=== PATIENT | female | born 1940 | race Caucasian/White ===

== ENCOUNTER 2016-03-23 17:22 | Inpatient (IN) | payer MEDICARE, BC ==
[2016-03-23] MEDS ORDERED: SODIUM CHLORIDE 0.9% 500 ML IV STA (17:47)
[2016-03-23 17:53] LABS: Glucose,Whole Blood 105 mg/dL (75-99)
--- NOTE | 2016-03-23 18:00 | ED ---
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 Patient comes in today because daughter was talking to her on the phone at about 3:30. The patient started complaining that she was having severe pain in her left arm and left groin area. Patient stated that the arms started to shake. Daughter was not able to see her right away when she arrived at the house at patient was unable to control the left arm with any accuracy at all. Patient also has some stuttering in her speech which the daughter states is not normal at all. Patient denied a headache patient denied any visual disturbance but she states that she normally cannot see very good at all. Patient denies any recent fever or chills. Patient states prior to the episode of the pain she was feeling fine. Patient denies any chest pain or palpitations or difficulty breathing. Patient denies any abdominal pain patient denies nausea vomiting diarrhea. Patient still cannot control her left arm or left leg with any kind of fine movement. - Related Data Home Medications Medication Instructions Recorded Confirmed Aspirin EC [Ecotrin] 325 tab PO DAILY 05/13/15 03/23/16 Atorvastatin [Lipitor] 80 mg PO DAILY 05/13/15 03/23/16 Clopidogrel [Plavix] 75 mg PO DAILY 05/13/15 03/23/16 Glimepiride [Amaryl] 4 mg PO BID 05/13/15 03/23/16 Metoprolol Tartrate [Lopressor] 50 mg PO BID 05/13/15 03/23/16 Nitroglycerin Sl Tabs [Nitrostat] 0.4 mg SUBLINGUAL Q5M PRN 05/13/15 03/23/16 Sennosides [Senokot] 8.6 mg PO BID PRN 07/28/15 03/23/16 Docusate [Colace] 100 mg PO BID PRN 03/23/16 03/23/16 Lisinopril 40 mg PO DAILY 03/23/16 03/23/16 metFORMIN HCL [Glucophage] 250 mg PO BID 03/23/16 03/23/16 Previous Rx's Medication Instructions Recorded Furosemide [Lasix] 40 mg PO DAILY #30 tab 07/30/15 Allergies Allergy/AdvReac Type Severity Reaction Status Date / Time adhesive tape Allergy Rash/Hives Verified 03/23/16 17:33 Penicillins Allergy Swelling Verified 03/23/16 17:33 Review of Systems ROS Statement: Those systems with pertinent positive or pertinent negative responses have been documented in the HPI. ROS Other: All systems not noted in ROS Statement are negative. Past Medical History Past Medical History: Coronary Artery Disease (CAD), Cancer, Diabetes Mellitus, Hypertension, Myocardial Infarction (NM), Osteoarthritis (OA) Additional Past Medical History / Comment(s): BACK PAIN; 05/13/15 stent to the Left main and SVG to the Diagonal. 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 Last Myocardial Infarction Date:: 05/13/15 History of Any Multi-Drug Resistant Organisms: None Reported Past Surgical History: Cholecystectomy, Coronary Bypass/CABG, Heart Catheterization With Stent, Hysterectomy, Joint Replacement, Orthopedic Surgery Additional Past Surgical History / Comment(s): 1996 CAGB Past Anesthesia/Blood Transfusion Reactions: No Reported Reaction Date of Last Stent Placement:: 05/13/15 Past Psychological History: No Psychological Hx Reported, Anxiety Smoking Status: Never smoker Past Alcohol Use History: Occasional Past Drug Use History: None Reported - Past Family History Father Family Medical History: Cancer, Coronary Artery Disease (CAD), Myocardial Infarction (NM) Mother Family Medical History: Cancer General Exam - General Exam Comments Initial Comments: GENERAL: Patient is well-developed and well-nourished. Patient is nontoxic and well- hydrated and is in no acute distress. ENT: Neck is soft and supple. No significant lymphadenopathy is noted. Oropharynx is clear. Moist mucous membranes. Neck has full range of motion without eliciting any pain. EYES: The sclera were anicteric and conjunctiva were pink and moist. Extraocular of the right eye are intact and pupils. Eyelids were unremarkable. PULMONARY: Unlabored respirations. Good breath sounds bilaterally. No audible rales rhonchi or wheezing was noted. CARDIOVASCULAR: There is a regular rate and rhythm without any murmurs gallops or rubs. ABDOMEN: Soft and nontender with normal bowel sounds. No palpable organomegaly was noted. There is no palpable pulsatile mass. SKIN: Skin is clear with no lesions or rashes and otherwise unremarkable. NEUROLOGIC: Patient is alert and oriented x3. Cranial nerves II through XII are grossly intact. Motor and sensory are also intact. Patient's speech is stuttering in nature but she is able to complete sentences and you are able to understand her.. Symmetrical smile. Finger to nose testing is significantly off with her left hand and she cannot even attempt to heal to clark with her left leg. MUSCULOSKELETAL: Normal extremities with adequate strength and full range of motion. No lower extremity swelling or edema. No calf tenderness. LYMPHATICS: No significant lymphadenopathy is noted PSYCHIATRIC: Normal psychiatric evaluation. Limitations: no limitations Course Vital Signs 03/23/16 03/23/16 03/23/16 17:29 17:45 18:00 Temperature 97.8 F Pulse Rate 100 95 95 Respiratory 20 20 18 Rate Blood Pressure 218/93 157/69 170/74 O2 Sat by Pulse 100 95 97 Oximetry 03/23/16 03/23/16 18:15 18:30 Temperature Pulse Rate 92 89 Respiratory 16 17 Rate Blood Pressure 136/63 151/64 O2 Sat by Pulse 94 L 94 L Oximetry Medical Decision Making - Medical Decision Making Patient was on the CAT scan and she had a seizure that lasted approximately a minute and a half gave her 2 of Ativan. The seizure stopped shortly after the Ativan was administered EKG shows a sinus tachycardia at 106 bpm WA interval 158 QRSs 106 QT interval 342 QTC is 454. There is no ST segment elevation or depression or T wave abnormalities are noted I spoke with the neuro interventional states he did not think TPA was indicated because the patient's heart vessels were open. CAT scan of the brain did show old infarct but no new infarct or new bleed. Patient remained extremity fatigue after the Ativan and the seizure. - Lab Data Result diagrams: 03/23/16 17:54 03/23/16 17:54 Lab Results 03/23/16 03/23/16 03/23/16 Range/Units 17:45 17:54 17:54 WBC 10.7 H (3.8-10.6) k/uL RBC 5.05 (3.80-5.40) m/uL Hgb 13.1 (11.4-16.0) gm/dL Hct 41.1 (34.0-46.0) % MCV 81.3 (80.0-100.0) fL MCH 25.9 (25.0-35.0) pg MCHC 31.9 (31.0-37.0) g/dL RDW 15.0 (11.5-15.5) % Plt Count 299 (150-450) k/uL Neutrophils % 72 % Lymphocytes % 10 % Monocytes % 10 % Eosinophils % 5 % Basophils % 1 % Neutrophils # 7.7 (1.3-7.7) k/uL Lymphocytes # 1.1 (1.0-4.8) k/uL Monocytes # 1.1 H (0-1.0) k/uL Eosinophils # 0.6 (0-0.7) k/uL Basophils # 0.1 (0-0.2) k/uL Hypochromasia Slight PT (9.0-12.0) sec INR (<1.1) APTT (22.0-30.0) sec Sodium (137-145) mmol/L Potassium (3.5-5.1) mmol/L Chloride (98-107) mmol/L Carbon Dioxide (22-30) mmol/L Anion Gap mmol/L BUN (7-17) mg/dL Creatinine (0.52-1.04) mg/dL Est GFR (MDRD) Af Amer (>60 ml/min/1.73 sqM) Est GFR (MDRD) Non-Af (>60 ml/min/1.73 sqM) Glucose (74-99) mg/dL POC Glucose (mg/dL) 105 H (75-99) mg/dL POC Glu Ui Engineer ID Beatriz Torres Calcium (8.4-10.2) mg/dL Total Bilirubin (0.2-1.3) mg/dL AST (14-36) U/L ALT (9-52) U/L Alkaline Phosphatase (38-126) U/L Total Creatine Kinase 52 (30-135) U/L CK-MB (CK-2) 2.4 (0.0-2.4) ng/mL CK-MB (CK-2) Rel Index 4.6 Troponin I 0.026 (0.000-0.034) ng/mL Total Protein (6.3-8.2) g/dL Albumin (3.5-5.0) g/dL 03/23/16 03/23/16 Range/Units 17:54 17:54 WBC (3.8-10.6) k/uL RBC (3.80-5.40) m/uL Hgb (11.4-16.0) gm/dL Hct (34.0-46.0) % MCV (80.0-100.0) fL MCH (25.0-35.0) pg MCHC (31.0-37.0) g/dL RDW (11.5-15.5) % Plt Count (150-450) k/uL Neutrophils % % Lymphocytes % % Monocytes % % Eosinophils % % Basophils % % Neutrophils # (1.3-7.7) k/uL Lymphocytes # (1.0-4.8) k/uL Monocytes # (0-1.0) k/uL Eosinophils # (0-0.7) k/uL Basophils # (0-0.2) k/uL Hypochromasia PT 10.0 (9.0-12.0) sec INR 1.0 (<1.1) APTT 21.6 L (22.0-30.0) sec Sodium 140 (137-145) mmol/L Potassium 5.4 H (3.5-5.1) mmol/L Chloride 100 (98-107) mmol/L Carbon Dioxide 24 (22-30) mmol/L Anion Gap 16 mmol/L BUN 41 H (7-17) mg/dL Creatinine 1.07 H (0.52-1.04) mg/dL Est GFR (MDRD) Af Amer >60 (>60 ml/min/1.73 sqM) Est GFR (MDRD) Non-Af 50 (>60 ml/min/1.73 sqM) Glucose 100 H (74-99) mg/dL POC Glucose (mg/dL) (75-99) mg/dL POC Glu Ui Engineer ID Calcium 10.1 (8.4-10.2) mg/dL Total Bilirubin 0.9 (0.2-1.3) mg/dL AST 28 (14-36) U/L ALT 48 (9-52) U/L Alkaline Phosphatase 99 (38-126) U/L Total Creatine Kinase (30-135) U/L CK-MB (CK-2) (0.0-2.4) ng/mL CK-MB (CK-2) Rel Index Troponin I (0.000-0.034) ng/mL Total Protein 7.7 (6.3-8.2) g/dL Albumin 4.7 (3.5-5.0) g/dL Disposition Clinical Impression: Cerebrovascular accident, Seizure Disposition: ADMITTED IP TO THIS HOSP Referrals: Jethro Troy DO [Primary Care Provider] - 1-2 days Time of Disposition: 19:04
[2016-03-23 18:16] LABS: ALT 48 U/L (9-52); AST 28 U/L (14-36); Alkaline Phosphatase 99 U/L (38-126); Anion Gap 16 mmol/L; Blood Urea Nitrogen 41 mg/dL (7-17); Calcium 10.1 mg/dL (8.4-10.2); Carbon Dioxide 24 mmol/L (22-30); Chloride 100 mmol/L (98-107); Glucose 100 mg/dL (74-99); Non-African American GFR(MDRD) 50 (>60 ml/min/1.73 sqM); Potassium 5.4 mmol/L (3.5-5.1); Sodium 140 mmol/L (137-145); Total Bilirubin 0.9 mg/dL (0.2-1.3); Total Protein 7.7 g/dL (6.3-8.2)
[2016-03-23 18:20] LABS: Basophils # (A) 0.1 k/uL (0-0.2); Basophils % (A) 1 %; CH 26.2; CHCM 32.4; Eosinophils # (A) 0.6 k/uL (0-0.7); Eosinophils % (A) 5 %; HCT 41.1 % (34.0-46.0); HDW 3.26; HGB 13.1 gm/dL (11.4-16.0); Hypochromasia Slight; Luc # (Auto) 0.24; Luc % (Auto) 2; Lymphocytes # (A) 1.1 k/uL (1.0-4.8); Lymphocytes % (A) 10 %; MCH 25.9 pg (25.0-35.0); MCHC 31.9 g/dL (31.0-37.0); MCV 81.3 fL (80.0-100.0); Mean Platelet Volume 7.6; Monocytes # (A) 1.1 k/uL (0-1.0); Monocytes % (A) 10 %; Neutrophils # (A) 7.7 k/uL (1.3-7.7); Neutrophils % (A) 72 %; RBC 5.05 m/uL (3.80-5.40); WBC 10.7 k/uL (3.8-10.6); WBC (Perox) 11.16
[2016-03-23] MEDS ORDERED: LORazepam 2 MG/ML SYRINGE IV STA (18:35)
--- NOTE | 2016-03-23 18:38 | CT ---
EXAMINATION TYPE: CT brain wo con DATE OF EXAM: 03/23/2016 6:31 PM COMPARISON: May 15, 2015 HISTORY: Confusion, tremors, seizure. CT DLP: 2238.00 mGycm. Automated exposure control for dose reduction was used. FINDINGS: There is no acute intracranial hemorrhage, mass effect, or midline shift identified. There is a large region of right MCA territory encephalomalacia, consistent with the infarction seen on the prior study April 2015. The ventricles and sulci are within normal limits in size. The globes are intact and the visualized sinuses are clear. IMPRESSION: 1. NO ACUTE PROCESS. 2. LARGE ZONE OF ENCEPHALOMALACIA CONSISTENT WITH OLD INFARCTION IN THE VASCULAR TERRITORY OF THE RIG HT MIDDLE CEREBRAL ARTERY.
[2016-03-23 18:40] LABS: Creatine Kinase MB 2.4 ng/mL (0.0-2.4); Troponin I 0.026 ng/mL (0.000-0.034)
[2016-03-23 18:43] LABS: Partial Thromboplastin Time 21.6 sec (22.0-30.0)
--- NOTE | 2016-03-23 18:57 | CT ---
EXAMINATION TYPE: CT ANGIO HEAD NECK DATE OF EXAM: 03/23/2016 6:39 PM HISTORY: Stroke CT DLP: 423 mGycm. Automated exposure control for dose reduction was used. TECHNIQUE: Departmental CTA protocol with multiplanar sequences and multiple 3-D reconstructions. FINDINGS: Imaging was obtained contiguously from the level of the AP window through the vertex of the skull. There are widespread atherosclerotic calcifications throughout all visualized arterial anatomy, with associated tortuosity of the bilateral common carotid arteries and the left internal carotid artery. The bilateral vertebral arteries are patent throughout their cervical course, with the right vertebra l artery being dominant in caliber. The proximal right and left internal carotid arteries show evidence of hemodynamically significant st enoses with prominent bilateral plaque formation. The mid and distal ICA are bilaterally widely paten t. Intracranial carotid and vertebrobasilar arterial systems are widely patent. The venous structures ar e unremarkable. No focal intracranial findings. IMPRESSION: 1. NO DEFINITE ACUTE PROCESS. 2. BILATERAL SIGNIFICANT APPEARING PROXIMAL ICA STENOSES.
[2016-03-23] MEDS ORDERED: SODIUM CHLORIDE 0.9% 500 ML IV ONE (19:31)
--- NOTE | 2016-03-23 20:24 | XR ---
EXAMINATION TYPE: XR chest 2V DATE OF EXAM: 03/23/2016 7:56 PM COMPARISON: July 28, 2015 HISTORY: Altered mental status TECHNIQUE: Frontal and lateral views of the chest are obtained. FINDINGS: There is a coarse reticular pattern of increased density throughout the lung parenchyma, mi ldly obscuring the pulmonary vasculature, consistent with chronic interstitial lung change. Pattern i s similar to the prior study. There is no focal air space opacity, pleural effusion, or pneumothorax seen. The cardiac silhouette size is moderately enlarged, similar to the prior study. The osseous structures are intact. IMPRESSION: NO ACUTE PROCESS.
--- NOTE | 2016-03-23 22:19 | MR ---
EXAMINATION TYPE: MR brain wo/w con DATE OF EXAM: 03/23/2016 10:04 PM COMPARISON: NONE HISTORY: r/o cva pt. weak, unsteady, somewhat confused, very claustrophobic used fast scan protocol CONTRAST: Standard multiplanar, multisequence MRI departmental protocol utilizing 15 mL intravenous MultiHance gadolinium contrast. FINDINGS: There is a large area of increased signal on the T2 images involving the right posterior te mporal lobe extending into the right occipital lobe consistent with an old cortical infarct. There is slight enlargement of the occipital horn right lateral ventricle. There is no mass effect nor midlin e shift. There is no sign of intracranial hemorrhage. The brainstem is intact. There are scattered fo ci of increased signal at the mackay-white matter junction of both cerebral hemispheres that measure up to 5 mm. Total number is less than 10. Corpus callosum appears normal. The contrast images show no p athologic enhancement. Sella turcica appears normal. IMPRESSION: Large old right posterior temporal lobe cortical infarct. No evidence of hemorrhage. Scattered small foci in the white matter both cerebral hemispheres consistent with small vessel ische fidelia. No acute intracranial abnormality seen.
[2016-03-24 01:07] LABS: Glucose,Whole Blood 213 mg/dL (75-99)
[2016-03-24 01:13] VITALS: BMI 34.2
[2016-03-24] MEDS ORDERED: NITROGLYCERIN SL TABS 0.4 MG TAB SUBLINGUAL PRN (01:59)
[2016-03-24] MEDS ORDERED: DOCUSATE 100 MG CAP PO PRN (01:59)
[2016-03-24] MEDS ORDERED: LORazepam 2 MG/ML SYRINGE IV PRN (02:02)
[2016-03-24] MEDS: GLIMEPIRIDE 2 MG TAB PO SCH ×3 (02:58→20:35)
[2016-03-24] MEDS: METOPROLOL TARTRATE 50 MG TAB PO SCH ×3 (02:59→20:35)
[2016-03-24] MEDS: SODIUM CHLORIDE 0.9% 1,000 ML IV SCH (03:00)
[2016-03-24 04:54] LABS: CHCM 32.1; HDW 3.43; HGB 11.4 gm/dL (11.4-16.0); Hypochromasia Slight; MCH 25.8 pg (25.0-35.0); MCHC 31.8 g/dL (31.0-37.0); MCV 81.2 fL (80.0-100.0); Mean Platelet Volume 8.1; Poikilocytosis Slight; RBC 4.43 m/uL (3.80-5.40); RDW 15.2 % (11.5-15.5)
[2016-03-24 05:01] LABS: Anion Gap 11 mmol/L; Blood Urea Nitrogen 35 mg/dL (7-17); Calcium 9.4 mg/dL (8.4-10.2); Carbon Dioxide 24 mmol/L (22-30); Chloride 103 mmol/L (98-107); Glucose 147 mg/dL (74-99); Magnesium 2.1 mg/dL (1.6-2.3); Non-African American GFR(MDRD) 54 (>60 ml/min/1.73 sqM); Phosphorous 3.9 mg/dL (2.5-4.5); Potassium 4.7 mmol/L (3.5-5.1); Sodium 138 mmol/L (137-145)
--- NOTE | 2016-03-24 07:33 | XR ---
EXAMINATION TYPE: XR chest 1V portable DATE OF EXAM: 03/24/2016 6:29 AM COMPARISON: Prior chest x-ray 23 March 2016 HISTORY: Pulmonary edema TECHNIQUE: Single frontal view of the chest is obtained. FINDINGS: Patient is post median sternotomy. Heart is enlarged. Interstitium is increased. No pneumo thorax or pleural effusion. IMPRESSION: Cardiomegaly. There may be a component of pulmonary venous hypertension and interstitial edema, follow-up recommended.
[2016-03-24] MEDS ORDERED: ASPIRIN 325 MG TAB PO SCH (09:00)
[2016-03-24] MEDS ORDERED: SENNOSIDES 8.6 MG TAB PO PRN (09:00)
[2016-03-24] MEDS: LISINOPRIL 20 MG TAB PO SCH (09:05)
[2016-03-24] MEDS: CLOPIDOGREL 75 MG TAB PO SCH (09:06)
[2016-03-24] MEDS: ATORVASTATIN 80 MG TAB PO SCH (09:06)
[2016-03-24] MEDS: FUROSEMIDE 40 MG TAB PO SCH (09:06)
--- NOTE | 2016-03-24 10:34 | US ---
EXAMINATION TYPE: US carotid duplex BILAT DATE OF EXAM: 03/24/2016 8:04 AM COMPARISON: 04/2015, Prior carotid Doppler duplex, carotid angiogram CT 23 March 2016 CLINICAL HIST ORY: Stenosis. CVA EXAM MEASUREMENTS: RIGHT: Peak Systolic Velocity (PSV) cm/sec ----- Right CCA: 83.4 ----- Right ICA: 118.1 ----- Right ECA: 201.6 ICA/CCA ratio: 1.4 RIGHT: End Diastole cm/sec ----- Right CCA: 18.0 ----- Right ICA: 17.6 ----- Right ECA: 24.2 LEFT: Peak Systolic Velocity (PSV) cm/sec ----- Left CCA: 60.5 ----- Left ICA: 282.2 ----- Left ECA: 503.9 ICA/CCA ratio: 4.7 LEFT: End Diastole cm/sec ----- Left CCA: 16.0 ----- Left ICA: 36.5 ----- Left ECA: 74.4 VERTEBRALS (direction of flow): Right Vertebral: Antegrade Left Vertebral: Antegrade TECHNOLOGIST IMPRESSION: ICU patient with heavy breathing and pulsatile vessels made doppler wavefo shanna a challenge to obtain Heterogenous plaque seen with significant stenosis on left proximal ICA, also increased velocities seen within left ECA. Grayscale, color Doppler, spectral Doppler imaging performed of the carotid arteries. There is extens mildred atheromatous plaque within the carotid bulbs, proximal internal carotid arteries. Waveform analys is within the proximal internal carotid artery and the left shows loss of the systolic window, spectr al broadening. IMPRESSION: Hemodynamic significant stenosis is again noted as described on previous carotid Doppler duplex, stenosis correlates to approximately 70% diameter stenosis or greater by Doppler criteria, a nd indirect measurement of carotid stenosis. Criteria for Assigning % of Stenosis / Diameter reduction (Estimation based on the indirect measurements of the internal carotid artery velocities (ICA PSV). 1. Normal (no stenosis)=ICA PSV < 125 cm/s: ratio < 2.0: ICA EDV<40 cm/s. 2. Less than 50% stenosis=ICA PSV < 125 cm/s: ratio < 2.0: ICA EDV<40 cm/s. 3. 50 to 69% stenosis=ICA PSV of 125 to 230 cm/s: ration 2.0 ? 4.0: ICA EDV 40-100 cm/s. 4. Greater than 70% stenosis to near occlusion= ICA PSV > 230 cm/s: ratio > 4.0: ICA EDV > 100 cm/s. 5. Near occlusion= ICA PSV velocities may be low or undetectable: variable ratio and ICA EDV. 6. Total occlusion=unable to detect flow.
[2016-03-24 11:26] LABS: Hemoglobin A1C 7.4 % (4.2-6.1)
[2016-03-24 13:17] LABS: Glucose,Whole Blood 168 mg/dL (75-99)
[2016-03-24] MEDS: INSULIN LISPRO (humaLOG) 300 UNIT/3 ML VIAL SQ SCH ×3 (13:37→20:35)
--- NOTE | 2016-03-24 15:30 | P.HPIM ---
History of Present Illness H&P Date: 03/24/16 Chief Complaint: Neuro symptoms Patient is a 75-year-old white female, patient of Dr. 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 Patient presented to the emergency department with complaints of severe pain in left arm and left groin area associated with tremors and stuttering and speech. Apparently patient was on the phone with her daughter at approximately 3:30 PM when the symptoms started. No history of headache, visual disturbance, recent illness, fever or chills. No history of chest pain or shortness of breath. No history of abdominal pain, nausea, vomiting, or diarrhea. Patient by all undergo an a computed tomography scan in the emergency room had witnessed seizures last approximately a minute on a half and was given Ativan that stopped the seizure. Admission EKG with evidence of sinus tachycardia with no ST segment elevation, depression, or T-wave abnormality. Computed tomography scan of brain with evidence of large old right posterior temporal lobe cortical infarct without evidence of hemorrhage; scattered small foci in the white matter both cerebral hemispheres consistent with small vessel ischemia with no acute intracranial abnormality seen. CT and your head and neck with no definite acute process; bilateral significant appearing proximal ICA stenosis. The emergency physician did speak with the interventional neurologist who didn't feel TPA was indicated secondary to heart vessels being open. Repeat carotid ultrasound with evidence again of significant stenosis. Patient was admitted to intensive care unit as an overflow patient with consult requested from neurology service. Upon examination, patient is sitting up in bed eating breakfast. Patient denies headache, new visual changes, dysphagia, tinnitus, chills, nausea, vomiting, shortness of breath, chest pain, abdominal pain, diarrhea, constipation. Denies any new tremors overnight. Patient does report bilateral lower ankle swelling 1 week. Afebrile. WBC 11. Hemodynamically stable. Past Medical History Past Medical History: Coronary Artery Disease (CAD), Cancer, Diabetes Mellitus, Hypertension, Myocardial Infarction (MS), Osteoarthritis (OA) Additional Past Medical History / Comment(s): BACK PAIN; 05/13/15 stent to the Left main and SVG to the Diagonal. 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. Uterine Cancer. Last Myocardial Infarction Date:: 05/13/15 History of Any Multi-Drug Resistant Organisms: None Reported Past Surgical History: Cholecystectomy, Coronary Bypass/CABG, Heart Catheterization With Stent, Hysterectomy, Joint Replacement, Orthopedic Surgery Additional Past Surgical History / Comment(s): 1996 CABG. Right Knee replacement 1954 Past Anesthesia/Blood Transfusion Reactions: No Reported Reaction Date of Last Stent Placement:: 05/13/15 Past Psychological History: Anxiety Smoking Status: Never smoker Past Alcohol Use History: Occasional Past Drug Use History: None Reported - Past Family History Father Family Medical History: Cancer, Coronary Artery Disease (CAD), Diabetes Mellitus , Myocardial Infarction (MS) Additional Family Medical History / Comment(s): pancreas cancer Mother Family Medical History: Cancer Additional Family Medical History / Comment(s): Uterine cancer Medications and Allergies Home Medications Medication Instructions Recorded Confirmed Type Aspirin EC [Ecotrin] 325 tab PO DAILY 05/13/15 03/23/16 History Atorvastatin [Lipitor] 80 mg PO DAILY 05/13/15 03/23/16 History Clopidogrel [Plavix] 75 mg PO DAILY 05/13/15 03/23/16 History Glimepiride [Amaryl] 4 mg PO BID 05/13/15 03/23/16 History Metoprolol Tartrate [Lopressor] 50 mg PO BID 05/13/15 03/23/16 History Nitroglycerin Sl Tabs [Nitrostat] 0.4 mg SUBLINGUAL Q5M PRN 05/13/15 03/23/16 History Sennosides [Senokot] 8.6 mg PO BID PRN 07/28/15 03/23/16 History Docusate [Colace] 100 mg PO BID PRN 03/23/16 03/23/16 History Lisinopril 40 mg PO DAILY 03/23/16 03/23/16 History metFORMIN HCL [Glucophage] 250 mg PO BID 03/23/16 03/23/16 History Allergies Allergy/AdvReac Type Severity Reaction Status Date / Time adhesive tape Allergy Rash/Hives Verified 03/23/16 17:33 Penicillins Allergy Swelling Verified 03/23/16 17:33 Physical Exam Vitals: Vital Signs Temp Pulse Pulse Resp BP BP Pulse Ox 03/24/16 06:20 71 19 03/24/16 06:10 69 17 122/58 03/24/16 06:00 72 18 122/58 03/24/16 05:50 70 22 122/58 03/24/16 05:40 74 14 122/58 03/24/16 05:30 73 22 122/58 03/24/16 05:20 77 24 122/58 03/24/16 05:10 73 14 122/58 03/24/16 05:00 69 17 122/58 03/24/16 04:50 68 17 122/58 03/24/16 04:40 71 13 122/58 03/24/16 04:30 69 25 H 122/58 94 L 03/24/16 04:20 85 22 122/58 03/24/16 04:10 70 23 154/63 03/24/16 04:00 98.4 F 66 82 18 154/63 03/24/16 03:50 67 20 154/63 03/24/16 03:40 70 19 154/63 03/24/16 03:30 66 22 154/63 03/24/16 03:20 74 21 154/63 03/24/16 03:10 140 H 03/24/16 03:00 80 20 03/24/16 02:50 79 19 03/24/16 02:40 75 18 175/71 03/24/16 02:30 76 18 175/71 03/24/16 02:20 76 17 175/71 03/24/16 02:10 74 18 175/71 03/24/16 02:00 78 19 175/71 03/24/16 01:50 83 16 175/71 03/24/16 01:40 82 16 175/71 03/24/16 01:30 87 14 175/71 97 03/24/16 01:20 85 21 175/71 03/24/16 01:10 87 21 175/71 03/24/16 01:00 97.7 F 85 27 H 175/71 03/24/16 00:55 82 14 03/24/16 00:50 94 31 H 175/71 96 03/23/16 23:37 83 20 168/79 97 03/23/16 21:42 70 16 180/76 96 03/23/16 20:17 97.7 F 82 23 175/71 96 Intake and Output 03/23/16 03/24/16 03/24/16 22:59 06:59 14:59 Other: Voiding Method Toilet # Voids 1 # Bowel Movements 1 Weight 79.5 kg 79.5 kg GENERAL: Pt awake and alert, well-appearing, well-nourished, and in no acute distress. HEAD: Atraumatic, normocephalic. EYES: Pupils round and equal. Sclera anicteric, conjunctiva are normal. Patient blind right eye. Deaf right ear. ENT: Moist mucous membranes. NECK:Supple without lymphadenopathy or JVD. LUNGS: Breath sounds clear and equal bilaterally. No wheezes, rales, or rhonchi. HEART: Heart S1, S2, no S3 or S4. Regular rate and rhythm. No murmurs, rubs or gallops. ABDOMEN: Soft, obese, nontender, nondistended, active bowel sounds. No guarding , no rebound. No masses or organomegaly appreciated. EXTREMITIES: 2+ peripheral pulses. No edema, clubbing or cyanosis. No calf tenderness. NEUROLOGICAL: Pt oriented x 3. Cranial nerves II through XII grossly intact. Strength and sensation grossly intact. PSYCH: Normal mood, normal affect. SKIN: Warm, dry, intact. Normal turgor. No rashes or lesions. Results CBC & Chem 7: 03/24/16 04:40 03/24/16 04:40 Labs: Abnormal Lab Results - Last 24 Hours (Table) 03/24/16 03/24/16 03/24/16 Range/Units 00:46 04:40 04:40 WBC 11.0 H (3.8-10.6) k/uL BUN 35 H (7-17) mg/dL Glucose 147 H (74-99) mg/dL POC Glucose (mg/dL) 213 H (75-99) mg/dL Hemoglobin A1c (4.2-6.1) % 03/24/16 03/24/16 Range/Units 04:40 13:15 WBC (3.8-10.6) k/uL BUN (7-17) mg/dL Glucose (74-99) mg/dL POC Glucose (mg/dL) 168 H (75-99) mg/dL Hemoglobin A1c 7.4 H (4.2-6.1) % Chest x-ray: report reviewed (Cardiomegaly. Possible component of pulmonary venous hypertension and interstitial edema.) CT Scan - head: report reviewed Thrombosis Risk Factor Assmnt - DVT/VTE Prophylaxis DVT/VTE Prophylaxis: Mechanical Prophylaxis ordered - Choose All That Apply Each Factor Represents 1 point: Obesity (BMI >25) Each Risk Factor Represents 2 Points: Age 61-74 years Thrombosis Risk Factor Assessment Total Risk Factor Score: 3 Thrombosis Risk Factor Assessment Level: Moderate Risk Assessment and Plan Plan: Impression and plan: 1. New onset left-sided weakness and tremors with slurred speech, present on admission, suspect secondary to new onset seizure, possible TIA. Neurology consult in place, recommendations pending. 2. Leukocytosis, present on admission, suspect reactive. WBC 11. 3. Hyperkalemia, present on admission, resolved. 4. History of subendocardial ischemia status post angioplasty with stent placement to the mid left main and SVG to the diagonal branch in April 2015. 5. History of right middle cerebral ischemic stroke in April,. 6. History of left carotid high-grade stenosis and right external high-grade stenosis. 7. Chronic renal failure, stage III, present on admission, suspect secondary to chronic kidney disease and hypertensive vascular disease. 8. Type 2 diabetes mellitus. Hemoglobin A1c 7.4. 9. Dyslipidemia. 10. Hypertension. 11. Lumbar spinal stenosis. 12. Chronic right shoulder pain suspect due to osteoarthritis. 13. Coronary artery disease. 14. History of chronic constipation. 14. Chronic systolic heart failure. Plan: 1. Neurology consult has been requested, recommendations pending. Continue cardiac monitoring, advanced neurological assessments per protocol, seizure precautions. EEG pending. Consult to occupational and physical therapy. 2. Home medications have been reviewed and resumed as appropriate. At this time hold Glucophage secondary to IV contrast given. 3. Continue DVT and GI prophylaxis. 4. Repeat CBC and BMP in a.m. The above impression and plan have been discussed and directed by Dr. Troy. Trina SANDOVAL acting as scribe for Dr. Troy.
[2016-03-24 17:56] LABS: Glucose,Whole Blood 123 mg/dL (75-99)
[2016-03-24] MEDS ORDERED: ACETAMINOPHEN TAB 325 MG TAB PO PRN ×2 (20:31→22:41)
[2016-03-24 20:36] LABS: Glucose,Whole Blood 226 mg/dL (75-99)
--- NOTE | 2016-03-24 22:20 | P.CNNES ---
History of Present Illness Consult date: 03/24/16 Requesting physician: Ishmael Ya Reason for Consult: CVA / Seizure Chief complaint: CVA / Seizure History of Present Illness: Patient is a 75-year-old female presented to the emergency department with a past medical history significant for hypertension, diabetes, blindness in one eye. Patient is being consulted on by neurology for CVA/seizure. Patient stated that she was having severe pain in her left arm and left groin area on March 23, 2016 at 1530 hrs. Patient stated her arm started shaking. Patient was unable to control her left arm, had "stuttered" speech and was transported to the ED. She denies any headache, visual disturbance but does have known visual abnormalities with blindness in her right eye and cataract in her left. Patient denies any recent fever or chills. Patient states prior to the onset she was feeling fine. She denies chest pain, palpitations or difficulty breathing. Patient denies any abdominal pain, nausea, vomiting diarrhea. On contact, the patient was sitting in a bedside chair with family present. Patient was under full control of all 4 extremities. She did not have any visualized seizure activity noted. Review of Systems I'll systems not referenced in the HPI as noted above are negative. Constitutional: Denies chills, Denies fever Past Medical History Past Medical History: Coronary Artery Disease (CAD), Cancer, Diabetes Mellitus, Hypertension, Myocardial Infarction (MT), Osteoarthritis (OA) Additional Past Medical History / Comment(s): BACK PAIN; 05/13/15 stent to the Left main and SVG to the Diagonal. 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. Uterine Cancer. Last Myocardial Infarction Date:: 05/13/15 History of Any Multi-Drug Resistant Organisms: None Reported Past Surgical History: Cholecystectomy, Coronary Bypass/CABG, Heart Catheterization With Stent, Hysterectomy, Joint Replacement, Orthopedic Surgery Additional Past Surgical History / Comment(s): 1996 CABG. Right Knee replacement 1954 Past Anesthesia/Blood Transfusion Reactions: No Reported Reaction Date of Last Stent Placement:: 05/13/15 Past Psychological History: Anxiety Smoking Status: Never smoker Past Alcohol Use History: Occasional Past Drug Use History: None Reported - Past Family History Father Family Medical History: Cancer, Coronary Artery Disease (CAD), Diabetes Mellitus , Myocardial Infarction (MT) Additional Family Medical History / Comment(s): pancreas cancer Mother Family Medical History: Cancer Additional Family Medical History / Comment(s): Uterine cancer Medications and Allergies Home Medications Medication Instructions Recorded Confirmed Type Aspirin EC [Ecotrin] 325 tab PO DAILY 05/13/15 03/23/16 History Atorvastatin [Lipitor] 80 mg PO DAILY 05/13/15 03/23/16 History Clopidogrel [Plavix] 75 mg PO DAILY 05/13/15 03/23/16 History Glimepiride [Amaryl] 4 mg PO BID 05/13/15 03/23/16 History Metoprolol Tartrate [Lopressor] 50 mg PO BID 05/13/15 03/23/16 History Nitroglycerin Sl Tabs [Nitrostat] 0.4 mg SUBLINGUAL Q5M PRN 05/13/15 03/23/16 History Sennosides [Senokot] 8.6 mg PO BID PRN 07/28/15 03/23/16 History Docusate [Colace] 100 mg PO BID PRN 03/23/16 03/23/16 History Lisinopril 40 mg PO DAILY 03/23/16 03/23/16 History metFORMIN HCL [Glucophage] 250 mg PO BID 03/23/16 03/23/16 History Allergies Allergy/AdvReac Type Severity Reaction Status Date / Time adhesive tape Allergy Rash/Hives Verified 03/23/16 17:33 Penicillins Allergy Swelling Verified 03/23/16 17:33 Physical Examination - Vital Signs Vital Signs: Vital Signs Temp Pulse Pulse Resp BP Pulse Ox 03/24/16 20:00 98.7 F 83 21 179/75 95 03/24/16 16:00 98.2 F 75 22 149/68 96 03/24/16 14:00 98.4 F 68 24 163/83 96 03/24/16 10:00 66 15 125/68 98 03/24/16 08:00 98.1 F 80 16 114/61 96 03/24/16 06:20 71 19 03/24/16 06:10 69 17 122/58 03/24/16 06:00 72 18 122/58 03/24/16 05:50 70 22 122/58 03/24/16 05:40 74 14 122/58 03/24/16 05:30 73 22 122/58 03/24/16 05:20 77 24 122/58 03/24/16 05:10 73 14 122/58 03/24/16 05:00 69 17 122/58 03/24/16 04:50 68 17 122/58 03/24/16 04:40 71 13 122/58 03/24/16 04:30 69 25 H 122/58 94 L 03/24/16 04:20 85 22 122/58 03/24/16 04:10 70 23 154/63 03/24/16 04:00 98.4 F 66 82 18 154/63 03/24/16 03:50 67 20 154/63 03/24/16 03:40 70 19 154/63 03/24/16 03:30 66 22 154/63 03/24/16 03:20 74 21 154/63 03/24/16 03:10 140 H 03/24/16 03:00 80 20 03/24/16 02:50 79 19 03/24/16 02:40 75 18 175/71 03/24/16 02:30 76 18 175/71 03/24/16 02:20 76 17 175/71 03/24/16 02:10 74 18 175/71 03/24/16 02:00 78 19 175/71 03/24/16 01:50 83 16 175/71 03/24/16 01:40 82 16 175/71 03/24/16 01:30 87 14 175/71 97 03/24/16 01:20 85 21 175/71 03/24/16 01:10 87 21 175/71 03/24/16 01:00 97.7 F 85 27 H 175/71 03/24/16 00:55 82 14 03/24/16 00:50 94 31 H 175/71 96 03/23/16 23:37 83 20 168/79 97 03/23/16 21:42 70 16 180/76 96 Intake and Output 03/24/16 03/24/16 03/24/16 06:59 14:59 22:59 Other: Voiding Method Toilet Toilet Toilet # Voids 1 3 # Bowel Movements 1 Weight 79.5 kg - Constitutional General appearance: cooperative, no acute distress - EENT EENT: ATNC - Respiratory no increased work of breathing. - Cardiovascular regular rate and rhythm - Gastrointestinal nontender, nondistended - Integumentary Integumentary: normal - Neurologic patient is alert and oriented 3, cranial nerves II through XII grossly intact. Motor and sensory are also intact. Patient's speech is stuttering in nature but able to complete sentences and able to be understood. Facial features are symmetrical. No unilateralizing weakness, no seizure activity noted on exam. Patient is legally blind in the right eye and has a significant cataract in the left eye. [employer] strengths are equal and upper extremities bilaterally at 4 out of 5. Lower extremity muscle strengths are equal bilaterally at 4 out of 5. D.eep tendon reflexes are equal and symmetrical bilaterally UE and LE - Musculoskeletal she comments noted neurological section above. - Psychiatric Psychiatric: mood/affect appropriate, cooperative Results - Laboratory Findings CBC and BMP: 03/24/16 04:40 03/24/16 04:40 Abnormal Lab Findings: Abnormal Labs 03/24/16 03/24/16 03/24/16 00:46 04:40 04:40 WBC 11.0 H BUN 35 H Glucose 147 H POC Glucose (mg/dL) 213 H Hemoglobin A1c 03/24/16 03/24/16 03/24/16 04:40 13:15 17:52 WBC BUN Glucose POC Glucose (mg/dL) 168 H 123 H Hemoglobin A1c 7.4 H 03/24/16 20:34 WBC BUN Glucose POC Glucose (mg/dL) 226 H Hemoglobin A1c - Diagnostic Findings Additional findings: CT brain without contrast: No acute process. Large zone of encephalomalacia consistent with old infarct in the vascular territory of the right middle cerebral artery. MRI of the brain with and without contrast: Large old right posterior temporal lobe cortical infarct. No evidence of hemorrhage. Scattered small foci in the white matter both cerebral hemispheres consistent with small vessel ischemia. No acute intracranial abnormality seen. CT angiogram head and neck: No definite acute process. Bilateral significant appearing proximal ICA stenoses. widespread atherosclerotic calcifications throughout all visualized arterial anatomy, with associated tortuosity of the bilateral common carotid arteries and the left internal carotid artery. The proximal right and left internal carotid artery show significant evidence of hemodynamically significant stenoses with prominent bilateral plaque formation. The mid and distal ICA are bilaterally widely patent. Carotid Doppler exam: Hemodynamically significant stenosis is again noted as described in previous carotid Doppler duplex, stenosis correlates to proximally 70% diameter stenoses or greater by Doppler criteria and indirect measurement of carotid stenoses. Assessment and Plan (1) Seizure Narrative/Plan: Patient does appear to have suffered a new onset seizure. However the patient has no prior history of seizure-like activity. The patient has not had any new seizure noted since being managed in the ED. On physical exam the patient had no seizure activity. The patient and nursing staff report no new seizure as well. Patient will continue use of Ativan 2 mg every 15 minutes IV for seizure when necessary. If new seizures should occur, manage with ativan and contact our service for further medication recommendations. I am going to order an EEG to further assess the patient's seizure etiology. Ordered: EEG Continued: Ativan as noted above Neuro checks Q4hrs Status: neurology will continue to follow provide further treatment updates as warranted and once testing results received. Status: Acute (2) TIA (transient ischemic attack) Narrative/Plan: patient does have significant history of stenoses and encephalomalacia as noted with extensive imaging workup. It does appear that the patient did suffer a new TIA prior to admission. Although her symptoms have largely resolved with regard to her left-sided deficits, she does have ongoing significant stenoses noted and will be referred for a vascular consult for further evaluation of her occlusions. Continue neuro checks every 4 hours. Continue medications as follows : 81mg aspirin, Plavix 75 mg QDAY, Lipitor 80 mg QDAY. I am also going to request a fasting lipid panel as well. Recommendation: Vascular Consult Status: Neurology will continue to follow with further updates as needed or warranted. Please feel free to contact our office with any questions. I discussed the patient's pertinent medical information with Dr. Torres. He agrees with the plan of care as implemented. Status: Acute
[2016-03-24] MEDS: TEMAZEPAM 7.5 MG CAP PO PRN (23:00)
[2016-03-25] MEDS: SODIUM CHLORIDE 0.9% 1,000 ML IV SCH (03:16)
[2016-03-25 05:05] LABS: Basophils # (A) 0.1 k/uL (0-0.2); Basophils % (A) 1 %; CHCM 32.3; Eosinophils # (A) 0.5 k/uL (0-0.7); Eosinophils % (A) 5 %; HCT 37.6 % (34.0-46.0); HGB 11.6 gm/dL (11.4-16.0); Hypochromasia Slight; Luc # (Auto) 0.15; Luc % (Auto) 2; Lymphocytes # (A) 1.4 k/uL (1.0-4.8); Lymphocytes % (A) 14 %; MCHC 30.9 g/dL (31.0-37.0); MCV 80.8 fL (80.0-100.0); Mean Platelet Volume 7.3; Monocytes # (A) 0.8 k/uL (0-1.0); Monocytes % (A) 8 %; Neutrophils # (A) 7.1 k/uL (1.3-7.7); Neutrophils % (A) 71 %; RBC 4.65 m/uL (3.80-5.40); WBC 9.9 k/uL (3.8-10.6); WBC (Perox) 10.32
[2016-03-25 05:19] LABS: Calcium 9.4 mg/dL (8.4-10.2); Potassium 4.4 mmol/L (3.5-5.1)
[2016-03-25 05:41] LABS: Cholesterol 110 mg/dL (<200); HDL Cholesterol 36 mg/dL (40-60); Triglycerides 117 mg/dL (<150)
[2016-03-25 07:38] LABS: Glucose,Whole Blood 135 mg/dL (75-99)
[2016-03-25] MEDS: CLOPIDOGREL 75 MG TAB PO SCH (09:27)
[2016-03-25] MEDS: FUROSEMIDE 40 MG TAB PO SCH (09:27)
[2016-03-25] MEDS: LISINOPRIL 20 MG TAB PO SCH (09:27)
[2016-03-25] MEDS: ATORVASTATIN 80 MG TAB PO SCH (09:28)
[2016-03-25] MEDS: ASPIRIN 81 MG CHEW PO SCH (09:28)
[2016-03-25] MEDS: GLIMEPIRIDE 2 MG TAB PO SCH ×2 (09:28→20:34)
[2016-03-25] MEDS: METOPROLOL TARTRATE 50 MG TAB PO SCH ×2 (09:28→20:36)
[2016-03-25] MEDS: INSULIN LISPRO (humaLOG) 300 UNIT/3 ML VIAL SQ SCH ×4 (09:43→20:35)
[2016-03-25 12:56] LABS: Glucose,Whole Blood 179 mg/dL (75-99)
[2016-03-25] MEDS ORDERED: ALPRAZolam 0.25 MG TAB PO PRN (15:47)
[2016-03-25 17:14] LABS: Glucose,Whole Blood 127 mg/dL (75-99)
--- NOTE | 2016-03-25 17:20 | PN ---
DATE OF SERVICE: 03/25/2016 I am covering for Dr. Troy. HISTORY OF PRESENT ILLNESS: This 75-year-old woman with a past medical history of multiple medical problems being followed by Dr. Troy in the outpatient setting was admitted new onset left-sided weakness, tremors and slurred speech suggestive of possible TIA or new onset seizures. The patient was seen by Neurology by Dr. Torres's group and the possibility of seizure is considered more likely at this time. The patient also was found to have carotid stenosis, about 70%. The patient has seen Dr. Borges previously. PAST MEDICAL HISTORY: Reviewed. REVIEW OF SYSTEMS: CARDIOVASCULAR: No angina, palpitations. RESPIRATORY: As mentioned earlier. GI: As mentioned earlier. : No dysuria. NERVOUS: As mentioned earlier. Current medications are reviewed and include: 1. Tylenol 650 q.4 p.r.n. 2. Aspirin 81 mg daily. 3. Lipitor 80 mg q.h.s. 4. Plavix 75 mg daily. 5. Colace 100 mg b.i.d. p.r.n. 6. Lasix 40 mg daily. 7. Amaryl 4 mg b.i.d. 8. Humalog a.c. and at bedtime. 9. Zestril 40 mg daily. 10. Ativan 2 mg p.r.n. 11. Lopressor 50 mg p.o. daily. 12. Nitrostat. 13. Senokot 8.6 b.i.d. 14. Restoril 7.5 q.h.s. p.r.n. PHYSICAL EXAM: The patient is alert and oriented x3. Pulse 58, blood pressure 147/84, respirations 20, temperature 97.7, pulse ox 90% on room air. HEENT: Conjunctivae normal. Oral mucosa moist. Neck is no jugular venous distension. No carotid bruits. No lymph node enlargement. CARDIOVASCULAR: S1 and S2 muffled. No S3. No S4. RESPIRATORY: Breath sounds diminished in the bases. A few scattered rhonchi. No crackles. Abdomen is soft, nontender. LEGS: No edema. NERVOUS SYSTEM: Higher functions as mentioned earlier. Eye movements are limited with diminished vision. Otherwise, moves all 4 limbs. No focal motor deficits. LYMPHATIC: No lymph nodes palpable in neck, axillae or groin. SKIN: No ulcer, rash or bleeding. Labs are CBC within normal limits. Creatinine is 1.1. ASSESSMENT: 1. Weakness of the left side, possible acute transient ischemic attack involving the right hemisphere/ seizures. 2. Left-sided carotid stenosis, 70%. 3. Increased creatinine with chronic kidney disease stage 3 possibly. 4. Increased WBC, present on admission. 5. History of subendocardial ischemia, status post angioplasty and stent placement to the left main and saphenous vein graft to diagonal branch in April 2015. 6. History of right carotid suregry 2015. 7. Left carotid high-grade stenosis and right external high-grade stenosis history. 8. Diabetes mellitus type 2. 9. Dyslipidemia. 10. Hypertension. 11. Degenerative joint disease and lumbar spine stenosis. 12. Chronic right shoulder pain suspected to degenerative joint disease. 13. History of coronary artery disease. 14. History of chronic constipation. 15. History of congestive heart failure with chronic systolic dysfunction. 16. NO CODE, NO CARDIOPULMONARY RESUSCITATION, NO VENTILATOR. RECOMMENDATIONS AND DISCUSSION: In this 75-year-old woman who presented with multiple complex medical issues, will monitor the patient closely. Continue with the current medications and symptomatic treatment. Recommend to continue with antiplatelet agents, DVT prophylaxis, resume the home medications. Otherwise, neurology consultation. I would also recommend a vascular consultation. Home medications were continued and further recommendations to follow. [id number]
[2016-03-25 20:35] LABS: Glucose,Whole Blood 291 mg/dL (75-99)
[2016-03-25] MEDS: HEPARIN SODIUM,PORCINE 5,000 UNIT/ML 1 ML VIAL SQ SCH (20:35)
[2016-03-25] MEDS: MELATONIN 3 MG TABLET PO SCH (20:35)
[2016-03-25] MEDS: metFORMIN 500 MG TAB PO SCH (20:36)
[2016-03-25 21:12] VITALS: RESP 18
[2016-03-25] MEDS: TEMAZEPAM 7.5 MG CAP PO PRN (22:28)
--- NOTE | 2016-03-26 00:22 | P.PN ---
Subjective Principal diagnosis: Interval update: The patient is 75-year-old female being followed by neurology CVA/seizure. Patient was having severe pain in her left arm and left groin area on February at 1530 hrs. Patient stated her arm started shaking. Patient was unable to control her left arm and had stuttered speech. She was transported to the ED. She denied any headache, visual disturbance but does have known visual abnormalities with blindness in the right eye and cataract in her left. Patient denies any recent fever or chills, prior to onset she was feeling fine. She denied chest pain, palpitations or difficulty breathing. Patient denied any abdominal pain, nausea, vomiting or diarrhea. patient does have documented MRI of the brain changes which include chronic small vessel ischemia, right large old temporal lobe infarct. CT of the brain notes no acute process, encephalomalacia old infarct right MCA area of April 2015. CT angiogram noted no acute process, bilateral significant proximal ICA stenosis noted. Carotid Doppler noted 70% stenosis or greater. EEG is still pending. Patient is currently taking 325 mg aspirin daily, Plavix 75 mg daily and Lipitor 80 mg daily. Homocystine level returned normal. Patient's lipid panel returned as follows: Cholesterol 110 LDL 51, HDL 36, triglycerides 117. On contact today, the patient was seated in bedside chair with family present. She is alert and oriented 3. Patient states she returned to baseline. She has not had any seizure-like activity per the patient or nursing other than her noted seizure-like activity noted in the ED on arrival. Objective - Vital Signs Vital signs: Vital Signs Temp 97.9 F 03/25/16 20:44 Pulse 66 03/25/16 20:44 Resp 18 03/25/16 20:44 BP 174/66 03/25/16 20:44 Pulse Ox 97 03/25/16 16:00 Intake & Output 03/25/16 03/25/16 03/26/16 06:59 18:59 06:59 Intake Total 600 220 Balance 600 220 Weight 77.8 kg Intake: Oral 600 220 Other: Voiding Method Toilet Toilet Toilet # Voids 3 2 1 # Bowel Movements 1 - Exam Constitutional: AOx3, cooperative Head: NC/AT Throat: Supple, no masses Respiratory: No increased work of breathing Cardiac: Regular rate and Rhythm GI: non tender, non distended Musculoskeletal: Strengths are equal bilaterally 4/5, Lower extremity strengths are equal bilaterally at 4/5. Neurological: CN II-XII in tact, patient was AOx3, speech and language are normal, no unilateralizing weakness, no seizure activity note on physical exam. Sensation was normal. deep tendon reflexes are equal and symmetrical. Integementary: no rash, no erythema Psychiatric: mood and affect appropriate - Labs CBC & Chem 7: 03/25/16 04:27 03/25/16 04:27 Labs: Abnormal Lab Results - Last 24 Hours (Table) 03/25/16 03/25/16 03/25/16 Range/Units 04:27 04:27 04:27 MCHC 30.9 L (31.0-37.0) g/dL BUN 36 H (7-17) mg/dL Creatinine 1.10 H (0.52-1.04) mg/dL Glucose 126 H (74-99) mg/dL POC Glucose (mg/dL) (75-99) mg/dL HDL Cholesterol 36 L (40-60) mg/dL 03/25/16 03/25/16 03/25/16 Range/Units 07:26 12:52 17:11 MCHC (31.0-37.0) g/dL BUN (7-17) mg/dL Creatinine (0.52-1.04) mg/dL Glucose (74-99) mg/dL POC Glucose (mg/dL) 135 H 179 H 127 H (75-99) mg/dL HDL Cholesterol (40-60) mg/dL 03/25/16 Range/Units 20:33 MCHC (31.0-37.0) g/dL BUN (7-17) mg/dL Creatinine (0.52-1.04) mg/dL Glucose (74-99) mg/dL POC Glucose (mg/dL) 291 H (75-99) mg/dL HDL Cholesterol (40-60) mg/dL Assessment and Plan (1) Seizure Narrative/Plan: Patient does appear to have suffered a new onset seizure. However the patient has no prior history of seizure-like activity. The patient has not had any new seizure noted since being managed in the ED. On physical exam the patient had no seizure activity. The patient and nursing staff report no new seizure as well. Patient will continue use of Ativan 2 mg every 15 minutes IV for seizure when necessary. If new seizures should occur, manage with ativan and contact our service for further medication recommendations. EEG; Pending Continued: Ativan as noted above Neuro checks Qshift Status: neurology will continue to follow provide further treatment updates as warranted and once testing results received. Status: Acute (2) TIA (transient ischemic attack) Narrative/Plan: patient does have significant history of stenoses and encephalomalacia as noted with extensive imaging workup. It does appear that the patient did suffer a new TIA prior to admission. Vascular surgery did meet with the patient. The results of that consultation aren't available at this time. EEG results are still pending. Continue neuro checks every shift. Continue medications as follows: 81mg aspirin , Plavix 75 mg QDAY. Fasting lipid panel returned within normal limits with the exception of low HDL. Lipitor will be discontinued. Neurology will continue to follow. I discussed the patient's pertinent medical information with Dr. Torres. He agrees with the plan of care as implemented. Status: Acute
[2016-03-26] MEDS: SODIUM CHLORIDE 0.9% 1,000 ML IV SCH (03:30)
[2016-03-26 06:22] LABS: CH 26.2; CHCM 31.7; HCT 36.8 % (34.0-46.0); HDW 3.14; HGB 11.4 gm/dL (11.4-16.0); Hypochromasia Slight; MCH 25.7 pg (25.0-35.0); MCV 82.7 fL (80.0-100.0); Mean Platelet Volume 7.7; RBC 4.44 m/uL (3.80-5.40); RDW 15.1 % (11.5-15.5); WBC 9.1 k/uL (3.8-10.6)
[2016-03-26 06:22] LABS: Glucose,Whole Blood 106 mg/dL (75-99)
[2016-03-26 06:27] LABS: Calcium 9.8 mg/dL (8.4-10.2)
[2016-03-26] MEDS: INSULIN LISPRO (humaLOG) 300 UNIT/3 ML VIAL SQ SCH ×4 (09:01→23:33)
[2016-03-26] MEDS: HEPARIN SODIUM,PORCINE 5,000 UNIT/ML 1 ML VIAL SQ SCH ×2 (09:05→21:12)
[2016-03-26] MEDS: metFORMIN 500 MG TAB PO SCH ×2 (09:05→21:11)
[2016-03-26] MEDS: GLIMEPIRIDE 2 MG TAB PO SCH ×2 (09:05→21:12)
[2016-03-26] MEDS: ASPIRIN 81 MG CHEW PO SCH (09:07)
[2016-03-26] MEDS: CLOPIDOGREL 75 MG TAB PO SCH (09:07)
[2016-03-26] MEDS: METOPROLOL TARTRATE 50 MG TAB PO SCH ×2 (09:07→21:12)
[2016-03-26] MEDS: LISINOPRIL 20 MG TAB PO SCH (09:07)
[2016-03-26] MEDS: FUROSEMIDE 40 MG TAB PO SCH (09:07)
--- NOTE | 2016-03-26 09:28 | P.GSCN ---
History of Present Illness History of present illness: 75-year-old white female, patient has been admitted with a history of pain in her left shoulder and left groin area that happened March 23 lasted for a short period of time with complete recovery she also noted some stured speech no history of tremors Taylor or any motor deficit after that she had a seizure and she was brought to the emergency room as she has been admitted CAT scan shows no acute infarct chronic infarct noted Patient had a ultrasound of the carotid which showed 70% stenosis of the carotid artery patient also had a CT angiogram of the carotid which showed bilateral atherosclerosis occlusive disease and some tortuosity of the internal carotid artery Medical history history of hypertension, diabetes, she is blind in one eye Surgical history patient had a CABG done in the past Neck examination neck supple no bruit appreciated Chest good entry both lungs first and second sound normal Vascular examination brachial radial and femoral pulses are present patient has a strong motor function of upper or lower extremity her speech is normal Patient has a bilateral carotid artery stenosis, history of seizure patient is on no neuro consult patient has been treated with Ativan we will advise to continue with antiplatelet therapy I will discuss with Dr. Troy about further management thank you Past Medical History Past Medical History: Coronary Artery Disease (CAD), Cancer, Diabetes Mellitus, Hypertension, Myocardial Infarction (PA), Osteoarthritis (OA) Additional Past Medical History / Comment(s): BACK PAIN; 05/13/15 stent to the Left main and SVG to the Diagonal. 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. Uterine Cancer. Last Myocardial Infarction Date:: 05/13/15 History of Any Multi-Drug Resistant Organisms: None Reported Past Surgical History: Cholecystectomy, Coronary Bypass/CABG, Heart Catheterization With Stent, Hysterectomy, Joint Replacement, Orthopedic Surgery Additional Past Surgical History / Comment(s): 1996 CABG. Right Knee replacement 1954 Past Anesthesia/Blood Transfusion Reactions: No Reported Reaction Date of Last Stent Placement:: 05/13/15 Past Psychological History: Anxiety Smoking Status: Never smoker Past Alcohol Use History: Occasional Past Drug Use History: None Reported - Past Family History Father Family Medical History: Cancer, Coronary Artery Disease (CAD), Diabetes Mellitus , Myocardial Infarction (PA) Additional Family Medical History / Comment(s): pancreas cancer Mother Family Medical History: Cancer Additional Family Medical History / Comment(s): Uterine cancer Medications and Allergies Home Medications Medication Instructions Recorded Confirmed Type Aspirin EC [Ecotrin] 325 tab PO DAILY 05/13/15 03/23/16 History Atorvastatin [Lipitor] 80 mg PO DAILY 05/13/15 03/23/16 History Clopidogrel [Plavix] 75 mg PO DAILY 05/13/15 03/23/16 History Glimepiride [Amaryl] 4 mg PO BID 05/13/15 03/23/16 History Metoprolol Tartrate [Lopressor] 50 mg PO BID 05/13/15 03/23/16 History Nitroglycerin Sl Tabs [Nitrostat] 0.4 mg SUBLINGUAL Q5M PRN 05/13/15 03/23/16 History Sennosides [Senokot] 8.6 mg PO BID PRN 07/28/15 03/23/16 History Docusate [Colace] 100 mg PO BID PRN 03/23/16 03/23/16 History Lisinopril 40 mg PO DAILY 03/23/16 03/23/16 History metFORMIN HCL [Glucophage] 250 mg PO BID 03/23/16 03/23/16 History Allergies Allergy/AdvReac Type Severity Reaction Status Date / Time adhesive tape Allergy Rash/Hives Verified 03/23/16 17:33 Penicillins Allergy Swelling Verified 03/23/16 17:33 Surgical - Exam Vital Signs Temp Pulse Resp BP Pulse Ox 97.8 F 100 20 218/93 100 03/23/16 17:29 03/23/16 17:29 03/23/16 17:29 03/23/16 17:29 03/23/16 17:29 Results - Labs 03/26/16 05:31 03/26/16 05:31 Abnormal Lab Results - Last 24 Hours (Table) 03/25/16 03/25/16 03/25/16 Range/Units 12:52 17:11 20:33 BUN (7-17) mg/dL Creatinine (0.52-1.04) mg/dL Glucose (74-99) mg/dL POC Glucose (mg/dL) 179 H 127 H 291 H (75-99) mg/dL 03/26/16 03/26/16 Range/Units 05:31 05:50 BUN 36 H (7-17) mg/dL Creatinine 1.20 H (0.52-1.04) mg/dL Glucose 101 H (74-99) mg/dL POC Glucose (mg/dL) 106 H (75-99) mg/dL Diabetes panel 03/26/16 Range/Units 05:31 Sodium 140 (137-145) mmol/L Potassium 5.0 (3.5-5.1) mmol/L Chloride 104 (98-107) mmol/L Carbon Dioxide 23 (22-30) mmol/L BUN 36 H (7-17) mg/dL Creatinine 1.20 H (0.52-1.04) mg/dL Glucose 101 H (74-99) mg/dL Calcium 9.8 (8.4-10.2) mg/dL Calcium panel 03/26/16 Range/Units 05:31 Calcium 9.8 (8.4-10.2) mg/dL Pituitary panel 03/26/16 Range/Units 05:31 Sodium 140 (137-145) mmol/L Potassium 5.0 (3.5-5.1) mmol/L Chloride 104 (98-107) mmol/L Carbon Dioxide 23 (22-30) mmol/L BUN 36 H (7-17) mg/dL Creatinine 1.20 H (0.52-1.04) mg/dL Glucose 101 H (74-99) mg/dL Calcium 9.8 (8.4-10.2) mg/dL Adrenal panel 03/26/16 Range/Units 05:31 Sodium 140 (137-145) mmol/L Potassium 5.0 (3.5-5.1) mmol/L Chloride 104 (98-107) mmol/L Carbon Dioxide 23 (22-30) mmol/L BUN 36 H (7-17) mg/dL Creatinine 1.20 H (0.52-1.04) mg/dL Glucose 101 H (74-99) mg/dL Calcium 9.8 (8.4-10.2) mg/dL
[2016-03-26 12:07] LABS: Glucose,Whole Blood 194 mg/dL (75-99)
[2016-03-26 17:14] LABS: Glucose,Whole Blood 115 mg/dL (75-99)
--- NOTE | 2016-03-26 18:37 | ECHOF ---
Referral Reason:CVA MEASUREMENTS -------- HEIGHT: 152.4 cm WEIGHT: 77.6 kg BP: 154/71 IVSd: 1.4 cm (0.6 - 1.1) LVIDd: 4.8 cm (3.9 - 5.3) LVPWd: 1.6 cm (0.6 - 1.1) IVSs: 1.5 cm LVIDs: 4.9 cm LVPWs: 1.4 cm LA Diam: 4.8 cm (2.7 - 3.8) LAESV Index (A-L): 41.02 ml/m Ao Diam: 2.7 cm (2.0 - 3.7) AV Cusp: 1.3 cm (1.5 - 2.6) LA Diam: 5.3 cm (2.7 - 3.8) MV EXCURSION: 18.742 mm (> 18.000) MV EF SLOPE: 52 mm/s (70 - 150) EPSS: 1.6 cm MV E Kirk: 1.23 m/s MV DecT: 243 ms MV A Kirk: 0.83 m/s MV E/A Ratio: 1.48 RAP: 5.00 mmHg RVSP: 73.47 mmHg FINDINGS -------- Sinus rhythm. This was a technically good study. There is mild concentric left ventricular hypertrophy. Overall left ventricular systolic function is mild-moderately impaired with, an EF between 40 - 45 %. Basal inferior LV wall motion is hypokinetic. The right ventricle is normal in size. LA is severely dilated >40 ml/m2 The right atrial size is normal. There is moderate aortic valve sclerosis. There is no evidence of aortic regurgitation. Mild mitral annular calcification present. [id number] mitral regurgitation is present. Mild tricuspid regurgitation present. There is moderate to severe pulmonary hypertension. The right ventricular systolic pressure, as measured by Doppler, is 73.47mmHg. There is no pulmonic regurgitation present. The aortic root size is normal. There is no pericardial effusion. CONCLUSIONS -------- 1. There is mild concentric left ventricular hypertrophy. 2. The right ventricular systolic pressure, as measured by Doppler, is 73.47mmHg. 3. Overall left ventricular systolic function is mild-moderately impaired with, an EF between 40 - 45 %. 4. Basal inferior LV wall motion is hypokinetic. 5. LA is severely dilated >40 ml/m2 6. There is moderate aortic valve sclerosis. 7. Mild mitral annular calcification present. 8. Xahs-jp-qnsvmvmo mitral regurgitation is present. 9. Mild tricuspid regurgitation present. 10. There is moderate to severe pulmonary hypertension. COOLER OPERATOR: Marycarmen Day RDCS
--- NOTE | 2016-03-26 18:55 | PN ---
DATE OF SERVICE: 03/26/2016 This is a 75-year-old woman who was admitted because of left side also suspected to have seizures. Dr. Borges as well neurology are following the patient. No chest pain or palpitation. No fever. On exam, alert and oriented times three. Pulse 73. Blood pressure 151/79. Respiratory rate 18, temperature normal. Pulse ox 97% on room air. HEENT: Conjunctivae normal. NECK: No jugular venous distention. CARDIOVASCULAR: S1, S2 muffled. RESPIRATORY: Breath sounds diminished at the bases. No rhonchi, no crackles. ABDOMEN: Soft and nontender. LEGS: No edema. No swelling. CENTRAL NERVOUS SYSTEM: No focal deficits. LABS: WBC 11.4, creatinine is 1.2. ASSESSMENT: 1. Weakness of the left side, possible acute transient ischemic attack involving the right hemisphere or possible seizures. 2. Left carotid stenosis 70%. 3. Increased creatinine with chronic kidney disease Stage III, possibly. 4. Increased white blood count, present on admission. 5. History of subendocardial ischemia, status post angioplasty and stent placement to the left main and SVG to diagonal branch in April 2015. 6. Right carotid surgery in 2016. 7. Left carotid high grade stenosis and right external high grade stenosis history. 8. Diabetes mellitus type 2. 9. Hyperlipidemia history. 10. Hypertension, essential. 11. Degenerative joint disease. 12. Lumbar spinal stenosis. 13. Chronic right shoulder pain suspected degenerative joint disease. 14. History of coronary artery disease. 15. History of chronic constipation. 16. History of congestive heart failure with chronic systolic dysfunction. 17. NO CODE, NO CPR, NO VENT. RECOMMENDATIONS AND DISCUSSION: This 75-year-old woman who presented with multiple complex medical issues, we will monitor the patient closely. Continue antiplatelet treatment. Closely follow with neurology. Vascular surgery input appreciated. Dr. Troy will follow. Discussed with the patient. Increase ambulation.
--- NOTE | 2016-03-26 21:07 | P.PN ---
Subjective Principal diagnosis: Interval update: The patient is 75-year-old female being followed by neurology CVA/seizure. Patient was having severe pain in her left arm and left groin area on February at 1530 hrs. Patient stated her arm started shaking. Patient was unable to control her left arm and had stuttered speech. She was transported to the ED. She denied any headache, visual disturbance but does have known visual abnormalities with blindness in the right eye and cataract in her left. Patient denies any recent fever or chills, prior to onset she was feeling fine. She denied chest pain, palpitations or difficulty breathing. Patient denied any abdominal pain, nausea, vomiting or diarrhea. Patient does have documented MRI of the brain changes which include chronic small vessel ischemia, right large old temporal lobe infarct. CT of the brain notes no acute process, encephalomalacia old infarct right MCA area of April 2015. CT angiogram noted no acute process, bilateral significant proximal ICA stenosis noted. Carotid Doppler noted 70% stenosis or greater. EEG is still pending. Patient is currently taking 325 mg aspirin daily, Plavix 75 mg daily and Lipitor 80 mg daily. Homocystine level returned normal. Patient's lipid panel returned as follows: Cholesterol 110 LDL 51, HDL 36, triglycerides 117. On contact today, the patient was seated in bedside chair with family present. She is alert and oriented 3. Patient states she returned to baseline. She has not had any seizure-like activity per the patient or nursing other than her noted seizure-like activity noted in the ED on arrival. Patient has full use and control of all extremities. Objective - Vital Signs Vital signs: Vital Signs Temp 97.2 F L 03/26/16 04:00 Pulse 74 03/26/16 16:00 Resp 18 03/26/16 16:00 BP 177/79 03/26/16 16:00 Pulse Ox 95 03/26/16 16:00 Intake & Output 03/26/16 03/26/16 03/27/16 06:59 18:59 06:59 Intake Total 220 610 Output Total 1050 Balance 220 -440 Weight 78.4 kg Intake: Intake, IV Titration 0 Amount Sodium Chloride 0.9% 1, 0 000 ml @ 40 mls/hr IV . Q24H YEN Rx#:[id number] Oral 220 610 Output: Urine 1050 Other: Voiding Method Toilet # Voids 1 - Exam Constitutional: AOx3, cooperative HEENT: NC/AT, right eye legally blind, left eye decreased sight due to cataract. Throat: Supple, no masses Respiratory: No increased work of breathing Cardiac: Regular rate and Rhythm GI: non tender, non distended Musculoskeletal: Strengths are equal bilaterally 4/5, Lower extremity strengths are equal bilaterally at 4/5. Neurological: CN II-XII in tact, patient was AOx3, speech and language are normal, no unilateralizing weakness, no seizure activity note on physical exam. Sensation was normal. deep tendon reflexes are equal and symmetrical. Integementary: no rash, no erythema Psychiatric: mood and affect appropriate - Labs CBC & Chem 7: 03/26/16 05:31 03/26/16 05:31 Labs: Abnormal Lab Results - Last 24 Hours (Table) 03/26/16 03/26/16 03/26/16 Range/Units 05:31 05:50 11:48 BUN 36 H (7-17) mg/dL Creatinine 1.20 H (0.52-1.04) mg/dL Glucose 101 H (74-99) mg/dL POC Glucose (mg/dL) 106 H 194 H (75-99) mg/dL 03/26/16 Range/Units 16:52 BUN (7-17) mg/dL Creatinine (0.52-1.04) mg/dL Glucose (74-99) mg/dL POC Glucose (mg/dL) 115 H (75-99) mg/dL Assessment and Plan (1) Seizure Narrative/Plan: Patient does appear to have suffered a new onset seizure. However the patient has no prior history of seizure-like activity. The patient has not had any new seizure noted since being managed in the ED. On physical exam the patient had no seizure activity. The patient and nursing staff report no new seizure as well. Patient will continue use of Ativan 2 mg every 15 minutes IV for seizure when necessary. If new seizures should occur, manage with ativan and contact our service for further medication recommendations. EEG; Pending Continued: Ativan as noted above Neuro checks Qshift Status: neurology will continue to follow provide further treatment updates as warranted and once testing results received. Status: Acute (2) TIA (transient ischemic attack) Narrative/Plan: Patient does have significant history of stenoses and encephalomalacia as noted with extensive imaging workup. It does appear that the patient did suffer a new TIA prior to admission. Vascular surgery did meet with the patient. Vascular surgery is coordinating management with Dr Troy. EEG results are still pending. Continue neuro checks every shift. Continue medications as follows: 81mg aspirin , Plavix 75 mg QDAY. Fasting lipid panel returned within normal limits with the exception of low HDL. Lipitor will be discontinued. Patient is cleared by other providers for discharge and the only remaining tests /hold is the EEG, the patient can obtain the EEG outpatient. Patient should be advised to contact your office to business days of discharge for a follow-up appointment within 10-14 days in the office. Medications to be continued as noted above on discharge. this patient is discontinued, the Ativan will not be continued on an outpatient basis. I discussed the patient's pertinent medical information with Dr. Torres. He agrees with the plan of care as implemented. Status: Acute
[2016-03-26] MEDS: MELATONIN 3 MG TABLET PO SCH (21:11)
[2016-03-26 21:12] LABS: Glucose,Whole Blood 145 mg/dL (75-99)
[2016-03-26] MEDS: TEMAZEPAM 7.5 MG CAP PO PRN ×2 (21:22→22:47)
[2016-03-27] MEDS: SODIUM CHLORIDE 0.9% 1,000 ML IV SCH (05:50)
[2016-03-27 06:17] LABS: Glucose,Whole Blood 102 mg/dL (75-99)
[2016-03-27] MEDS: INSULIN LISPRO (humaLOG) 300 UNIT/3 ML VIAL SQ SCH ×2 (06:27→12:26)
[2016-03-27] MEDS: LISINOPRIL 20 MG TAB PO SCH (09:10)
[2016-03-27] MEDS: metFORMIN 500 MG TAB PO SCH (09:10)
[2016-03-27] MEDS: HEPARIN SODIUM,PORCINE 5,000 UNIT/ML 1 ML VIAL SQ SCH (09:10)
[2016-03-27] MEDS: FUROSEMIDE 40 MG TAB PO SCH (09:11)
[2016-03-27] MEDS: CLOPIDOGREL 75 MG TAB PO SCH (09:11)
[2016-03-27] MEDS: GLIMEPIRIDE 2 MG TAB PO SCH (09:11)
[2016-03-27] MEDS: ASPIRIN 81 MG CHEW PO SCH (09:11)
[2016-03-27] MEDS: METOPROLOL TARTRATE 50 MG TAB PO SCH (09:12)
[2016-03-27 09:15] LABS: Basophils # (A) 0.1 k/uL (0-0.2); Basophils % (A) 1 %; CH 25.8; CHCM 31.6; Eosinophils # (A) 0.5 k/uL (0-0.7); Eosinophils % (A) 7 %; HCT 38.5 % (34.0-46.0); HGB 12.1 gm/dL (11.4-16.0); Hypochromasia Moderate; Luc # (Auto) 0.23; Luc % (Auto) 3; Lymphocytes # (A) 1.1 k/uL (1.0-4.8); Lymphocytes % (A) 13 %; MCH 25.7 pg (25.0-35.0); MCHC 31.4 g/dL (31.0-37.0); MCV 81.9 fL (80.0-100.0); Mean Platelet Volume 6.6; Monocytes # (A) 0.7 k/uL (0-1.0); Monocytes % (A) 8 %; Neutrophils # (A) 5.4 k/uL (1.3-7.7); Neutrophils % (A) 68 %; RDW 14.7 % (11.5-15.5); WBC 7.9 k/uL (3.8-10.6); WBC (Perox) 8.76
[2016-03-27 09:25] LABS: Calcium 9.8 mg/dL (8.4-10.2); Potassium 4.9 mmol/L (3.5-5.1)
[2016-03-27 12:04] LABS: Glucose,Whole Blood 133 mg/dL (75-99)
--- NOTE | 2016-03-27 12:24 | P.DS ---
Providers Date of admission: 03/23/16 19:07 Expected date of discharge: 03/27/16 Attending physician: Jethro Troy Consults: 03/25/16 15:21 Consult Physician Routine Consulting Provider: Rafael Borges Consult Reason/Comments: carotid stenosis Do you want consulting provider notified?: Already Contacted Primary care physician: Jethro Troy [facility] Course: Patient is a 75-year-old white female, patient of Dr. 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 Patient presented to the emergency department with new onset left -sided weakness, tremors, and slurred speech suggestive of possible TIA and new onset seizures. Patient was evaluated by Dr. Torres from neurology service and underwent an EEG during her hospital stay with results pending. Patient was also evaluated by Dr. Borges from vascular surgery for 70% stenosis of the carotid artery and bilateral atherosclerosis occlusive disease with some tortuosity of the internal carotid artery. No surgical interventions planned during this hospital stay. Patient will follow-up with Dr. Borges in the outpatient setting. Patient had no further seizure activity during her hospital stay and all symptoms resolved prior to discharge. Patient was felt stable for discharge to home with home care. Discharge diagnoses: 1. New onset left-sided weakness and tremors with slurred speech, present on admission, suspect secondary to new onset seizure and TIA involving the right hemisphere. 2. Leukocytosis, present on admission, suspect reactive. WBC 11. 3. Hyperkalemia, present on admission, resolved. 4. History of subendocardial ischemia status post angioplasty with stent placement to the mid left main and SVG to the diagonal branch in April 2015. 5. History of right middle cerebral ischemic stroke in April,. 6. History of left carotid high-grade stenosis 70% and right external high- grade stenosis. 7. Chronic renal failure, stage III, present on admission, suspect secondary to chronic kidney disease and hypertensive vascular disease. 8. Type 2 diabetes mellitus. Hemoglobin A1c 7.4. 9. History of hyperlipidemia. 10. Hypertension. 11. Lumbar spinal stenosis. 12. Chronic right shoulder pain suspect due to degenerative joint disease. 13. Coronary artery disease. 14. History of chronic constipation. 15. Chronic systolic heart failure. The above impression and plan have been discussed and directed by Dr. Troy. Trina SANDOVAL acting as scribe for Dr. Troy. Pertinent Studies: EKG; brain CT; chest x-ray; angiogram CT; brain MRI; chest x-ray; carotid Doppler study; echocardiogram Doppler. Patient Condition at Discharge: Stable Plan - Discharge Summary New Discharge Prescriptions: Aspirin 81 mg PO DAILY #30 chew Discharge Medication List Clopidogrel [Plavix] 75 mg PO DAILY 05/13/15 [History] Glimepiride [Amaryl] 4 mg PO BID 05/13/15 [History] Metoprolol Tartrate [Lopressor] 50 mg PO BID 05/13/15 [History] Nitroglycerin Sl Tabs [Nitrostat] 0.4 mg SUBLINGUAL Q5M PRN 05/13/15 [History] Sennosides [Senokot] 8.6 mg PO BID PRN 07/28/15 [History] Furosemide [Lasix] 40 mg PO DAILY #30 tab 07/30/15 [Rx] Docusate [Colace] 100 mg PO BID PRN 03/23/16 [History] Lisinopril 40 mg PO DAILY 03/23/16 [History] metFORMIN HCL [Glucophage] 250 mg PO BID 03/23/16 [History] Aspirin 81 mg PO DAILY #30 chew 03/27/16 [Rx] Follow up Appointment(s)/Referral(s): Jethro Troy DO [Primary Care Provider] - 1-2 days Reynaldo Torres MD [STAFF PHYSICIAN] - 10 Days Rafael Borges MD [STAFF PHYSICIAN] - 2 Weeks Patient Instructions/Handouts: Transient Ischemic Attack (DC) Activity/Diet/Wound Care/Special Instructions: Residential Home Care with nurse & physical therapist [phone] Discharge Disposition: HOME WITH HOME HEALTH SERVICES
[2016-03-27 15:35] VITALS: BP 167/70; PULSE 70; TEMP 97.4
--- NOTE | 2016-03-27 16:50 | CDI ---
In responding to this query, please exercise your independent professional judgment. The [facility] Coding Staff and Clinical Documentation Specialists appreciate your assistance in clarifying documentation, maintaining compliance with coding guidelines, accurately documenting patients condition and capturing severity of illness. The fact that a question is asked does not imply that any particular answer is desired or expected. Communication forms are a method of clarifying documentation and are not made part of the Legal Health Record. Thank you in advance for your clarification. Last Revision, April 2015 Héctor Palmer [address] [facility] [place] [address] Documentation Clarification Form Date: 03/27/2016 4:04:00 PM From: Irma Eldridge Admit Date: 03/23/2016 7:07:00 PM Patient Name: Malika Alcantara Visit Number: [id number] Discharge Date: Dr. Reynaldo Torres/Darren Gunter MEDICAL STAFF ASSISTANT-C TIA is documented as a diagnosis in your consult and progress notes Patient history/risk factors: Coronary artery disease, Cancer, Diabetes mellitus , Hypertension, [place] Clinical indicators: Complains of severe pain in her left art and left groin. She had "stuttered" speech. CT head: No acute process. Large zone encephalomalacia consistent with old infarction in the vascular territory of the right middle cerebral artery. CT Angio Head neck: Bilateral significant appearing proximal ICA stenosis. Brain MRI: Large old right posterior temporal lobe cortical infarct. No evidence of hemorrhage. Scattered small foci in the white matter both cerebral hemispheres consistent with small vessel ischemia. No acute intracranial abnormality seen. Carotid US: Hemodynamic significant stenosis correlates to approximately 70 % diameter stenosis or greater by Doppler Echo: Mild left ventricular hypertrophy. EF between 40-45 %; there is moderate to severe pulmonary hypertension. Treatment: Neuro checks per orders Plavix PO In your professional opinion, please specify underlying etiology of the transient ischemic attack: Carotid Sinus Syncope Carotid Stenosis Hemorrhagic Stroke (if know specify specific location) Ischemic Stroke (if know specify cause, specific vessel/location, and laterality): Sequelae of Cerebrovascular Disease (specify Type of Cerebrovascular Disease ) Vertebo-Basilar Artery Syndrome Other (please specify): Etiology unknown or Unable to determine Please document as an addendum to your progress notes order to capture severity of illness and risk of mortality. Include clinical findings that support your diagnosis. FYI: Press F11 to launch patient chart __x___ Place X here if this finding has no clinical significance, is not applicable or if you are not able to provide any additional documentation. MTDD
--- NOTE | 2016-03-28 08:06 | EEG ---
DATE OF SERVICE: 03/24/2016 REASON FOR TESTING: Altered mental status. AGE: 75Y DESCRIPTION OF THE PROCEDURE: This EEG was performed using a 21-channel digital electroencephalograph, following the international 10 to 20 system. DESCRIPTION OF THE RECORDING: From the beginning of the tracing, and with the patient's eyes closed, the background rhythm was mostly consisting of 8 to 9 Hz alpha frequency in the posterior occipital leads. No obvious asymmetry is seen. Photic stimulation was performed with a good driving response seen. No pathological waves were elicited. Frequent movement artifacts are noticed. Hyperventilation was not performed. The patient remains awake throughout the tracing. No epileptiform discharges were seen. Her EKG lead showed a regular rate and rhythm. INTERPRETATION: This awake EEG can be considered within normal limits. There was no asymmetry seen. No epileptiform discharges were noticed. The absence of epileptiform discharges does not rule out the diagnosis of epilepsy, therefore, clinical correlation is recommended.
== END 2016-03-27 16:30 | disposition home health service (06) | DRG 101 ==
LOC: EC 17:22 → 6ICU 19:07 → 6SEL 03-25 21:39
PROVIDERS: ADMIT Family Medicine; ATTEND Family Medicine
DX: R56.9 Unspecified convulsions (principal); I50.22 Chronic systolic (congestive) heart failure; E11.22 Type 2 diabetes mellitus with diabetic chronic kidney disease; I13.0 Hypertensive heart and chronic kidney disease with heart failure and stage 1 through stage 4 chronic kidney disease, or unspecified chronic kidney disease; G45.9 Transient cerebral ischemic attack, unspecified; E87.5 Hyperkalemia; Z66 Do not resuscitate; D63.8 Anemia in other chronic diseases classified elsewhere; N18.3 Chronic kidney disease, stage 3 (moderate); I65.23 Occlusion and stenosis of bilateral carotid arteries; D72.829 Elevated white blood cell count, unspecified; I25.10 Atherosclerotic heart disease of native coronary artery without angina pectoris; G93.89 Other specified disorders of brain; I25.2 Old myocardial infarction; E78.5 Hyperlipidemia, unspecified; H26.9 Unspecified cataract; R00.0 Tachycardia, unspecified; M48.06 Spinal stenosis, lumbar region; R47.81 Slurred speech; H91.91 Unspecified hearing loss, right ear; G89.29 Other chronic pain; R53.1 Weakness; R29.714 NIHSS score 14; M19.011 Primary osteoarthritis, right shoulder; H54.11 Blindness, right eye, low vision left eye; R25.1 Tremor, unspecified; F41.9 Anxiety disorder, unspecified; K59.09 Other constipation; Z96.651 Presence of right artificial knee joint; Z80.0 Family history of malignant neoplasm of digestive organs; Z82.49 Family history of ischemic heart disease and other diseases of the circulatory system; Z83.3 Family history of diabetes mellitus; Z80.49 Family history of malignant neoplasm of other genital organs; Z85.42 Personal history of malignant neoplasm of other parts of uterus; Z95.5 Presence of coronary angioplasty implant and graft; Z95.1 Presence of aortocoronary bypass graft; Z79.02 Long term (current) use of antithrombotics/antiplatelets; Z86.73 Personal history of transient ischemic attack (TIA), and cerebral infarction without residual deficits; Z88.0 Allergy status to penicillin; Z91.048 Other nonmedicinal substance allergy status; Z79.84 Long term (current) use of oral hypoglycemic drugs; Z79.82 Long term (current) use of aspirin; Z79.899 Other long term (current) drug therapy; Z90.710 Acquired absence of both cervix and uterus; Z90.49 Acquired absence of other specified parts of digestive tract
CPT/HCPCS: 36415; 70450; 70496; 70498; 70553; 71010; 71020; 80048; 80053; 80061; 82550; 82553; 83036; 83090; 83735; 84100; 84484; 85025; 85027; 85610; 85730; 93005; 93306; 93880; 95819; 96361; 96374; 99285

== ENCOUNTER → 2016-06-09 | Outpatient (CLI) | payer MEDICARE, BC | END | disposition home or self-care (01) | LOC: LABWHC1 15:38 | PROVIDERS: ATTEND Psychiatry & Neurology Pain Medicine | DX: R56.9 Unspecified convulsions (principal); I63.9 Cerebral infarction, unspecified | CPT/HCPCS: 36415; 82565; 84520 ==

== ENCOUNTER → 2016-06-10 | Outpatient (CLI) | payer MEDICARE, BC ==
--- NOTE | 2016-06-10 09:22 | MR ---
MR brain with and without contrast HISTORY: Seizures Multiplanar multisequence and postcontrast images through the brain following 15 cc MultiHance IV Correlation to prior brain MRI 23 March 2016 There is no interval change. There is no restricted diffusion. Infarction changes are stable in the r ight temporoparietal and occipital location. Cortical atrophy, periventricular and deep white matter scattered hyperintensities on inversion recovery and T2-weighted sequences are again noted. There is no hemorrhage or hydrocephalus. Cerebellopontine angles, corpus callosum, pituitary, cervical medulla ry junction are stable. Mucosal disease present in the bilateral maxillary sinuses. The orbits show a symmetric appearance. No abnormal enhancement following contrast administration. Encephalomalacia in the inferior left cerebellar hemisphere is stable. IMPRESSION: Stable exam, no acute abnormality is evident. Right temporoparietal and occipital infarct ion changes again noted.
== END | disposition home or self-care (01) ==
LOC: RADMRIMAIN 07:52
PROVIDERS: ATTEND Psychiatry & Neurology Pain Medicine
DX: I63.9 Cerebral infarction, unspecified (principal); G40.909 Epilepsy, unspecified, not intractable, without status epilepticus
CPT/HCPCS: 70553; A9577

== ENCOUNTER 2016-07-26 11:15 | Inpatient (IN) | payer MEDICARE, BC ==
[2016-07-26] MEDS ORDERED: ACETAMINOPHEN TAB 500 MG TAB PO STA (12:17)
[2016-07-26] MEDS ORDERED: IBUPROFEN IV 600 MG in SODIUM CHLORIDE 0.9% 250 ML IV STA (12:19)
--- NOTE | 2016-07-26 12:21 | ED ---
General Adult HPI - General Chief complaint: Fever Stated complaint: FEVER, COUGHING, CHF Time Seen by Provider: 07/26/16 11:50 Source: patient, RN notes reviewed Mode of arrival: wheelchair Limitations: no limitations - History of Present Illness Initial comments: This is a 76-year-old female presents emergency department stating she has not felt well since Sunday. Patient states she's had a cough and has a little shortness of breath per patient went to her primary medical care doctor today and they sent her to the emergency department. Patient denies any chest pain or palpitations. Patient denies any abdominal pain patient denies nausea vomiting or diarrhea. Patient states she just feels very weak and tired and has a cough. Patient denies headache patient denies numbness weakness. Patient denies any lightheadedness or dizziness. Patient denies any recent injury or trauma. Patient denies any dysuria hematuria urinary frequency. - Related Data Home Medications Medication Instructions Recorded Confirmed Clopidogrel [Plavix] 75 mg PO DAILY 05/13/15 07/26/16 Glimepiride [Amaryl] 4 mg PO BID 05/13/15 07/26/16 Metoprolol Tartrate [Lopressor] 50 mg PO BID 05/13/15 07/26/16 Nitroglycerin Sl Tabs [Nitrostat] 0.4 mg SUBLINGUAL Q5M PRN 05/13/15 07/26/16 Sennosides [Senokot] 8.6 mg PO BID PRN 07/28/15 07/26/16 Docusate [Colace] 100 mg PO BID PRN 03/23/16 07/26/16 Lisinopril 40 mg PO DAILY 03/23/16 07/26/16 metFORMIN HCL [Glucophage] 250 mg PO BID 03/23/16 07/26/16 Previous Rx's Medication Instructions Recorded Furosemide [Lasix] 40 mg PO DAILY #30 tab 07/30/15 Aspirin 81 mg PO DAILY #30 chew 03/27/16 Atorvastatin [Lipitor] 80 mg PO HS #30 tab 03/27/16 Allergies Allergy/AdvReac Type Severity Reaction Status Date / Time adhesive tape Allergy Rash/Hives Verified 07/26/16 12:22 Penicillins Allergy Anaphylaxis Verified 07/26/16 12:22 Review of Systems ROS Statement: Those systems with pertinent positive or pertinent negative responses have been documented in the HPI. ROS Other: All systems not noted in ROS Statement are negative. Past Medical History Past Medical History: Coronary Artery Disease (CAD), Cancer, Heart Failure, Diabetes Mellitus, Hypertension, Myocardial Infarction ([place]), Osteoarthritis (OA) Additional Past Medical History / Comment(s): BACK PAIN; 05/13/15 stent to the Left main and SVG to the Diagonal. 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. Uterine Cancer. Last Myocardial Infarction Date:: 05/13/15 History of Any Multi-Drug Resistant Organisms: None Reported Past Surgical History: Cholecystectomy, Coronary Bypass/CABG, Heart Catheterization With Stent, Hysterectomy, Joint Replacement, Orthopedic Surgery Additional Past Surgical History / Comment(s): 1996 CABG. Right Knee replacement 1954 Past Anesthesia/Blood Transfusion Reactions: No Reported Reaction Date of Last Stent Placement:: 05/13/15 Past Psychological History: Anxiety Smoking Status: Never smoker Past Alcohol Use History: Occasional Past Drug Use History: None Reported - Past Family History Father Family Medical History: Cancer, Coronary Artery Disease (CAD), Diabetes Mellitus , Myocardial Infarction ([place]) Additional Family Medical History / Comment(s): pancreas cancer Mother Family Medical History: Cancer Additional Family Medical History / Comment(s): Uterine cancer General Exam - General Exam Comments Initial Comments: GENERAL: Patient is well-developed and well-nourished. Patient is nontoxic and well- hydrated and is in mild distress. ENT: Neck is soft and supple. No significant lymphadenopathy is noted. Oropharynx is clear. Moist mucous membranes. Neck has full range of motion without eliciting any pain. EYES: The sclera were anicteric and conjunctiva were pink and moist. Extraocular movements were intact and pupils were equal round and reactive to light. Eyelids were unremarkable. PULMONARY: Patient is unable take a deep breath without coughing since difficulty here but she does sound like she has crackles on the right mid and lower lung. CARDIOVASCULAR: There is a regular rate and rhythm without any murmurs gallops or rubs. ABDOMEN: Soft and nontender with normal bowel sounds. No palpable organomegaly was noted. There is no palpable pulsatile mass. SKIN: Skin is clear with no lesions or rashes and otherwise unremarkable. NEUROLOGIC: Patient is alert and oriented x3. Cranial nerves II through XII are grossly intact. Motor and sensory are also intact. Normal speech, volume and content. Symmetrical smile. MUSCULOSKELETAL: Normal extremities with adequate strength and full range of motion. 2+ edema LYMPHATICS: No significant lymphadenopathy is noted PSYCHIATRIC: Normal psychiatric evaluation. Normal interpersonal interactions appears functionally intact in deals appropriately with others. No signs of depression. No signs of anxiety. Limitations: no limitations Course Vital Signs 07/26/16 07/26/16 07/26/16 11:51 12:43 13:15 Temperature 102.8 F H Pulse Rate 104 H 98 Respiratory 22 28 H Rate Blood Pressure 152/78 O2 Sat by Pulse 92 L Oximetry 07/26/16 13:27 Temperature Pulse Rate 97 Respiratory Rate Blood Pressure O2 Sat by Pulse Oximetry Medical Decision Making - Medical Decision Making EKG shows sinus tachycardia at 111 bpm LA interval 136 Coy 106 QT interval 338 QTC is 459. I compared this EKG with an old EKG no acute changes are noted. Chest x-ray does not show any infiltrate but may be early pulmonary edema. I did not take any. The patient because of her urinary tract infection and concern for hypotension. I spoke with Dr. Troy he was in agreement with this I admitted the patient to Dr. Troy. - Lab Data Result diagrams: 07/26/16 12:15 07/26/16 12:15 Lab Results 07/26/16 07/26/16 07/26/16 Range/Units 12:15 12:15 12:15 WBC 9.1 (3.8-10.6) k/uL RBC 5.14 (3.80-5.40) m/uL Hgb 13.2 (11.4-16.0) gm/dL Hct 42.1 (34.0-46.0) % MCV 82.0 (80.0-100.0) fL MCH 25.8 (25.0-35.0) pg MCHC 31.4 (31.0-37.0) g/dL RDW 17.1 H (11.5-15.5) % Plt Count 246 (150-450) k/uL Neutrophils % 85 % Lymphocytes % 5 % Monocytes % 7 % Eosinophils % 0 % Basophils % 1 % Neutrophils # 7.7 (1.3-7.7) k/uL Lymphocytes # 0.5 L (1.0-4.8) k/uL Monocytes # 0.7 (0-1.0) k/uL Eosinophils # 0.0 (0-0.7) k/uL Basophils # 0.0 (0-0.2) k/uL Hypochromasia Slight Anisocytosis Slight PT (9.0-12.0) sec INR (<1.1) APTT (22.0-30.0) sec Sodium 134 L (137-145) mmol/L Potassium 4.8 (3.5-5.1) mmol/L Chloride 97 L (98-107) mmol/L Carbon Dioxide 25 (22-30) mmol/L Anion Gap 12 mmol/L BUN 29 H (7-17) mg/dL Creatinine 1.08 H (0.52-1.04) mg/dL Est GFR (MDRD) Af Amer 60 (>60 ml/min/1.73 sqM) Est GFR (MDRD) Non-Af 49 (>60 ml/min/1.73 sqM) Glucose 187 H (74-99) mg/dL Plasma Lactic Acid Nba (0.7-2.0) mmol/L Calcium 9.6 (8.4-10.2) mg/dL Total Bilirubin 2.4 H (0.2-1.3) mg/dL AST 31 (14-36) U/L ALT 30 (9-52) U/L Alkaline Phosphatase 101 (38-126) U/L Total Creatine Kinase 241 H (30-135) U/L CK-MB (CK-2) 1.1 (0.0-2.4) ng/mL CK-MB (CK-2) Rel Index 0.5 Troponin I 0.062 H* (0.000-0.034) ng/mL Total Protein 7.2 (6.3-8.2) g/dL Albumin 4.5 (3.5-5.0) g/dL Urine Color Urine Appearance (Clear) Urine pH (5.0-8.0) Ur Specific [place] (1.001-1.035) Urine Protein (Negative) Urine Glucose (UA) (Negative) Urine Ketones (Negative) Urine Blood (Negative) Urine Nitrite (Negative) Urine Bilirubin (Negative) Urine Urobilinogen (<2.0) mg/dL Ur Leukocyte Esterase (Negative) Urine RBC (0-5) /hpf Urine WBC (0-5) /hpf Ur Squamous Epith Cells (0-4) /hpf Hyaline Casts (0-2) /lpf Urine Mucus (None) /hpf Influenza Type A RNA (Not Detectd) Influenza Type B (PCR) (Not Detectd) 07/26/16 07/26/16 07/26/16 Range/Units 12:15 12:15 12:30 WBC (3.8-10.6) k/uL RBC (3.80-5.40) m/uL Hgb (11.4-16.0) gm/dL Hct (34.0-46.0) % MCV (80.0-100.0) fL MCH (25.0-35.0) pg MCHC (31.0-37.0) g/dL RDW (11.5-15.5) % Plt Count (150-450) k/uL Neutrophils % % Lymphocytes % % Monocytes % % Eosinophils % % Basophils % % Neutrophils # (1.3-7.7) k/uL Lymphocytes # (1.0-4.8) k/uL Monocytes # (0-1.0) k/uL Eosinophils # (0-0.7) k/uL Basophils # (0-0.2) k/uL Hypochromasia Anisocytosis PT 11.6 (9.0-12.0) sec INR 1.2 (<1.1) APTT 22.1 (22.0-30.0) sec Sodium (137-145) mmol/L Potassium (3.5-5.1) mmol/L Chloride (98-107) mmol/L Carbon Dioxide (22-30) mmol/L Anion Gap mmol/L BUN (7-17) mg/dL Creatinine (0.52-1.04) mg/dL Est GFR (MDRD) Af Amer (>60 ml/min/1.73 sqM) Est GFR (MDRD) Non-Af (>60 ml/min/1.73 sqM) Glucose (74-99) mg/dL Plasma Lactic Acid Nba 1.7 (0.7-2.0) mmol/L Calcium (8.4-10.2) mg/dL Total Bilirubin (0.2-1.3) mg/dL AST (14-36) U/L ALT (9-52) U/L Alkaline Phosphatase (38-126) U/L Total Creatine Kinase (30-135) U/L CK-MB (CK-2) (0.0-2.4) ng/mL CK-MB (CK-2) Rel Index Troponin I (0.000-0.034) ng/mL Total Protein (6.3-8.2) g/dL Albumin (3.5-5.0) g/dL Urine Color Urine Appearance (Clear) Urine pH (5.0-8.0) Ur Specific [place] (1.001-1.035) Urine Protein (Negative) Urine Glucose (UA) (Negative) Urine Ketones (Negative) Urine Blood (Negative) Urine Nitrite (Negative) Urine Bilirubin (Negative) Urine Urobilinogen (<2.0) mg/dL Ur Leukocyte Esterase (Negative) Urine RBC (0-5) /hpf Urine WBC (0-5) /hpf Ur Squamous Epith Cells (0-4) /hpf Hyaline Casts (0-2) /lpf Urine Mucus (None) /hpf Influenza Type A RNA Not Detected (Not Detectd) Influenza Type B (PCR) Not Detected (Not Detectd) 07/26/16 Range/Units 12:30 WBC (3.8-10.6) k/uL RBC (3.80-5.40) m/uL Hgb (11.4-16.0) gm/dL Hct (34.0-46.0) % MCV (80.0-100.0) fL MCH (25.0-35.0) pg MCHC (31.0-37.0) g/dL RDW (11.5-15.5) % Plt Count (150-450) k/uL Neutrophils % % Lymphocytes % % Monocytes % % Eosinophils % % Basophils % % Neutrophils # (1.3-7.7) k/uL Lymphocytes # (1.0-4.8) k/uL Monocytes # (0-1.0) k/uL Eosinophils # (0-0.7) k/uL Basophils # (0-0.2) k/uL Hypochromasia Anisocytosis PT (9.0-12.0) sec INR (<1.1) APTT (22.0-30.0) sec Sodium (137-145) mmol/L Potassium (3.5-5.1) mmol/L Chloride (98-107) mmol/L Carbon Dioxide (22-30) mmol/L Anion Gap mmol/L BUN (7-17) mg/dL Creatinine (0.52-1.04) mg/dL Est GFR (MDRD) Af Amer (>60 ml/min/1.73 sqM) Est GFR (MDRD) Non-Af (>60 ml/min/1.73 sqM) Glucose (74-99) mg/dL Plasma Lactic Acid Nba (0.7-2.0) mmol/L Calcium (8.4-10.2) mg/dL Total Bilirubin (0.2-1.3) mg/dL AST (14-36) U/L ALT (9-52) U/L Alkaline Phosphatase (38-126) U/L Total Creatine Kinase (30-135) U/L CK-MB (CK-2) (0.0-2.4) ng/mL CK-MB (CK-2) Rel Index Troponin I (0.000-0.034) ng/mL Total Protein (6.3-8.2) g/dL Albumin (3.5-5.0) g/dL Urine Color Yellow Urine Appearance Cloudy H (Clear) Urine pH 5.5 (5.0-8.0) Ur Specific [place] 1.017 (1.001-1.035) Urine Protein 2+ H (Negative) Urine Glucose (UA) Trace H (Negative) Urine Ketones Negative (Negative) Urine Blood Small H (Negative) Urine Nitrite Negative (Negative) Urine Bilirubin Negative (Negative) Urine Urobilinogen <2.0 (<2.0) mg/dL Ur Leukocyte Esterase Large H (Negative) Urine RBC 3 (0-5) /hpf Urine WBC >182 H (0-5) /hpf Ur Squamous Epith Cells 3 (0-4) /hpf Hyaline Casts 1 (0-2) /lpf Urine Mucus Rare H (None) /hpf Influenza Type A RNA (Not Detectd) Influenza Type B (PCR) (Not Detectd) Disposition Clinical Impression: Urinary tract infection, Generalized weakness, Sepsis Disposition: ADMITTED IP TO THIS [facility] Referrals: Jethro Troy DO [Primary Care Provider] - 1-2 days Time of Disposition: 13:40
[2016-07-26 12:35] LABS: Anisocytosis Slight; Basophils % (A) 1 %; CH 25.7; CHCM 31.5; Eosinophils % (A) 0 %; HCT 42.1 % (34.0-46.0); HDW 2.91; HGB 13.2 gm/dL (11.4-16.0); Hypochromasia Slight; Luc # (Auto) 0.19; Luc % (Auto) 2; Lymphocytes # (A) 0.5 k/uL (1.0-4.8); Lymphocytes % (A) 5 %; MCH 25.8 pg (25.0-35.0); MCHC 31.4 g/dL (31.0-37.0); Mean Platelet Volume 7.2; Monocytes # (A) 0.7 k/uL (0-1.0); Monocytes % (A) 7 %; Neutrophils # (A) 7.7 k/uL (1.3-7.7); Neutrophils % (A) 85 %; RBC 5.14 m/uL (3.80-5.40); RDW 17.1 % (11.5-15.5); WBC 9.1 k/uL (3.8-10.6); WBC (Perox) 9.29
[2016-07-26] MEDS ORDERED: IPRATROPIUM-ALBUTEROL 3 ML NEB INHALATION STA (12:39)
[2016-07-26] MEDS: SODIUM CHLORIDE 0.9% 500 ML IV SCH ×2 (12:42→13:39)
[2016-07-26 12:50] LABS: Calcium 9.6 mg/dL (8.4-10.2); INR 1.2 (<1.1); Partial Thromboplastin Time 22.1 sec (22.0-30.0); Potassium 4.8 mmol/L (3.5-5.1); Prothrombin Time 11.6 sec (9.0-12.0); Total Bilirubin 2.4 mg/dL (0.2-1.3); Total Protein 7.2 g/dL (6.3-8.2)
--- NOTE | 2016-07-26 12:59 | XR ---
EXAMINATION TYPE: XR chest 2V DATE OF EXAM: 07/26/2016 COMPARISON: Chest x-ray March 24, 2016. HISTORY: Cough congestion and fever. TECHNIQUE: Frontal and lateral views of the chest are obtained. FINDINGS: Post CABG changes with mediastinal clips and sternal wires is redemonstrated. There is per sistent cardiomegaly with possible mild central vascular congestion. There is no new suspicious focal air space opacity, pleural effusion, or pneumothorax seen. Atherosclerotic thoracic aorta is redemon strated. Osseous structures are intact. IMPRESSION: Consider CHF exacerbation as there is cardiomegaly with suspected mild central vascular congestion. No significant change from prior. No new focal infiltrate is seen.
[2016-07-26 13:02] LABS: Appearance,Urine Cloudy (Clear); Bilirubin,Urine Negative (Negative); Glucose,Urine (UA) Trace (Negative); Ketones,Urine Negative (Negative); Leukocyte Esterase,Urine Large (Negative); Mucus,Urine Rare /hpf; Nitrite,Urine Negative (Negative); PH, Urine 5.5 (5.0-8.0); Particle Count 4787; Protein,Urine 2+ (Negative); RBC,Urine 3 /hpf (0-5); Specific Gravity,Urine 1.017 (1.001-1.035); Squamous Epithelial Cell,Urine 3 /hpf (0-4); UA Billing (MACRO vs. MICRO) MICRO; Urobilinogen,Urine <2.0 mg/dL (<2.0); WBC,Urine >182 /hpf (0-5)
[2016-07-26 13:11] LABS: Creatine Kinase MB 1.1 ng/mL (0.0-2.4)
[2016-07-26] MEDS ORDERED: LEVOFLOXACIN 750MG-D5W PMX 750 MG in DEXTROSE/WATER 1 150ML.BAG IVPB STA (13:14)
[2016-07-26] MEDS ORDERED: LEVOFLOXACIN 750MG-D5W PMX 750 MG in DEXTROSE/WATER 1 150ML.BAG IVPB SCH (13:15)
[2016-07-26 13:17] LABS: Troponin I 0.062 ng/mL (0.000-0.034)
[2016-07-26] MEDS ORDERED: SODIUM CHLORIDE 0.9% 1,000 ML IV ONE (13:40)
[2016-07-26 15:25] LABS: Glucose,Whole Blood 170 mg/dL (75-99)
[2016-07-26 17:07] LABS: Glucose,Whole Blood 210 mg/dL (75-99)
[2016-07-26] MEDS ORDERED: DOCUSATE 100 MG CAP PO PRN (17:15)
[2016-07-26] MEDS ORDERED: NITROGLYCERIN SL TABS 0.4 MG TAB SUBLINGUAL PRN (17:15)
[2016-07-26] MEDS ORDERED: SENNOSIDES 8.6 MG TAB PO PRN (17:15)
[2016-07-26] MEDS: INSULIN LISPRO (humaLOG) 300 UNIT/3 ML VIAL SQ SCH ×2 (19:07→21:23)
[2016-07-26] MEDS: metFORMIN 500 MG TAB PO SCH (19:09)
[2016-07-26] MEDS: GLIMEPIRIDE 2 MG TAB PO SCH (19:09)
[2016-07-26 20:56] LABS: Glucose,Whole Blood 152 mg/dL (75-99)
[2016-07-26] MEDS: ATORVASTATIN 80 MG TAB PO SCH (21:23)
[2016-07-26] MEDS: METOPROLOL TARTRATE 50 MG TAB PO SCH (21:23)
[2016-07-26] MEDS ORDERED: SODIUM CHLORIDE 0.9% 1,000 ML IV SCH (23:15)
[2016-07-26] MEDS: ACETAMINOPHEN TAB 325 MG TAB PO PRN (23:35)
[2016-07-26 23:57] LABS: Glucose,Whole Blood 89 mg/dL (75-99)
[2016-07-27 06:09] LABS: Glucose,Whole Blood 139 mg/dL (75-99)
[2016-07-27 06:25] LABS: Anisocytosis Slight; Basophils % (A) 0 %; CH 25.5; CHCM 30.4; Eosinophils % (A) 0 %; HCT 36.8 % (34.0-46.0); HDW 2.93; HGB 11.1 gm/dL (11.4-16.0); Hypochromasia Marked; Luc # (Auto) 0.25; Luc % (Auto) 4; Lymphocytes # (A) 0.5 k/uL (1.0-4.8); Lymphocytes % (A) 8 %; MCH 25.4 pg (25.0-35.0); MCHC 30.2 g/dL (31.0-37.0); MCV 84.3 fL (80.0-100.0); Mean Platelet Volume 6.5; Monocytes # (A) 0.5 k/uL (0-1.0); Monocytes % (A) 8 %; Neutrophils # (A) 5.4 k/uL (1.3-7.7); Neutrophils % (A) 80 %; RBC 4.36 m/uL (3.80-5.40); RDW 17.2 % (11.5-15.5); WBC 6.7 k/uL (3.8-10.6); WBC (Perox) 7.26
[2016-07-27 06:41] LABS: Calcium 8.4 mg/dL (8.4-10.2); Total Bilirubin 1.7 mg/dL (0.2-1.3); Total Protein 5.7 g/dL (6.3-8.2)
[2016-07-27] MEDS: INSULIN LISPRO (humaLOG) 300 UNIT/3 ML VIAL SQ SCH ×4 (06:54→21:03)
[2016-07-27] MEDS: metFORMIN 500 MG TAB PO SCH ×2 (07:01→20:49)
[2016-07-27] MEDS: GLIMEPIRIDE 2 MG TAB PO SCH ×2 (07:02→20:49)
--- NOTE | 2016-07-27 07:34 | XR ---
EXAMINATION TYPE: XR chest 2V DATE OF EXAM: 07/27/2016 HISTORY: r/o CHF . REFERENCE: Previous study dated 07/26/2016. FINDINGS: There has been a previous midline sternotomy. The heart is enlarged. There is vascular congestion and pulmonary edema. No significant effusion is n oted. IMPRESSION: FINDINGS CONSISTENT WITH CONGESTIVE HEART FAILURE. THE OVERALL APPEARANCE IS SIMILAR TO PREVIOUS.
[2016-07-27] MEDS: ASPIRIN 81 MG CHEW PO SCH (08:18)
[2016-07-27] MEDS: CLOPIDOGREL 75 MG TAB PO SCH (08:18)
[2016-07-27] MEDS: METOPROLOL TARTRATE 50 MG TAB PO SCH ×2 (08:18→21:18)
[2016-07-27] MEDS: FUROSEMIDE 40 MG TAB PO SCH (08:18)
[2016-07-27] MEDS: LISINOPRIL 20 MG TAB PO SCH (08:18)
[2016-07-27] MEDS ORDERED: FUROSEMIDE 10 MG/ML 4 ML VIAL IV STA (09:07)
[2016-07-27 09:24] LABS: Hemoglobin A1C 8.2 % (4.2-6.1)
[2016-07-27] MEDS: ACETAMINOPHEN TAB 325 MG TAB PO PRN (10:21)
[2016-07-27] MEDS: SENNOSIDES 8.6 MG TAB PO SCH ×2 (10:22→21:03)
[2016-07-27] MEDS: SODIUM CHLORIDE 0.9% 1,000 ML IV SCH (10:24)
[2016-07-27 11:13] VITALS: BMI 36.0
[2016-07-27 11:46] LABS: Glucose,Whole Blood 156 mg/dL (75-99)
--- NOTE | 2016-07-27 13:49 | CONS ---
DATE OF CONSULTATION: CHIEF COMPLAINT: 1. Symptoms of not feeling well, shortness of breath, fatigue and tiredness. 2. Congestive heart failure. This is a 76-year-old lady with a history of coronary artery disease, status post CABG, hypertension, dyslipidemia, [id number] diabetes who presented to the emergency room with symptoms of not feeling well, weakness, fatigue and tiredness. She also had a fever and was diagnosed with urinary tract infection and started on IV antibiotics. This morning, she is feeling better, but complains of shortness of breath. A chest x-ray done today shows evidence of pulmonary congestion and labs show that the BNP is elevated consistent with a diagnosis of acute onset congestive heart failure, probably due to diastolic dysfunction. I am going to treat the patient with IV diuretics, obtain a 2-D echo to evaluate her LV function. Continue LARRY inhibitor and beta george that she is currently on. Past medical history is significant for hypertension, diabetes, dyslipidemia, insulin-requiring diabetes, CAD status post CABG. Medications at home include Glucophage 250 b.i.d., Senokot, Lopressor 50 b.i.d., lisinopril 40 q. daily, Amaryl 4 b.i.d., Lasix 40 q. daily, Colace, Plavix, atorvastatin and aspirin. Allergic to PENICILLIN. Family history is negative for premature coronary artery disease. Social history is negative for current smoking, EtOH abuse, or drug abuse. REVIEW OF SYSTEMS: HEENT is unremarkable. CARDIAC: As described above. RESPIRATORY: Negative. GI: Negative. GENITOURINARY: Negative. ALLERGY/IMMUNOLOGY: Negative. SKIN: Negative. MUSCULOSKELETAL: Significant for arthritis. PSYCHOSOCIAL: Negative. DERMATOLOGY: Negative. CONSTITUTIONAL: Negative. ONCOLOGICAL: Negative. The rest of the system review is not relevant. On exam, comfortable at rest. Afebrile. Vital signs are stable. There is no jugular venous distention. Carotid upstroke is normal. There is no bruit. Chest exam reveals good air entry bilaterally. Heart exam reveals first and second heart sounds. No gallop. Exam of the extremities reveal trace edema. Peripheral pulses are felt. Labs show a BNP of 3450. Hemoglobin is 11. 1. EKG shows sinus tachycardia with poor R wave progression and nonspecific ST-T wave changes. ASSESSMENT: 1. Acute onset congestive heart failure, probably diastolic. 2. Coronary artery disease, status post coronary artery bypass graft. 3. Urinary tract infection. PLAN: I will treat the patient with intravenous diuretics, obtain a 2-D echo to document her LV function, adjust therapies depending upon how progress.
[2016-07-27] MEDS ORDERED: LEVOFLOXACIN 750MG-D5W PMX 750 MG in DEXTROSE/WATER 1 150ML.BAG IVPB SCH (14:00)
--- NOTE | 2016-07-27 15:20 | P.HPIM ---
History of Present Illness H&P Date: 07/27/16 Chief Complaint: Fever Patient is a 75-year-old white female, patient of Dr. 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 Patient presented to the emergency department with complaints of fever and cough. Patient apparently went to see Dr. Troy in the outpatient setting and was sent to the emergency department. Chest x-ray in the emergency department with evidence of congestive heart failure exacerbation. Patient also had evidence of urinary tract infection. Patient's temperature on arrival 102.8. Troponin elevated at 0.062. Patient was started on IV antibiotics and admitted to the selective care unit with consult to cardiology service and Dr. Burdick for pulmonary service. Upon examination, patient complains of persistent nonproductive cough, shortness of breath, and right shoulder pain. Denies nausea, vomiting, chest pain, or abdominal pain. Patient states she hasn't had a bowel movement in 2 days. Denies dysuria, hematuria, or urgency. Denies numbness or tingling. X-ray from this morning with evidence of consistent congestive heart failure. BNP 3450. Past Medical History Past Medical History: Coronary Artery Disease (CAD), Cancer, Heart Failure, Diabetes Mellitus, Hyperlipidemia, Hypertension, Myocardial Infarction ([place]), Osteoarthritis (OA), Renal Disease Additional Past Medical History / Comment(s): pt is right side dominant.BACK PAIN; 05/13/15 stent to the Left main and SVG to the Diagonal. Cataract on left eye; "needs a cornea transplant on left eye". Uterine Cancer.ANEMIA,LUMBAR SPINAL STENOSIS,CHRONIC CONSTIPATION, SEIZURE 03-23-16 Last Myocardial Infarction Date:: 05/13/15 History of Any Multi-Drug Resistant Organisms: None Reported Past Surgical History: Cholecystectomy, Coronary Bypass/CABG, Heart Catheterization With Stent, Hysterectomy, Joint Replacement, Orthopedic Surgery Additional Past Surgical History / Comment(s): 1996 CABG. Right Knee replacement 1954 Past Anesthesia/Blood Transfusion Reactions: No Reported Reaction Date of Last Stent Placement:: 05/13/15 Past Psychological History: Anxiety Smoking Status: Never smoker Past Alcohol Use History: Occasional Past Drug Use History: None Reported - Past Family History Father Family Medical History: Cancer, Coronary Artery Disease (CAD), Diabetes Mellitus , Myocardial Infarction ([place]) Additional Family Medical History / Comment(s): pancreas cancer Mother Family Medical History: Cancer Additional Family Medical History / Comment(s): Uterine cancer Medications and Allergies Home Medications Medication Instructions Recorded Confirmed Type Clopidogrel [Plavix] 75 mg PO DAILY 05/13/15 07/26/16 History Glimepiride [Amaryl] 4 mg PO BID 05/13/15 07/26/16 History Metoprolol Tartrate [Lopressor] 50 mg PO BID 05/13/15 07/26/16 History Nitroglycerin Sl Tabs [Nitrostat] 0.4 mg SUBLINGUAL Q5M PRN 05/13/15 07/26/16 History Sennosides [Senokot] 8.6 mg PO BID PRN 07/28/15 07/26/16 History Docusate [Colace] 100 mg PO BID PRN 03/23/16 07/26/16 History Lisinopril 40 mg PO DAILY 03/23/16 07/26/16 History metFORMIN HCL [Glucophage] 250 mg PO BID 03/23/16 07/26/16 History Allergies Allergy/AdvReac Type Severity Reaction Status Date / Time adhesive tape Allergy Rash/Hives Verified 07/26/16 12:22 Penicillins Allergy Anaphylaxis Verified 07/26/16 12:22 Physical Exam Vitals: Vital Signs Temp Pulse Pulse Resp BP BP Pulse Ox 07/27/16 12:00 75 18 133/63 96 07/27/16 07:46 97.2 F L 82 16 141/72 95 07/27/16 04:00 97.3 F L 76 20 146/69 100 07/27/16 00:00 96.9 F L 84 18 96/55 98 07/26/16 20:00 97.0 F L 85 18 154/77 98 07/26/16 16:00 97.9 F 85 18 137/63 97 07/26/16 15:02 100.0 F H 84 22 131/60 98 Intake and Output 07/26/16 07/27/16 07/27/16 22:59 06:59 14:59 Intake Total 120 120 Output Total 300 200 Balance 120 -300 -80 Intake: Oral 120 120 Output: Urine 300 200 Other: # Voids 2 2 1 Weight 86.5 kg 86.5 kg Patient Weight 07/28/16 06:59 Weight 86.5 kg GENERAL: Pt awake and alert, anxious, in mild respiratory distress. HEAD: Atraumatic, normocephalic. EYES: Pupils round and equal. Sclera anicteric, conjunctiva are normal. Patient blind right eye. Deaf right ear. ENT: Moist mucous membranes. NECK:Supple without lymphadenopathy or JVD. LUNGS: Breath sounds diminished with crackles and expiratory wheezing. Patient tachypneic. HEART: Heart S1, S2, no S3 or S4. Regular rate and rhythm. No murmurs, rubs or gallops. ABDOMEN: Soft, obese, nontender, nondistended, active bowel sounds. No guarding , no rebound. No masses or organomegaly appreciated. EXTREMITIES: 2+ peripheral pulses. 1+ bilateral lower extremity edema. No calf tenderness. NEUROLOGICAL: Pt oriented x 3. No focal deficits noted. Strength and sensation grossly intact. PSYCH: Slightly anxious. SKIN: Warm, dry, intact. Results CBC & Chem 7: 07/27/16 05:57 07/27/16 05:57 Labs: Abnormal Lab Results - Last 24 Hours (Table) 07/26/16 07/26/16 07/26/16 Range/Units 15:24 16:49 20:55 Hgb (11.4-16.0) gm/dL MCHC (31.0-37.0) g/dL RDW (11.5-15.5) % Lymphocytes # (1.0-4.8) k/uL Sodium (137-145) mmol/L Carbon Dioxide (22-30) mmol/L BUN (7-17) mg/dL Creatinine (0.52-1.04) mg/dL Glucose (74-99) mg/dL POC Glucose (mg/dL) 170 H 210 H 152 H (75-99) mg/dL Hemoglobin A1c (4.2-6.1) % Total Bilirubin (0.2-1.3) mg/dL Troponin I (0.000-0.034) ng/mL Total Protein (6.3-8.2) g/dL Albumin (3.5-5.0) g/dL 07/27/16 07/27/16 07/27/16 Range/Units 05:57 05:57 05:57 Hgb 11.1 L (11.4-16.0) gm/dL MCHC 30.2 L (31.0-37.0) g/dL RDW 17.2 H (11.5-15.5) % Lymphocytes # 0.5 L (1.0-4.8) k/uL Sodium 133 L (137-145) mmol/L Carbon Dioxide 19 L (22-30) mmol/L BUN 30 H (7-17) mg/dL Creatinine 1.10 H (0.52-1.04) mg/dL Glucose 136 H (74-99) mg/dL POC Glucose (mg/dL) (75-99) mg/dL Hemoglobin A1c 8.2 H (4.2-6.1) % Total Bilirubin 1.7 H (0.2-1.3) mg/dL Troponin I (0.000-0.034) ng/mL Total Protein 5.7 L (6.3-8.2) g/dL Albumin 3.3 L (3.5-5.0) g/dL 07/27/16 07/27/16 07/27/16 Range/Units 06:08 11:41 13:20 Hgb (11.4-16.0) gm/dL MCHC (31.0-37.0) g/dL RDW (11.5-15.5) % Lymphocytes # (1.0-4.8) k/uL Sodium (137-145) mmol/L Carbon Dioxide (22-30) mmol/L BUN (7-17) mg/dL Creatinine (0.52-1.04) mg/dL Glucose (74-99) mg/dL POC Glucose (mg/dL) 139 H 156 H (75-99) mg/dL Hemoglobin A1c (4.2-6.1) % Total Bilirubin (0.2-1.3) mg/dL Troponin I 0.053 H* (0.000-0.034) ng/mL Total Protein (6.3-8.2) g/dL Albumin (3.5-5.0) g/dL Microbiology - Last 24 Hours (Table) 07/26/16 12:15 Blood Culture - Preliminary Blood No Growth after 24 hours 07/26/16 12:30 Urine Culture - Preliminary Urine,Voided Chest x-ray: report reviewed Thrombosis Risk Factor Assmnt - DVT/VTE Prophylaxis DVT/VTE Prophylaxis: Pharmacologic Prophylaxis ordered, Mechanical Prophylaxis ordered - Choose All That Apply Any of the Below Risk Factors Present?: Yes Each Factor Represents 1 point: Obesity (BMI >25), Sepsis (< 1month) Other Risk Factors: Yes Each Risk Factor Represents 2 Points: Malignancy Each Risk Factor Represents 3 Points: Age 75 years or older Other congenital or acquired thrombophilia - If yes, enter type in comment: No Thrombosis Risk Factor Assessment Total Risk Factor Score: 7 Thrombosis Risk Factor Assessment Level: High Risk Assessment and Plan Plan: Impression: 1. Leukocytosis, present on admission, suspect secondary to urinary tract infection. 2. Acute on chronic systolic heart failure. 3. Elevated troponin, present on admission. 4. History of subendocardial ischemia status post angioplasty with stent placement to the mid left main and SVG to the diagonal branch in April 2015. 5. History of right middle cerebral ischemic stroke in April,. 6. History of left carotid high-grade stenosis 70% and right external high- grade stenosis. 7. Chronic renal failure, stage III, present on admission, suspect secondary to chronic kidney disease and hypertensive vascular disease. 8. Type 2 diabetes mellitus. 9. Dyslipidemia. 10. Hypertension. 11. Lumbar spinal stenosis. 12. Chronic right shoulder pain suspect due to osteoarthritis. 13. Coronary artery disease. 14. History of chronic constipation. Plan: 1. Will give patient Lasix 40 mg IV 1. Decrease IV fluids to KVO. Continue IV antibiotics. Follow urine and blood culture. Home medications have been reviewed and resumed. Continue supportive treatment and pain management. Continue to follow with cardiology and pulmonary service. Repeat CBC and BMP in a.m. The above impression and plan have been discussed and directed by Dr. Troy. Trina SANDOVAL acting as scribe for Dr. Troy.
--- NOTE | 2016-07-27 16:54 | CONS ---
DATE OF CONSULTATION: This patient is a 76-year-old female who apparently presented to the emergency department yesterday with complaints of not feeling well. She had not been feeling well for a couple days, maybe 3 or 4. She apparently had a cough, some shortness of breath. The patient was sent to the emergency department by her family doctor. She denied any chest pain or palpitations. Denies any abdominal pain. No nausea, vomiting or diarrhea; just feels weak and tired. Also has cough. Not really producing any phlegm. No dysuria. No other GI complaints. Chest x-ray is consistent with fluid overload/heart failure. The patient is feeling better today. Her home medications include: 1. Plavix. 2. Amaryl. 3. Lopressor. 4. Nitrostat. 5. Senokot. 6. Colace. 7. Lisinopril. 8. Metformin. 9. Lasix. 10. Aspirin. 11. Lipitor. ALLERGIES: ADHESIVE TAPE and PENICILLIN. Medical history is apparently positive for: 1. CAD. 2. Heart failure. 3. Diabetes. 4. Hypertension. 5. Myocardial infarction. 6. DJD. 7. She has also had a stent placement to the left main coronary artery. 8. Cataract surgery on her left eye. 9. History of uterine cancer. 10. Previous bypass grafting in 1996. 11. Cholecystectomy. 12. Hysterectomy. 13. Joint replacement. 14. Some other procedures. SOCIAL HISTORY: Positive for remote tobacco history. No significant alcohol use. No illicit drug use. FAMILY MEDICAL HISTORY: Positive for CAD, diabetes, myocardial infarction, pancreatic cancer and uterine cancer. REVIEW OF SYSTEMS: CONSTITUTIONAL: Negative. NEUROLOGIC: Negative. HEENT: Negative. CARDIOVASCULAR: No chest pain or chest discomfort. No palpitations. PULMONARY: Shortness of breath, nonproductive cough, chest congestion. GI/: Negative. RHEUMATOLOGIC/IMMUNOLOGIC: Negative. ENDOCRINOLOGIC: Negative. DERMATOLOGIC: Negative. Vital signs are stable. Temperature 97.2, heart rate 82, respiratory rate 16, blood pressure 141/72, mean 95. Room-air saturation 95%. Three-liter saturation is 100%. T-max is 97.3. Appears in no acute distress. No respiratory distress. HEENT examination is grossly unremarkable. Mucous membranes are moist. No oral lesions. Neck is supple. Full range of motion. No adenopathy. Neck veins are flat. Cardiovascular examination reveals regular rhythm and rate. S1, S2 normal. No S3, S4 or murmur. Lungs reveal some scattered crackles. She does not really sound bad at all. No wheezes. No rhonchi. ABDOMEN: Soft. Bowel sounds are heard. EXTREMITIES: Intact. No cyanosis, clubbing or edema. Chest x-ray x2 is consistent with fluid overload/heart failure. Labs are reviewed. White count 6.7, hemoglobin 11.1, hematocrit 36.8, platelet count 192,000. Sodium 133, potassium 5, chloride 104, CO2 of 19. BUN and creatinine were 13 and 1.10. The rest of the labs look okay. N-terminal proBNP quite elevated at 3450. Her urine is cloudy, 2+ protein, small amount of blood, leukocyte esterase large positive, WBCs greater than 182. I do not see any mention of bacteria. Influenza A and B titers are both negative. ASSESSMENT: 1. Heart failure. 2. Possible urinary tract infection/urosepsis. 3. Weakness secondary to both 1 and 2. 4. History of coronary artery disease with previous bypass grafting. 5. History of congestive heart failure. 6. History of uterine cancer. 7. Diabetes mellitus. 8. History of essential hypertension. 9. Myocardial infarction. 10. Degenerative joint disease. PLAN: The patient's medications are reviewed. I do not suspect she has any significant underlying COPD. Will review her medications and make recommendations. Prognosis is guarded. She looks really stable, though.
[2016-07-27 17:01] LABS: Glucose,Whole Blood 69 mg/dL (75-99)
[2016-07-27 17:58] LABS: Glucose,Whole Blood 118 mg/dL (75-99)
[2016-07-27] MEDS ORDERED: FUROSEMIDE 10 MG/ML 2 ML VIAL IV STA (21:17)
[2016-07-27] MEDS: HEPARIN SODIUM,PORCINE 5,000 UNIT/ML 1 ML VIAL SQ SCH (21:18)
[2016-07-27] MEDS: ATORVASTATIN 80 MG TAB PO SCH (21:18)
[2016-07-27 21:26] LABS: Glucose,Whole Blood 72 mg/dL (75-99)
[2016-07-27] MEDS: TEMAZEPAM 15 MG CAP PO PRN (23:03)
[2016-07-28 01:31] LABS: Glucose,Whole Blood 118 mg/dL (75-99)
[2016-07-28] MEDS: IPRATROPIUM-ALBUTEROL 3 ML NEB INHALATION PRN ×5 (01:36→19:35)
[2016-07-28 06:26] LABS: Glucose,Whole Blood 116 mg/dL (75-99)
[2016-07-28 06:40] LABS: Anisocytosis Slight; Basophils % (A) 0 %; CH 25.7; CHCM 31.9; Eosinophils # (A) 0.1 k/uL (0-0.7); Eosinophils % (A) 1 %; HCT 36.6 % (34.0-46.0); HDW 3.06; HGB 11.7 gm/dL (11.4-16.0); Hypochromasia Slight; Luc % (Auto) 4; Lymphocytes # (A) 1.2 k/uL (1.0-4.8); Lymphocytes % (A) 16 %; MCH 25.9 pg (25.0-35.0); MCV 80.9 fL (80.0-100.0); Mean Platelet Volume 7.2; Microcytosis Slight; Monocytes # (A) 0.8 k/uL (0-1.0); Monocytes % (A) 12 %; Neutrophils # (A) 4.7 k/uL (1.3-7.7); Neutrophils % (A) 67 %; RBC 4.52 m/uL (3.80-5.40); RDW 16.8 % (11.5-15.5); WBC 7.1 k/uL (3.8-10.6); WBC (Perox) 7.42
[2016-07-28 06:49] LABS: Potassium 4.2 mmol/L (3.5-5.1)
[2016-07-28] MEDS: INSULIN LISPRO (humaLOG) 300 UNIT/3 ML VIAL SQ SCH ×4 (06:58→21:24)
[2016-07-28] MEDS: SODIUM CHLORIDE 0.9% 1,000 ML IV SCH (07:43)
[2016-07-28] MEDS: metFORMIN 500 MG TAB PO SCH ×2 (08:25→17:19)
[2016-07-28] MEDS: CLOPIDOGREL 75 MG TAB PO SCH (08:26)
[2016-07-28] MEDS: ASPIRIN 81 MG CHEW PO SCH (08:26)
[2016-07-28] MEDS: GLIMEPIRIDE 2 MG TAB PO SCH ×2 (08:26→17:19)
[2016-07-28] MEDS: FUROSEMIDE 40 MG TAB PO SCH ×2 (08:27→08:30)
[2016-07-28] MEDS: HEPARIN SODIUM,PORCINE 5,000 UNIT/ML 1 ML VIAL SQ SCH ×2 (08:27→21:21)
[2016-07-28] MEDS: LISINOPRIL 20 MG TAB PO SCH (08:27)
[2016-07-28] MEDS: SENNOSIDES 8.6 MG TAB PO SCH ×2 (08:27→21:22)
[2016-07-28] MEDS: METOPROLOL TARTRATE 50 MG TAB PO SCH ×2 (08:28→21:21)
[2016-07-28 08:45] LABS: Glucose,Whole Blood 188 mg/dL (75-99)
[2016-07-28] MEDS: FUROSEMIDE 10 MG/ML 4 ML VIAL IV SCH ×2 (09:20→21:21)
--- NOTE | 2016-07-28 10:18 | ECHOF ---
Referral Reason:CHF MEASUREMENTS -------- HEIGHT: 162.6 cm WEIGHT: 74.8 kg BP: 185/96 RVIDd: 3.4 cm (< 3.3) IVSd: 1.1 cm (0.6 - 1.1) LVIDd: 5.0 cm (3.9 - 5.3) LVPWd: 1.1 cm (0.6 - 1.1) IVSs: 1.3 cm LVIDs: 4.8 cm LVPWs: 1.4 cm LAESV Index (A-L): 19.92 ml/m Ao Diam: 2.7 cm (2.0 - 3.7) AV Cusp: 1.1 cm (1.5 - 2.6) LA Diam: 4.4 cm (2.7 - 3.8) MV EXCURSION: 11.432 mm (> 18.000) MV EF SLOPE: 50 mm/s (70 - 150) EPSS: 1.8 cm MV E Kirk: 1.43 m/s MV DecT: 188 ms MV A Kirk: 0.59 m/s MV E/A Ratio: 2.44 RAP: 5.00 mmHg RVSP: 61.16 mmHg FINDINGS -------- Atrial fibrillation. This was a technically adequate study. Overall left ventricular systolic function is severely impaired with, an EF between 20 - 25 %. The right ventricle is normal in size and function. The left atrium was not well visualized. Normal LA size by volume 22+/-6 ml/m2. RA appears enlarged. There is mild to moderate aortic valve sclerosis. There is no evidence of aortic regurgitation. There is no evidence of aortic stenosis. The mitral valve leaflets are mildly thickened. Moderate mitral annular calcification present. There is trace to mild mitral regurgitation. Densely calcified chordae [id number] tricuspid regurgitation present. There is moderate to severe pulmonary hypertension. The right ventricular systolic pressure, as measured by Doppler, is 61.16mmHg. The pulmonic valve was not well visualized. The aortic root size is normal. Normal inferior vena cava with normal inspiratory collapse consistent with estimated right atrial pressure of 5 mmHg. The pericardium is normal. There is no pericardial effusion. CONCLUSIONS -------- 1. Atrial fibrillation. 2. [id number]-[id number] tricuspid regurgitation present. 3. There is moderate to severe pulmonary hypertension. 4. The right ventricular systolic pressure, as measured by Doppler, is 61.16mmHg. 5. The pulmonic valve was not well visualized. 6. The aortic root size is normal. 7. There is no pericardial effusion. 8. Overall left ventricular systolic function is severely impaired with, an EF between 20 - 25 %. 9. Normal LA size by volume 22+/-6 ml/m2. 10. RA appears enlarged. 11. There is mild to moderate aortic valve sclerosis. 12. The mitral valve leaflets are mildly thickened. 13. Moderate mitral annular calcification present. 14. There is trace to mild mitral regurgitation. 15. Densely calcified chordae TIRE REGROOVING MACHINE OPERATOR: Hussein Peterson RDCS
--- NOTE | 2016-07-28 11:46 | P.PN ---
Subjective Patient is a 75-year-old white female, patient of Dr. 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 Patient presented to the emergency department with complaints of fever and cough. Patient apparently went to see Dr. Troy in the outpatient setting and was sent to the emergency department. Chest x-ray in the emergency department with evidence of congestive heart failure exacerbation. Patient also had evidence of urinary tract infection. Patient's temperature on arrival 102.8. Troponin elevated at 0.062. Patient was started on IV antibiotics and admitted to the selective care unit with consult to cardiology service and Dr. Burdick for pulmonary service. Upon examination, patient complains of persistent nonproductive cough, shortness of breath, and right shoulder pain. Denies nausea, vomiting, chest pain, or abdominal pain. Patient states she hasn't had a bowel movement in 2 days. Denies dysuria, hematuria, or urgency. Denies numbness or tingling. X-ray from this morning with evidence of consistent congestive heart failure. BNP 3450. 07/28/2016: Patient is evaluated and selective care unit where she is currently sitting up in a chair. Patient complains of persistent nonproductive cough but states overall she feels better. Patient did have an episode increased wheezing and respiratory distress during the night for which she received 1 dose of IV Lasix. Patient reports improvement in right shoulder pain. Patient did have an echocardiogram yesterday with evidence of moderate to severe pulmonary hypertension, mild to moderate tricuspid regurgitation, and overall left ventricular systolic function severely impaired with an EF between 20-25%. Creatinine increased to 1.2. Troponin decreased to 0.047. Final urine culture with no growth. Objective - Vital Signs Vital signs: Vital Signs Temp 98.9 F 07/28/16 11:25 Pulse 71 07/28/16 11:25 Resp 18 07/28/16 11:25 BP 124/55 07/28/16 11:25 Pulse Ox 95 07/28/16 11:25 Intake & Output 07/27/16 07/28/1617 18:59 06:59 18:59 Intake Total 120 240 Output Total 200 250 Balance -80 -250 240 Weight 86.5 kg 78.4 kg Intake: Oral 120 240 Output: Urine 200 250 Other: # Voids 3 1 - Exam GENERAL: Pt awake and alert, sitting up in chair, in no acute distress. HEAD: Atraumatic, normocephalic. EYES: Pupils round and equal. Sclera anicteric, conjunctiva are normal. Patient blind right eye. Deaf right ear. ENT: Moist mucous membranes. NECK:Supple without lymphadenopathy or JVD. LUNGS: Breath sounds diminished with crackles and expiratory wheezing. Nonproductive cough. HEART: Heart S1, S2, no S3 or S4. Regular rate and rhythm. No murmurs, rubs or gallops. ABDOMEN: Soft, obese, nontender, nondistended, active bowel sounds. No guarding , no rebound. No masses or organomegaly appreciated. EXTREMITIES: 2+ peripheral pulses. 1+ bilateral lower extremity edema. No calf tenderness. NEUROLOGICAL: Pt oriented x 3. No focal deficits noted. Strength and sensation grossly intact. PSYCH: Calm. SKIN: Warm, dry, intact. - Labs CBC & Chem 7: 07/28/16 05:48 07/28/16 05:48 Labs: Abnormal Lab Results - Last 24 Hours (Table) 07/27/16 07/27/16 07/27/16 Range/Units 11:41 13:20 16:55 RDW (11.5-15.5) % Sodium (137-145) mmol/L BUN (7-17) mg/dL Creatinine (0.52-1.04) mg/dL Glucose (74-99) mg/dL POC Glucose (mg/dL) 156 H 69 L (75-99) mg/dL Troponin I 0.053 H* (0.000-0.034) ng/mL 07/27/16 07/27/16 07/28/16 Range/Units 17:45 20:38 01:12 RDW (11.5-15.5) % Sodium (137-145) mmol/L BUN (7-17) mg/dL Creatinine (0.52-1.04) mg/dL Glucose (74-99) mg/dL POC Glucose (mg/dL) 118 H 72 L 118 H (75-99) mg/dL Troponin I (0.000-0.034) ng/mL 07/28/16 07/28/16 07/28/16 Range/Units 05:48 05:48 05:48 RDW 16.8 H (11.5-15.5) % Sodium 134 L (137-145) mmol/L BUN 32 H (7-17) mg/dL Creatinine 1.20 H (0.52-1.04) mg/dL Glucose 121 H (74-99) mg/dL POC Glucose (mg/dL) (75-99) mg/dL Troponin I 0.047 H* (0.000-0.034) ng/mL 07/28/16 07/28/16 Range/Units 06:16 08:24 RDW (11.5-15.5) % Sodium (137-145) mmol/L BUN (7-17) mg/dL Creatinine (0.52-1.04) mg/dL Glucose (74-99) mg/dL POC Glucose (mg/dL) 116 H 188 H (75-99) mg/dL Troponin I (0.000-0.034) ng/mL Microbiology - Last 24 Hours (Table) 07/26/16 12:30 Urine Culture - Final Urine,Voided 07/26/16 16:15 Blood Culture - Preliminary Blood No Growth after 24 hours 07/26/16 12:15 Blood Culture - Preliminary Blood No Growth after 24 hours Assessment and Plan Plan: Impression: 1. Leukocytosis, present on admission, suspect secondary to urinary tract infection. Urine culture negative. 2. Acute on chronic systolic heart failure. 3. Elevated troponin, present on admission. 4. History of subendocardial ischemia status post angioplasty with stent placement to the mid left main and SVG to the diagonal branch in April 2015. 5. History of right middle cerebral ischemic stroke in April,. 6. History of left carotid high-grade stenosis 70% and right external high- grade stenosis. 7. Chronic renal failure, stage III, present on admission, suspect secondary to chronic kidney disease and hypertensive vascular disease. 8. Type 2 diabetes mellitus. 9. Dyslipidemia. 10. Hypertension. 11. Lumbar spinal stenosis. 12. Chronic right shoulder pain suspect due to osteoarthritis. 13. Coronary artery disease. 14. History of chronic constipation. Plan: 1. Continue to monitor patient. Continue current medications. Will add Mucinex 600 mg by mouth twice a day. Continue antibiotics. Continue supportive treatment and pain management. Continue to follow with cardiology and pulmonary service. Repeat CBC and BMP in a.m. The above impression and plan have been discussed and directed by Dr. Troy. Trina HENLEY-C acting as scribe for Dr. Troy.
[2016-07-28 12:08] LABS: Glucose,Whole Blood 142 mg/dL (75-99)
[2016-07-28] MEDS: guaiFENesin 600 MG TABLET.ER PO SCH ×2 (12:28→21:21)
--- NOTE | 2016-07-28 14:05 | PN ---
A 76-year-old female that we saw yesterday for complaints of not feeling well. She has not been feeling well for 3 or 4 days. Her assessment includes things such as heart failure, urinary tract infection/urosepsis, weakness from both heart failure and urosepsis, CAD with previous bypass grafting, CHF, uterine cancer, diabetes, essential hypertension, myocardial infarction, and DJD. We did not suspect that she had significant underlying COPD. Her N-terminal proBNP on laboratory data were quite elevated at 3450. Currently doing better. Temperature 98.9, heart rate 71, respiratory rate 18, blood pressure 124/55, mean 78, room-air saturation 95%. Appears in no acute distress. HEENT examination is grossly unremarkable. Mucous membranes are moist. No oral lesions. Neck is supple. Full range of motion. No adenopathy or thyromegaly. Neck veins are flat. Cardiovascular examination reveals regular rhythm and rate. Heart sounds are distant. This was soft systolic murmur. Lungs reveal mostly clear breath sounds. A few scattered crackles. Abdomen is soft. Bowel sounds are heard. No cyanosis, clubbing, or edema in the extremities. Skin is without rash. There are a few areas of ecchymoses. Neurological examination is nonfocal. Lab data is reviewed. CBC is essentially normal. Sodium 134, potassium, chloride and CO2 normal. Anion gap normal. BUN and creatinine were 32 and 1.20. Troponin was 0.047. Chest x-ray from yesterday showed heart failure. ASSESSMENT: 1. Congestive heart failure. 2. Urinary tract infection with sepsis. 3. Weakness secondary to #1 and #2. 4. History of coronary artery disease with previous bypass grafting. 5. History of congestive heart failure. 6. History of uterine cancer. 7. Diabetes mellitus. 8. History of essential hypertension. 9. Myocardial infarction. 10. Degenerative joint disease. PLAN: The patient is doing reasonably well. Possible discharge today or tomorrow. No additional recommendations are made. Prognosis is guarded. Will continue to follow.
--- NOTE | 2016-07-28 15:49 | P.PN ---
Subjective This is a pleasant 76-year-old female with a history of coronary artery disease , status post CABG, hypertension, dyslipidemia and [id number] diabetes. Presented to the emergency department with symptoms of not feeling well, weakness, fatigue and tiredness. She has had a fever and was diagnosed with urinary tract infection and started on IV antibiotics. Yesterday she began to feel better but was complaining of some shortness of breath with a chest x-ray showing evidence of pulmonary congestion and a BNP level that was elevated. She was initiated on IV Lasix and has been diuresing well. She did undergo 2-D echo with Doppler that showed an ejection fraction of 20-25%. She continues to have some shortness of breath as well as lower extremity edema. Objective - Vital Signs Vital signs: Vital Signs Temp 98.9 F 07/28/16 11:25 Pulse 88 07/28/16 15:33 Resp 18 07/28/16 11:25 BP 124/55 07/28/16 11:25 Pulse Ox 95 07/28/16 11:25 Intake & Output 07/27/16 07/28/16 07/28/16 18:59 06:59 18:59 Intake Total 120 480 Output Total 200 250 Balance -80 -250 480 Weight 86.5 kg 78.4 kg Intake: Oral 120 480 Output: Urine 200 250 Other: # Voids 3 1 1 - Exam PHYSICAL EXAMINATION: HEENT: Head is atraumatic, normocephalic. Pupils equal, round. Neck is supple. There is no elevated jugular venous pressure. HEART EXAMINATION: Heart sounds regular, S1 and S2 normal. No murmur or gallop heard. CHEST EXAMINATION: Lungs reveal crackles to bilateral lower lobes. No chest wall tenderness is noted on palpation or with deep breathing. ABDOMEN: Soft, nontender. Bowel sounds are heard. No organomegaly noted. EXTREMITIES: 2+ peripheral pulses with evidence of 1+ peripheral edema and no calf tenderness noted. NEUROLOGIC patient is awake, alert and oriented x3. . - Labs CBC & Chem 7: 07/28/16 05:48 07/28/16 05:48 Labs: Abnormal Lab Results - Last 24 Hours (Table) 07/27/16 07/27/16 07/27/16 Range/Units 16:55 17:45 20:38 RDW (11.5-15.5) % Sodium (137-145) mmol/L BUN (7-17) mg/dL Creatinine (0.52-1.04) mg/dL Glucose (74-99) mg/dL POC Glucose (mg/dL) 69 L 118 H 72 L (75-99) mg/dL Troponin I (0.000-0.034) ng/mL 07/28/16 07/28/16 07/28/16 Range/Units 01:12 05:48 05:48 RDW 16.8 H (11.5-15.5) % Sodium 134 L (137-145) mmol/L BUN 32 H (7-17) mg/dL Creatinine 1.20 H (0.52-1.04) mg/dL Glucose 121 H (74-99) mg/dL POC Glucose (mg/dL) 118 H (75-99) mg/dL Troponin I (0.000-0.034) ng/mL 07/28/16 07/28/16 07/28/16 Range/Units 05:48 06:16 08:24 RDW (11.5-15.5) % Sodium (137-145) mmol/L BUN (7-17) mg/dL Creatinine (0.52-1.04) mg/dL Glucose (74-99) mg/dL POC Glucose (mg/dL) 116 H 188 H (75-99) mg/dL Troponin I 0.047 H* (0.000-0.034) ng/mL 07/28/16 Range/Units 12:02 RDW (11.5-15.5) % Sodium (137-145) mmol/L BUN (7-17) mg/dL Creatinine (0.52-1.04) mg/dL Glucose (74-99) mg/dL POC Glucose (mg/dL) 142 H (75-99) mg/dL Troponin I (0.000-0.034) ng/mL Microbiology - Last 24 Hours (Table) 07/26/16 12:15 Blood Culture - Preliminary Blood No Growth after 48 hours 07/26/16 12:30 Urine Culture - Final Urine,Voided 07/26/16 16:15 Blood Culture - Preliminary Blood No Growth after 24 hours Assessment and Plan Plan: Assessment and plan #1 acute on chronic systolic congestive heart failure with worsening ejection fraction #2 urinary tract infection #3 coronary artery disease, status post coronary artery bypass grafting #4 hypertension #5 dyslipidemia #6 diabetes From cardiology perspective, we'll continue LARRY inhibitor and beta george. Continue IV Lasix, take the switch to by mouth Lasix tomorrow. We will continue to follow the patient and provide further recommendations accordingly. The above dictated assessment and findings were discussed with signing physician. The impression and plan of care have been directed as dictated. Tanya Parra, Nurse Practitioner, acting as scribe for signing physician.
[2016-07-28 16:53] LABS: Glucose,Whole Blood 207 mg/dL (75-99)
[2016-07-28 20:38] LABS: Glucose,Whole Blood 198 mg/dL (75-99)
[2016-07-28] MEDS: ATORVASTATIN 80 MG TAB PO SCH (21:20)
[2016-07-29] MEDS: INSULIN LISPRO (humaLOG) 300 UNIT/3 ML VIAL SQ SCH ×4 (06:16→21:11)
[2016-07-29 06:24] LABS: Glucose,Whole Blood 105 mg/dL (75-99)
[2016-07-29] MEDS: GLIMEPIRIDE 2 MG TAB PO SCH ×2 (06:36→17:46)
[2016-07-29] MEDS: metFORMIN 500 MG TAB PO SCH ×2 (06:36→17:46)
[2016-07-29 06:51] LABS: Anisocytosis Slight; Basophils # (A) 0.1 k/uL (0-0.2); Basophils % (A) 1 %; CH 25.6; CHCM 31.1; Eosinophils # (A) 0.2 k/uL (0-0.7); Eosinophils % (A) 3 %; HCT 37.3 % (34.0-46.0); HDW 3.03; HGB 11.6 gm/dL (11.4-16.0); Hypochromasia Moderate; Luc % (Auto) 4; Lymphocytes # (A) 1.1 k/uL (1.0-4.8); Lymphocytes % (A) 15 %; MCH 25.6 pg (25.0-35.0); MCHC 31.1 g/dL (31.0-37.0); MCV 82.4 fL (80.0-100.0); Monocytes # (A) 0.7 k/uL (0-1.0); Monocytes % (A) 9 %; Neutrophils # (A) 5.1 k/uL (1.3-7.7); Neutrophils % (A) 69 %; RBC 4.53 m/uL (3.80-5.40); RDW 16.9 % (11.5-15.5); WBC 7.5 k/uL (3.8-10.6); WBC (Perox) 8.05
[2016-07-29 07:15] LABS: Anion Gap 10 mmol/L; Blood Urea Nitrogen 27 mg/dL (7-17); Calcium 9.1 mg/dL (8.4-10.2); Carbon Dioxide 28 mmol/L (22-30); Chloride 100 mmol/L (98-107); Glucose 105 mg/dL (74-99); Magnesium 1.7 mg/dL (1.6-2.3); Non-African American GFR(MDRD) 52 (>60 ml/min/1.73 sqM); Potassium 4.2 mmol/L (3.5-5.1); Sodium 138 mmol/L (137-145)
[2016-07-29] MEDS: IPRATROPIUM-ALBUTEROL 3 ML NEB INHALATION PRN (08:19)
[2016-07-29] MEDS: SODIUM CHLORIDE 0.9% 1,000 ML IV SCH (09:16)
[2016-07-29] MEDS: ASPIRIN 81 MG CHEW PO SCH (09:17)
[2016-07-29] MEDS: CLOPIDOGREL 75 MG TAB PO SCH (09:17)
[2016-07-29] MEDS: FUROSEMIDE 10 MG/ML 4 ML VIAL IV SCH (09:17)
[2016-07-29] MEDS: guaiFENesin 600 MG TABLET.ER PO SCH ×2 (09:18→20:12)
[2016-07-29] MEDS: HEPARIN SODIUM,PORCINE 5,000 UNIT/ML 1 ML VIAL SQ SCH ×2 (09:18→20:12)
[2016-07-29] MEDS: SENNOSIDES 8.6 MG TAB PO SCH ×2 (09:18→20:13)
[2016-07-29] MEDS: METOPROLOL TARTRATE 50 MG TAB PO SCH ×2 (09:18→20:13)
[2016-07-29] MEDS: LISINOPRIL 20 MG TAB PO SCH (09:18)
[2016-07-29 11:52] LABS: Glucose,Whole Blood 131 mg/dL (75-99)
--- NOTE | 2016-07-29 12:57 | P.PN ---
Subjective This is a pleasant 76-year-old female with a history of coronary artery disease , status post CABG, hypertension, dyslipidemia and [id number] diabetes. Presented to the emergency department with symptoms of not feeling well, weakness, fatigue and tiredness. She has had a fever and was diagnosed with urinary tract infection and started on IV antibiotics. Yesterday she began to feel better but was complaining of some shortness of breath with a chest x-ray showing evidence of pulmonary congestion and a BNP level that was elevated. She was initiated on IV Lasix and has been diuresing well. She did undergo 2-D echo with Doppler that showed an ejection fraction of 20-25%. Upon examination this morning, patient is resting confluent with head of bed flat. She feels she is breathing quite a bit better. Continues to have some edema to her lower extremities. Objective - Vital Signs Vital signs: Vital Signs Temp 97.4 F L 07/29/16 12:00 Pulse 75 07/29/16 12:00 Resp 18 07/29/16 12:00 BP 140/67 07/29/16 12:00 Pulse Ox 96 07/29/16 12:00 Intake & Output 07/28/16 07/29/16 07/29/16 18:59 06:59 18:59 Intake Total 600 0 180 Output Total 1850 500 Balance 600 -1850 -320 Weight 76.3 kg Intake: Intake, IV Titration 0 Amount Sodium Chloride 0.9% 1, 0 000 ml @ 20 mls/hr IV . Q24H YEN Rx#:[id number] Oral 600 180 Output: Urine 1850 500 Other: Voiding Method Toilet Toilet Urinal Urinal # Voids 1 1 1 # Bowel Movements 1 - Exam PHYSICAL EXAMINATION: HEENT: Head is atraumatic, normocephalic. Pupils equal, round. Neck is supple. There is no elevated jugular venous pressure. HEART EXAMINATION: Heart sounds regular, S1 and S2 normal. No murmur or gallop heard. CHEST EXAMINATION: Lungs reveal crackles to bilateral bases. No chest wall tenderness is noted on palpation or with deep breathing. ABDOMEN: Soft, nontender. Bowel sounds are heard. No organomegaly noted. EXTREMITIES: 2+ peripheral pulses with evidence of 1+ peripheral edema and no calf tenderness noted. NEUROLOGIC patient is awake, alert and oriented x3. . - Labs CBC & Chem 7: 07/29/16 05:57 07/29/16 05:57 Labs: Abnormal Lab Results - Last 24 Hours (Table) 07/28/16 07/28/16 07/29/16 Range/Units 16:39 20:31 05:57 RDW 16.9 H (11.5-15.5) % BUN (7-17) mg/dL Glucose (74-99) mg/dL POC Glucose (mg/dL) 207 H 198 H (75-99) mg/dL 07/29/16 07/29/16 07/29/16 Range/Units 05:57 06:11 11:48 RDW (11.5-15.5) % BUN 27 H (7-17) mg/dL Glucose 105 H (74-99) mg/dL POC Glucose (mg/dL) 105 H 131 H (75-99) mg/dL Microbiology - Last 24 Hours (Table) 07/26/16 16:15 Blood Culture - Preliminary Blood No Growth after 48 hours 07/26/16 12:15 Blood Culture - Preliminary Blood No Growth after 48 hours Assessment and Plan Plan: Assessment and plan #1 acute on chronic systolic congestive heart failure with worsening ejection fraction #2 urinary tract infection #3 coronary artery disease, status post coronary artery bypass grafting #4 hypertension #5 dyslipidemia #6 diabetes From cardiology perspective, we'll continue LARRY inhibitor and beta george. At this time will switch the patient to by mouth Lasix. We will continue to follow the patient and provide further recommendations accordingly. The above dictated assessment and findings were discussed with signing physician. The impression and plan of care have been directed as dictated. Tanya Parra, Nurse Practitioner, acting as scribe for signing physician.
[2016-07-29] MEDS ORDERED: LEVOFLOXACIN 750MG-D5W PMX 750 MG in DEXTROSE/WATER 1 150ML.BAG IVPB SCH (14:00)
[2016-07-29] MEDS: LEVOFLOXACIN 750 MG TAB PO SCH (14:33)
[2016-07-29] MEDS: FUROSEMIDE 40 MG TAB PO SCH (15:34)
--- NOTE | 2016-07-29 16:51 | PN ---
76-year-old female with complaints of 3 or 4 days of just not feeling well. She was admitted with a diagnosis of probable urinary tract infection/urosepsis. She presented with a sepsis-type picture. She also has a history of CHF and with a history of coronary artery disease with previous bypass grafting, congestive heart failure, uterine cancer, diabetes, essential hypertension, previous myocardial infarction, and DJD. We do not suspect that she has significant chronic obstructive pulmonary disease. Her N-terminal proBNP on admission was elevated. Her residual complaints include primarily weakness, fatigue and a bit of a cough which is nonproductive. Currently, vital signs include a temperature 97.4, heart rate 68, respiratory rate 18, blood pressure 150/67, mean 91, room air saturation 96%. She was eating at the time of evaluation. Her family was at the bedside. HEENT examination is grossly unremarkable. Mucous membranes are moist. Neck is supple. Full range of motion. No adenopathy. Neck veins are flat. Cardiovascular examination reveals regular rhythm and rate. S1, S2 normal. No S3, S4. No murmur. Lungs reveal mostly clear breath sounds. A few scattered mild rhonchi. ABDOMEN: Soft. Bowel sounds are heard. EXTREMITIES: Intact. No cyanosis, clubbing, or edema. Skin without rash. NEUROLOGICAL: Examination is nonfocal. Labs are reviewed. CBC is completely normal. Electrolyte profile is mostly normal. BUN is a bit high at 27. Everything else was normal range. Microbiology is all negative. No recent x-rays to report. ASSESSMENT: 1. Congestive heart failure. 2. Urinary tract infection with sepsis. 3. Weakness secondary to number one and number two. 4. History of bypass grafting. 5. History of congestive heart failure. 6. History of uterine cancer. 7. Diabetes mellitus. 8. History of essential hypertension. 9. Myocardial infarction. 10. Degenerative joint disease. 11. Doubt significant pulmonary disease. 12. Residual cough, likely related to mild tracheobronchitis. PLAN: The patient is doing reasonably well. Medications are reviewed. Everything seems to be appropriate. She is on updrafts. Those can be discontinued. She is not requiring any supplemental oxygen. Additional recommendations and suggestions are forthcoming. If the cough does not clear, we might trial her off Zestril to see whether or not that is causing her cough. Additional recommendations and suggestions are forthcoming. Prognosis is guarded.
[2016-07-29 17:41] LABS: Glucose,Whole Blood 99 mg/dL (75-99)
--- NOTE | 2016-07-29 19:41 | PN ---
Patient is a 76-year-old being treated for pneumonia and CHF exacerbation. EF is 20% to 25%. Patient is being treated for urinary tract infection. Patient is fairly stable regarding these, which are improving. Hyponatremia is improving as well and patient is being [facility]. Patient has no one to take care of her at home until Sunday, apparently. REVIEW OF SYSTEMS: CARDIOVASCULAR: No chest pain, no orthopnea, no PND, no palpitations. PULMONARY: Denied any shortness of breath. No cough or hemoptysis. GASTROINTESTINAL: No diarrhea, nausea or vomiting. No abdominal pain. Normoactive bowel sounds. NEUROLOGIC: No headaches, no weakness, no numbness. Medications are reviewed. PHYSICAL EXAMINATION: VITAL SIGNS: Temperature 97.8, pulse of 80, respiratory rate of 18, blood pressure 136/63, saturating at 96% on room air. GENERAL: The patient is alert and oriented x3, not in any acute distress. Well developed, well nourished. HEENT: Pupils are round and equally reacting to light. EOMI. No scleral icterus. No conjunctival pallor. Normocephalic, atraumatic. No pharyngeal erythema. No thyromegaly. CARDIOVASCULAR: S1 and S2 present. No murmurs, rubs, or gallops. PULMONARY: Chest is clear to auscultation, no wheezing or crackles. ABDOMEN: Soft, nontender, nondistended, normoactive bowel sounds. No palpable organomegaly. MUSCULOSKELETAL: No joint swelling or deformity. EXTREMITIES: No cyanosis, clubbing, or pedal edema. NEUROLOGICAL: Gross neurological examination did not reveal any focal deficits. SKIN: No rashes. LABORATORY DATA: CBC and basic metabolic profile showed improvement in BUN and creatinine with Lasix IV. ASSESSMENT AND PLAN: 1. Acute on chronic systolic dysfunction with acute heart failure exacerbation. Ejection fraction of 20% to 25%. Patient improving at this point of time. 2. Hypervolemic hyponatremia secondary to congestive heart failure exacerbation which improved. 3. Acute renal failure secondary to prerenal azotemia from congestive heart failure, which improved with IV Lasix. 4. Coronary artery disease. 5. Possibility of urinary tract infection for which patient is on antibiotics, which will be continued. 6. 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 7. Type 2 diabetes mellitus. 8. Hyperlipidemia. 9. Hypertension. 10. Osteoarthritis. PLAN: For above-mentioned chronic medical problems, I will go ahead and continue her home medications. Patient will be transferred [facility].
[2016-07-29] MEDS: ATORVASTATIN 80 MG TAB PO SCH (20:12)
[2016-07-29 21:01] LABS: Glucose,Whole Blood 99 mg/dL (75-99)
[2016-07-30 00:03] LABS: Glucose,Whole Blood 57 mg/dL (75-99)
[2016-07-30 00:37] LABS: Glucose,Whole Blood 102 mg/dL (75-99)
[2016-07-30 02:38] LABS: Glucose,Whole Blood 164 mg/dL (75-99)
[2016-07-30 07:56] LABS: Glucose,Whole Blood 145 mg/dL (75-99)
[2016-07-30] MEDS: GLIMEPIRIDE 2 MG TAB PO SCH ×2 (08:09→17:34)
[2016-07-30] MEDS: metFORMIN 500 MG TAB PO SCH ×2 (08:09→17:34)
[2016-07-30] MEDS: SENNOSIDES 8.6 MG TAB PO SCH ×2 (08:09→21:37)
[2016-07-30] MEDS: guaiFENesin 600 MG TABLET.ER PO SCH ×2 (08:09→21:36)
[2016-07-30 08:10] LABS: Calcium 9.2 mg/dL (8.4-10.2); Potassium 4.2 mmol/L (3.5-5.1)
[2016-07-30] MEDS: CLOPIDOGREL 75 MG TAB PO SCH (08:10)
[2016-07-30] MEDS: LISINOPRIL 20 MG TAB PO SCH (08:10)
[2016-07-30] MEDS: METOPROLOL TARTRATE 50 MG TAB PO SCH ×2 (08:10→21:36)
[2016-07-30] MEDS: ASPIRIN 81 MG CHEW PO SCH (08:10)
[2016-07-30] MEDS: FUROSEMIDE 40 MG TAB PO SCH ×2 (08:11→15:40)
[2016-07-30] MEDS: INSULIN LISPRO (humaLOG) 300 UNIT/3 ML VIAL SQ SCH ×4 (08:11→21:31)
[2016-07-30] MEDS: HEPARIN SODIUM,PORCINE 5,000 UNIT/ML 1 ML VIAL SQ SCH ×2 (08:11→21:36)
[2016-07-30] MEDS: SODIUM CHLORIDE 0.9% 1,000 ML IV SCH (11:25)
[2016-07-30 12:21] LABS: Glucose,Whole Blood 156 mg/dL (75-99)
--- NOTE | 2016-07-30 15:04 | XR ---
EXAMINATION TYPE: XR chest 1V DATE OF EXAM: 07/30/2016 2:59 PM COMPARISON: 07/27/2016 HISTORY: Heart failure TECHNIQUE: Single frontal view of the chest is obtained. FINDINGS: Heart is enlarged. There is no heart failure. Costophrenic angles are clear. There are no hilar masses. Thoracic aorta is atheromatous. IMPRESSION: Cardiomegaly. No heart failure. Pulmonary vascularity is improved compared to last exam.
[2016-07-30 17:10] LABS: Glucose,Whole Blood 70 mg/dL (75-99)
--- NOTE | 2016-07-30 20:28 | PN ---
76-year-old female admitted with diagnosis of what appears to be a urinary tract infection. She also was admitted with a diagnosis of CHF. Doing better. She is feeling much better. Less short of breath. Still with nonproductive dry cough. No urinary complaints. No dysuria or frequency or anything like that. She is not having any respiratory distress. She also has a history of underlying CAD with previous bypass grafting, congestive heart failure, uterine cancer, diabetes, essential hypertension, and previous myocardial infarction. Currently her temperature 97, heart rate 74, respirations 16, room air saturation 97%. Blood pressure 148/66. Mean of 93. Appears in no acute distress. HEENT examination is grossly unremarkable. Mucous membranes are moist. No oral lesions. Neck is supple. Full range of motion. No adenopathy or thyromegaly. Cardiovascular examination reveals regular rhythm and rate. S1, S2 normal. No S3, S4. No distinct murmur noted. Lungs reveal mostly clear breath sounds. No wheezes, rhonchi or crackles. ABDOMEN: Soft. Bowel sounds are heard. EXTREMITIES: Intact, clubbing, or edema. Skin is without rash or lesion. Neurological examination is nonfocal. Labs are reviewed. Sodium 136, potassium 4.2, chloride 98, CO2 of 28, BUN and creatinine were 27 and 1.10. Anion gap is normal at 10. Microbiology is all negative at this time. No recent x-rays to report. ASSESSMENT: 1. Congestive heart failure, resolved. 2. Urinary tract infection with sepsis, improved. 3. Weakness secondary to both number one and number two. 4. History of bypass grafting. History of congestive heart failure. 5. History of uterine cancer. 6. Diabetes mellitus. 7. History of essential hypertension. 8. Myocardial infarction. 9. Degenerative joint disease. 10. Doubt significant underlying intrinsic pulmonary disease. 11. Residual cough, likely related to mild tracheobronchitis. PLAN: The patient's overall condition seems to be improved. She is currently on updrafts. I did make recommendations to stop the Zestril to see if her cough goes away. We will leave that up to the primary service. Her overall respiratory status has improved. Not having any urinary complaints. Will continue to follow.
[2016-07-30 20:56] LABS: Glucose,Whole Blood 96 mg/dL (75-99)
[2016-07-30] MEDS: ATORVASTATIN 80 MG TAB PO SCH (21:36)
--- NOTE | 2016-07-30 22:25 | PN ---
No significant overnight events. The patient respiratory status is doing well but still have a bit of crackles on lung on exam. We will repeat a chest x-ray tomorrow. As of now we will continue with oral Lasix. Mild worsening of renal function at this time. REVIEW OF SYSTEMS: CARDIOVASCULAR: No chest pain, no orthopnea, no PND, no palpitations. PULMONARY: Denied any shortness of breath. No cough or hemoptysis. GASTROINTESTINAL: No diarrhea, nausea or vomiting. No abdominal pain. Normoactive bowel sounds. NEUROLOGIC: No headaches, no weakness, no numbness. Medications were reviewed. PHYSICAL EXAMINATION: VITAL SIGNS: Temperature 97.0, pulse of 74, respiratory rate of 16, blood pressure 148/66, saturating at 97% on room air. GENERAL: The patient is alert and oriented x3, not in any acute distress. Well developed, well nourished. HEENT: Pupils are round and equally reacting to light. EOMI. No scleral icterus. No conjunctival pallor. Normocephalic, atraumatic. No pharyngeal erythema. No thyromegaly. CARDIOVASCULAR: S1 and S2 present. No murmurs, rubs, or gallops. PULMONARY: minimal bibasilar crackles were appreciated. No wheezing was appreciated. Fairly good air entry into bilateral lung moran. ABDOMEN: Soft, nontender, nondistended, normoactive bowel sounds. No palpable organomegaly. MUSCULOSKELETAL: No joint swelling or deformity. EXTREMITIES: No cyanosis, clubbing, or pedal edema. NEUROLOGICAL: Gross neurological examination did not reveal any focal deficits. SKIN: No rashes. LABORATORY DATA: CBC, CMP are abnormal for elevated BUN and creatinine of 27 and 1.10 respectively. Sodium is 136. ASSESSMENT AND PLAN: 1. Acute on chronic systolic dysfunction with acute exacerbation. Continue with oral Lasix. Monitor kidney function, possibility of discharge tomorrow. 2. Hypervolemic hyponatremia, improved with IV Lasix, which is again secondary to congestive heart failure. 3. Acute renal failure, prerenal azotemia secondary to congestive heart failure improved with IV Lasix as mentioned above. 4. Coronary artery disease. 5. Possibility of urinary tract infection for which patient is on levofloxacin which will be continued. 6. Chronic kidney disease stage II secondary to diabetic nephropathy. 7. Type 2 diabetes mellitus. 8. Hyperlipidemia. 9. Hypertension. 10. Osteoarthritis. For the above chronic medical problems, we will go ahead and continue her home medications. Patient will be followed by Dr. Jethro Troy her primary care physician tomorrow.
[2016-07-31] MEDS: TEMAZEPAM 15 MG CAP PO PRN (00:23)
[2016-07-31] MEDS: ACETAMINOPHEN TAB 325 MG TAB PO PRN (00:23)
[2016-07-31 07:05] LABS: Glucose,Whole Blood 85 mg/dL (75-99)
[2016-07-31 08:38] LABS: Calcium 9.2 mg/dL (8.4-10.2); Potassium 4.6 mmol/L (3.5-5.1)
[2016-07-31] MEDS: INSULIN LISPRO (humaLOG) 300 UNIT/3 ML VIAL SQ SCH ×4 (09:04→20:58)
[2016-07-31] MEDS: metFORMIN 500 MG TAB PO SCH ×2 (09:06→18:02)
[2016-07-31] MEDS: GLIMEPIRIDE 4 MG TAB PO SCH ×2 (09:07→18:02)
[2016-07-31] MEDS: METOPROLOL TARTRATE 50 MG TAB PO SCH ×2 (09:55→20:58)
[2016-07-31] MEDS: guaiFENesin 600 MG TABLET.ER PO SCH ×2 (09:55→20:58)
[2016-07-31] MEDS: ASPIRIN 81 MG CHEW PO SCH (09:55)
[2016-07-31] MEDS: HEPARIN SODIUM,PORCINE 5,000 UNIT/ML 1 ML VIAL SQ SCH ×2 (09:55→20:58)
[2016-07-31] MEDS: LISINOPRIL 20 MG TAB PO SCH (09:55)
[2016-07-31] MEDS: FUROSEMIDE 40 MG TAB PO SCH ×2 (09:55→18:02)
[2016-07-31] MEDS: CLOPIDOGREL 75 MG TAB PO SCH (09:56)
[2016-07-31] MEDS: SENNOSIDES 8.6 MG TAB PO SCH ×3 (09:56→20:59)
[2016-07-31 12:06] LABS: Glucose,Whole Blood 174 mg/dL (75-99)
[2016-07-31] MEDS ORDERED: IPRATROPIUM-ALBUTEROL 3 ML NEB INHALATION PRN (13:25)
[2016-07-31] MEDS ORDERED: FUROSEMIDE 10 MG/ML 4 ML VIAL IV STA (14:18)
[2016-07-31] MEDS: IPRATROPIUM-ALBUTEROL 3 ML NEB INHALATION SCH ×2 (16:29→20:24)
[2016-07-31] MEDS: CHLORPHEN-HYDROcod 8-10mg/5ml 5 ML ORAL.SYRG PO SCH ×2 (16:39→20:57)
[2016-07-31] MEDS: LEVOFLOXACIN 750 MG TAB PO SCH (16:42)
[2016-07-31 17:13] LABS: Glucose,Whole Blood 69 mg/dL (75-99)
[2016-07-31 17:50] LABS: Glucose,Whole Blood 71 mg/dL (75-99)
[2016-07-31 17:50] LABS: Glucose,Whole Blood 64 mg/dL (75-99)
--- NOTE | 2016-07-31 18:16 | P.PN ---
Subjective Patient is a 75-year-old white female, patient of Dr. 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 Patient presented to the emergency department with complaints of fever and cough. Patient apparently went to see Dr. Troy in the outpatient setting and was sent to the emergency department. Chest x-ray in the emergency department with evidence of congestive heart failure exacerbation. Patient also had evidence of urinary tract infection. Patient's temperature on arrival 102.8. Troponin elevated at 0.062. Patient was started on IV antibiotics and admitted to the selective care unit with consult to cardiology service and Dr. Burdick for pulmonary service. Upon examination, patient complains of persistent nonproductive cough, shortness of breath, and right shoulder pain. Denies nausea, vomiting, chest pain, or abdominal pain. Patient states she hasn't had a bowel movement in 2 days. Denies dysuria, hematuria, or urgency. Denies numbness or tingling. X-ray from this morning with evidence of consistent congestive heart failure. BNP 3450. I'm seeing this patient in follow-up on 07/31/2016. The patient is having persistent cough and she had times is having difficulty in fully expanding her lungs because of coughing episodes. Her cough is also interrupting her ability to speak. No sputum production. No chest pain. No significant shortness of breath. She was in heart failure. The patient is being diuresis. Her echocardiogram has shown severe ejection fraction impairment with an ejection fraction of 20-25%. She is a lifetime nonsmoker and she doesn't have any other form of chronic lung disease or disorder. Objective - Vital Signs Vital signs: Vital Signs Temp 97.1 F L 07/31/16 15:00 Pulse 88 07/31/16 16:29 Resp 20 07/31/16 15:00 BP 139/64 07/31/16 15:00 Pulse Ox 95 07/31/16 15:00 Intake & Output 07/30/16 07/31/16 07/31/16 18:59 06:59 18:59 Intake Total 400 Balance 400 Intake: Oral 400 Other: # Voids 2 1 5 - Exam GENERAL: Pt awake and alert, sitting up in chair, in no acute distress. HEAD: Atraumatic, normocephalic. EYES: Pupils round and equal. Sclera anicteric, conjunctiva are normal. Patient blind right eye. Deaf right ear. ENT: Moist mucous membranes. NECK:Supple without lymphadenopathy or JVD. LUNGS: Breath sounds diminished with crackles and expiratory wheezing. Nonproductive cough. HEART: Heart S1, S2, no S3 or S4. Regular rate and rhythm. No murmurs, rubs or gallops. ABDOMEN: Soft, obese, nontender, nondistended, active bowel sounds. No guarding , no rebound. No masses or organomegaly appreciated. EXTREMITIES: 2+ peripheral pulses. 1+ bilateral lower extremity edema. No calf tenderness. NEUROLOGICAL: Pt oriented x 3. No focal deficits noted. Strength and sensation grossly intact. PSYCH: Calm. SKIN: Warm, dry, intact. - Labs CBC & Chem 7: 07/29/16 05:57 07/31/16 07:20 Labs: Abnormal Lab Results - Last 24 Hours (Table) 07/31/16 07/31/16 07/31/16 Range/Units 07:20 11:56 17:00 BUN 32 H (7-17) mg/dL Creatinine 1.15 H (0.52-1.04) mg/dL POC Glucose (mg/dL) 174 H 69 L (75-99) mg/dL 07/31/16 07/31/16 Range/Units 17:24 17:46 BUN (7-17) mg/dL Creatinine (0.52-1.04) mg/dL POC Glucose (mg/dL) 64 L 71 L (75-99) mg/dL Microbiology - Last 24 Hours (Table) 07/26/16 12:15 Blood Culture - Preliminary Blood No Growth after 120 hours 07/26/16 16:15 Blood Culture - Preliminary Blood No Growth after 96 hours Assessment and Plan Plan: Assessment 1 acute on top of chronic decompensated heart failure 2 persistent cough probably related to CHF. Doubt underlying chronic obstructive lung disease or pneumonia 3 coronary artery disease with previous bypass surgery 4 history of CVA involving the right middle cerebral artery distribution in April 2015 5 chronic renal failure, stage III kidney disease 6 diabetes mellitus type 2 7 hyperlipidemia 8 hypertension 9 lumbar spinal stenosis 10 degenerative arthritis 11 urine checked infection 12 artery bypass surgery, history of Plan Keep the Zestril for now as this will be important in terms of her CHF treatment. Give the patient additional dose of Lasix 40 mg IV push. Repeat chest x-ray in the morning. Put the patient on Tussionex 5 ML by mouth twice a day. Monitor the cough. We'll follow.
--- NOTE | 2016-07-31 19:44 | XR ---
EXAMINATION TYPE: XR chest 2V DATE OF EXAM: 07/31/2016 COMPARISON: Yesterday HISTORY: Fluid overload and cough TECHNIQUE: Frontal and lateral views of the chest are obtained. FINDINGS: Heart is enlarged. There is no gross heart failure. There is very slight blunting of costo phrenic angles. There are no hilar masses. There are sternal wires. IMPRESSION: There are probably tiny pleural effusions. Cardiomegaly. No gross heart failure. No greer ge compared to yesterday.
[2016-07-31] MEDS: ATORVASTATIN 80 MG TAB PO SCH (20:57)
[2016-07-31] MEDS: NYSTATIN 100,000 UNIT/GM OINT 30 GM TUBE TOPICAL SCH (20:57)
[2016-07-31 20:58] LABS: Glucose,Whole Blood 126 mg/dL (75-99)
[2016-08-01 07:35] LABS: Glucose,Whole Blood 116 mg/dL (75-99)
[2016-08-01] MEDS: INSULIN LISPRO (humaLOG) 300 UNIT/3 ML VIAL SQ SCH ×4 (08:25→22:56)
[2016-08-01] MEDS: HEPARIN SODIUM,PORCINE 5,000 UNIT/ML 1 ML VIAL SQ SCH ×2 (08:27→22:54)
[2016-08-01] MEDS: CLOPIDOGREL 75 MG TAB PO SCH (08:27)
[2016-08-01] MEDS: LISINOPRIL 20 MG TAB PO SCH (08:27)
[2016-08-01] MEDS: GLIMEPIRIDE 4 MG TAB PO SCH ×2 (08:27→17:25)
[2016-08-01] MEDS: ASPIRIN 81 MG CHEW PO SCH (08:28)
[2016-08-01] MEDS: FUROSEMIDE 40 MG TAB PO SCH ×2 (08:28→17:25)
[2016-08-01] MEDS: METOPROLOL TARTRATE 50 MG TAB PO SCH ×2 (08:28→22:53)
[2016-08-01] MEDS: guaiFENesin 600 MG TABLET.ER PO SCH ×2 (08:28→22:53)
[2016-08-01] MEDS: metFORMIN 500 MG TAB PO SCH ×2 (08:28→17:24)
[2016-08-01] MEDS: NYSTATIN 100,000 UNIT/GM OINT 30 GM TUBE TOPICAL SCH ×2 (08:29→22:57)
[2016-08-01] MEDS: SENNOSIDES 8.6 MG TAB PO SCH ×2 (08:29→22:53)
[2016-08-01] MEDS: IPRATROPIUM-ALBUTEROL 3 ML NEB INHALATION SCH ×4 (09:57→20:23)
[2016-08-01 11:37] LABS: Glucose,Whole Blood 152 mg/dL (75-99)
[2016-08-01] MEDS: CHLORPHEN-HYDROcod 8-10mg/5ml 5 ML ORAL.SYRG PO SCH ×2 (11:37→22:54)
--- NOTE | 2016-08-01 14:41 | P.PN ---
Subjective Patient is a 75-year-old white female, patient of Dr. 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 Patient presented to the emergency department with complaints of fever and cough. Patient apparently went to see Dr. Troy in the outpatient setting and was sent to the emergency department. Chest x-ray in the emergency department with evidence of congestive heart failure exacerbation. Patient also had evidence of urinary tract infection. Patient's temperature on arrival 102.8. Troponin elevated at 0.062. Patient was started on IV antibiotics and admitted to the selective care unit with consult to cardiology service and Dr. Burdick for pulmonary service. Upon examination, patient complains of persistent nonproductive cough, shortness of breath, and right shoulder pain. Denies nausea, vomiting, chest pain, or abdominal pain. Patient states she hasn't had a bowel movement in 2 days. Denies dysuria, hematuria, or urgency. Denies numbness or tingling. X-ray from this morning with evidence of consistent congestive heart failure. BNP 3450. I'm seeing this patient in follow-up on 07/31/2016. The patient is having persistent cough and she had times is having difficulty in fully expanding her lungs because of coughing episodes. Her cough is also interrupting her ability to speak. No sputum production. No chest pain. No significant shortness of breath. She was in heart failure. The patient is being diuresis. Her echocardiogram has shown severe ejection fraction impairment with an ejection fraction of 20-25%. She is a lifetime nonsmoker and she doesn't have any other form of chronic lung disease or disorder. The patient is seen again today 08/01/2016 in follow-up on the regular medical floor. She is awake and alert in no acute distress. She continues with a currently dry nonproductive cough. That has been slowly improving daily. She denies any fever, chills or night sweats. The plan is for possible discharge to an extended care facility today. Objective - Vital Signs Vital signs: Vital Signs Temp 96.9 F L 08/01/16 07:00 Pulse 96 08/01/16 11:49 Resp 16 08/01/16 07:00 BP 132/62 08/01/16 07:00 Pulse Ox 92 L 08/01/16 11:39 Intake & Output 07/31/16 08/01/16 08/01/16 18:59 06:59 18:59 Other: # Voids 5 3 1 - Exam GENERAL: Pt awake and alert, sitting up in chair, in no acute distress. HEAD: Atraumatic, normocephalic. EYES: Pupils round and equal. Sclera anicteric, conjunctiva are normal. Patient blind right eye. Deaf right ear. ENT: Moist mucous membranes. NECK:Supple without lymphadenopathy or JVD. LUNGS: Breath sounds diminished with crackles and expiratory wheezing. Nonproductive cough. HEART: Heart S1, S2, no S3 or S4. Regular rate and rhythm. No murmurs, rubs or gallops. ABDOMEN: Soft, obese, nontender, nondistended, active bowel sounds. No guarding , no rebound. No masses or organomegaly appreciated. EXTREMITIES: 2+ peripheral pulses. 1+ bilateral lower extremity edema. No calf tenderness. NEUROLOGICAL: Pt oriented x 3. No focal deficits noted. Strength and sensation grossly intact. PSYCH: Calm. SKIN: Warm, dry, intact. - Labs CBC & Chem 7: 07/29/16 05:57 07/31/16 07:20 Labs: Abnormal Lab Results - Last 24 Hours (Table) 07/31/16 07/31/16 07/31/16 Range/Units 17:00 17:24 17:46 POC Glucose (mg/dL) 69 L 64 L 71 L (75-99) mg/dL 07/31/16 08/01/16 08/01/16 Range/Units 20:57 07:19 11:27 POC Glucose (mg/dL) 126 H 116 H 152 H (75-99) mg/dL Microbiology - Last 24 Hours (Table) 07/26/16 12:15 Blood Culture - Final Blood No Growth after 144 hours 07/26/16 16:15 Blood Culture - Preliminary Blood No Growth after 120 hours Assessment and Plan Plan: Assessment 1 acute on top of chronic decompensated heart failure 2 persistent cough probably related to CHF. Doubt underlying chronic obstructive lung disease or pneumonia 3 coronary artery disease with previous bypass surgery 4 history of CVA involving the right middle cerebral artery distribution in April 2015 5 chronic renal failure, stage III kidney disease 6 diabetes mellitus type 2 7 hyperlipidemia 8 hypertension 9 lumbar spinal stenosis 10 degenerative arthritis 11 urine checked infection 12 artery bypass surgery, history of Plan: The patient was seen and evaluated by Dr. Castro. She is improved clinically and radiographically. She was diuresed for CHF. We'll continue Zestril for now to help with her cardiomyopathy doubt though may be the culprit of her continued cough. She is scheduled to go to an extended care facility for continued inpatient rehabilitation. She'll follow-up in our office in 1-2 weeks ' time. She and her son are both however encouraged to call sooner with any recurrence of symptoms or other questions or concerns.
[2016-08-01 17:00] LABS: Glucose,Whole Blood 140 mg/dL (75-99)
--- NOTE | 2016-08-01 17:02 | DS ---
DATE OF ADMISSION: 07/26/2016 DATE OF DISCHARGE: DISCHARGE SUMMARY/TRANSFER SUMMARY: DISCHARGE DIAGNOSIS(ES)/INITIAL DIAGNOSES: 1. Acute urinary tract infection with sepsis. 2. Acute on chronic decompensated congestive heart failure. 3. Persistent cough related to congestive heart failure. 4. Coronary artery disease with previous bypass surgery being stable. 5. Remote history of cerebral vascular accident involving the right middle cerebral artery. 6. Poorly controlled diabetes mellitus Type 2 with noncompliant with diet. 7. Hyperlipidemia. 8. Chronic kidney disease Stage III to IV. HOSPITAL COURSE: the patient is a pleasantly debilitated 76 -year-old white female who was admitted to the hospital with cough, congestion and congestive heart failure. The patient also had a urinary tract infection which was tretaed here in the hospital. She had suffered an ischemic stroke back in April with high grade carotid stenosis. She was treated with appropriate antibiotics and cardiology was consulted as well as pulmonary on this admission. Her IV antibiotics, pulmonary toilet and diuresing helped the patient to improve. However, she was experiencing weakness and shortness of breath which she attributed to her chronic systolic congestive heart failure. It is felt that the patient was doing well and she could be placed on her regular medications and transferred to rehab. The patient elected not to go home at this time with home nursing. She will continue her home medications. Please see medical record for them and she is cleared to be discharged.
[2016-08-01 21:28] LABS: Glucose,Whole Blood 116 mg/dL (75-99)
[2016-08-01] MEDS: ATORVASTATIN 80 MG TAB PO SCH (22:53)
[2016-08-02 07:28] LABS: Glucose,Whole Blood 89 mg/dL (75-99)
[2016-08-02 07:43] VITALS: BP 128/59; RESP 16; TEMP 97.7
[2016-08-02] MEDS: ASPIRIN 81 MG CHEW PO SCH (08:45)
[2016-08-02] MEDS: CLOPIDOGREL 75 MG TAB PO SCH (08:45)
[2016-08-02] MEDS: LEVOFLOXACIN 750 MG TAB PO SCH (08:45)
[2016-08-02] MEDS: LISINOPRIL 20 MG TAB PO SCH (08:45)
[2016-08-02] MEDS: METOPROLOL TARTRATE 50 MG TAB PO SCH (08:45)
[2016-08-02] MEDS: FUROSEMIDE 40 MG TAB PO SCH (08:45)
[2016-08-02] MEDS: CHLORPHEN-HYDROcod 8-10mg/5ml 5 ML ORAL.SYRG PO SCH (08:46)
[2016-08-02] MEDS: GLIMEPIRIDE 4 MG TAB PO SCH (08:46)
[2016-08-02] MEDS: metFORMIN 500 MG TAB PO SCH (08:46)
[2016-08-02] MEDS: INSULIN LISPRO (humaLOG) 300 UNIT/3 ML VIAL SQ SCH ×2 (08:46→12:22)
[2016-08-02] MEDS: HEPARIN SODIUM,PORCINE 5,000 UNIT/ML 1 ML VIAL SQ SCH (08:47)
[2016-08-02] MEDS: NYSTATIN 100,000 UNIT/GM OINT 30 GM TUBE TOPICAL SCH (08:48)
[2016-08-02] MEDS: IPRATROPIUM-ALBUTEROL 3 ML NEB INHALATION SCH ×2 (08:48→13:06)
[2016-08-02] MEDS: guaiFENesin 600 MG TABLET.ER PO SCH (08:56)
[2016-08-02 12:02] LABS: Glucose,Whole Blood 178 mg/dL (75-99)
[2016-08-02 13:07] VITALS: PULSE 86
--- NOTE | 2016-08-02 15:22 | P.PN ---
Subjective Patient is a 75-year-old white female, patient of Dr. 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 Patient presented to the emergency department with complaints of fever and cough. Patient apparently went to see Dr. Troy in the outpatient setting and was sent to the emergency department. Chest x-ray in the emergency department with evidence of congestive heart failure exacerbation. Patient also had evidence of urinary tract infection. Patient's temperature on arrival 102.8. Troponin elevated at 0.062. Patient was started on IV antibiotics and admitted to the selective care unit with consult to cardiology service and Dr. Burdick for pulmonary service. Upon examination, patient complains of persistent nonproductive cough, shortness of breath, and right shoulder pain. Denies nausea, vomiting, chest pain, or abdominal pain. Patient states she hasn't had a bowel movement in 2 days. Denies dysuria, hematuria, or urgency. Denies numbness or tingling. X-ray from this morning with evidence of consistent congestive heart failure. BNP 3450. I'm seeing this patient in follow-up on 07/31/2016. The patient is having persistent cough and she had times is having difficulty in fully expanding her lungs because of coughing episodes. Her cough is also interrupting her ability to speak. No sputum production. No chest pain. No significant shortness of breath. She was in heart failure. The patient is being diuresis. Her echocardiogram has shown severe ejection fraction impairment with an ejection fraction of 20-25%. She is a lifetime nonsmoker and she doesn't have any other form of chronic lung disease or disorder. The patient is seen again today 08/01/2016 in follow-up on the regular medical floor. She is awake and alert in no acute distress. She continues with a currently dry nonproductive cough. That has been slowly improving daily. She denies any fever, chills or night sweats. The plan is for possible discharge to an extended care facility today. The patient was seen again today 08/02/2016 in follow up. She is nearly back to her baseline. No worsening shortness of breath. Her cough has subsided. Maintaining good O2 sats on room air. Afebrile. Objective - Vital Signs Vital signs: Vital Signs Temp 97.7 F 08/02/16 07:00 Pulse 86 08/02/16 13:20 Resp 16 08/02/16 07:00 BP 128/59 08/02/16 07:00 Pulse Ox 91 L 08/02/16 07:00 Intake & Output 08/01/16 08/02/16 08/02/16 18:59 06:59 18:59 Intake Total 100 Balance 100 Intake: Oral 100 Other: # Voids 1 3 1 - Exam GENERAL: Pt awake and alert, sitting up in chair, in no acute distress. HEAD: Atraumatic, normocephalic. EYES: Pupils round and equal. Sclera anicteric, conjunctiva are normal. Patient blind right eye. Deaf right ear. ENT: Moist mucous membranes. NECK:Supple without lymphadenopathy or JVD. LUNGS: Breath sounds diminished with crackles and expiratory wheezing. Nonproductive cough. HEART: Heart S1, S2, no S3 or S4. Regular rate and rhythm. No murmurs, rubs or gallops. ABDOMEN: Soft, obese, nontender, nondistended, active bowel sounds. No guarding , no rebound. No masses or organomegaly appreciated. EXTREMITIES: 2+ peripheral pulses. 1+ bilateral lower extremity edema. No calf tenderness. NEUROLOGICAL: Pt oriented x 3. No focal deficits noted. Strength and sensation grossly intact. PSYCH: Calm. SKIN: Warm, dry, intact. - Labs CBC & Chem 7: 07/29/16 05:57 07/31/16 07:20 Labs: Abnormal Lab Results - Last 24 Hours (Table) 08/01/16 08/01/16 08/02/16 Range/Units 16:55 21:22 11:49 POC Glucose (mg/dL) 140 H 116 H 178 H (75-99) mg/dL Microbiology - Last 24 Hours (Table) 07/26/16 16:15 Blood Culture - Final Blood No Growth after 144 hours 07/26/16 12:15 Blood Culture - Final Blood No Growth after 144 hours Assessment and Plan Plan: Assessment 1 acute on top of chronic decompensated heart failure 2 persistent cough probably related to CHF. Doubt underlying chronic obstructive lung disease or pneumonia 3 coronary artery disease with previous bypass surgery 4 history of CVA involving the right middle cerebral artery distribution in April 2015 5 chronic renal failure, stage III kidney disease 6 diabetes mellitus type 2 7 hyperlipidemia 8 hypertension 9 lumbar spinal stenosis 10 degenerative arthritis 11 urine checked infection 12 artery bypass surgery, history of Plan: The patient was seen and evaluated by Dr. Castro. She is scheduled to go to an extended care facility for continued inpatient rehabilitation today. She'll follow-up in our office in 1-2 weeks' time. She and her son are both however encouraged to call sooner with any recurrence of symptoms or other questions or concerns.
== END 2016-08-02 14:33 | DRG 871 ==
LOC: EC 11:15 → 6SEL 13:40 → 4MS4W 07-29 16:51
PROVIDERS: ADMIT Family Medicine; ATTEND Family Medicine
DX: A41.9 Sepsis, unspecified organism (principal); I50.23 Acute on chronic systolic (congestive) heart failure; N18.4 Chronic kidney disease, stage 4 (severe); N17.9 Acute kidney failure, unspecified; N39.0 Urinary tract infection, site not specified; I13.0 Hypertensive heart and chronic kidney disease with heart failure and stage 1 through stage 4 chronic kidney disease, or unspecified chronic kidney disease; E87.1 Hypo-osmolality and hyponatremia; E11.22 Type 2 diabetes mellitus with diabetic chronic kidney disease; I27.2 Other secondary pulmonary hypertension; I65.23 Occlusion and stenosis of bilateral carotid arteries; I07.1 Rheumatic tricuspid insufficiency; E78.5 Hyperlipidemia, unspecified; F41.9 Anxiety disorder, unspecified; G89.29 Other chronic pain; I25.10 Atherosclerotic heart disease of native coronary artery without angina pectoris; I25.2 Old myocardial infarction; M48.06 Spinal stenosis, lumbar region; K59.09 Other constipation; M19.011 Primary osteoarthritis, right shoulder; H26.9 Unspecified cataract; H54.41 Blindness, right eye, normal vision left eye; H91.91 Unspecified hearing loss, right ear; Z79.84 Long term (current) use of oral hypoglycemic drugs; Z79.02 Long term (current) use of antithrombotics/antiplatelets; Z79.82 Long term (current) use of aspirin; Z79.899 Other long term (current) drug therapy; Z85.42 Personal history of malignant neoplasm of other parts of uterus; Z88.0 Allergy status to penicillin; Z91.11 Patient's noncompliance with dietary regimen; Z95.1 Presence of aortocoronary bypass graft; Z95.5 Presence of coronary angioplasty implant and graft; Z96.651 Presence of right artificial knee joint; Z87.891 Personal history of nicotine dependence; Z82.49 Family history of ischemic heart disease and other diseases of the circulatory system
CPT/HCPCS: 36415; 71010; 71020; 80048; 80053; 81001; 82550; 82553; 83036; 83605; 83735; 83880; 84484; 85025; 85610; 85730; 87040; 87086; 87502; 93005; 93306; 94640; 94760; 96361; 96365; 99285

== ENCOUNTER 2017-03-13 11:09 | Inpatient (IN) | payer MEDICARE, BC ==
[2017-03-13] MEDS ORDERED: NITROGLYCERIN OINT 1 INCH/GM PACKET TOPICAL STA (11:37)
--- NOTE | 2017-03-13 11:49 | ED ---
General Adult HPI - General Chief complaint: Weakness Stated complaint: Chills/weak Time Seen by Provider: 03/13/17 11:24 Source: patient, family Mode of arrival: wheelchair Limitations: no limitations - History of Present Illness Initial comments: This is a 76-year-old female with a history of CHF who presents emergency department for generalized fatigue, chills, and increased lower extremity swelling with weeping. She also complains of inguinal pain. She states the symptoms are gradually worsening over the last week or so. She states that now she is very weak and gets very short of breath with exertion. She states that she feels like she is swelling up more. She also complains of a rash and some tenderness in the inguinal regions. She denies any cough or chest pain. No lightheadedness or syncope. She denies any dysuria or hematuria. No other complaints. - Related Data Home Medications Medication Instructions Recorded Confirmed Clopidogrel [Plavix] 75 mg PO DAILY 05/13/15 03/13/17 Glimepiride [Amaryl] 4 mg PO BID 05/13/15 03/13/17 Metoprolol Tartrate [Lopressor] 50 mg PO BID 05/13/15 03/13/17 Lisinopril 40 mg PO DAILY 03/23/16 03/13/17 metFORMIN HCL [Glucophage] 250 mg PO BID 03/23/16 03/13/17 Furosemide [Lasix] 40 mg PO BID@0800,1400 03/13/17 03/13/17 Ipratropium-Albuterol Nebulize 3 ml INHALATION RT-QID PRN 03/13/17 03/13/17 [Duoneb 0.5 mg-3 mg/3 ml Soln] Previous Rx's Medication Instructions Recorded Aspirin 81 mg PO DAILY #30 chew 03/27/16 Atorvastatin [Lipitor] 80 mg PO HS #30 tab 03/27/16 Allergies Allergy/AdvReac Type Severity Reaction Status Date / Time adhesive tape Allergy Rash/Hives Verified 03/13/17 11:39 Penicillins Allergy Anaphylaxis Verified 03/13/17 11:39 Review of Systems ROS Statement: Those systems with pertinent positive or pertinent negative responses have been documented in the HPI. ROS Other: All systems not noted in ROS Statement are negative. Past Medical History Past Medical History: Coronary Artery Disease (CAD), Cancer, Heart Failure, Diabetes Mellitus, Hyperlipidemia, Hypertension, Myocardial Infarction (NH), Osteoarthritis (OA), Renal Disease Additional Past Medical History / Comment(s): pt is right side dominant.BACK PAIN; 05/13/15 stent to the Left main and SVG to the Diagonal. Cataract on left eye; "needs a cornea transplant on left eye". Uterine Cancer.ANEMIA,LUMBAR SPINAL STENOSIS,CHRONIC CONSTIPATION, SEIZURE 03-23-16 Last Myocardial Infarction Date:: 05/13/15 History of Any Multi-Drug Resistant Organisms: None Reported Past Surgical History: Cholecystectomy, Coronary Bypass/CABG, Heart Catheterization With Stent, Hysterectomy, Joint Replacement, Orthopedic Surgery Additional Past Surgical History / Comment(s): 1996 CABG. Right Knee replacement 1954 Past Anesthesia/Blood Transfusion Reactions: No Reported Reaction Date of Last Stent Placement:: 05/13/15 Past Psychological History: Anxiety Smoking Status: Never smoker Past Alcohol Use History: Occasional Past Drug Use History: None Reported - Past Family History Father Family Medical History: Cancer, Coronary Artery Disease (CAD), Diabetes Mellitus , Myocardial Infarction (NH) Additional Family Medical History / Comment(s): pancreas cancer Mother Family Medical History: Cancer Additional Family Medical History / Comment(s): Uterine cancer General Exam - General Exam Comments Initial Comments: Constitutional: Awake alert Appears comfortable Head: Normocephalic atraumatic Eyes: no conjunctival injection No scleral icterus EOMI Neck: No JVD Supple Heart: Regular rate rhythm normal S1-S2 no murmurs Lungs: Clear to auscultation bilaterally No wheezing basilar rales worse on the right Abdomen: Soft nondistended nontender, there is extensive erythema in the inguinal regions with tenderness Extremities: Pitting edema that goes past the knees bilaterally DP pulses intact Radial pulses intact Neuro: A&Ox3 No focal neurologic deficits] Psych: [Appropriate mood and affect] Limitations: no limitations Course Vital Signs 03/13/17 03/13/17 03/13/17 11:10 11:54 12:10 Temperature 99.1 F Pulse Rate 112 H 116 H Respiratory 18 24 Rate Blood Pressure 219/98 188/90 187/86 O2 Sat by Pulse 98 98 Oximetry EKG Findings - EKG Comments: EKG Findings:: EKG is showing sinus tachycardia with a rate of 109. There is some ST depression in lead 1 and T-wave inversions in lead 1 however no other there abnormal ST segment changes or T-wave inversions. QTC is 447. Other intervals normal. No ectopy. Medical Decision Making - Medical Decision Making Is a 76-year-old female presents emergency department for generalized fatigue, increased lower Chevys swelling, shortness of breath with exertion. The patient is been found to have pleural effusions and what appears to be CHF exacerbation. Her BNP is 7000 which is higher than normal. Troponin was mildly elevated however not significant and likely related to her heart failure. We will trend. Spoke with Dr. Troy who accepts the admission for diuresis and cardiology evaluation. - Lab Data Result diagrams: 03/13/17 11:37 03/13/17 11:37 Lab Results 03/13/17 03/13/17 03/13/17 Range/Units 11:37 11:37 11:37 WBC 9.4 (3.8-10.6) k/uL RBC 5.55 H (3.80-5.40) m/uL Hgb 14.3 (11.4-16.0) gm/dL Hct 46.3 H (34.0-46.0) % MCV 83.4 (80.0-100.0) fL MCH 25.8 (25.0-35.0) pg MCHC 30.9 L (31.0-37.0) g/dL RDW 16.8 H (11.5-15.5) % Plt Count 288 (150-450) k/uL Neutrophils % 81 % Lymphocytes % 6 % Monocytes % 10 % Eosinophils % 1 % Basophils % 0 % Neutrophils # 7.6 (1.3-7.7) k/uL Lymphocytes # 0.6 L (1.0-4.8) k/uL Monocytes # 0.9 (0-1.0) k/uL Eosinophils # 0.1 (0-0.7) k/uL Basophils # 0.0 (0-0.2) k/uL Hypochromasia Slight Anisocytosis Slight PT (9.0-12.0) sec INR (<1.2) APTT (22.0-30.0) sec Sodium 134 L (137-145) mmol/L Potassium 4.5 (3.5-5.1) mmol/L Chloride 96 L (98-107) mmol/L Carbon Dioxide 26 (22-30) mmol/L Anion Gap 12 mmol/L BUN 15 (7-17) mg/dL Creatinine 0.92 (0.52-1.04) mg/dL Est GFR (MDRD) Af Amer >60 (>60 ml/min/1.73 sqM) Est GFR (MDRD) Non-Af 60 (>60 ml/min/1.73 sqM) Glucose 229 H (74-99) mg/dL Calcium 9.5 (8.4-10.2) mg/dL Magnesium 1.5 L (1.6-2.3) mg/dL Total Bilirubin 3.1 H (0.2-1.3) mg/dL AST 21 (14-36) U/L ALT 29 (9-52) U/L Alkaline Phosphatase 122 (38-126) U/L CK-MB (CK-2) 1.3 (0.0-2.4) ng/mL Troponin I 0.035 H* (0.000-0.034) ng/mL NT-Pro-B Natriuret Pep pg/mL Total Protein 6.3 (6.3-8.2) g/dL Albumin 3.8 (3.5-5.0) g/dL 03/13/17 03/13/17 Range/Units 11:37 11:37 WBC (3.8-10.6) k/uL RBC (3.80-5.40) m/uL Hgb (11.4-16.0) gm/dL Hct (34.0-46.0) % MCV (80.0-100.0) fL MCH (25.0-35.0) pg MCHC (31.0-37.0) g/dL RDW (11.5-15.5) % Plt Count (150-450) k/uL Neutrophils % % Lymphocytes % % Monocytes % % Eosinophils % % Basophils % % Neutrophils # (1.3-7.7) k/uL Lymphocytes # (1.0-4.8) k/uL Monocytes # (0-1.0) k/uL Eosinophils # (0-0.7) k/uL Basophils # (0-0.2) k/uL Hypochromasia Anisocytosis PT 11.3 (9.0-12.0) sec INR 1.2 H (<1.2) APTT 21.3 L (22.0-30.0) sec Sodium (137-145) mmol/L Potassium (3.5-5.1) mmol/L Chloride (98-107) mmol/L Carbon Dioxide (22-30) mmol/L Anion Gap mmol/L BUN (7-17) mg/dL Creatinine (0.52-1.04) mg/dL Est GFR (MDRD) Af Amer (>60 ml/min/1.73 sqM) Est GFR (MDRD) Non-Af (>60 ml/min/1.73 sqM) Glucose (74-99) mg/dL Calcium (8.4-10.2) mg/dL Magnesium (1.6-2.3) mg/dL Total Bilirubin (0.2-1.3) mg/dL AST (14-36) U/L ALT (9-52) U/L Alkaline Phosphatase (38-126) U/L CK-MB (CK-2) (0.0-2.4) ng/mL Troponin I (0.000-0.034) ng/mL NT-Pro-B Natriuret Pep 7680 pg/mL Total Protein (6.3-8.2) g/dL Albumin (3.5-5.0) g/dL Disposition Clinical Impression: CHF exacerbation Disposition: ADMITTED IP TO THIS HOSP
[2017-03-13 12:06] LABS: Anisocytosis Slight; Basophils % (A) 0 %; Eosinophils # (A) 0.1 k/uL (0-0.7); Eosinophils % (A) 1 %; HCT 46.3 % (34.0-46.0); HGB 14.3 gm/dL (11.4-16.0); Hypochromasia Slight; Lymphocytes # (A) 0.6 k/uL (1.0-4.8); Lymphocytes % (A) 6 %; MCH 25.8 pg (25.0-35.0); MCHC 30.9 g/dL (31.0-37.0); MCV 83.4 fL (80.0-100.0); Mean Platelet Volume 7.4; Monocytes # (A) 0.9 k/uL (0-1.0); Monocytes % (A) 10 %; Neutrophils # (A) 7.6 k/uL (1.3-7.7); Neutrophils % (A) 81 %; Platelet Count 288 k/uL (150-450); RBC 5.55 m/uL (3.80-5.40); RDW 16.8 % (11.5-15.5); WBC 9.4 k/uL (3.8-10.6)
[2017-03-13 12:13] LABS: INR 1.2 (<1.2); Prothrombin Time 11.3 sec (9.0-12.0)
--- NOTE | 2017-03-13 12:15 | XR ---
EXAMINATION TYPE: XR chest 2V DATE OF EXAM: 03/13/2017 COMPARISON: 07/31/2016 HISTORY: Fever, chills, and cough. TECHNIQUE: Frontal and lateral views of the chest are obtained. FINDINGS: Cardiomediastinal silhouette is enlarged. Mild pulmonary vascular congestion is seen. Trac e left pleural effusion blunts the left costophrenic angle layers on the lateral image. Post CABG gali nges are seen of the chest. Mild multilevel degenerative changes of the thoracic spine are noted. IMPRESSION: Mild pulmonary vascular congestion, cardiomegaly and trace left pleural effusion are likely on the ba sis of decompensated congestive heart.
[2017-03-13 12:20] LABS: ALT 29 U/L (9-52); AST 21 U/L (14-36); Albumin 3.8 g/dL (3.5-5.0); Alkaline Phosphatase 122 U/L (38-126); Anion Gap 12 mmol/L; Blood Urea Nitrogen 15 mg/dL (7-17); Calcium 9.5 mg/dL (8.4-10.2); Carbon Dioxide 26 mmol/L (22-30); Chloride 96 mmol/L (98-107); Glucose 229 mg/dL (74-99); Magnesium 1.5 mg/dL (1.6-2.3); Partial Thromboplastin Time 21.3 sec (22.0-30.0); Potassium 4.5 mmol/L (3.5-5.1); Sodium 134 mmol/L (137-145); Total Bilirubin 3.1 mg/dL (0.2-1.3); Total Protein 6.3 g/dL (6.3-8.2)
[2017-03-13] MEDS: NYSTATIN 100,000 UNIT/GM POWD 15 GM TOPICAL SCH ×2 (12:40→21:43)
[2017-03-13 12:42] LABS: Creatine Kinase MB 1.3 ng/mL (0.0-2.4)
[2017-03-13 12:46] LABS: Troponin I 0.035 ng/mL (0.000-0.034)
[2017-03-13] MEDS ORDERED: FUROSEMIDE 10 MG/ML 4 ML VIAL IV STA (12:57)
[2017-03-13 14:21] LABS: Appearance,Urine Clear (Clear); Bilirubin,Urine Negative (Negative); Blood,Urine Negative (Negative); Color,Urine Yellow; Glucose,Urine (UA) Negative (Negative); Ketones,Urine Negative (Negative); Leukocyte Esterase,Urine Large (Negative); Mucus,Urine Rare /hpf; Nitrite,Urine Negative (Negative); PH, Urine 5.5 (5.0-8.0); Protein,Urine 1+ (Negative); Specific Gravity,Urine 1.008 (1.001-1.035); Squamous Epithelial Cell,Urine 2 /hpf (0-4); WBC,Urine 13 /hpf (0-5)
[2017-03-13] MEDS ORDERED: MAGNESIUM OXIDE 400 MG TAB PO STA (15:23)
[2017-03-13 16:52] LABS: Glucose,Whole Blood 178 mg/dL (75-99)
[2017-03-13] MEDS ORDERED: IPRATROPIUM-ALBUTEROL 3 ML NEB INHALATION PRN (18:03)
[2017-03-13] MEDS: METOPROLOL TARTRATE 50 MG TAB PO SCH (18:38)
[2017-03-13] MEDS: LISINOPRIL 20 MG TAB PO SCH (18:38)
[2017-03-13] MEDS: ASPIRIN 81 MG PO SCH (18:38)
[2017-03-13] MEDS: CLOPIDOGREL 75 MG TAB PO SCH (18:38)
[2017-03-13] MEDS: metFORMIN 500 MG TAB PO SCH (18:42)
[2017-03-13] MEDS: GLIMEPIRIDE 2 MG TAB PO SCH (18:43)
[2017-03-13 19:02] LABS: Creatine Kinase MB 1.5 ng/mL (0.0-2.4)
[2017-03-13 19:03] LABS: Troponin I 0.054 ng/mL (0.000-0.034)
[2017-03-13 21:05] LABS: Glucose,Whole Blood 240 mg/dL (75-99)
[2017-03-13] MEDS: FUROSEMIDE 10 MG/ML 4 ML VIAL IV SCH (21:09)
[2017-03-13] MEDS: INSULIN ASPART 100 UNIT/ML 1 ML 10 ML VIAL SQ SCH (21:42)
[2017-03-13] MEDS: ATORVASTATIN 80 MG TAB PO SCH (21:42)
[2017-03-14 00:29] LABS: Creatine Kinase MB 1.4 ng/mL (0.0-2.4)
[2017-03-14 00:48] LABS: Troponin I 0.05 ng/mL (0.000-0.034)
[2017-03-14 02:19] LABS: Hemoglobin A1C 11.2 % (4.0-6.0)
[2017-03-14 02:40] LABS: Glucose,Whole Blood 80 mg/dL (75-99)
[2017-03-14 05:53] LABS: Glucose,Whole Blood 255 mg/dL (75-99)
[2017-03-14 06:36] LABS: Calcium 9.2 mg/dL (8.4-10.2); Magnesium 1.5 mg/dL (1.6-2.3); Potassium 4.1 mmol/L (3.5-5.1)
[2017-03-14] MEDS: INSULIN ASPART 100 UNIT/ML 1 ML 10 ML VIAL SQ SCH ×4 (06:37→22:01)
[2017-03-14 07:47] LABS: Glucose,Whole Blood 67 mg/dL (75-99)
[2017-03-14 08:01] LABS: Glucose,Whole Blood 100 mg/dL (75-99)
--- NOTE | 2017-03-14 08:14 | P.CRDCN ---
History of Present Illness Consult date: 03/14/17 Requesting physician: Jethro Troy Consult reason: congestive heart failure Chief complaint: Shortness of breath and edema History of present illness: This is a pleasant 76-year-old female who follows regularly with Dr. Jeong in the office. She has a known history of coronary artery disease with coronary artery bypass grafting surgery performed in 2008, patient also underwent stenting of the left main and SVG to the diag, hypertension, hyperlipidemia, diabetes, she presented to the hospital with symptoms of significant swelling in her bilateral lower extremities, weeping of her extremities, and worsening shortness of breath. She states that she's been experiencing these symptoms, worsening in intensity for approximately 3 weeks. Her blood pressure on arrival 219/98, heart rate 112, 98% on 2 L of oxygen. Her temperature was 99.1. Blood pressure this morning 144/60 with a heart rate in the 90s, respirations 18. Chest xray on presentation here showed mild pulmonary vascular congestion, cardiomegaly, and trace left pleural effusion, suggesting congestive cardiac failure. White blood cell count 9.4, hemoglobin 14.3, platelet count 288. Sodium 135, potassium 4.1, BUN 20, creatinine 1.1. Blanca level I.5. BNP level 7680. Troponins 0.035, 0.054, 0.050. At the time of my examination this morning, patient is sitting up in bed, still appears to be quite short of breath. She was initiated on IV Lasix in the emergency room. 's home medications consist of Glucophage, Lopressor 50 twice a day, lisinopril 40 mg daily, DuoNeb, Amaryl 4 mg twice a day, Lasix 40 mg twice a day, Plavix 75 mg daily, Lipitor 80 mg daily, and aspirin 81 mg daily. A cardiogram with Doppler study performed in July 2016 revealed an ejection fraction of 20-25%, mild to moderate tricuspid regurg, moderate to severe pulmonary hypertension, mild to moderate aortic valve sclerosis. Past Medical History Past Medical History: Coronary Artery Disease (CAD), Cancer, Heart Failure, Diabetes Mellitus, Hyperlipidemia, Hypertension, Myocardial Infarction ([place]), Osteoarthritis (OA), Renal Disease Additional Past Medical History / Comment(s): pt is right side dominant.BACK PAIN; 05/13/15 stent to the Left main and SVG to the Diagonal. Cataract on left eye; "needs a cornea transplant on left eye". Uterine Cancer.ANEMIA,LUMBAR SPINAL STENOSIS,CHRONIC CONSTIPATION, SEIZURE 03-23-16 Last Myocardial Infarction Date:: 05/13/15 History of Any Multi-Drug Resistant Organisms: None Reported Past Surgical History: Cholecystectomy, Coronary Bypass/CABG, Heart Catheterization With Stent, Hysterectomy, Joint Replacement, Orthopedic Surgery Additional Past Surgical History / Comment(s): 1996 CABG. Right Knee replacement 1954 Past Anesthesia/Blood Transfusion Reactions: No Reported Reaction Date of Last Stent Placement:: 05/13/15 Smoking Status: Never smoker - Past Family History Father Family Medical History: Cancer, Coronary Artery Disease (CAD), Diabetes Mellitus , Myocardial Infarction ([place]) Additional Family Medical History / Comment(s): pancreas cancer Mother Family Medical History: Cancer Additional Family Medical History / Comment(s): Uterine cancer Medications and Allergies Home Medications Medication Instructions Recorded Confirmed Type Clopidogrel [Plavix] 75 mg PO DAILY 05/13/15 03/13/17 History Glimepiride [Amaryl] 4 mg PO BID 05/13/15 03/13/17 History Metoprolol Tartrate [Lopressor] 50 mg PO BID 05/13/15 03/13/17 History Lisinopril 40 mg PO DAILY 03/23/16 03/13/17 History metFORMIN HCL [Glucophage] 250 mg PO BID 03/23/16 03/13/17 History Aspirin 81 mg PO DAILY #30 chew 03/27/16 03/13/17 Rx Atorvastatin [Lipitor] 80 mg PO HS #30 tab 03/27/16 03/13/17 Rx Furosemide [Lasix] 40 mg PO BID@0800,1400 03/13/17 03/13/17 History Ipratropium-Albuterol Nebulize 3 ml INHALATION RT-QID PRN 03/13/17 03/13/17 History [Duoneb 0.5 mg-3 mg/3 ml Soln] Allergies Allergy/AdvReac Type Severity Reaction Status Date / Time adhesive tape Allergy Rash/Hives Verified 03/13/17 11:39 latex Allergy Swelling Verified 03/13/17 16:16 Penicillins Allergy Anaphylaxis Verified 03/13/17 11:39 Physical Exam Vitals: Vital Signs Temp Pulse Pulse Resp BP BP Pulse Ox 03/14/17 04:00 92 16 144/69 03/14/17 03:09 91 180/78 03/14/17 01:00 80 180/78 03/14/17 00:00 97.8 F 88 16 168/74 93 L 03/13/17 20:00 99.3 F 85 16 139/63 95 03/13/17 18:37 107 H 190/87 03/13/17 16:00 16 03/13/17 15:57 99 F 99 16 175/81 94 L 03/13/17 15:22 99 F 89 22 144/65 98 03/13/17 13:42 92 24 164/72 97 03/13/17 12:10 187/86 03/13/17 11:54 116 H 24 188/90 98 03/13/17 11:10 99.1 F 112 H 18 219/98 98 Intake and Output 03/13/17 03/14/17 03/14/17 22:59 06:59 14:59 Intake Total 118 Output Total 400 650 Balance -282 -650 Intake: Oral 118 Output: Urine 400 650 Other: # Voids 1 Weight 82.3 kg PHYSICAL EXAMINATION: HEENT: Head is atraumatic, normocephalic. Pupils equal, round. Neck is supple. There is elevated jugular venous pressure. HEART EXAMINATION: Heart S1 and S2 systolic ejection murmur is heard. CHEST EXAMINATION: Lungs reveal rales to bilateral bases. ABDOMEN: Soft, obese, nontender. Bowel sounds are heard. No organomegaly noted. EXTREMITIES:[ 2+ peripheral pulses with 2-3+ evidence of peripheral edema, bilateral lower extremity erythema NEUROLOGIC patient is awake, alert and oriented -3. . Results 03/13/17 11:37 03/14/17 05:37 Cardiac Enzymes 03/13/17 03/13/17 03/13/17 Range/Units 11:37 11:37 17:51 AST 21 (14-36) U/L CK-MB (CK-2) 1.3 1.5 (0.0-2.4) ng/mL Troponin I 0.035 H* 0.054 H* (0.000-0.034) ng/mL 03/13/17 Range/Units 23:39 AST (14-36) U/L CK-MB (CK-2) 1.4 (0.0-2.4) ng/mL Troponin I 0.050 H* (0.000-0.034) ng/mL Coagulation 03/13/17 Range/Units 11:37 PT 11.3 (9.0-12.0) sec APTT 21.3 L (22.0-30.0) sec CBC 03/13/17 Range/Units 11:37 WBC 9.4 (3.8-10.6) k/uL RBC 5.55 H (3.80-5.40) m/uL Hgb 14.3 (11.4-16.0) gm/dL Hct 46.3 H (34.0-46.0) % Plt Count 288 (150-450) k/uL Comprehensive Metabolic Panel 18 03/14/17 Range/Units 11:37 05:37 Sodium 134 L 135 L (137-145) mmol/L Potassium 4.5 4.1 (3.5-5.1) mmol/L Chloride 96 L 98 (98-107) mmol/L Carbon Dioxide 26 25 (22-30) mmol/L BUN 15 20 H (7-17) mg/dL Creatinine 0.92 1.16 H (0.52-1.04) mg/dL Glucose 229 H 95 (74-99) mg/dL Calcium 9.5 9.2 (8.4-10.2) mg/dL AST 21 (14-36) U/L ALT 29 (9-52) U/L Alkaline Phosphatase 122 (38-126) U/L Total Protein 6.3 (6.3-8.2) g/dL Albumin 3.8 (3.5-5.0) g/dL Current Medications Generic Name Dose Route Start Last Admin Trade Name Freq PRN Reason Stop Dose Admin Albuterol/Ipratropium 3 ml 03/13/17 18:03 Duoneb 0.5 Mg-3 Mg/3 Ml Soln INHALATION RT-QID PRN sob Aspirin 81 mg 03/13/17 18:15 03/13/17 18:38 Aspirin PO 81 mg DAILY YEN Administration Atorvastatin Calcium 80 mg 03/13/17 21:00 03/13/17 21:42 Lipitor PO 80 mg HS YEN Administration Clopidogrel Bisulfate 75 mg 03/13/17 18:15 03/13/17 18:38 Plavix PO 75 mg DAILY YEN Administration Furosemide 40 mg 03/13/17 21:00 03/13/17 21:09 Lasix IV 40 mg Q12HR YEN Administration Glimepiride 4 mg 03/13/17 21:00 03/13/17 18:43 Amaryl PO 4 mg BID YEN Administration Insulin Aspart 0 unit 03/13/17 21:00 03/14/17 06:37 Novolog SQ 4 unit ACHS YEN Administration Protocol Lisinopril 40 mg 03/13/17 18:15 03/13/17 18:38 Zestril PO 40 mg DAILY YEN Administration Metformin HCl 250 mg 03/13/17 21:00 03/13/17 18:42 Glucophage PO 250 mg BID YEN Administration Metoprolol Tartrate 50 mg 03/13/17 21:00 03/13/17 18:38 Lopressor PO 50 mg BID YEN Administration Nystatin 1 applic 03/13/17 11:45 03/13/17 21:43 Mycostatin Powder TOPICAL 1 applic BID YEN Administration Intake and Output 03/13/17 03/14/17 03/14/17 22:59 06:59 14:59 Intake Total 118 Output Total 400 650 Balance -282 -650 Intake: Oral 118 Output: Urine 400 650 Other: # Voids 1 Weight 82.3 kg 03/13/17 11:37 03/14/17 05:37 EKG Interpretations (text) EKG shows a sinus tachycardia with nonspecific ST-T wave changes in the lateral leads. Assessment and Plan Plan: Assessment and plan #1 systolic congestive heart failure acute on chronic #2 known history of coronary artery disease with prior bypass surgery in 2008, subsequent to that patient did undergo stenting of the left main and SVG to the Diag #3 hypertension #4 diabetes #5 hyperlipidemia #6 Peripheral vascular disease Plan We'll repeat an echocardiogram with Doppler study. We will continue current dose of IV Lasix. Discontinue Nitropaste. Continue to monitor intake and output along with daily weights and daily lytes BUN and creatinine. DNP note has been reviewed, I agree with a documented findings and plan of care. Patient was seen and examined.
[2017-03-14] MEDS: FUROSEMIDE 10 MG/ML 4 ML VIAL IV SCH ×2 (08:25→22:09)
[2017-03-14] MEDS: CLOPIDOGREL 75 MG TAB PO SCH (08:25)
[2017-03-14] MEDS: GLIMEPIRIDE 2 MG TAB PO SCH ×2 (08:25→22:08)
[2017-03-14] MEDS: METOPROLOL TARTRATE 50 MG TAB PO SCH ×2 (08:26→22:08)
[2017-03-14] MEDS: LISINOPRIL 20 MG TAB PO SCH (08:26)
[2017-03-14] MEDS: metFORMIN 500 MG TAB PO SCH ×2 (08:26→16:56)
[2017-03-14] MEDS: ASPIRIN 81 MG PO SCH (08:26)
[2017-03-14] MEDS: NYSTATIN 100,000 UNIT/GM POWD 15 GM TOPICAL SCH ×2 (08:26→22:08)
[2017-03-14] MEDS ORDERED: Magnesium Replacement Protocol 1 EACH MISC MISCELLANE PRN (08:50)
[2017-03-14] MEDS: MAGNESIUM SULFATE-D5W PMX 1 GM in DEXTROSE/WATER 1 100ML.BAG IVPB SCH ×2 (10:29→12:37)
--- NOTE | 2017-03-14 11:02 | ECHOF ---
Referral Reason:chf MEASUREMENTS -------- HEIGHT: 152.4 cm WEIGHT: 82.1 kg BP: IVSd: 1.4 cm (0.6 - 1.1) LVIDd: 5.1 cm (3.9 - 5.3) LVPWd: 1.7 cm (0.6 - 1.1) IVSs: 1.5 cm LVIDs: 4.9 cm LVPWs: 1.2 cm LA Diam: 4.2 cm (2.7 - 3.8) Ao Diam: 2.3 cm (2.0 - 3.7) AV Cusp: 1.4 cm (1.5 - 2.6) LA Diam: 4.6 cm (2.7 - 3.8) MV EXCURSION: 12.842 mm (> 18.000) MV EF SLOPE: 62 mm/s (70 - 150) EPSS: 1.8 cm MV E Kirk: 1.06 m/s MV DecT: 149 ms MV A Kirk: 0.40 m/s MV E/A Ratio: 2.66 RAP: 5.00 mmHg RVSP: 56.61 mmHg FINDINGS -------- Sinus rhythm. The left ventricular size is normal. There is borderline concentric left ventricular hypertrophy. Overall left ventricular systolic function is moderate-severely impaired with, an EF between 30 - 35 %. Inferior Hypokinesis Posterior Hypokinesis. The right ventricle is normal in size. The right atrial size is normal. 5.0mg Of Lumason was utilized for enhancement of images. There is mild aortic valve sclerosis. There is no evidence of aortic regurgitation. Mild mitral annular calcification present. Mild mitral regurgitation is present. Mild tricuspid regurgitation present. There is moderate pulmonary hypertension. The right ventric ular systolic pressure, as measured by Doppler, is 56.61mmHg. Trace/mild (physiologic) pulmonic regurgitation. The aortic root size is normal. There is a trivial pericardial effusion present. CONCLUSIONS -------- 1. The left ventricular size is normal. 2. Overall left ventricular systolic function is moderate-severely impaired with, an EF between 30 - 35 %. 3. Inferior Hypokinesis 4. Posterior Hypokinesis. 5. 5.0mg Of Lumason was utilized for enhancement of images. 6. There is mild aortic valve sclerosis. 7. Mild mitral annular calcification present. 8. Mild mitral regurgitation is present. 9. Mild tricuspid regurgitation present. 10. There is moderate pulmonary hypertension. 11. The right ventricular systolic pressure, as measured by Doppler, is 56.61mmHg. 12. Trace/mild (physiologic) pulmonic regurgitation. 13. There is a trivial pericardial effusion present. MEDICAL TRANSCRIBER: Marycarmen Day RDCS
[2017-03-14 11:42] LABS: Glucose,Whole Blood 104 mg/dL (75-99)
[2017-03-14 11:54] VITALS: BMI 34.2
--- NOTE | 2017-03-14 15:58 | P.HPIM ---
History of Present Illness H&P Date: 03/14/17 Chief Complaint: Fatigue, increased edema to lower extremities 76-year-old female who presented to the emergency room on 03/13/2017 with a chief complaint of generalized fatigue and increased lower extremity edema with accompanied shortness of breath for the past week or two. She also states her lower extremities began weeping fluid. She states her symptoms were not improving so the patient presented to the emergency room for further evaluation. The patient has a history of coronary artery disease with previous CABG, CVA which has resulted in impaired vision, heart failure, diabetes mellitus, hyperlipidemia, hypertension, myocardial infarction, osteoarthritis, and kidney disease. Echocardiogram completed reveals ejection fraction of 3035%, inferior hypokinesis, posterior hypokinesis, mild mitral regurgitation, mild tricuspid regurgitation, moderate pulmonary hypertension with RVSP measured at 56.61, and trivial pericardial effusion present. In the emergency room, a chest x-ray was completed revealing mild pulmonary vascular congestion, cardiomegaly, and trace left pleural effusion. Her blood pressure was quite elevated in the emergency room with a systolic over 200. Laboratory studies completed revealed white count of 9.4, hemoglobin 14.3, platelet count 288, INR 1.2, sodium 134, potassium 4.5, BUN 15, creatinine 0.92 , magnesium 1.5, BNP 7680. Troponin 0.035. She was admitted to the hospital under the care of Dr. Troy. Consultations were placed to cardiology. The patient was seen and examined at the bedside on rounds with Dr. Troy. She is still short of breath at this time. She denies chest pain or pressure. She states that she does not want to take her insulin any longer that she was prescribed outpatient by Dr. Troy because every time she takes it she feels "funny" and gets very diaphoretic. Dr. Troy states he will continue the insulin while the patient is in the hospital and then reevaluate her insulin regimen on an outpatient basis. Her blood pressure has improved with a last reading of 147/65. She does have excoriation of her bilateral groin folds and under her breasts. She denies nausea or vomiting at this time. She has been tolerating oral intake without difficulty. She states she is voiding without difficulty. Review of Systems GENERAL: Positive for generalized weakness and fatigue. Patient denies fever. Denies chills. EYES: Denies blurred vision. Denies vision changes. Denies eye pain. EARS, NOSE, MOUTH, & THROAT: Denies headache. Denies sore throat. Denies ear pain. RESPIRATORY: Positive for shortness of breath. Denies cough. Denies sputum production. Denies hemoptysis. CARDIOVASCULAR: Denies chest pain or pressure. Denies palpitations. Denies arrhythmias. GASTROINTESTINAL: Denies abdominal pain. Denies diarrhea. Denies constipation. Denies nausea. Denies vomiting. Denies heartburn. Denies blood in the stool. GENITOURINARY: Denies urinary frequency. Denies burning. Denies dysuria. Denies cloudy urine. Denies blood in the urine. MUSCULOSKELETAL: Denies myalgias. Denies joint swelling. Denies decreased range of motion beyond patients baseline. INTEGUMENTARY: Positive for increased lower extremity edema with weeping. Positive for skin rash to bilateral groins and under breast. PSYCHIATRIC: Denies suicidal or homicial ideations. ENDOCRINE: Denies weight change. Denies polydipsia. Denies polyuria. HEMATOLOGIC: Denies bleeding disorders. Past Medical History Past Medical History: Coronary Artery Disease (CAD), Cancer, Heart Failure, Diabetes Mellitus, Hyperlipidemia, Hypertension, Myocardial Infarction ([place]), Osteoarthritis (OA), Renal Disease Additional Past Medical History / Comment(s): pt is right side dominant.BACK PAIN; 05/13/15 stent to the Left main and SVG to the Diagonal. Cataract on left eye; "needs a cornea transplant on left eye". Uterine Cancer.ANEMIA,LUMBAR SPINAL STENOSIS,CHRONIC CONSTIPATION, SEIZURE 03-23-16 Last Myocardial Infarction Date:: 05/13/15 History of Any Multi-Drug Resistant Organisms: None Reported Past Surgical History: Cholecystectomy, Coronary Bypass/CABG, Heart Catheterization With Stent, Hysterectomy, Joint Replacement, Orthopedic Surgery Additional Past Surgical History / Comment(s): 1996 CABG. Right Knee replacement 1954 Past Anesthesia/Blood Transfusion Reactions: No Reported Reaction Date of Last Stent Placement:: 05/13/15 Smoking Status: Never smoker - Past Family History Father Family Medical History: Cancer, Coronary Artery Disease (CAD), Diabetes Mellitus , Myocardial Infarction ([place]) Additional Family Medical History / Comment(s): pancreas cancer Mother Family Medical History: Cancer Additional Family Medical History / Comment(s): Uterine cancer Medications and Allergies Home Medications Medication Instructions Recorded Confirmed Type Clopidogrel [Plavix] 75 mg PO DAILY 05/13/15 03/13/17 History Glimepiride [Amaryl] 4 mg PO BID 05/13/15 03/13/17 History Metoprolol Tartrate [Lopressor] 50 mg PO BID 05/13/15 03/13/17 History Lisinopril 40 mg PO DAILY 03/23/16 03/13/17 History metFORMIN HCL [Glucophage] 250 mg PO BID 03/23/16 03/13/17 History Aspirin 81 mg PO DAILY #30 chew 03/27/16 03/13/17 Rx Atorvastatin [Lipitor] 80 mg PO HS #30 tab 03/27/16 03/13/17 Rx Furosemide [Lasix] 40 mg PO BID@0800,1400 03/13/17 03/13/17 History Ipratropium-Albuterol Nebulize 3 ml INHALATION RT-QID PRN 03/13/17 03/13/17 History [Duoneb 0.5 mg-3 mg/3 ml Soln] Allergies Allergy/AdvReac Type Severity Reaction Status Date / Time adhesive tape Allergy Rash/Hives Verified 03/13/17 11:39 latex Allergy Swelling Verified 03/13/17 16:16 Penicillins Allergy Anaphylaxis Verified 03/13/17 11:39 Physical Exam Vitals: Vital Signs Temp Pulse Pulse Resp BP BP Pulse Ox 03/14/17 08:00 99.3 F 90 147/65 95 03/14/17 04:00 92 16 144/69 03/14/17 03:09 91 180/78 03/14/17 01:00 80 180/78 03/14/17 00:00 97.8 F 88 16 168/74 93 L 03/13/17 20:00 99.3 F 85 16 139/63 95 03/13/17 18:37 107 H 190/87 03/13/17 16:00 16 03/13/17 15:57 99 F 99 16 175/81 94 L 03/13/17 15:22 99 F 89 22 144/65 98 Intake and Output 03/14/17 03/14/17 03/14/17 06:59 14:59 22:59 Intake Total 1080 Output Total 650 400 Balance -650 680 Intake: Oral 1080 Output: Urine 650 400 Other: # Voids 1 4 # Bowel Movements 0 Weight 82.3 kg 82.3 kg Patient Weight 03/15/17 06:59 Weight 82.3 kg GENERAL: This is a 76-year-old female in no apparent distress at the time of examination. Pleasant and cooperative. HEENT: Head is atraumatic, normocephalic. Pupils are equal, round, and reactive to light. Sclerae anicteric. Conjunctivae are clear. Mucus membranes of the mouth are moist. Neck is supple. RESPIRATORY: Lungs with rales to bilateral bases. No use of accessory muscles. Patient maintaining oxygen saturation greater than 92%. No chest wall tenderness is noted on palpation or with deep breathing. CARDIOVASCULAR: Regular rate and rhythm. S1 and S2 noted. Systolic murmur auscultated. JVD noted. No S3 or S4 noted. GASTROINTESTINAL: No distention noted. Abdomen soft and round. Normal active bowel sounds auscultated x 4 quadrants. No pain or tenderness noted upon palpation. INTEGUMENTARY: 3+ bilateral lower extremity edema with weeping noted. Skin excoriation with erythema present to bilateral groin and breast folds EXTREMITIES: 2+ peripheral pulses. No evidence of peripheral edema. No calf tenderness noted. NEUROLOGIC: Cranial nerves II-XII intact. PSYCHIATRIC: Awake, alert, and oriented X 3. Appropriate affect. Intact judgement and insight. Results CBC & Chem 7: 03/13/17 11:37 03/14/17 05:37 Labs: Abnormal Lab Results - Last 24 Hours (Table) 03/13/17 03/13/17 03/13/17 Range/Units 11:37 16:50 17:51 Sodium (137-145) mmol/L BUN (7-17) mg/dL Creatinine (0.52-1.04) mg/dL POC Glucose (mg/dL) 178 H (75-99) mg/dL Hemoglobin A1c 11.2 H (4.0-6.0) % Magnesium (1.6-2.3) mg/dL Troponin I 0.054 H* (0.000-0.034) ng/mL 03/13/17 03/13/17 03/14/17 Range/Units 21:03 23:39 05:37 Sodium 135 L (137-145) mmol/L BUN 20 H (7-17) mg/dL Creatinine 1.16 H (0.52-1.04) mg/dL POC Glucose (mg/dL) 240 H (75-99) mg/dL Hemoglobin A1c (4.0-6.0) % Magnesium 1.5 L (1.6-2.3) mg/dL Troponin I 0.050 H* (0.000-0.034) ng/mL 03/14/17 03/14/17 03/14/17 Range/Units 05:45 07:37 07:58 Sodium (137-145) mmol/L BUN (7-17) mg/dL Creatinine (0.52-1.04) mg/dL POC Glucose (mg/dL) 255 H 67 L 100 H (75-99) mg/dL Hemoglobin A1c (4.0-6.0) % Magnesium (1.6-2.3) mg/dL Troponin I (0.000-0.034) ng/mL 03/14/17 Range/Units 11:35 Sodium (137-145) mmol/L BUN (7-17) mg/dL Creatinine (0.52-1.04) mg/dL POC Glucose (mg/dL) 104 H (75-99) mg/dL Hemoglobin A1c (4.0-6.0) % Magnesium (1.6-2.3) mg/dL Troponin I (0.000-0.034) ng/mL Thrombosis Risk Factor Assmnt - Choose All That Apply Any of the Below Risk Factors Present?: Yes Each Factor Represents 1 point: Heart failure (<1month), Obesity (BMI >25), Swollen legs (current) Other Risk Factors: Yes Each Risk Factor Represents 2 Points: Malignancy Each Risk Factor Represents 3 Points: Age 75 years or older Other congenital or acquired thrombophilia - If yes, enter type in comment: No Thrombosis Risk Factor Assessment Total Risk Factor Score: 8 Thrombosis Risk Factor Assessment Level: High Risk Assessment and Plan Plan: ASSESSMENT: Acute exacerbation of systolic congestive heart failure, echocardiogram reveals ejection fraction of 30-35% Elevated troponins, likely secondary to above History of coronary artery disease with previous stent placement and CABG Uncontrolled diabetes mellitus, type II, hemoglobin A1c 11% Urinary tract infection, present on admission, culture pending Chronic kidney disease, stage III, GFR 46 Hypertensive urgency in emergency room, resolved Moderate pulmonary hypertension Very small pericardial effusion noted on echocardiogram Intertrigo dermatitis, suspect fungal, secondary to obesity and skin on skin frictional forces History of CVA with subsequent vision impairment Essential hypertension Hyperlipidemia Osteoarthritis Anxiety, unspecified Obesity: BMI 34.3 Hypomagnesemia PLAN: -Cardiology on consult. Appreciate recommendations and input -Continue IV Lasix per cardiology -Accurate I&O -Daily weights -Obtain urine culture -Begin Levaquin 500mg daily -Replace magnesium per protocol -Continue nystatin powder along with Interdry clothes -Diflucan 150 mg daily 3 doses -May wrap patient's bilateral lower extremities secondary to weeping and change as necessary -Capillary blood glucose checks before meals and at bedtime -NovoLog sliding scale coverage before meals and at bedtime -Increase metformin to 500 mg by mouth twice a day -Consult diabetes educator secondary to uncontrolled diabetes and patient's refusal to take insulin at home -Consult dietitian secondary to heart failure and uncontrolled diabetes -Home meds as appropriate -Monitor labs -GI prophylaxis: Protonix 40 mg by mouth daily -DVT prophylaxis: Heparin 5000 units subcu every 8 hours -Monitor vital signs and address as appropriate -Discharge planning: Patient is requesting subacute rehab at the time of discharge. Requesting Neil. -PT/OT consult -Further recommendations pending patient's course Nurse practitioner note has been reviewed by physician. Signing provider agrees with the documented findings, assessment, and plan of care.
[2017-03-14 16:46] LABS: Glucose,Whole Blood 69 mg/dL (75-99)
[2017-03-14] MEDS: FLUCONAZOLE 100 MG TAB PO SCH (16:56)
[2017-03-14] MEDS ORDERED: LEVOFLOXACIN 500MG-D5W PMX 500 MG in DEXTROSE/WATER 1 100ML.BAG IVPB SCH (17:00)
[2017-03-14 17:09] LABS: Glucose,Whole Blood 72 mg/dL (75-99)
[2017-03-14] MEDS: HEPARIN SODIUM,PORCINE 5,000 UNIT/ML 1 ML VIAL SQ SCH ×2 (18:27→23:00)
[2017-03-14 21:14] LABS: Glucose,Whole Blood 88 mg/dL (75-99)
[2017-03-14] MEDS: ATORVASTATIN 80 MG TAB PO SCH (22:08)
[2017-03-15 05:59] LABS: Glucose,Whole Blood 106 mg/dL (75-99)
[2017-03-15 06:52] LABS: Calcium 9.5 mg/dL (8.4-10.2); Magnesium 1.8 mg/dL (1.6-2.3); Potassium 4.3 mmol/L (3.5-5.1)
[2017-03-15] MEDS: INSULIN ASPART 100 UNIT/ML 1 ML 10 ML VIAL SQ SCH ×4 (06:56→21:00)
[2017-03-15] MEDS: PANTOPRAZOLE 40 MG TABLET PO SCH (06:59)
[2017-03-15] MEDS: ASPIRIN 81 MG PO SCH (07:45)
[2017-03-15] MEDS: HEPARIN SODIUM,PORCINE 5,000 UNIT/ML 1 ML VIAL SQ SCH ×2 (07:45→15:26)
[2017-03-15] MEDS: metFORMIN 500 MG TAB PO SCH ×2 (07:46→17:16)
[2017-03-15] MEDS: FLUCONAZOLE 100 MG TAB PO SCH (07:46)
[2017-03-15] MEDS: FUROSEMIDE 10 MG/ML 4 ML VIAL IV SCH ×2 (07:46→20:49)
[2017-03-15] MEDS: GLIMEPIRIDE 2 MG TAB PO SCH ×2 (07:47→20:49)
[2017-03-15] MEDS: METOPROLOL TARTRATE 50 MG TAB PO SCH ×2 (07:47→20:49)
[2017-03-15] MEDS: LISINOPRIL 20 MG TAB PO SCH (07:47)
[2017-03-15] MEDS: NYSTATIN 100,000 UNIT/GM POWD 15 GM TOPICAL SCH ×2 (07:48→20:50)
[2017-03-15] MEDS: CLOPIDOGREL 75 MG TAB PO SCH (07:53)
[2017-03-15] MEDS ORDERED: POLYETHYLENE GLYCOL 3350 17 GM POWD.PACK PO PRN (08:30)
[2017-03-15] MEDS ORDERED: SENNOSIDES-DOCUSATE SODIUM 1 EACH TAB PO STA (08:30)
[2017-03-15] MEDS ORDERED: SENNOSIDES-DOCUSATE SODIUM 1 EACH TAB PO PRN (08:31)
[2017-03-15] MEDS ORDERED: BISACODYL 10 MG SUPP RECTAL PRN (08:32)
--- NOTE | 2017-03-15 09:37 | P.PN ---
Subjective Progress Note Date: 03/15/17 76-year-old female who presented to the emergency room on 03/13/2017 with a chief complaint of generalized fatigue and increased lower extremity edema with accompanied shortness of breath for the past week or two. She also states her lower extremities began weeping fluid. She states her symptoms were not improving so the patient presented to the emergency room for further evaluation. The patient has a history of coronary artery disease with previous CABG, CVA which has resulted in impaired vision, heart failure, diabetes mellitus, hyperlipidemia, hypertension, myocardial infarction, osteoarthritis, and kidney disease. Echocardiogram completed reveals ejection fraction of 3035%, inferior hypokinesis, posterior hypokinesis, mild mitral regurgitation, mild tricuspid regurgitation, moderate pulmonary hypertension with RVSP measured at 56.61, and trivial pericardial effusion present. In the emergency room, a chest x-ray was completed revealing mild pulmonary vascular congestion, cardiomegaly, and trace left pleural effusion. Her blood pressure was quite elevated in the emergency room with a systolic over 200. Laboratory studies completed revealed white count of 9.4, hemoglobin 14.3, platelet count 288, INR 1.2, sodium 134, potassium 4.5, BUN 15, creatinine 0.92 , magnesium 1.5, BNP 7680. Troponin 0.035. She was admitted to the hospital under the care of Dr. Troy. Consultations were placed to cardiology. 03/14/2017 The patient was seen and examined at the bedside on rounds with Dr. Troy. She is still short of breath at this time. She denies chest pain or pressure. She states that she does not want to take her insulin any longer that she was prescribed outpatient by Dr. Troy because every time she takes it she feels "funny" and gets very diaphoretic. Dr. Troy states he will continue the insulin while the patient is in the hospital and then reevaluate her insulin regimen on an outpatient basis. Her blood pressure has improved with a last reading of 147/65. She does have excoriation of her bilateral groin folds and under her breasts. She denies nausea or vomiting at this time. She has been tolerating oral intake without difficulty. She states she is voiding without difficulty. 03/15/2017 Patient seen and examined at the bedside on rounds with Dr. Troy. Patients breathing appears to be less labored. Patient states her shortness of breath has improved. She is complaining of constipation. She is tolerating breakfast without nausea or vomiting. Patient continues to state she does not want to take insulin at the time of discharge. Dr. Troy reiterated to patient that her diabetes is very poorly controlled and her hemoglobin A1c is 11% and he encouraged patient to continue taking her insulin at the time of discharge. Patients blood pressure is elevated this morning at 150/70. PT/OT have been consulted to evaluate patient. She is requesting placement at [facility]. Objective - Vital Signs Vital signs: Vital Signs Temp 98 F 03/15/17 07:39 Pulse 70 03/15/17 07:42 Resp 16 03/15/17 07:42 BP 150/70 03/15/17 07:39 Pulse Ox 96 03/15/17 07:39 Intake & Output 03/14/17 03/15/17 03/15/17 18:59 06:59 18:59 Intake Total 1560 Output Total 700 150 Balance 860 -150 Weight 82.3 kg 81.6 kg Intake: Oral 1560 Output: Urine 700 150 Other: # Voids 3 1 # Bowel Movements 0 - Exam GENERAL: This is a 76-year-old female in no apparent distress at the time of examination. Pleasant and cooperative. HEENT: Head is atraumatic, normocephalic. Pupils are equal, round, and reactive to light. Sclerae anicteric. Conjunctivae are clear. Mucus membranes of the mouth are moist. Neck is supple. RESPIRATORY: Lungs with rales to bilateral bases, improving since yesterday. No use of accessory muscles. Patient maintaining oxygen saturation greater than 92%. No chest wall tenderness is noted on palpation or with deep breathing. CARDIOVASCULAR: Regular rate and rhythm. S1 and S2 noted. Systolic murmur auscultated. JVD noted. No S3 or S4 noted. GASTROINTESTINAL: No distention noted. Abdomen soft and round. Normal active bowel sounds auscultated x 4 quadrants. No pain or tenderness noted upon palpation. INTEGUMENTARY: 2+ bilateral lower extremity edema with weeping noted. Skin excoriation with erythema present to bilateral groin and breast folds EXTREMITIES: 2+ peripheral pulses. No evidence of peripheral edema. No calf tenderness noted. NEUROLOGIC: Cranial nerves II-XII intact. PSYCHIATRIC: Awake, alert, and oriented X 3. Appropriate affect. Intact judgement and insight. - Labs CBC & Chem 7: 03/13/17 11:37 03/15/17 06:01 Labs: Abnormal Lab Results - Last 24 Hours (Table) 03/14/17 03/14/17 03/14/17 Range/Units 11:35 16:44 17:07 Chloride (98-107) mmol/L Carbon Dioxide (22-30) mmol/L BUN (7-17) mg/dL Creatinine (0.52-1.04) mg/dL POC Glucose (mg/dL) 104 H 69 L 72 L (75-99) mg/dL 03/15/17 03/15/17 Range/Units 05:55 06:01 Chloride 95 L (98-107) mmol/L Carbon Dioxide 32 H (22-30) mmol/L BUN 23 H (7-17) mg/dL Creatinine 1.20 H (0.52-1.04) mg/dL POC Glucose (mg/dL) 106 H (75-99) mg/dL Assessment and Plan Plan: ASSESSMENT: Acute exacerbation of systolic congestive heart failure, echocardiogram reveals ejection fraction of 30-35% Elevated troponins, likely secondary to above History of coronary artery disease with previous stent placement and CABG Uncontrolled diabetes mellitus, type II, hemoglobin A1c 11% Urinary tract infection, present on admission, culture pending Chronic kidney disease, stage III, GFR 46 Hypertensive urgency in emergency room, resolved Moderate pulmonary hypertension Very small pericardial effusion noted on echocardiogram Intertrigo dermatitis, suspect fungal, secondary to obesity and skin on skin frictional forces History of CVA with subsequent vision impairment Essential hypertension Hyperlipidemia Osteoarthritis Anxiety, unspecified Obesity: BMI 34.3 Hypomagnesemia, improved with supplementation PLAN: -Cardiology on consult. Appreciate recommendations and input -Lasix dosing per cardiology -Accurate I&O -Daily weights -Begin Norvasc 5mg daily -Await results of urine culture -Continue Levaquin 500mg daily -Senna 2 tabs x1 dose -PRN miralax, dulcolax, and senna if constipation does not resolve -Continue nystatin powder along with Interdry clothes and daily Diflucan (3 doses total) -Capillary blood glucose checks before meals and at bedtime -NovoLog sliding scale coverage before meals and at bedtime -educator senior clinical consulted secondary to uncontrolled diabetes and patient's refusal to take insulin at home -Consult speech for swallow eval as patient is complaining of difficulty swallowing -GI prophylaxis: Protonix 40 mg by mouth daily -DVT prophylaxis: Heparin 5000 units subcu every 8 hours -Monitor vital signs and address as appropriate -Discharge planning: Patient is requesting subacute rehab at the time of discharge. Requesting Neil. -PT/OT consult -Further recommendations pending patient's course -Possible discharge to subacute rehab tomorrow if patient remains stable Nurse practitioner note has been reviewed by physician. Signing provider agrees with the documented findings, assessment, and plan of care.
--- NOTE | 2017-03-15 10:20 | PN ---
PROGRESS NOTE Mrs. Alcantara is a 76-year-old female who has a known history of coronary artery disease status post coronary artery bypass grafting and percutaneous revascularization, history of hypertension, hyperlipidemia, who presented with symptoms of progressive dyspnea and peripheral edema. She is feeling slightly better today. She continues to be weak. She denies any symptoms of chest pain. She denies any dizziness or palpitation. She denies any nausea. The patient has not been compliant with her treatment and follow up in the past. She had an echocardiogram done yesterday that revealed an ejection fraction of 30% to 35% with segmental wall motion abnormality with mild mitral and tricuspid regurgitation. She continues to be at this time on aspirin once a day, Lipitor 80 mg daily, Plavix 75 mg daily, Lasix 40 mg IV q.12 hours, Amaryl 5 mg twice a day, lisinopril 40 mg daily, metoprolol tartrate 50 mg twice a day, metformin. PHYSICAL EXAMINATION: Blood pressure running in the 130s to 150s with the heart rate in the 70s. LUNGS: Few crackles at the bases. HEART: Regular rate and rhythm. S1, S2. No S3 with systolic murmur. No diastolic murmur. ABDOMEN: Soft, nontender. EXTREMITIES: +2 edema. LAB DATA: Lab data revealed BUN and creatinine 23 and 1.2. Potassium 4.3. IMPRESSION: 1. Congestive heart failure with severe ischemic cardiomyopathy. 2. Status post coronary artery bypass grafting. 3. History of percutaneous revascularization. 4. Diabetes. 5. Noncompliance. 6. Hypertension. 7. Hyperlipidemia. 8. Peripheral vascular disease. RECOMMENDATION: We will continue on the IV diuresis as present. I will add to regimen oral nitrate. Follow her renal function closely and depending on her progress, further recommendation will be made. MMODL / IJN: [id number] /
[2017-03-15] MEDS: amLODIPine 5 MG TAB PO SCH (11:08)
[2017-03-15] MEDS: ISOSORBIDE MONONITRATE ER 30 MG TAB.ER.24H PO SCH (11:08)
[2017-03-15 11:43] LABS: Glucose,Whole Blood 119 mg/dL (75-99)
[2017-03-15 16:40] LABS: Glucose,Whole Blood 156 mg/dL (75-99)
[2017-03-15] MEDS ORDERED: LEVOFLOXACIN 250 MG TAB PO SCH (18:00)
[2017-03-15 20:46] LABS: Glucose,Whole Blood 87 mg/dL (75-99)
[2017-03-15] MEDS: ATORVASTATIN 80 MG TAB PO SCH (20:49)
[2017-03-16] MEDS: HEPARIN SODIUM,PORCINE 5,000 UNIT/ML 1 ML VIAL SQ SCH ×2 (00:16→08:02)
[2017-03-16 08:00] LABS: Calcium 9.5 mg/dL (8.4-10.2); Potassium 4.1 mmol/L (3.5-5.1)
[2017-03-16] MEDS: INSULIN ASPART 100 UNIT/ML 1 ML 10 ML VIAL SQ SCH ×2 (08:02→11:40)
[2017-03-16 08:03] VITALS: BP 151/67; PULSE 78; RESP 18; TEMP 98.6
[2017-03-16] MEDS: PANTOPRAZOLE 40 MG TABLET PO SCH (08:03)
[2017-03-16] MEDS: metFORMIN 500 MG TAB PO SCH (08:03)
[2017-03-16] MEDS: FUROSEMIDE 10 MG/ML 4 ML VIAL IV SCH (08:04)
[2017-03-16] MEDS: GLIMEPIRIDE 2 MG TAB PO SCH (08:04)
[2017-03-16] MEDS: FLUCONAZOLE 100 MG TAB PO SCH (08:04)
[2017-03-16] MEDS: amLODIPine 5 MG TAB PO SCH (08:04)
[2017-03-16] MEDS: ISOSORBIDE MONONITRATE ER 30 MG TAB.ER.24H PO SCH (08:05)
[2017-03-16] MEDS: METOPROLOL TARTRATE 50 MG TAB PO SCH (08:05)
[2017-03-16] MEDS: LISINOPRIL 20 MG TAB PO SCH (08:05)
[2017-03-16] MEDS: CLOPIDOGREL 75 MG TAB PO SCH (08:05)
[2017-03-16] MEDS: ASPIRIN 81 MG PO SCH (08:05)
[2017-03-16 08:10] LABS: Glucose,Whole Blood 120 mg/dL (75-99)
[2017-03-16] MEDS: NYSTATIN 100,000 UNIT/GM POWD 15 GM TOPICAL SCH (08:15)
--- NOTE | 2017-03-16 10:27 | P.DS ---
Providers Date of admission: 03/13/17 13:14 Expected date of discharge: 03/16/17 Attending physician: Jethro Troy Consults: 03/13/17 13:14 Consult Physician Routine Consulting Provider: [facility] Consult Reason/Comments: CHF Do you want consulting provider notified?: Yes Primary care physician: Jethro Troy [facility] Course: 76-year-old female who presented to the emergency room on 03/13/2017 with a chief complaint of generalized fatigue and increased lower extremity edema with accompanied shortness of breath for the past week or two. She also states her lower extremities began weeping fluid. She states her symptoms were not improving so the patient presented to the emergency room for further evaluation. The patient has a history of coronary artery disease with previous CABG, CVA which has resulted in impaired vision, heart failure, diabetes mellitus, hyperlipidemia, hypertension, myocardial infarction, osteoarthritis, and kidney disease. Echocardiogram completed reveals ejection fraction of 3035%, inferior hypokinesis, posterior hypokinesis, mild mitral regurgitation, mild tricuspid regurgitation, moderate pulmonary hypertension with RVSP measured at 56.61, and trivial pericardial effusion present. In the emergency room, a chest x-ray was completed revealing mild pulmonary vascular congestion, cardiomegaly, and trace left pleural effusion. Her blood pressure was quite elevated in the emergency room with a systolic over 200. Laboratory studies completed revealed white count of 9.4, hemoglobin 14.3, platelet count 288, INR 1.2, sodium 134, potassium 4.5, BUN 15, creatinine 0.92 , magnesium 1.5, BNP 7680. Troponin 0.035. She was admitted to the hospital under the care of Dr. Troy. Consultations were placed to cardiology. The patient was evaluated by cardiology. She was started on lasix 40mg IV q12 hours. Her breathing and edema has improved. She has since been transitioned to oral lasix. The patient did have intertrigo dermatitis to her bilateral groin and under her breast. She has been receiving nystatin powder and also Diflucan daily 3 doses. Her blood pressure has been elevated during hospitalization. The patient has been started on Norvasc. She has also been started on Imdur per cardiology. The patient was also found to have a urinary tract infection during hospitalization. She was placed on Levaquin. The patient's hemoglobin A1c is 11%. The patient does not want to take insulin and states every time she takes her insulin at home she feels funny. However, insulin is not listed on the patient's home medication list.. She is currently taking Amaryl 4 mg PO BID. Her metformin has been increased during hospitalization to 500 mg PO BID. The patient has been placed on a NovoLog sliding scale during hospitalization and her blood sugars have remained under control. At the time of discharge, she will continue on NovoLog sliding scale at [facility]. She is to then follow up with Dr. Troy on an outpatient basis to determine her insulin regimen at that time. The patient was deemed stable for discharge per Dr. Troy. Discharge diagnosis Acute exacerbation of systolic congestive heart failure, echocardiogram reveals ejection fraction of 30-35% Elevated troponins, likely secondary to above History of coronary artery disease with previous stent placement and CABG Uncontrolled diabetes mellitus, type II, hemoglobin A1c 11% Urinary tract infection, present on admission, culture pending Chronic kidney disease, stage III, GFR 46 Hypertensive urgency in emergency room, resolved Moderate pulmonary hypertension Very small pericardial effusion noted on echocardiogram Intertrigo dermatitis, suspect fungal, secondary to obesity and skin on skin frictional forces History of CVA with subsequent vision impairment Essential hypertension Hyperlipidemia Osteoarthritis Anxiety, unspecified Obesity: BMI 34.3 Hypomagnesemia, improved with supplementation Nurse practitioner note has been reviewed by physician. Signing provider agrees with the documented findings, assessment, and plan of care. Patient Condition at Discharge: Stable Plan - Discharge Summary Discharge Rx Participant: Yes New Discharge Prescriptions: New amLODIPine [Norvasc] 5 mg PO DAILY tab Insulin Aspart [NovoLOG (formulary)] 0 unit SQ ACHS vial Isosorbide Mononitrate ER [Imdur] 30 mg PO DAILY tab.er.24h Levofloxacin [Levaquin] 250 mg PO Q24H #5 tab metFORMIN HCL [Glucophage] 500 mg PO BID-W/MEALS tab Nystatin 100,000 Unit/gm Powd [Mycostatin Powder] 1 applic TOPICAL BID applic Polyethylene Glycol 3350 [Miralax] 17 gm PO DAILY PRN powd.pack PRN Reason: Constipation Sennosides-Docusate Sodium [Senokot-S] 2 each PO DAILY PRN tab PRN Reason: Constipation Furosemide [Lasix] 60 mg PO BID@0900,1600 tab Continue Metoprolol Tartrate [Lopressor] 50 mg PO BID Glimepiride [Amaryl] 4 mg PO BID Clopidogrel [Plavix] 75 mg PO DAILY Lisinopril 40 mg PO DAILY Aspirin 81 mg PO DAILY #30 chew Atorvastatin [Lipitor] 80 mg PO HS #30 tab Ipratropium-Albuterol Nebulize [Duoneb 0.5 mg-3 mg/3 ml Soln] 3 ml INHALATION RT-QID PRN PRN Reason: sob Discontinued metFORMIN HCL [Glucophage] 250 mg PO BID Furosemide [Lasix] 40 mg PO BID@0800,1400 Discharge Medication List Clopidogrel [Plavix] 75 mg PO DAILY 05/13/15 [History] Glimepiride [Amaryl] 4 mg PO BID 05/13/15 [History] Metoprolol Tartrate [Lopressor] 50 mg PO BID 05/13/15 [History] Lisinopril 40 mg PO DAILY 03/23/16 [History] Aspirin 81 mg PO DAILY #30 chew 03/27/16 [Rx] Atorvastatin [Lipitor] 80 mg PO HS #30 tab 03/27/16 [Rx] Ipratropium-Albuterol Nebulize [Duoneb 0.5 mg-3 mg/3 ml Soln] 3 ml INHALATION RT -QID PRN 03/13/17 [History] Furosemide [Lasix] 60 mg PO BID@0900,1600 tab 03/16/17 [Rx] Insulin Aspart [NovoLOG (formulary)] 0 unit SQ ACHS vial 03/16/17 [Rx] Isosorbide Mononitrate ER [Imdur] 30 mg PO DAILY tab.er.24h 03/16/17 [Rx] Levofloxacin [Levaquin] 250 mg PO Q24H #5 tab 03/16/17 [Rx] Nystatin 100,000 Unit/gm Powd [Mycostatin Powder] 1 applic TOPICAL BID applic 03/16/17 [Rx] Polyethylene Glycol 3350 [Miralax] 17 gm PO DAILY PRN powd.pack 03/16/17 [Rx] Sennosides-Docusate Sodium [Senokot-S] 2 each PO DAILY PRN tab 03/16/17 [Rx] amLODIPine [Norvasc] 5 mg PO DAILY tab 03/16/17 [Rx] metFORMIN HCL [Glucophage] 500 mg PO BID-W/MEALS tab 03/16/17 [Rx] Follow up Appointment(s)/Referral(s): Roxana Jeong MD [STAFF PHYSICIAN] - 1 Week Jethro Troy DO [Primary Care Provider] - 1 Week (1 week after DC from [facility]) Activity/Diet/Wound Care/Special Instructions: Patient needs levaquin for 5 additional days then it may be discontinued Nystatin powder to bilateral groins, under breasts, and any additional excoriated areas of skin Inter-dry clothes to groin and under breasts Activity as tolerated May wrap legs with gauze if weeping diabetic/cardiac diet Patient is to follow up with Dr. Troy after DC from [facility] to discuss initiating insulin regimen as patients A1C is 11.3% Discharge Disposition: TRANSFER TO SNF/ECF
[2017-03-16 11:37] LABS: Glucose,Whole Blood 154 mg/dL (75-99)
--- NOTE | 2017-03-16 12:59 | P.PN ---
Subjective Progress Note Date: 03/16/17 Mrs. Alcantara is a pleasant 76-year-old female past medical history significant for coronary artery disease s/p CABG and percutaneous revascularization, hypertension and dyslipidemia. She is admitted to the hospital with symptoms of shortness of breath and lower extremity edema. Today she is seen sitting up in the chair on room air. She states she is feeling much better and thinks she is being sent to rehab today. She states she has been using her incentive spirometer regularly. Denies chest pain, shortness of breath , dizziness, palpitations, nausea or vomiting. She is currently receiving lasix IV 40 mg BID with ongoing lower extremity edema although lungs sound better. Weight is down 1 kg from admission. Objective - Vital Signs Vital signs: Vital Signs Temp 98.6 F 03/16/17 07:00 Pulse 78 03/16/17 07:00 Resp 18 03/16/17 07:00 BP 151/67 03/16/17 07:00 Pulse Ox 94 L 03/16/17 07:00 Intake & Output 03/15/17 03/16/17 03/16/17 18:59 06:59 18:59 Intake Total 640 590 Balance 640 590 Weight 81.5 kg Intake: Oral 640 590 Other: Voiding Method Toilet Toilet # Voids 1 2 # Bowel Movements 1 - Exam Blood pressure 151/67 heart rate 78 afebrile GENERAL: Well-appearing, well-nourished and in no acute distress. NECK: Supple without JVD or thyromegaly. LUNGS: Breath sounds clear to auscultation bilaterally. Respiration equal and unlabored. No wheezes, rales or rhonchi. HEART: Regular rate and rhythm with systolic ejection murmur at the base, no rubs or gallops. S1 and S2 heard. EXTREMITIES: Normal range of motion, 1+ pitting bilateral lower extremity edema and redness. No clubbing or cyanosis. Peripheral pulses intact and strong. - Labs CBC & Chem 7: 03/13/17 11:37 03/16/17 07:00 Labs: Abnormal Lab Results - Last 24 Hours (Table) 03/15/17 03/16/17 03/16/17 Range/Units 16:38 07:00 08:09 BUN 21 H (7-17) mg/dL Creatinine 1.13 H (0.52-1.04) mg/dL Glucose 113 H (74-99) mg/dL POC Glucose (mg/dL) 156 H 120 H (75-99) mg/dL 03/16/17 Range/Units 11:36 BUN (7-17) mg/dL Creatinine (0.52-1.04) mg/dL Glucose (74-99) mg/dL POC Glucose (mg/dL) 154 H (75-99) mg/dL Microbiology - Last 24 Hours (Table) 03/15/17 02:40 Urine Culture - Preliminary Urine,Clean Catch Assessment and Plan Assessment: ASSESSMENT 1. Acute on chronic congestive heart failure with severe ischemic cardiomyopathy. Ejection fraction 30-35% with segmental wall motion abnormality with mild mitral and tricuspid regurgitation. 2. Status post coronary artery bypass grafting 3. Diabetes mellitus 4. Noncompliance 5. Hypertension 6. Dyslipidemia 7. Peripheral vascular disease PLAN From a cardiac perspective the patient can be transitioned to oral diuretics in the form of Lasix 60 mg by mouth twice a day. Continue with aspirin, atorvastatin, Plavix, Imdur, lisinopril and metoprolol as have been previously ordered. Stable for discharge to [facility]. Follow-up with Dr. Jeong in 2-3 weeks' time. The above impression and plan of care have been discussed and directed by the signing physician. Qiana Jenkins, nurse practitioner, acting as scribe for signing physician.
[2017-03-16] MEDS ORDERED: FUROSEMIDE 20 MG TAB PO SCH (16:00)
== END 2017-03-16 13:25 | DRG 291 ==
LOC: EC 11:09 → 6SEL 13:14 → 5MS5E 03-15 23:09
PROVIDERS: ADMIT Family Medicine; ATTEND Family Medicine
DX: I13.0 Hypertensive heart and chronic kidney disease with heart failure and stage 1 through stage 4 chronic kidney disease, or unspecified chronic kidney disease (principal); I50.23 Acute on chronic systolic (congestive) heart failure; E11.22 Type 2 diabetes mellitus with diabetic chronic kidney disease; E11.51 Type 2 diabetes mellitus with diabetic peripheral angiopathy without gangrene; E83.42 Hypomagnesemia; I08.3 Combined rheumatic disorders of mitral, aortic and tricuspid valves; I31.3 Pericardial effusion (noninflammatory); N39.0 Urinary tract infection, site not specified; I27.20 Pulmonary hypertension, unspecified; I25.5 Ischemic cardiomyopathy; N18.3 Chronic kidney disease, stage 3 (moderate); I25.10 Atherosclerotic heart disease of native coronary artery without angina pectoris; E66.9 Obesity, unspecified; E78.5 Hyperlipidemia, unspecified; I16.0 Hypertensive urgency; L30.4 Erythema intertrigo; F41.9 Anxiety disorder, unspecified; M19.91 Primary osteoarthritis, unspecified site; H54.7 Unspecified visual loss; I69.312 Visuospatial deficit and spatial neglect following cerebral infarction; R40.2362 Coma scale, best motor response, obeys commands, at arrival to emergency department; R40.2142 Coma scale, eyes open, spontaneous, at arrival to emergency department; R40.2252 Coma scale, best verbal response, oriented, at arrival to emergency department; M48.061 Spinal stenosis, lumbar region without neurogenic claudication; H26.9 Unspecified cataract; K59.09 Other constipation; I25.2 Old myocardial infarction; Z68.33 Body mass index [BMI] 33.0-33.9, adult; Z79.84 Long term (current) use of oral hypoglycemic drugs; Z79.4 Long term (current) use of insulin; Z79.02 Long term (current) use of antithrombotics/antiplatelets; Z79.82 Long term (current) use of aspirin; Z79.899 Other long term (current) drug therapy; Z95.1 Presence of aortocoronary bypass graft; Z95.5 Presence of coronary angioplasty implant and graft; Z96.651 Presence of right artificial knee joint; Z90.710 Acquired absence of both cervix and uterus; Z85.42 Personal history of malignant neoplasm of other parts of uterus; Z91.19 Patient's noncompliance with other medical treatment and regimen; Z91.040 Latex allergy status; Z88.0 Allergy status to penicillin; Z91.048 Other nonmedicinal substance allergy status; Z82.49 Family history of ischemic heart disease and other diseases of the circulatory system
CPT/HCPCS: 36415; 71046; 80048; 80053; 81001; 82553; 83036; 83735; 83880; 84484; 85025; 85610; 85730; 87086; 93005; 93306; 94760; 96374; 99285

== ENCOUNTER 2018-04-22 12:27 | Emergency (ER) | payer MEDICARE, BC ==
[2018-04-22 12:35] VITALS: RESP 18
[2018-04-22] MEDS ORDERED: METOCLOPRAMIDE 5 MG/ML 2 ML VIAL IVP STA (13:10)
[2018-04-22] MEDS ORDERED: SODIUM CHLORIDE 0.9% 1,000 ML IV STA (13:10)
[2018-04-22] MEDS ORDERED: FAMOTIDINE 20 MG/2 ML VIAL IV STA (13:12)
[2018-04-22 13:15] LABS: Glucose,Whole Blood 309 mg/dL (75-99)
--- NOTE | 2018-04-22 13:15 | ED ---
General Adult HPI - General Chief complaint: Nausea/Vomiting/Diarrhea Stated complaint: Vomiting Time Seen by Provider: 04/22/18 13:00 Source: patient, family, RN notes reviewed Mode of arrival: wheelchair Limitations: no limitations - History of Present Illness Initial comments: Patient is a pleasant 78-year-old female presenting to the emergency Department with vomiting. Onset of symptoms was this morning, a couple of hours ago. Patient did go to family's house. Patient was able to drink and eat a piece of toast this morning. Patient then cut up her and started having sensation of vomiting. Patient feels like something could be stuck in her throat. Patient is diabetic. Patient did not have her blood sugar checked at this morning. Patient denies any chest pain. Patient does have some dyspnea however this is chronic and unchanged. Patient is overall a poor historian. Son does help provide history. - Related Data Home Medications Medication Instructions Recorded Confirmed Clopidogrel [Plavix] 75 mg PO DAILY 05/13/15 04/22/18 Metoprolol Tartrate [Lopressor] 50 mg PO BID 05/13/15 04/22/18 Lisinopril 40 mg PO DAILY 03/23/16 04/22/18 Albuterol Nebulized [Ventolin 2.5 mg INHALATION RT-QID PRN 04/22/18 04/22/18 Nebulized] Aspirin EC [Ecotrin Low Dose] 81 mg PO DAILY 04/22/18 04/22/18 Clotrimazole/Betameth Lotion 1 applic TOPICAL BID 04/22/18 04/22/18 [Lotrisone] Docusate [Colace] 100 mg PO HS 04/22/18 04/22/18 Furosemide [Lasix] 40 mg PO DAILY 04/22/18 04/22/18 Ibuprofen [Motrin] 600 mg PO Q8H PRN 04/22/18 04/22/18 Nitroglycerin Sl Tabs [Nitrostat] 0.4 mg SUBLINGUAL Q5M PRN 04/22/18 04/22/18 Nystatin 100,000 Unit/gm Powd 1 applic TOPICAL TID 04/22/18 04/22/18 [Mycostatin Powder] Sennosides [Senokot] 8.6 mg PO DAILY 04/22/18 04/22/18 Triamcinolone 0.025% Cream 1 applic TOPICAL BID 04/22/18 04/22/18 [Kenalog 0.025% Cream] metFORMIN HCL [Glucophage] 250 mg PO AC-BID 04/22/18 04/22/18 Previous Rx's Medication Instructions Recorded Atorvastatin [Lipitor] 80 mg PO HS #30 tab 03/27/16 Allergies Allergy/AdvReac Type Severity Reaction Status Date / Time adhesive tape Allergy Rash/Hives Verified 04/22/18 15:08 latex Allergy Swelling Verified 04/22/18 15:08 Penicillins Allergy Anaphylaxis Verified 04/22/18 15:08 Review of Systems ROS Statement: Those systems with pertinent positive or pertinent negative responses have been documented in the HPI. ROS Other: All systems not noted in ROS Statement are negative. Constitutional: Denies: fever Eyes: Reports: vision change (Patient is chronically blind, no acute) ENT: Reports: other (Sensation of foreign body in throat) Respiratory: Reports: as per HPI Cardiovascular: Denies: chest pain Gastrointestinal: Reports: nausea, vomiting Genitourinary: Denies: dysuria Musculoskeletal: Denies: back pain Skin: Denies: rash Neurological: Denies: weakness Past Medical History Past Medical History: Coronary Artery Disease (CAD), Cancer, Heart Failure, Diabetes Mellitus, Hyperlipidemia, Hypertension, Myocardial Infarction ([place]), Osteoarthritis (OA), Renal Disease Additional Past Medical History / Comment(s): pt is right side dominant.BACK PAIN; 05/13/15 stent to the Left main and SVG to the Diagonal. Cataract on left eye; "needs a cornea transplant on left eye". Uterine Cancer.ANEMIA,LUMBAR SPINAL STENOSIS,CHRONIC CONSTIPATION, SEIZURE 03-23-16 Last Myocardial Infarction Date:: 05/13/15 History of Any Multi-Drug Resistant Organisms: None Reported Past Surgical History: Cholecystectomy, Coronary Bypass/CABG, Heart Catheterization With Stent, Hysterectomy, Joint Replacement, Orthopedic Surgery Additional Past Surgical History / Comment(s): 1996 CABG. Right Knee replacement 1954 Past Anesthesia/Blood Transfusion Reactions: No Reported Reaction Date of Last Stent Placement:: 05/13/15 Past Psychological History: Anxiety Smoking Status: Never smoker - Past Family History Father Family Medical History: Cancer, Coronary Artery Disease (CAD), Diabetes Mellitus , Myocardial Infarction ([place]) Additional Family Medical History / Comment(s): pancreas cancer Mother Family Medical History: Cancer Additional Family Medical History / Comment(s): Uterine cancer General Exam Limitations: no limitations General appearance: alert, in no apparent distress Head exam: Present: atraumatic ENT exam: Present: normal oropharynx Neck exam: Present: normal inspection. Absent: tenderness Respiratory exam: Present: normal lung sounds bilaterally Cardiovascular Exam: Present: regular rate, normal rhythm GI/Abdominal exam: Present: soft. Absent: tenderness Extremities exam: Present: pedal edema (Chronic) Neurological exam: Present: alert Psychiatric exam: Present: normal affect, normal mood Skin exam: Present: normal color Course Vital Signs 04/22/18 12:31 Temperature 98 F Pulse Rate 74 Respiratory 18 Rate Blood Pressure 187/99 O2 Sat by Pulse 99 Oximetry EKG Findings - EKG Comments: EKG Findings:: Normal sinus rhythm at 79. WA 164. QRS 112. QT 392. QTC 449. Normal axis. Normal QRS. T wave inversion in V6. Medical Decision Making - Medical Decision Making Patient reevaluated and is feeling much better. Patient and family updated on results. Patient and family requests no insulin secondary to patient easily becoming hypoglycemic with small doses of insulin. They will manage this with her metformin. Patient did not take her metformin this morning and will take it now. Patient is tolerating oral intake at this time. Patient and family updated on need for follow-up and possible GI consult for endoscopy. - Lab Data Result diagrams: 04/22/18 13:37 04/22/18 13:37 Lab Results 04/22/18 04/22/18 04/22/18 Range/Units 13:12 13:37 13:37 WBC 9.3 (3.8-10.6) k/uL RBC 5.61 H (3.80-5.40) m/uL Hgb 14.4 (11.4-16.0) gm/dL Hct 47.4 H (34.0-46.0) % MCV 84.5 (80.0-100.0) fL MCH 25.7 (25.0-35.0) pg MCHC 30.4 L (31.0-37.0) g/dL RDW 16.1 H (11.5-15.5) % Plt Count 307 (150-450) k/uL Neutrophils % 78 % Lymphocytes % 9 % Monocytes % 9 % Eosinophils % 2 % Basophils % 1 % Neutrophils # 7.2 (1.3-7.7) k/uL Lymphocytes # 0.9 L (1.0-4.8) k/uL Monocytes # 0.8 (0-1.0) k/uL Eosinophils # 0.2 (0-0.7) k/uL Basophils # 0.1 (0-0.2) k/uL Hypochromasia Marked Anisocytosis Slight PT (9.0-12.0) sec INR (<1.2) APTT (22.0-30.0) sec Sodium 133 L (137-145) mmol/L Potassium 5.4 H (3.5-5.1) mmol/L Chloride 100 (98-107) mmol/L Carbon Dioxide 24 (22-30) mmol/L Anion Gap 9 mmol/L BUN 25 H (7-17) mg/dL Creatinine 1.09 H (0.52-1.04) mg/dL Est GFR (CKD-EPI)AfAm 57 (>60 ml/min/1.73 sqM) Est GFR (CKD-EPI)NonAf 49 (>60 ml/min/1.73 sqM) Glucose 305 H (74-99) mg/dL POC Glucose (mg/dL) 309 H (75-99) mg/dL POC Glu Hand Embroiderer ID Betty [place] Calcium 9.8 (8.4-10.2) mg/dL Total Bilirubin 2.3 H (0.2-1.3) mg/dL AST 21 (14-36) U/L ALT 32 (9-52) U/L Alkaline Phosphatase 123 (38-126) U/L Creatine Kinase 34 (30-135) U/L Troponin I (0.000-0.034) ng/mL Total Protein 6.2 L (6.3-8.2) g/dL Albumin 3.7 (3.5-5.0) g/dL Amylase 39 (30-110) U/L Lipase 189 (23-300) U/L 04/22/18 04/22/18 Range/Units 13:37 13:37 WBC (3.8-10.6) k/uL RBC (3.80-5.40) m/uL Hgb (11.4-16.0) gm/dL Hct (34.0-46.0) % MCV (80.0-100.0) fL MCH (25.0-35.0) pg MCHC (31.0-37.0) g/dL RDW (11.5-15.5) % Plt Count (150-450) k/uL Neutrophils % % Lymphocytes % % Monocytes % % Eosinophils % % Basophils % % Neutrophils # (1.3-7.7) k/uL Lymphocytes # (1.0-4.8) k/uL Monocytes # (0-1.0) k/uL Eosinophils # (0-0.7) k/uL Basophils # (0-0.2) k/uL Hypochromasia Anisocytosis PT 11.6 (9.0-12.0) sec INR 1.1 (<1.2) APTT 22.2 (22.0-30.0) sec Sodium (137-145) mmol/L Potassium (3.5-5.1) mmol/L Chloride (98-107) mmol/L Carbon Dioxide (22-30) mmol/L Anion Gap mmol/L BUN (7-17) mg/dL Creatinine (0.52-1.04) mg/dL Est GFR (CKD-EPI)AfAm (>60 ml/min/1.73 sqM) Est GFR (CKD-EPI)NonAf (>60 ml/min/1.73 sqM) Glucose (74-99) mg/dL POC Glucose (mg/dL) (75-99) mg/dL POC Glu Hand Embroiderer ID Calcium (8.4-10.2) mg/dL Total Bilirubin (0.2-1.3) mg/dL AST (14-36) U/L ALT (9-52) U/L Alkaline Phosphatase (38-126) U/L Creatine Kinase (30-135) U/L Troponin I 0.014 (0.000-0.034) ng/mL Total Protein (6.3-8.2) g/dL Albumin (3.5-5.0) g/dL Amylase (30-110) U/L Lipase (23-300) U/L - Radiology Data Radiology results: image reviewed (Chest x-ray shows cardiomegaly with small left effusion. No acute infiltrate. Soft tissue the neck shows patent airway. Some calcifications) Disposition Clinical Impression: Esophageal foreign body, Vomiting Disposition: HOME SELF-CARE Condition: Stable Instructions (If sedation given, give patient instructions): Acute Nausea and Vomiting (ED), Esophageal Foreign Body (ED) Additional Instructions: Please follow-up with primary care physician in the next day or 2 for recheck. Consider GI or similar follow-up as directed by Dr. Troy for possible EGD. Return for persistent vomiting, pain, difficult to breathing, not tolerating oral intake, worsening symptoms or other concerns. Please keep a close eye on blood sugar. Is patient prescribed a controlled substance at d/c from ED?: No Referrals: Jethro Troy DO [Primary Care Provider] - 1-2 days Time of Disposition: 16:24
[2018-04-22 13:59] LABS: Anisocytosis Slight; Basophils # (A) 0.1 k/uL (0-0.2); Basophils % (A) 1 %; Eosinophils # (A) 0.2 k/uL (0-0.7); Eosinophils % (A) 2 %; HCT 47.4 % (34.0-46.0); HGB 14.4 gm/dL (11.4-16.0); Hypochromasia Marked; Lymphocytes # (A) 0.9 k/uL (1.0-4.8); Lymphocytes % (A) 9 %; MCH 25.7 pg (25.0-35.0); MCHC 30.4 g/dL (31.0-37.0); MCV 84.5 fL (80.0-100.0); Mean Platelet Volume 6.5; Monocytes # (A) 0.8 k/uL (0-1.0); Monocytes % (A) 9 %; Neutrophils # (A) 7.2 k/uL (1.3-7.7); Neutrophils % (A) 78 %; Platelet Count 307 k/uL (150-450); RBC 5.61 m/uL (3.80-5.40); RDW 16.1 % (11.5-15.5); WBC 9.3 k/uL (3.8-10.6)
[2018-04-22 14:03] LABS: INR 1.1 (<1.2); Partial Thromboplastin Time 22.2 sec (22.0-30.0); Prothrombin Time 11.6 sec (9.0-12.0)
[2018-04-22 14:10] LABS: Albumin 3.7 g/dL (3.5-5.0); Calcium 9.8 mg/dL (8.4-10.2); Potassium 5.4 mmol/L (3.5-5.1); Total Bilirubin 2.3 mg/dL (0.2-1.3); Total Protein 6.2 g/dL (6.3-8.2)
--- NOTE | 2018-04-22 14:30 | XR ---
EXAMINATION TYPE: XR chest 2V DATE OF EXAM: 04/22/2018 COMPARISON: Chest x-ray March 13, 2017 HISTORY: Dysphasia and vomiting. TECHNIQUE: Frontal and lateral views of the chest are obtained. FINDINGS: Post CABG changes with mediastinal clips and sternal wires is redemonstrated. 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 Right lung remains clear. The cardiac silhouette size remains enlarged with a therosclerotic thoracic aorta redemonstrated. The osseous structures are intact. IMPRESSION: Cardiomegaly with small left pleural effusion and associated left basilar atelectasis an d/or scarring all redemonstrated. No new acute infiltrate is seen.
--- NOTE | 2018-04-22 14:33 | XR ---
EXAMINATION TYPE: XR soft tissue neck DATE OF EXAM: 04/22/2018 COMPARISON: NONE HISTORY: Dysphasia TECHNIQUE: 2 views submitted FINDINGS: Hypertrophic and degenerative change of the vertebral column. Prevertebral soft tissue stru ctures within normal limits. Epiglottis has a normal appearance. There is soft tissue calcification o verlying the airway and prevertebral structures which are nonspecific. Some of which may be related t o carotid artery calcification. Correlate with CT scan as clinically warranted. IMPRESSION: 1. Airway appears patent. There does appear to be calcifications overlying the prevertebral soft tiss ue structures but there within normal limits in size. This could be related to carotid artery calcifi cation and could be correlated with CT scan as clinically warranted. 2. There is soft tissue fullness in the right suprahilar region. Recommend chest x-ray.
[2018-04-22 16:24] VITALS: BP 169/71; PULSE 73; TEMP 97.6
== END 2018-04-22 16:37 | disposition home or self-care (01) ==
LOC: EC 12:27
DX: T18.128A Food in esophagus causing other injury, initial encounter (principal); R11.2 Nausea with vomiting, unspecified; R19.7 Diarrhea, unspecified; R06.00 Dyspnea, unspecified; I25.10 Atherosclerotic heart disease of native coronary artery without angina pectoris; I11.0 Hypertensive heart disease with heart failure; I50.9 Heart failure, unspecified; E11.9 Type 2 diabetes mellitus without complications; E78.5 Hyperlipidemia, unspecified; I25.2 Old myocardial infarction; M19.90 Unspecified osteoarthritis, unspecified site; Z85.42 Personal history of malignant neoplasm of other parts of uterus; Z90.49 Acquired absence of other specified parts of digestive tract; Z95.1 Presence of aortocoronary bypass graft; Z95.5 Presence of coronary angioplasty implant and graft; Z96.651 Presence of right artificial knee joint; Z79.02 Long term (current) use of antithrombotics/antiplatelets; Z79.82 Long term (current) use of aspirin; Z79.84 Long term (current) use of oral hypoglycemic drugs; Z79.899 Other long term (current) drug therapy; Z91.048 Other nonmedicinal substance allergy status; Z91.040 Latex allergy status; Z88.0 Allergy status to penicillin
CPT/HCPCS: 36415; 93005; 80053; 82150; 82550; 83690; 84484; 85025; 85610; 85730; 70360; 71046; 99284; 96374; 96375; 96361 ×3; J2765

== ENCOUNTER 2018-05-02 19:17 | Inpatient (IN) | payer MEDICARE, BC ==
[2018-05-02] MEDS ORDERED: IBUPROFEN 600 MG TAB PO STA (19:37)
[2018-05-02] MEDS ORDERED: ACETAMINOPHEN TAB 500 MG TAB PO STA (19:37)
[2018-05-02] MEDS ORDERED: IPRATROPIUM-ALBUTEROL 3 ML NEB INHALATION STA ×2 (19:38→20:52)
--- NOTE | 2018-05-02 19:44 | ED ---
General Adult HPI - General Chief complaint: Chest Pain Stated complaint: sob Time Seen by Provider: 05/02/18 19:20 Source: patient, RN notes reviewed Mode of arrival: ambulatory Limitations: no limitations - History of Present Illness Initial comments: This is a 78-year-old female who comes in complaining shortness of breath chest pain particularly with coughing over the last week. Patient states she has had a cough for the last week but has had no sputum production. Patient does not know she's had a fever but states she feels warm and gets cold at times. Patient denies any history of smoking. Patient states she does have diabetes heart disease congestive heart failure history and high blood pressure. Patient states her swelling to her legs is getting worse over the last week as well. Patient denies any palpitations. Patient denies any abdominal pain. Patient denies being lightheaded or dizzy. Patient states over the week she also is gotten considerably weaker but no focal weakness. - Related Data Home Medications Medication Instructions Recorded Confirmed Clopidogrel [Plavix] 75 mg PO DAILY 05/13/15 05/02/18 Metoprolol Tartrate [Lopressor] 50 mg PO BID 05/13/15 05/02/18 Lisinopril 40 mg PO DAILY 03/23/16 05/02/18 Albuterol Nebulized [Ventolin 2.5 mg INHALATION RT-QID PRN 04/22/18 05/02/18 Nebulized] Aspirin EC [Ecotrin Low Dose] 81 mg PO DAILY 04/22/18 05/02/18 Clotrimazole/Betameth Lotion 1 applic TOPICAL BID 04/22/18 05/02/18 [Lotrisone] Docusate [Colace] 100 mg PO HS 04/22/18 05/02/18 Furosemide [Lasix] 40 mg PO DAILY 04/22/18 05/02/18 Ibuprofen [Motrin] 600 mg PO Q8H PRN 04/22/18 05/02/18 Nitroglycerin Sl Tabs [Nitrostat] 0.4 mg SUBLINGUAL Q5M PRN 04/22/18 05/02/18 Nystatin 100,000 Unit/gm Powd 1 applic TOPICAL TID 04/22/18 05/02/18 [Mycostatin Powder] Sennosides [Senokot] 8.6 mg PO DAILY 04/22/18 05/02/18 Triamcinolone 0.025% Cream 1 applic TOPICAL BID 04/22/18 05/02/18 [Kenalog 0.025% Cream] metFORMIN HCL [Glucophage] 250 mg PO AC-BID 04/22/18 05/02/18 Azithromycin [Zithromax Z-pack] See Taper PO DIRECTED 05/02/18 05/02/18 Previous Rx's Medication Instructions Recorded Atorvastatin [Lipitor] 80 mg PO HS #30 tab 03/27/16 Allergies Allergy/AdvReac Type Severity Reaction Status Date / Time adhesive tape Allergy Rash/Hives Verified 05/02/18 20:51 latex Allergy Swelling Verified 05/02/18 20:51 Penicillins Allergy Anaphylaxis Verified 05/02/18 20:51 Review of Systems ROS Statement: Those systems with pertinent positive or pertinent negative responses have been documented in the HPI. ROS Other: All systems not noted in ROS Statement are negative. Past Medical History Past Medical History: Coronary Artery Disease (CAD), Cancer, Heart Failure, Diabetes Mellitus, Hyperlipidemia, Hypertension, Myocardial Infarction ([place]), Osteoarthritis ([place]), Renal Disease Additional Past Medical History / Comment(s): pt is right side dominant.BACK PAIN; 05/13/15 stent to the Left main and SVG to the Diagonal. Cataract on left eye; "needs a cornea transplant on left eye". Uterine Cancer.ANEMIA,LUMBAR SPINAL STENOSIS,CHRONIC CONSTIPATION, SEIZURE 03-23-16 Last Myocardial Infarction Date:: 05/13/15 History of Any Multi-Drug Resistant Organisms: None Reported Past Surgical History: Cholecystectomy, Coronary Bypass/CABG, Heart Catheterization With Stent, Hysterectomy, Joint Replacement, Orthopedic Surgery Additional Past Surgical History / Comment(s): 1996 CABG. Right Knee replacement 1954 Past Anesthesia/Blood Transfusion Reactions: No Reported Reaction Date of Last Stent Placement:: 05/13/15 Past Psychological History: Anxiety Smoking Status: Never smoker Past Alcohol Use History: None Reported Past Drug Use History: None Reported - Past Family History Father Family Medical History: Cancer, Coronary Artery Disease (CAD), Diabetes Mellitus, Myocardial Infarction ([place]) Additional Family Medical History / Comment(s): pancreas cancer Mother Family Medical History: Cancer Additional Family Medical History / Comment(s): Uterine cancer General Exam - General Exam Comments Initial Comments: GENERAL: Patient is well-developed and well-nourished. Patient is nontoxic and well- hydrated and is in no acute distress. ENT: Neck is soft and supple. No significant lymphadenopathy is noted. Oropharynx is clear. Moist mucous membranes. Neck has full range of motion without eliciting any pain. EYES: The sclera were anicteric and conjunctiva were pink and moist. Extraocular movements were intact and pupils were equal round and reactive to light. Eyelid s were unremarkable. PULMONARY: Patient has some expiratory wheezing but it is difficult to assess her because any time she takes deep breaths she starts coughing. CARDIOVASCULAR: There is a regular rate and rhythm without any murmurs gallops or rubs. ABDOMEN: Soft and nontender with normal bowel sounds. No palpable organomegaly was noted. There is no palpable pulsatile mass. SKIN: Skin is clear with no lesions or rashes and otherwise unremarkable. NEUROLOGIC: Patient is alert and oriented x3. Cranial nerves II through XII are grossly intact. Motor and sensory are also intact. Normal speech, volume and content. Symmetrical smile. MUSCULOSKELETAL: Normal extremities with adequate strength and full range of motion. 2+ edema bilaterally. LYMPHATICS: No significant lymphadenopathy is noted PSYCHIATRIC: Normal psychiatric evaluation. Limitations: no limitations Course Vital Signs 05/02/18 05/02/18 05/02/18 19:27 20:35 20:51 Temperature 99 F Pulse Rate 94 88 90 Respiratory 18 Rate Blood Pressure 158/84 O2 Sat by Pulse 98 Oximetry 05/02/18 21:03 Temperature Pulse Rate 88 Respiratory Rate Blood Pressure O2 Sat by Pulse Oximetry Medical Decision Making - Medical Decision Making EKG shows normal sinus rhythm at 96 bpm NM interval 144 QRS is under 12 QT interval 354 QTC is 447. Patient's EKG is of poor quality secondary tothe does appear to be some inverted T waves in the lateral leads 1 and aVL as well as V5 and V6. These inversions were seen on previous EKG. Chest x-ray shows left-sided pleural effusion with left-sided infiltrate indicative of pneumonia. Patient was started on Rocephin 2 g. Patient got 1 breathing treatment and no she felt a little better. Patient received a second breathing. - Lab Data Result diagrams: 05/02/18 19:45 05/02/18 19:45 Lab Results 05/02/18 05/02/18 05/02/18 Range/Units 19:38 19:45 19:45 WBC 9.7 (3.8-10.6) k/uL RBC 5.73 H (3.80-5.40) m/uL Hgb 14.3 (11.4-16.0) gm/dL Hct 47.5 H (34.0-46.0) % MCV 82.9 (80.0-100.0) fL MCH 25.0 (25.0-35.0) pg MCHC 30.2 L (31.0-37.0) g/dL RDW 16.5 H (11.5-15.5) % Plt Count 301 (150-450) k/uL Neutrophils % 83 % Lymphocytes % 5 % Monocytes % 10 % Eosinophils % 0 % Basophils % 0 % Neutrophils # 8.0 H (1.3-7.7) k/uL Lymphocytes # 0.5 L (1.0-4.8) k/uL Monocytes # 1.0 (0-1.0) k/uL Eosinophils # 0.0 (0-0.7) k/uL Basophils # 0.0 (0-0.2) k/uL Hypochromasia Moderate Anisocytosis Slight PT (9.0-12.0) sec INR (<1.2) APTT (22.0-30.0) sec Sodium 136 L (137-145) mmol/L Potassium 4.9 (3.5-5.1) mmol/L Chloride 101 (98-107) mmol/L Carbon Dioxide 24 (22-30) mmol/L Anion Gap 11 mmol/L BUN 15 (7-17) mg/dL Creatinine 0.94 (0.52-1.04) mg/dL Est GFR (CKD-EPI)AfAm 68 (>60 ml/min/1.73 sqM) Est GFR (CKD-EPI)NonAf 59 (>60 ml/min/1.73 sqM) Glucose 158 H (74-99) mg/dL Plasma Lactic Acid Nba (0.7-2.0) mmol/L Calcium 9.4 (8.4-10.2) mg/dL Total Bilirubin 2.9 H (0.2-1.3) mg/dL AST 37 H (14-36) U/L ALT 21 (9-52) U/L Alkaline Phosphatase 145 H (38-126) U/L Troponin I (0.000-0.034) ng/mL NT-Pro-B Natriuret Pep 6240 pg/mL Total Protein 6.8 (6.3-8.2) g/dL Albumin 3.9 (3.5-5.0) g/dL Urine Color Urine Appearance (Clear) Urine pH (5.0-8.0) Ur Specific [place] (1.001-1.035) Urine Protein (Negative) Urine Glucose (UA) (Negative) Urine Ketones (Negative) Urine Blood (Negative) Urine Nitrite (Negative) Urine Bilirubin (Negative) Urine Urobilinogen (<2.0) mg/dL Ur Leukocyte Esterase (Negative) Urine RBC (0-5) /hpf Urine WBC (0-5) /hpf Ur Squamous Epith Cells (0-4) /hpf Urine Mucus (None) /hpf Influenza Type A RNA (Not Detectd) Influenza Type B (PCR) (Not Detectd) 05/02/18 05/02/18 05/02/18 Range/Units 19:45 19:45 19:45 WBC (3.8-10.6) k/uL RBC (3.80-5.40) m/uL Hgb (11.4-16.0) gm/dL Hct (34.0-46.0) % MCV (80.0-100.0) fL MCH (25.0-35.0) pg MCHC (31.0-37.0) g/dL RDW (11.5-15.5) % Plt Count (150-450) k/uL Neutrophils % % Lymphocytes % % Monocytes % % Eosinophils % % Basophils % % Neutrophils # (1.3-7.7) k/uL Lymphocytes # (1.0-4.8) k/uL Monocytes # (0-1.0) k/uL Eosinophils # (0-0.7) k/uL Basophils # (0-0.2) k/uL Hypochromasia Anisocytosis PT 11.4 (9.0-12.0) sec INR 1.1 (<1.2) APTT 22.4 (22.0-30.0) sec Sodium (137-145) mmol/L Potassium (3.5-5.1) mmol/L Chloride (98-107) mmol/L Carbon Dioxide (22-30) mmol/L Anion Gap mmol/L BUN (7-17) mg/dL Creatinine (0.52-1.04) mg/dL Est GFR (CKD-EPI)AfAm (>60 ml/min/1.73 sqM) Est GFR (CKD-EPI)NonAf (>60 ml/min/1.73 sqM) Glucose (74-99) mg/dL Plasma Lactic Acid Nba 1.9 (0.7-2.0) mmol/L Calcium (8.4-10.2) mg/dL Total Bilirubin (0.2-1.3) mg/dL AST (14-36) U/L ALT (9-52) U/L Alkaline Phosphatase (38-126) U/L Troponin I 0.024 (0.000-0.034) ng/mL NT-Pro-B Natriuret Pep pg/mL Total Protein (6.3-8.2) g/dL Albumin (3.5-5.0) g/dL Urine Color Urine Appearance (Clear) Urine pH (5.0-8.0) Ur Specific [place] (1.001-1.035) Urine Protein (Negative) Urine Glucose (UA) (Negative) Urine Ketones (Negative) Urine Blood (Negative) Urine Nitrite (Negative) Urine Bilirubin (Negative) Urine Urobilinogen (<2.0) mg/dL Ur Leukocyte Esterase (Negative) Urine RBC (0-5) /hpf Urine WBC (0-5) /hpf Ur Squamous Epith Cells (0-4) /hpf Urine Mucus (None) /hpf Influenza Type A RNA (Not Detectd) Influenza Type B (PCR) (Not Detectd) 05/02/18 05/02/18 Range/Units 20:20 20:25 WBC (3.8-10.6) k/uL RBC (3.80-5.40) m/uL Hgb (11.4-16.0) gm/dL Hct (34.0-46.0) % MCV (80.0-100.0) fL MCH (25.0-35.0) pg MCHC (31.0-37.0) g/dL RDW (11.5-15.5) % Plt Count (150-450) k/uL Neutrophils % % Lymphocytes % % Monocytes % % Eosinophils % % Basophils % % Neutrophils # (1.3-7.7) k/uL Lymphocytes # (1.0-4.8) k/uL Monocytes # (0-1.0) k/uL Eosinophils # (0-0.7) k/uL Basophils # (0-0.2) k/uL Hypochromasia Anisocytosis PT (9.0-12.0) sec INR (<1.2) APTT (22.0-30.0) sec Sodium (137-145) mmol/L Potassium (3.5-5.1) mmol/L Chloride (98-107) mmol/L Carbon Dioxide (22-30) mmol/L Anion Gap mmol/L BUN (7-17) mg/dL Creatinine (0.52-1.04) mg/dL Est GFR (CKD-EPI)AfAm (>60 ml/min/1.73 sqM) Est GFR (CKD-EPI)NonAf (>60 ml/min/1.73 sqM) Glucose (74-99) mg/dL Plasma Lactic Acid Nba (0.7-2.0) mmol/L Calcium (8.4-10.2) mg/dL Total Bilirubin (0.2-1.3) mg/dL AST (14-36) U/L ALT (9-52) U/L Alkaline Phosphatase (38-126) U/L Troponin I (0.000-0.034) ng/mL NT-Pro-B Natriuret Pep pg/mL Total Protein (6.3-8.2) g/dL Albumin (3.5-5.0) g/dL Urine Color Dark Yellow Urine Appearance Cloudy H (Clear) Urine pH 5.5 (5.0-8.0) Ur Specific [place] 1.022 (1.001-1.035) Urine Protein 2+ H (Negative) Urine Glucose (UA) Negative (Negative) Urine Ketones Negative (Negative) Urine Blood Negative (Negative) Urine Nitrite Negative (Negative) Urine Bilirubin 1+ H (Negative) Urine Urobilinogen 4.0 (<2.0) mg/dL Ur Leukocyte Esterase Large H (Negative) Urine RBC 22 H (0-5) /hpf Urine WBC 14 H (0-5) /hpf Ur Squamous Epith Cells 16 H (0-4) /hpf Urine Mucus Few H (None) /hpf Influenza Type A RNA Not Detected (Not Detectd) Influenza Type B (PCR) Not Detected (Not Detectd) Critical Care Time Critical Care Time: Yes Total Critical Care Time: 35 Disposition Clinical Impression: Pneumonia, Pleural effusion, Pulmonary edema, Chest pain Disposition: ADMITTED IP TO THIS HOSP Referrals: Jethro Troy DO [Primary Care Provider] - 1-2 days Time of Disposition: 21:07
[2018-05-02 20:00] LABS: Anisocytosis Slight; Basophils % (A) 0 %; Eosinophils % (A) 0 %; HCT 47.5 % (34.0-46.0); HGB 14.3 gm/dL (11.4-16.0); Hypochromasia Moderate; Lymphocytes # (A) 0.5 k/uL (1.0-4.8); Lymphocytes % (A) 5 %; MCHC 30.2 g/dL (31.0-37.0); MCV 82.9 fL (80.0-100.0); Mean Platelet Volume 7.1; Monocytes % (A) 10 %; Neutrophils % (A) 83 %; Platelet Count 301 k/uL (150-450); RBC 5.73 m/uL (3.80-5.40); RDW 16.5 % (11.5-15.5); WBC 9.7 k/uL (3.8-10.6)
[2018-05-02 20:12] LABS: INR 1.1 (<1.2); Partial Thromboplastin Time 22.4 sec (22.0-30.0); Prothrombin Time 11.4 sec (9.0-12.0)
[2018-05-02 20:15] LABS: Albumin 3.9 g/dL (3.5-5.0); Calcium 9.4 mg/dL (8.4-10.2); Potassium 4.9 mmol/L (3.5-5.1); Total Bilirubin 2.9 mg/dL (0.2-1.3); Total Protein 6.8 g/dL (6.3-8.2)
--- NOTE | 2018-05-02 20:26 | XR ---
EXAMINATION TYPE: XR chest 2V DATE OF EXAM: 05/02/2018 COMPARISON: 04/22/2018 HISTORY: Short of breath TECHNIQUE: Frontal and lateral views of the chest are obtained. FINDINGS: Heart is enlarged. There is blunting of left costophrenic angle and increased density left lower lobe. There are sternal wires. There is chest leads. There is no gross heart failure. IMPRESSION: There is new left pleural effusion and left lower lobe pneumonia compared to last exam. No heart failure. Moderate cardiomegaly.
[2018-05-02] MEDS ORDERED: FUROSEMIDE 10 MG/ML 2 ML VIAL IV STA (20:45)
[2018-05-02 20:49] LABS: Appearance,Urine Cloudy (Clear); Bilirubin,Urine 1+ (Negative); Blood,Urine Negative (Negative); Color,Urine Dark Yellow; Glucose,Urine (UA) Negative (Negative); Ketones,Urine Negative (Negative); Leukocyte Esterase,Urine Large (Negative); Mucus,Urine Few /hpf; Nitrite,Urine Negative (Negative); PH, Urine 5.5 (5.0-8.0); Protein,Urine 2+ (Negative); RBC,Urine 22 /hpf (0-5); Specific Gravity,Urine 1.022 (1.001-1.035); Squamous Epithelial Cell,Urine 16 /hpf (0-4); WBC,Urine 14 /hpf (0-5)
[2018-05-02] MEDS ORDERED: PNEUMONIA PROTOCOL UTILIZED 1 EACH MISC PO PRN (21:09)
[2018-05-02] MEDS ORDERED: AZITHROMYCIN 500 MG in SODIUM CHLORIDE 0.9% 250 ML IVPB STA (21:09)
[2018-05-02] MEDS ORDERED: NITROGLYCERIN OINT 1 INCH/GM PACKET TOPICAL STA (21:14)
[2018-05-02 23:25] VITALS: BMI 33.7
[2018-05-03] MEDS: NITROGLYCERIN OINT 1 INCH/GM PACKET TOPICAL SCH ×5 (01:30→23:13)
[2018-05-03] MEDS: FUROSEMIDE 10 MG/ML 2 ML VIAL IV SCH ×2 (01:31→11:02)
[2018-05-03 04:24] LABS: Glucose,Whole Blood 124 mg/dL (75-99)
[2018-05-03 06:13] LABS: Glucose,Whole Blood 87 mg/dL (75-99)
[2018-05-03 08:51] LABS: Calcium 9.4 mg/dL (8.4-10.2); Magnesium 1.7 mg/dL (1.6-2.3); Potassium 4.3 mmol/L (3.5-5.1)
[2018-05-03 09:10] LABS: Anisocytosis Slight; Basophils % (A) 1 %; Eosinophils # (A) 0.1 k/uL (0-0.7); Eosinophils % (A) 1 %; HCT 44.3 % (34.0-46.0); HGB 13.3 gm/dL (11.4-16.0); Hypochromasia Marked; Lymphocytes # (A) 0.7 k/uL (1.0-4.8); Lymphocytes % (A) 8 %; MCH 25.4 pg (25.0-35.0); MCHC 30.1 g/dL (31.0-37.0); MCV 84.3 fL (80.0-100.0); Mean Platelet Volume 8.3; Monocytes # (A) 1.4 k/uL (0-1.0); Monocytes % (A) 16 %; Neutrophils # (A) 6.3 k/uL (1.3-7.7); Neutrophils % (A) 73 %; Platelet Count 227 k/uL (150-450); RBC 5.25 m/uL (3.80-5.40); RDW 16.6 % (11.5-15.5); WBC 8.6 k/uL (3.8-10.6)
[2018-05-03] MEDS: ALBUTEROL NEBULIZED 2.5 MG/3 ML INHALATION SCH ×4 (09:39→21:41)
[2018-05-03 09:40] LABS: RBC Fragments Present
--- NOTE | 2018-05-03 10:12 | XR ---
EXAMINATION TYPE: XR chest 2V DATE OF EXAM: 05/03/2018 COMPARISON: Prior chest x-ray 05/02/2018 HISTORY: Pneumonia TECHNIQUE: Frontal and lateral views of the chest are obtained. FINDINGS: Patient is post median sternotomy. Blunting of the posterior costophrenic angle on the lef t, obscured left hemidiaphragm persists. Heart remains enlarged. Interstitium is mildly increased, pu lmonary artery may be enlarged. There are overlying cardiac leads. No evident pneumothorax. There are coronary artery calcifications present. Aorta appears somewhat dense and ectatic. IMPRESSION: Findings are similar to previous exam. Left lower lobe atelectasis and possible associat ed effusion. Correlate to exclude pneumonia, there may be a component of interstitial edema. Addition al findings above.
[2018-05-03] MEDS: AZITHROMYCIN 500 MG TAB PO SCH (11:02)
[2018-05-03 11:31] LABS: Glucose,Whole Blood 140 mg/dL (75-99)
[2018-05-03] MEDS ORDERED: FUROSEMIDE 10 MG/ML 2 ML VIAL IV STA (11:36)
--- NOTE | 2018-05-03 11:48 | P.CRDCN ---
History of Present Illness Consult date: 05/03/18 History of present illness: This is a 78-year-old female with history of coronary bypass surgery in 2008, stent placement of the left main and also vein graft to the diagonal, hypertension, hyperlipidemia, diabetes mellitus who is being admitted to the hospital now with complaints of increasing shortness of breath and also pedal swelling. This patient claims about 2 weeks ago see started having symptoms of bronchitis and cough. Gradually her shortness of breath got worse and she also developed swelling in the legs. Chest x-ray showed findings consistent with pos sible pneumonia and CHF. Patient has diffuse wheezing and rhonchi. Does have significant peripheral edema. Patient has been treated with IV Lasix 20 mg twice a day. Patient claims that she is feeling better but still seems to be significantly short of breath. Patient is coughing and bringing up bloody sputum. Her previous echocardiogram showed severely impaired LV function with ejection fraction 30-35%. Her symptoms could be common a she of exacerbation of CHF with possible underlying bronchitis and wheezing. I'm going to increase the dose of the Lasix and add small dose of Aldactone. I will also request pulmonary evaluation. Further recommendations depend upon the clinical course. Prognosis is guarded. Troponin values showed mildly elevation. We'll repeat the echocardiogram Review of Systems As per the chart Past Medical History Past Medical History: Coronary Artery Disease (CAD), Cancer, Heart Failure, Diabetes Mellitus, Hyperlipidemia, Hypertension, Myocardial Infarction ([place]), Osteoarthritis (OA), Renal Disease Additional Past Medical History / Comment(s): pt is right side dominant.BACK PAIN; 05/13/15 stent to the Left main and SVG to the Diagonal. Cataract on left eye; "needs a cornea transplant on left eye". Uterine Cancer.ANEMIA,LUMBAR SPINAL STENOSIS,CHRONIC CONSTIPATION, SEIZURE 03-23-16 Last Myocardial Infarction Date:: 05/13/15 History of Any Multi-Drug Resistant Organisms: None Reported Past Surgical History: Cholecystectomy, Coronary Bypass/CABG, Heart Catheterization With Stent, Hysterectomy, Joint Replacement, Orthopedic Surgery Additional Past Surgical History / Comment(s): 1996 CABG. Right Knee replacement 1954 Past Anesthesia/Blood Transfusion Reactions: No Reported Reaction Date of Last Stent Placement:: 05/13/15 Past Psychological History: Anxiety Additional Psychological History / Comment(s): pt lives alone in single level home that has 4 porch steps. uses walker when up. does'nt drive anymore-daughter or son take to [employer]. also has a glucometer-her daughter comes to check bs 2x a week. recieves meals on wheels. Smoking Status: Never smoker Past Alcohol Use History: None Reported Past Drug Use History: None Reported - Past Family History Father Family Medical History: Cancer, Coronary Artery Disease (CAD), Diabetes Mellitus, Myocardial Infarction ([place]) Additional Family Medical History / Comment(s): pancreas cancer Mother Family Medical History: Cancer Additional Family Medical History / Comment(s): Uterine cancer Medications and Allergies Home Medications Medication Instructions Recorded Confirmed Type Clopidogrel [Plavix] 75 mg PO DAILY 05/13/15 05/02/18 History Metoprolol Tartrate [Lopressor] 50 mg PO BID 05/13/15 05/02/18 History Lisinopril 40 mg PO DAILY 03/23/16 05/02/18 History Atorvastatin [Lipitor] 80 mg PO HS #30 tab 03/27/16 05/02/18 Rx Albuterol Nebulized [Ventolin 2.5 mg INHALATION RT-QID PRN 04/22/18 05/02/18 History Nebulized] Clotrimazole/Betameth Lotion 1 applic TOPICAL BID 04/22/18 05/02/18 History [Lotrisone] Docusate [Colace] 100 mg PO HS 04/22/18 05/02/18 History Furosemide [Lasix] 40 mg PO DAILY 04/22/18 05/02/18 History Ibuprofen [Motrin] 600 mg PO Q8H PRN 04/22/18 05/02/18 History Nitroglycerin Sl Tabs [Nitrostat] 0.4 mg SUBLINGUAL Q5M PRN 04/22/18 05/02/18 History Nystatin 100,000 Unit/gm Powd 1 applic TOPICAL TID 04/22/18 05/02/18 History [Mycostatin Powder] Sennosides [Senokot] 8.6 mg PO DAILY 04/22/18 05/02/18 History Triamcinolone 0.025% Cream 1 applic TOPICAL BID 04/22/18 05/02/18 History [Kenalog 0.025% Cream] metFORMIN HCL [Glucophage] 250 mg PO AC-BID 04/22/18 05/02/18 History Azithromycin [Zithromax Z-pack] See Taper PO DIRECTED 05/02/18 05/02/18 History Allergies Allergy/AdvReac Type Severity Reaction Status Date / Time adhesive tape Allergy Rash/Hives Verified 05/02/18 20:51 latex Allergy Swelling Verified 05/02/18 20:51 Penicillins Allergy Anaphylaxis Verified 05/02/18 20:51 Physical Exam Vitals: Vital Signs Temp Pulse Pulse Resp BP BP Pulse Ox 05/03/18 11:36 90 20 05/03/18 11:35 98.2 F 90 20 166/80 95 05/03/18 08:00 98.1 F 92 20 176/86 96 05/03/18 04:00 98 F 82 19 169/70 99 05/03/18 00:00 90 18 05/02/18 22:18 18 05/02/18 22:14 98.2 F 91 22 132/62 95 05/02/18 21:33 98.3 F 90 15 138/61 93 L 05/02/18 21:21 92 142/66 95 05/02/18 21:15 86 05/02/18 21:09 24 05/02/18 21:03 88 05/02/18 20:51 90 05/02/18 20:35 88 05/02/18 19:27 99 F 94 18 158/84 98 Intake and Output 05/02/18 05/03/18 05/03/18 22:59 06:59 14:59 Intake Total 210 Output Total 200 600 Balance -200 -390 Intake: IV 10 Invasive Line 1 10 Oral 200 Output: Urine 200 600 Other: Weight 72.575 kg 80.5 kg GENERAL EXAM: Patient is alert and oriented and doesn't appear to be in [id number] distress HEENT: Normocephalic. Normal reaction of pupils, equal size, normal range of extraocular motion. No erythema or exudates in the throat. NECK: No masses, no nuchal rigidity. CHEST: No chest wall deformity. LUNGS: Diffuse expiratory wheezing and rhonchi HEART: S1 and S2 normal . Distant heart sounds ABDOMEN: No hepatosplenomegaly, normal bowel sounds, no guarding or rigidity. SKIN: No rashes CENTRAL NERVOUS SYSTEM: No focal deficits. EXTREMITIES: Resolving about 2-3+ edema Results 05/03/18 08:17 05/03/18 08:17 Cardiac Enzymes 05/02/18 05/02/18 05/02/18 Range/Units 19:45 19:45 22:15 AST 37 H (14-36) U/L Troponin I 0.024 0.027 (0.000-0.034) ng/mL 05/03/18 Range/Units 08:17 AST (14-36) U/L Troponin I 0.042 H* (0.000-0.034) ng/mL Coagulation 05/02/18 Range/Units 19:45 PT 11.4 (9.0-12.0) sec APTT 22.4 (22.0-30.0) sec CBC 05/02/18 05/03/18 Range/Units 19:45 08:17 WBC 9.7 8.6 (3.8-10.6) k/uL RBC 5.73 H 5.25 (3.80-5.40) m/uL Hgb 14.3 13.3 (11.4-16.0) gm/dL Hct 47.5 H 44.3 (34.0-46.0) % Plt Count 301 227 (150-450) k/uL Comprehensive Metabolic Panel 05/02/18 05/03/18 Range/Units 19:45 08:17 Sodium 136 L 136 L (137-145) mmol/L Potassium 4.9 4.3 (3.5-5.1) mmol/L Chloride 101 99 (98-107) mmol/L Carbon Dioxide 24 28 (22-30) mmol/L BUN 15 18 H (7-17) mg/dL Creatinine 0.94 1.05 H (0.52-1.04) mg/dL Glucose 158 H 73 L (74-99) mg/dL Calcium 9.4 9.4 (8.4-10.2) mg/dL AST 37 H (14-36) U/L ALT 21 (9-52) U/L Alkaline Phosphatase 145 H (38-126) U/L Total Protein 6.8 (6.3-8.2) g/dL Albumin 3.9 (3.5-5.0) g/dL Current Medications Generic Name Dose Route Start Last Admin Trade Name Freq PRN Reason Stop Dose Admin Albuterol Sulfate 2.5 mg 05/03/18 08:00 05/03/18 09:39 Ventolin Nebulized INHALATION Not Given RT-QID [facility] Azithromycin 500 mg 05/03/18 09:00 05/03/18 11:02 Zithromax PO 500 mg DAILY YEN Administration Furosemide 40 mg 05/03/18 21:00 Lasix IV Q12HR YEN Ceftriaxone Sodium 1 gm/ 50 mls @ 100 mls/hr 05/03/18 09:00 05/03/18 11:01 Sodium Chloride IVPB 05/06/18 09:01 100 mls/hr Q24HR YEN Administration Insulin Aspart 0 unit 05/03/18 12:30 Novolog SQ ACHS YEN Protocol Miscellaneous Information 1 each 05/02/18 21:09 Pneumonia Protocol Utilized PO ONCE PRN Per Protocol Nitroglycerin 1 inch 05/03/18 00:00 05/03/18 11:02 Nitro-Bid Oint TOPICAL 1 inch Q6HR YEN Administration Spironolactone 12.5 mg 05/03/18 11:45 Aldactone PO DAILY YEN Intake and Output 05/02/18 05/03/18 05/03/18 22:59 06:59 14:59 Intake Total 210 Output Total 200 600 Balance -200 -390 Intake: IV 10 Invasive Line 1 10 Oral 200 Output: Urine 200 600 Other: Weight 72.575 kg 80.5 kg 05/03/18 08:17 05/03/18 08:17 EKG Interpretations (text) Sinus rhythm without any acute ischemic changes Assessment and Plan (1) Acute on chronic systolic CHF (congestive heart failure) Current Visit: Yes Status: Acute Code(s): I50.23 - ACUTE ON CHRONIC SYSTOLIC (CONGESTIVE) HEART FAILURE SNOMED Code(s): 971775553 (2) CHF exacerbation Current Visit: No Status: Acute Code(s): I50.9 - HEART FAILURE, UNSPECIFIED SNOMED Code(s): 14301030 (3) History of coronary artery bypass graft Current Visit: Yes Status: Acute Code(s): Z95.1 - PRESENCE OF AORTOCORONARY BYPASS GRAFT SNOMED Code(s): 683557076 (4) Diabetes Current Visit: No Status: Acute Code(s): E11.9 - TYPE 2 DIABETES MELLITUS WITHOUT COMPLICATIONS SNOMED Code(s): 55788969 (5) Elevated troponin I level Current Visit: No Status: Acute Code(s): R79.89 - OTHER SPECIFIED ABNORMAL FINDINGS OF BLOOD CHEMISTRY SNOMED Code(s): 709835488 (6) HTN (hypertension) Current Visit: No Status: Acute Code(s): I10 - ESSENTIAL (PRIMARY) HYPERTENSION SNOMED Code(s): 89137482 (7) Hyperlipemia Current Visit: No Status: Acute Code(s): E78.5 - HYPERLIPIDEMIA, UNSPECIFIED SNOMED Code(s): 27511424 Plan: I will increase the dose of Lasix to 41 g IV twice a day and add small dose of Aldactone. Continue the rest of the medication. I'll get an echocardiogram. I'll also obtain pulmonary consult.
[2018-05-03] MEDS: INSULIN ASPART (NovoLOG) 100 UNIT/ML VIAL SQ SCH ×2 (12:30→16:50)
[2018-05-03] MEDS: SPIRONOLACTONE 25 MG TAB PO SCH (12:30)
[2018-05-03] MEDS ORDERED: ALBUTEROL NEBULIZED 2.5 MG/3 ML INHALATION PRN (13:02)
[2018-05-03] MEDS ORDERED: NITROGLYCERIN SL TABS 0.4 MG TAB SUBLINGUAL PRN (13:02)
[2018-05-03] MEDS ORDERED: FUROSEMIDE 40 MG TAB PO SCH (13:15)
[2018-05-03] MEDS ORDERED: FUROSEMIDE 10 MG/ML 4 ML VIAL IV SCH ×2 (14:00→21:00)
--- NOTE | 2018-05-03 15:12 | P.CNPUL ---
History of Present Illness Consult date: 05/03/18 Requesting physician: Yamile Johnson Reason for consult: dyspnea, cough Chief complaint: Cough, shortness of breath History of present illness: This is 78-year-old white female patient past medical history of coronary artery disease with history of bypass grafting in 1996, chronic congestive heart failure, diabetes mellitus, hypertension, hyperlipidemia, previous myocardial infarction,osteoarthritis, anxiety. Patient is a lifetime nonsmoker. On 05/02/2018 patient presented to the emergency department for complaints of increased shortness of breath, patient had a upper respiratory tract infection about a week ago, and her symptoms progressed to increased shortness of breath, wheezing, coughing, production of phlegm. Yesterday patient started feeling even worse, and presented to the emergency department for evaluation. No fevers, but did have some subjective chills. Patient sleeps in the recliner on the regular basis. Chest x-ray was completed and showed a new left pleural effusion and left lower lobe density, moderate cardiomegaly. EKG showed normal sinus rhythm with ST and T-wave abnormality in the lateral leads. Lab work was negative for any leukocytosis, initial blood work showed a white blood cell count of 9.7, hemoglobin of 14.3, coagulation profile was within normal limits, electrolytes and renal profile were within normal limits. BNP was elevated at 6240, and had elevation of the third set of troponins, and 0.042. Fluids a screen was negative, and urinalysis showed a large amount of leuk trase, white and red blood cells. Patient has been afebrile, she has been requiring supplemental oxygen, she is quite short of breath, with coughing spells. She was started on a combination of Primaxin and Rocephin, IV diuretics, he believes bronchodilators. She was evaluated by cardiology, echocardiogram has been ordered, and is pending at this time. Review of Systems All systems: negative Constitutional: Denies chills, Denies fever Eyes: denies blurred vision, denies pain Ears, nose, mouth and throat: Denies headache, Denies sore throat Cardiovascular: Denies chest pain, Denies shortness of breath Respiratory: Reports congestion, Reports cough with sputum, Reports dyspnea, Denies cough Gastrointestinal: Denies abdominal pain, Denies diarrhea, Denies nausea, Denies vomiting Genitourinary: Denies dysuria, Denies hematuria Musculoskeletal: Denies myalgias Integumentary: Denies pruritus, Denies rash Neurological: Denies numbness, Denies weakness Psychiatric: Denies anxiety, Denies depression Endocrine: Denies fatigue, Denies weight change Past Medical History Past Medical History: Coronary Artery Disease (CAD), Cancer, Heart Failure, Diabetes Mellitus, Hyperlipidemia, Hypertension, Myocardial Infarction ([place]), Osteoarthritis (OA), Renal Disease Additional Past Medical History / Comment(s): pt is right side dominant.BACK PAIN; 05/13/15 stent to the Left main and SVG to the Diagonal. Cataract on left eye; "needs a cornea transplant on left eye". Uterine Cancer.ANEMIA,LUMBAR SPINAL STENOSIS,CHRONIC CONSTIPATION, SEIZURE 03-23-16 Last Myocardial Infarction Date:: 05/13/15 History of Any Multi-Drug Resistant Organisms: None Reported Past Surgical History: Cholecystectomy, Coronary Bypass/CABG, Heart Catheterization With Stent, Hysterectomy, Joint Replacement, Orthopedic Surgery Additional Past Surgical History / Comment(s): 1996 CABG. Right Knee replacement 1954 Past Anesthesia/Blood Transfusion Reactions: No Reported Reaction Date of Last Stent Placement:: 05/13/15 Past Psychological History: Anxiety Additional Psychological History / Comment(s): pt lives alone in single level home that has 4 porch steps. uses walker when up. does'nt drive anymore-daughter or son take to appts. also has a glucometer-her daughter comes to check bs 2x a week. recieves meals on wheels. Smoking Status: Never smoker Past Alcohol Use History: None Reported Past Drug Use History: None Reported - Past Family History Father Family Medical History: Cancer, Coronary Artery Disease (CAD), Diabetes Mellitus, Myocardial Infarction ([place]) Additional Family Medical History / Comment(s): pancreas cancer Mother Family Medical History: Cancer Additional Family Medical History / Comment(s): Uterine cancer Medications and Allergies Home Medications Medication Instructions Recorded Confirmed Type Clopidogrel [Plavix] 75 mg PO DAILY 05/13/15 05/02/18 History Metoprolol Tartrate [Lopressor] 50 mg PO BID 05/13/15 05/02/18 History Lisinopril 40 mg PO DAILY 03/23/16 05/02/18 History Atorvastatin [Lipitor] 80 mg PO HS #30 tab 03/27/16 05/02/18 Rx Albuterol Nebulized [Ventolin 2.5 mg INHALATION RT-QID PRN 04/22/18 05/02/18 History Nebulized] Clotrimazole/Betameth Lotion 1 applic TOPICAL BID 04/22/18 05/02/18 History [Lotrisone] Docusate [Colace] 100 mg PO HS 04/22/18 05/02/18 History Furosemide [Lasix] 40 mg PO DAILY 04/22/18 05/02/18 History Ibuprofen [Motrin] 600 mg PO Q8H PRN 04/22/18 05/02/18 History Nitroglycerin Sl Tabs [Nitrostat] 0.4 mg SUBLINGUAL Q5M PRN 04/22/18 05/02/18 History Nystatin 100,000 Unit/gm Powd 1 applic TOPICAL TID 04/22/18 05/02/18 History [Mycostatin Powder] Sennosides [Senokot] 8.6 mg PO DAILY 04/22/18 05/02/18 History Triamcinolone 0.025% Cream 1 applic TOPICAL BID 04/22/18 05/02/18 History [Kenalog 0.025% Cream] metFORMIN HCL [Glucophage] 250 mg PO AC-BID 04/22/18 05/02/18 History Azithromycin [Zithromax Z-pack] See Taper PO DIRECTED 05/02/18 05/02/18 History Allergies Allergy/AdvReac Type Severity Reaction Status Date / Time adhesive tape Allergy Rash/Hives Verified 05/02/18 20:51 latex Allergy Swelling Verified 05/02/18 20:51 Penicillins Allergy Anaphylaxis Verified 05/02/18 20:51 Physical Exam Vitals: Vital Signs Temp Pulse Pulse Resp BP BP Pulse Ox 05/03/18 12:59 92 05/03/18 12:41 90 05/03/18 11:36 90 20 05/03/18 11:35 98.2 F 90 20 166/80 95 05/03/18 08:00 98.1 F 92 20 176/86 96 05/03/18 04:00 98 F 82 19 169/70 99 05/03/18 00:00 90 18 05/02/18 22:18 18 05/02/18 22:14 98.2 F 91 22 132/62 95 05/02/18 21:33 98.3 F 90 15 138/61 93 L 05/02/18 21:21 92 142/66 95 05/02/18 21:15 86 05/02/18 21:09 24 05/02/18 21:03 88 05/02/18 20:51 90 05/02/18 20:35 88 05/02/18 19:27 99 F 94 18 158/84 98 Intake and Output 05/02/18 05/03/18 05/03/18 22:59 06:59 14:59 Intake Total 330 Output Total 200 600 Balance -200 -270 Intake: IV 10 Invasive Line 1 10 Oral 320 Output: Urine 200 600 Other: Weight 72.575 kg 80.5 kg GENERAL EXAM: Alert, pleasant, 78-year-old white female, mildly short of breath, and continuous coughing, comfortable in no apparent distress. HEAD: Normocephalic/atraumatic. EYES: Normal reaction of pupils, equal size. Conjunctiva pink, sclera white. NOSE: Clear with pink turbinates. THROAT: No erythema or exudates. NECK: No masses, no JVD, no thyroid enlargement, no adenopathy. CHEST: No chest wall deformity. Symmetrical expansion. LUNGS: Equal air entry with diffuse wheezes CVS: Regular rate and rhythm, normal S1 and S2, no gallops, no murmurs, no rubs ABDOMEN: Soft, nontender. No hepatosplenomegaly, normal bowel sounds, no guarding or rigidity. EXTREMITIES: No clubbing, no edema, no cyanosis, 2+ pulses and upper and lower extremities. MUSCULOSKELETAL: Muscle strength and tone normal. SPINE: No scoliosis or deformity SKIN: No rashes CENTRAL NERVOUS SYSTEM: Alert and oriented -3. No focal deficits, tone is no rmal in all 4 extremities. PSYCHIATRIC: Alert and oriented -3. Appropriate affect. Intact judgment and insight. Results - Laboratory Findings CBC and BMP: 05/03/18 08:17 05/03/18 08:17 PT/INR, D-dimer PT 11.4 sec (9.0-12.0) 05/02/18 19:45 INR 1.1 (<1.2) 05/02/18 19:45 Abnormal lab findings: Abnormal Labs 05/02/18 05/02/18 05/02/18 19:45 19:45 20:25 RBC 5.73 H Hct 47.5 H MCHC 30.2 L RDW 16.5 H Neutrophils # 8.0 H Lymphocytes # 0.5 L Monocytes # Sodium 136 L BUN Creatinine Glucose 158 H POC Glucose (mg/dL) Total Bilirubin 2.9 H AST 37 H Alkaline Phosphatase 145 H Troponin I Urine Appearance Cloudy H Urine Protein 2+ H Urine Bilirubin 1+ H Ur Leukocyte Esterase Large H Urine RBC 22 H Urine WBC 14 H Ur Squamous Epith Cells 16 H Urine Mucus Few H 05/03/18 05/03/18 05/03/18 04:22 08:17 08:17 RBC Hct MCHC 30.1 L RDW 16.6 H Neutrophils # Lymphocytes # 0.7 L Monocytes # 1.4 H Sodium 136 L BUN 18 H Creatinine 1.05 H Glucose 73 L POC Glucose (mg/dL) 124 H Total Bilirubin AST Alkaline Phosphatase Troponin I Urine Appearance Urine Protein Urine Bilirubin Ur Leukocyte Esterase Urine RBC Urine WBC Ur Squamous Epith Cells Urine Mucus 05/03/18 05/03/18 08:17 11:26 RBC Hct MCHC RDW Neutrophils # Lymphocytes # Monocytes # Sodium BUN Creatinine Glucose POC Glucose (mg/dL) 140 H Total Bilirubin AST Alkaline Phosphatase Troponin I 0.042 H* Urine Appearance Urine Protein Urine Bilirubin Ur Leukocyte Esterase Urine RBC Urine WBC Ur Squamous Epith Cells Urine Mucus - Diagnostic Findings Chest x-ray: report reviewed, image reviewed Additional studies: EKG reviewed Assessment and Plan Plan: Assessment: #1. Acute hypoxemic respiratory failure related to acute exacerbation of congestive heart failure with systolic dysfunction, with previously documented EF of 30-35%. Chest X-ray showed cardiomegaly, left lower lobe atelectasis, and possible pleural effusion, there is also a component of interstitial edema. #2. Acute tracheobronchitis #3. Possible urinary tract infection #4. History of coronary artery disease, status post bypass grafting back in 1996 #5. Moderate pulmonary hypertension #6. Diabetes mellitus type 2 #7. Hypertension, hyperlipidemia, previous episode of myocardial infarction #8. Chronic kidney disease, stage III #9. History of CVA with subsequent vision impairment #10. Anxiety Plan: Will increase the Lasix to 40 mg twice daily, continue current antibiotic coverage, continue with nebulized bronchodilators, chest x-rays have been reviewed by Dr. Miles, and the findings on the left lower lobe are more consistent with atelectasis, and left pleural effusion, and findings compatible with congestive heart failure, doubt pneumonia. We'll add a Medrol Dosepak, we'll add the cough syrup, daily labs, which was normal renal profile, and daily nose, daily weights. We'll continue to follow I performed a history & physical examination of the patient and discussed their management with my nurse practitioner, Poly Saez. I reviewed the nurse practitioner's note and agree with the documented findings and plan of care. L geoffrey sounds are positive for diminished breath sounds and rhonchi. The findings and the impression was discussed with the patient. I attest to the documentation by the nurse practitioner. Time with Patient: Greater than 30
[2018-05-03] MEDS: LISINOPRIL 20 MG TAB PO SCH (16:44)
[2018-05-03] MEDS: SENNOSIDES 8.6 MG TAB PO SCH (16:44)
[2018-05-03] MEDS: CLOPIDOGREL 75 MG TAB PO SCH (16:44)
[2018-05-03] MEDS: METOPROLOL TARTRATE 50 MG TAB PO SCH ×2 (16:44→20:33)
[2018-05-03] MEDS: NYSTATIN 100,000 UNIT/GM POWD 15 GM TOPICAL SCH ×2 (16:45→23:12)
[2018-05-03] MEDS: metFORMIN 500 MG TAB PO SCH (16:45)
[2018-05-03] MEDS: methylPREDNISolone 4 MG TAB TAPER PO SCH (16:46)
[2018-05-03 16:51] LABS: Glucose,Whole Blood 101 mg/dL (75-99)
[2018-05-03] MEDS ORDERED: ACETAMINOPHEN TAB 325 MG TAB PO STA (18:55)
[2018-05-03 19:20] LABS: Glucose,Whole Blood 139 mg/dL (75-99)
[2018-05-03] MEDS: PROMETHAZ-COD 6.25-10 MG/5 ML 5 ML CUP PO PRN (20:28)
[2018-05-03] MEDS: ATORVASTATIN 80 MG TAB PO SCH (20:29)
[2018-05-03] MEDS: DOCUSATE 100 MG CAP PO SCH (20:29)
[2018-05-03] MEDS: FUROSEMIDE 10 MG/ML 4 ML VIAL IV SCH (20:29)
[2018-05-03] MEDS: ALPRAZolam 0.25 MG TAB PO PRN (20:29)
--- NOTE | 2018-05-03 23:19 | P.HPIM ---
History of Present Illness H&P Date: 05/03/18 This is a 78-year-old female who comes in complaining shortness of breath chest pain particularly with coughing over the last week. Patient states she has had a cough for the last week but has had no sputum production. Patient does not know she's had a fever but states she feels warm and gets cold at times. Patient denies any history of smoking. Patient states she does have diabetes heart disease congestive heart failure history and high blood pressure. Patient states her swelling to her legs is getting worse over the last week as well. Patient denies any palpitations. Patient denies any abdominal pain. Patient denies being lightheaded or dizzy. Patient states over the week she also is gotten considerably weaker but no focal weakness. Patient has been very noncompliant with her diabetes for the past few years. She regularly has sugars in excess of 300. Review of Systems GENERAL: Patient denies fever. Denies chills. EYES: Patient has blurred vision from bad eyes due to diabetic retinopathy and previous stroke. Denies eye pain. EARS, NOSE, MOUTH, & THROAT: Denies headache. Denies sore throat. Denies ear pain. RESPIRATORY: Patient has cough and admits to shortness of breath with sputum production. Denies hemoptysis. CARDIOVASCULAR: Denies chest pain or pressure. Denies palpitations. Denies arrhythmias. GASTROINTESTINAL: Denies abdominal pain. Denies diarrhea. Denies constipation. Denies nausea. Denies vomiting. Denies heartburn. Denies blood in the stool. GENITOURINARY: Denies urinary frequency. Denies burning. Denies dysuria. Denies cloudy urine. Denies blood in the urine. MUSCULOSKELETAL: Denies myalgias. Denies joint swelling. Denies decreased range of motion beyond patients baseline. INTEGUMENTARY: Denies pruitis. Denies rash. Admits to swelling in ankles PSYCHIATRIC: Denies suicidal or homicial ideations. ENDOCRINE: Denies weight change. Denies polydipsia. Denies polyuria. HEMATOLOGIC: Denies bleeding disorders. Past Medical History Past Medical History: Coronary Artery Disease (CAD), Cancer, Heart Failure, Diabetes Mellitus, Hyperlipidemia, Hypertension, Myocardial Infarction ([place]), Osteoarthritis (OA), Renal Disease Additional Past Medical History / Comment(s): pt is right side dominant.BACK PAIN; 05/13/15 stent to the Left main and SVG to the Diagonal. Cataract on left eye; "needs a cornea transplant on left eye". Uterine Cancer.ANEMIA,LUMBAR SPINAL STENOSIS,CHRONIC CONSTIPATION, SEIZURE 03-23-16 Last Myocardial Infarction Date:: 05/13/15 History of Any Multi-Drug Resistant Organisms: None Reported Past Surgical History: Cholecystectomy, Coronary Bypass/CABG, Heart Catheterization With Stent, Hysterectomy, Joint Replacement, Orthopedic Surgery Additional Past Surgical History / Comment(s): 1996 CABG. Right Knee replacement 1954 Past Anesthesia/Blood Transfusion Reactions: No Reported Reaction Date of Last Stent Placement:: 05/13/15 Past Psychological History: Anxiety Additional Psychological History / Comment(s): pt lives alone in single level home that has 4 porch steps. uses walker when up. does'nt drive anymore-daughter or son take to appts. also has a glucometer-her daughter comes to check bs 2x a week. recieves meals on wheels. Smoking Status: Never smoker Past Alcohol Use History: None Reported Past Drug Use History: None Reported - Past Family History Father Family Medical History: Cancer, Coronary Artery Disease (CAD), Diabetes Mellitus, Myocardial Infarction ([place]) Additional Family Medical History / Comment(s): pancreas cancer Mother Family Medical History: Cancer Additional Family Medical History / Comment(s): Uterine cancer Medications and Allergies Home Medications Medication Instructions Recorded Confirmed Type Clopidogrel [Plavix] 75 mg PO DAILY 05/13/15 05/02/18 History Metoprolol Tartrate [Lopressor] 50 mg PO BID 05/13/15 05/02/18 History Lisinopril 40 mg PO DAILY 03/23/16 05/02/18 History Atorvastatin [Lipitor] 80 mg PO HS #30 tab 03/27/16 05/02/18 Rx Albuterol Nebulized [Ventolin 2.5 mg INHALATION RT-QID PRN 04/22/18 05/02/18 History Nebulized] Clotrimazole/Betameth Lotion 1 applic TOPICAL BID 04/22/18 05/02/18 History [Lotrisone] Docusate [Colace] 100 mg PO HS 04/22/18 05/02/18 History Furosemide [Lasix] 40 mg PO DAILY 04/22/18 05/02/18 History Ibuprofen [Motrin] 600 mg PO Q8H PRN 04/22/18 05/02/18 History Nitroglycerin Sl Tabs [Nitrostat] 0.4 mg SUBLINGUAL Q5M PRN 04/22/18 05/02/18 History Nystatin 100,000 Unit/gm Powd 1 applic TOPICAL TID 04/22/18 05/02/18 History [Mycostatin Powder] Sennosides [Senokot] 8.6 mg PO DAILY 04/22/18 05/02/18 History Triamcinolone 0.025% Cream 1 applic TOPICAL BID 04/22/18 05/02/18 History [Kenalog 0.025% Cream] metFORMIN HCL [Glucophage] 250 mg PO AC-BID 04/22/18 05/02/18 History Azithromycin [Zithromax Z-pack] See Taper PO DIRECTED 05/02/18 05/02/18 History Allergies Allergy/AdvReac Type Severity Reaction Status Date / Time adhesive tape Allergy Rash/Hives Verified 05/02/18 20:51 latex Allergy Swelling Verified 05/02/18 20:51 Penicillins Allergy Anaphylaxis Verified 05/02/18 20:51 Physical Exam Osteopathic Statement: *. No significant issues noted on an osteopathic structural exam other than those noted in the History and Physical/Consult. Vitals: Vital Signs Temp Pulse Pulse Resp BP BP Pulse Ox 05/03/18 12:59 92 05/03/18 12:41 90 05/03/18 11:36 90 20 05/03/18 11:35 98.2 F 90 20 166/80 95 05/03/18 08:00 98.1 F 92 20 176/86 96 05/03/18 04:00 98 F 82 19 169/70 99 05/03/18 00:00 90 18 05/02/18 22:18 18 05/02/18 22:14 98.2 F 91 22 132/62 95 05/02/18 21:33 98.3 F 90 15 138/61 93 L 05/02/18 21:21 92 142/66 95 05/02/18 21:15 86 05/02/18 21:09 24 05/02/18 21:03 88 05/02/18 20:51 90 05/02/18 20:35 88 05/02/18 19:27 99 F 94 18 158/84 98 Intake and Output 05/02/18 05/03/1819 22:59 06:59 14:59 Intake Total 210 Output Total 200 600 Balance -200 -390 Intake: IV 10 Invasive Line 1 10 Oral 200 Output: Urine 200 600 Other: Weight 72.575 kg 80.5 kg GENERAL EXAM: Patient is alert and oriented and doesn't appear to be in m enn-dj-iamxhyes distress HEENT: Normocephalic. Normal reaction of pupils, equal size, normal range of extraocular motion. No erythema or exudates in the throat. NECK: No masses, no nuchal rigidity. CHEST: No chest wall deformity. LUNGS: Diffuse expiratory wheezing and rhonchi HEART: S1 and S2 normal . Distant heart sounds ABDOMEN: No hepatosplenomegaly, normal bowel sounds, no guarding or rigidity. SKIN: No rashes CENTRAL NERVOUS SYSTEM: No focal deficits. EXTREMITIES: Resolving about 2-3+ edema Results CBC & Chem 7: 05/03/18 08:17 05/03/18 08:17 Labs: Abnormal Lab Results - Last 24 Hours (Table) 05/02/18 05/02/18 05/02/18 Range/Units 19:45 19:45 20:25 RBC 5.73 H (3.80-5.40) m/uL Hct 47.5 H (34.0-46.0) % MCHC 30.2 L (31.0-37.0) g/dL RDW 16.5 H (11.5-15.5) % Neutrophils # 8.0 H (1.3-7.7) k/uL Lymphocytes # 0.5 L (1.0-4.8) k/uL Monocytes # (0-1.0) k/uL Sodium 136 L (137-145) mmol/L BUN (7-17) mg/dL Creatinine (0.52-1.04) mg/dL Glucose 158 H (74-99) mg/dL POC Glucose (mg/dL) (75-99) mg/dL Total Bilirubin 2.9 H (0.2-1.3) mg/dL AST 37 H (14-36) U/L Alkaline Phosphatase 145 H (38-126) U/L Troponin I (0.000-0.034) ng/mL Urine Appearance Cloudy H (Clear) Urine Protein 2+ H (Negative) Urine Bilirubin 1+ H (Negative) Ur Leukocyte Esterase Large H (Negative) Urine RBC 22 H (0-5) /hpf Urine WBC 14 H (0-5) /hpf Ur Squamous Epith Cells 16 H (0-4) /hpf Urine Mucus Few H (None) /hpf 05/03/18 05/03/18 05/03/18 Range/Units 04:22 08:17 08:17 RBC (3.80-5.40) m/uL Hct (34.0-46.0) % MCHC 30.1 L (31.0-37.0) g/dL RDW 16.6 H (11.5-15.5) % Neutrophils # (1.3-7.7) k/uL Lymphocytes # 0.7 L (1.0-4.8) k/uL Monocytes # 1.4 H (0-1.0) k/uL Sodium 136 L (137-145) mmol/L BUN 18 H (7-17) mg/dL Creatinine 1.05 H (0.52-1.04) mg/dL Glucose 73 L (74-99) mg/dL POC Glucose (mg/dL) 124 H (75-99) mg/dL Total Bilirubin (0.2-1.3) mg/dL AST (14-36) U/L Alkaline Phosphatase (38-126) U/L Troponin I (0.000-0.034) ng/mL Urine Appearance (Clear) Urine Protein (Negative) Urine Bilirubin (Negative) Ur Leukocyte Esterase (Negative) Urine RBC (0-5) /hpf Urine WBC (0-5) /hpf Ur Squamous Epith Cells (0-4) /hpf Urine Mucus (None) /hpf 05/03/18 05/03/18 Range/Units 08:17 11:26 RBC (3.80-5.40) m/uL Hct (34.0-46.0) % MCHC (31.0-37.0) g/dL RDW (11.5-15.5) % Neutrophils # (1.3-7.7) k/uL Lymphocytes # (1.0-4.8) k/uL Monocytes # (0-1.0) k/uL Sodium (137-145) mmol/L BUN (7-17) mg/dL Creatinine (0.52-1.04) mg/dL Glucose (74-99) mg/dL POC Glucose (mg/dL) 140 H (75-99) mg/dL Total Bilirubin (0.2-1.3) mg/dL AST (14-36) U/L Alkaline Phosphatase (38-126) U/L Troponin I 0.042 H* (0.000-0.034) ng/mL Urine Appearance (Clear) Urine Protein (Negative) Urine Bilirubin (Negative) Ur Leukocyte Esterase (Negative) Urine RBC (0-5) /hpf Urine WBC (0-5) /hpf Ur Squamous Epith Cells (0-4) /hpf Urine Mucus (None) /hpf Microbiology - Last 24 Hours (Table) 05/02/18 20:25 Urine Culture - Preliminary Urine,Voided Thrombosis Risk Factor Assmnt - Choose All That Apply Any of the Below Risk Factors Present?: Yes Each Factor Represents 1 point: Heart failure (<1month), Swollen legs (current) Other Risk Factors: Yes Each Risk Factor Represents 3 Points: Age 75 years or older Other congenital or acquired thrombophilia - If yes, enter type in comment: No Thrombosis Risk Factor Assessment Total Risk Factor Score: 5 Thrombosis Risk Factor Assessment Level: High Risk Assessment and Plan (1) Acute on chronic systolic CHF (congestive heart failure) Current Visit: Yes Status: Acute Code(s): I50.23 - ACUTE ON CHRONIC SYSTOLIC (CONGESTIVE) HEART FAILURE SNOMED Code(s): 238422095 (2) Pleural effusion Current Visit: Yes Status: Acute Code(s): J90 - PLEURAL EFFUSION, NOT ELSEWHERE CLASSIFIED SNOMED Code(s): 48396423 (3) Pneumonia Current Visit: Yes Status: Acute Code(s): J18.9 - PNEUMONIA, UNSPECIFIED ORGANISM SNOMED Code(s): 098443168 (4) Pulmonary edema Current Visit: Yes Status: Acute Code(s): J81.1 - CHRONIC PULMONARY EDEMA SNOMED Code(s): 28106961 (5) Diabetes Current Visit: No Status: Acute Code(s): E11.9 - TYPE 2 DIABETES MELLITUS WITHOUT COMPLICATIONS SNOMED Code(s): 73501976 (6) HTN (hypertension) Current Visit: No Status: Acute Code(s): I10 - ESSENTIAL (PRIMARY) HYPERTENSION SNOMED Code(s): 37419657 (7) Hyperlipemia Current Visit: No Status: Acute Code(s): E78.5 - HYPERLIPIDEMIA, UNSPECIFIED SNOMED Code(s): 03408443 Plan: Admit patient to hospital for consultation by pulmonary and cardiology. Continue to hydrate cautiously. Continue to follow sugar. Patient's overall prognosis is guarded. Discussed case with daughter. [facility] hospitalists group is solar installation supervisor this weekend starting at 4:00
[2018-05-04 06:05] LABS: Glucose,Whole Blood 212 mg/dL (75-99)
[2018-05-04] MEDS: NITROGLYCERIN OINT 1 INCH/GM PACKET TOPICAL SCH ×4 (06:25→23:05)
[2018-05-04] MEDS: INSULIN ASPART (NovoLOG) 100 UNIT/ML VIAL SQ SCH ×5 (06:25→21:09)
[2018-05-04] MEDS: metFORMIN 500 MG TAB PO SCH ×2 (06:27→17:03)
[2018-05-04] MEDS: ALBUTEROL NEBULIZED 2.5 MG/3 ML INHALATION SCH ×4 (07:27→19:35)
--- NOTE | 2018-05-04 07:48 | XR ---
EXAMINATION TYPE: XR chest 1V portable DATE OF EXAM: 05/04/2018 COMPARISON: 05/03/2018 HISTORY: Follow-up for pleural effusion and shortness of breath. TECHNIQUE: Single frontal view of the chest is obtained. FINDINGS: There is redemonstration of a trace left pleural effusion and left basilar airspace diseas e, likely atelectasis. Very minimal pulmonary vascular congestion is seen. Cardiomediastinal silhouet te is enlarged with postoperative changes. Degenerative changes of the osseous structures are mild. IMPRESSION: Stable left trace pleural effusion with probable left basilar atelectasis and minimal ul jas vascular congestion.
[2018-05-04] MEDS: PROMETHAZ-COD 6.25-10 MG/5 ML 5 ML CUP PO PRN ×4 (08:37→21:11)
[2018-05-04] MEDS: FUROSEMIDE 10 MG/ML 4 ML VIAL IV SCH ×3 (08:39→23:05)
[2018-05-04] MEDS: SENNOSIDES 8.6 MG TAB PO SCH (08:39)
[2018-05-04] MEDS: LISINOPRIL 20 MG TAB PO SCH (08:39)
[2018-05-04] MEDS: METOPROLOL TARTRATE 50 MG TAB PO SCH ×2 (08:40→21:09)
[2018-05-04] MEDS: AZITHROMYCIN 500 MG TAB PO SCH (08:40)
[2018-05-04] MEDS: SPIRONOLACTONE 25 MG TAB PO SCH (08:40)
[2018-05-04] MEDS: CLOPIDOGREL 75 MG TAB PO SCH (08:40)
[2018-05-04] MEDS: methylPREDNISolone 4 MG TAB TAPER PO SCH (08:40)
[2018-05-04] MEDS: NYSTATIN 100,000 UNIT/GM POWD 15 GM TOPICAL SCH ×3 (08:41→23:05)
[2018-05-04 11:46] LABS: Glucose,Whole Blood 171 mg/dL (75-99)
--- NOTE | 2018-05-04 12:19 | P.PN ---
Subjective Progress Note Date: 05/04/18 Principal diagnosis: Acute hypoxemic respiratory failure secondary to an acute exacerbation of systolic congestive heart failure, complicated by left lower lobe atelectasis, pleural effusion and interstitial edema. This is 78-year-old white female patient past medical history of coronary artery disease with history of bypass grafting in 1996, chronic congestive heart failure, diabetes mellitus, hypertension, hyperlipidemia, previous myocardial infarction,osteoarthritis, anxiety. Patient is a lifetime nonsmoker. On 05/02/2018 patient presented to the emergency department for complaints of increased shortness of breath, patient had a upper respiratory tract infection about a week ago, and her symptoms progressed to increased shortness of breath, wheezing, coughing, production of phlegm. Yesterday patient started feeling even worse, and presented to the emergency department for evaluation. No fevers, but did have some subjective chills. Patient sleeps in the recliner on the regular basis. Chest x-ray was completed and showed a new left pleural effusion and left lower lobe density, moderate cardiomegaly. EKG showed normal sinus rhythm with ST and T-wave abnormality in the lateral leads. Lab work was negative for any leukocytosis, initial blood work showed a white blood cell count of 9.7, hemoglobin of 14.3, coagulation profile was within normal limits, electrolytes and renal profile were within normal limits. BNP was elevated at 6240, and had elevation of the third set of troponins, and 0.042. Fluids a screen was negative, and urinalysis showed a large amount of leuk trase, white and red blood cells. Patient has been afebrile, she has been requiring supplemental oxygen, she is quite short of breath, with coughing spells. She was started on a combination of Primaxin and Rocephin, IV diuretics, he believes bronchodilators. She was evaluated by cardiology, echocardiogram has been ordered, and is pending at this time. The patient is seen today 05/04/2017 in follow-up on the selective care unit. She is currently awake and alert in no acute distress. She states she is breathing a bit better today as compared to yesterday. She is maintaining good O2 saturations in the 90s on 2 L/m per nasal cannula. She's been afebrile. Hemodynamically stable. Blood and urine cultures reveal no growth. She is currently on ceftriaxone and azithromycin along with IV diuretics. Today's chest x-ray shows a stable left trace pleural effusion and some left basilar atelectasis. Echocardiogram is pending. She feels she is having difficulty with urination. Márquez catheter will be placed. Objective - Vital Signs Vital signs: Vital Signs Temp 95.2 F L 05/04/18 08:00 Pulse 82 05/04/18 11:47 Resp 16 05/04/18 11:28 BP 132/62 05/04/18 08:00 Pulse Ox 97 05/04/18 08:00 Intake & Output 05/03/18 05/04/18 05/04/18 18:59 06:59 18:59 Intake Total 1300 100 Output Total 800 400 Balance 500 -400 100 Weight 78 kg Intake: IV 20 Invasive Line 1 20 Intake, IV Titration 100 Amount cefTRIAXone 1 gm In 100 Sodium Chloride 0.9% 50 ml @ 100 mls/hr IVPB Q24HR [facility] Rx#:[id number] Oral 1180 100 Output: Urine 800 400 - Exam GENERAL EXAM: Alert, pleasant, 78-year-old female, mildly short of breath, wheezing. On 2 L nasal cannula. HEAD: Normocephalic/atraumatic. EYES: Normal reaction of pupils, equal size. Conjunctiva pink, sclera white. NOSE: Clear with pink turbinates. THROAT: No erythema or exudates. NECK: No masses, no JVD, no thyroid enlargement, no adenopathy. CHEST: No chest wall deformity. Symmetrical expansion. LUNGS: Equal air entry with diffuse wheezes CVS: Regular rate and rhythm, normal S1 and S2, no gallops, no murmurs, no rubs ABDOMEN: Soft, nontender. No hepatosplenomegaly, normal bowel sounds, no guarding or rigidity. EXTREMITIES: No clubbing, no edema, no cyanosis, 2+ pulses and upper and lower extremities. MUSCULOSKELETAL: Muscle strength and tone normal. SPINE: No scoliosis or deformity SKIN: No rashes CENTRAL NERVOUS SYSTEM: No focal deficits, tone is normal in all 4 extremities. PSYCHIATRIC: Alert and oriented -3. Appropriate affect. Intact judgment and insight. - Labs CBC & Chem 7: 05/03/18 08:17 05/03/18 08:17 Labs: Abnormal Lab Results - Last 24 Hours (Table) 05/03/18 05/03/18 05/04/18 Range/Units 16:49 19:18 06:04 POC Glucose (mg/dL) 101 H 139 H 212 H (75-99) mg/dL 05/04/18 Range/Units 11:41 POC Glucose (mg/dL) 171 H (75-99) mg/dL Microbiology - Last 24 Hours (Table) 05/02/18 20:25 Urine Culture - Final Urine,Voided 05/02/18 19:45 Blood Culture - Preliminary Blood No Growth after 24 hours Assessment and Plan Assessment: Assessment: #1. Acute hypoxemic respiratory failure related to acute exacerbation of congestive heart failure with systolic dysfunction, with previously documented EF of 30-35%. Chest X-ray showed cardiomegaly, left lower lobe atelectasis, and possible pleural effusion, there is also a component of interstitial edema. #2. Acute tracheobronchitis #3. Possible urinary tract infection #4. History of coronary artery disease, status post bypass grafting back in 1996 #5. Moderate pulmonary hypertension #6. Diabetes mellitus type 2 #7. Hypertension, hyperlipidemia, previous episode of myocardial infarction #8. Chronic kidney disease, stage III #9. History of CVA with subsequent vision impairment #10. Anxiety Plan: The patient was seen and evaluated by Dr. Sparrow. Chest x-ray was reviewed. We'll increase her Lasix to 40 mg IV push every 8 hours. Insert a Márquez catheter. Monitor strict intake and output. Repeat labs in the a.m. Increase her activity as tolerated. We will continue to follow and make further recommendations based on her clinical status. I, the cosigning physician, performed a history & physical examination of the patient. Lungs sounds crackles in posterior bases left greater than right, end expiratory wheeze. Maintaining good O2 saturations in the 90s on 2 L/m per nasal cannula. I discussed the assessment and plan of care with my nurse practitioner, Maral Contreras. I attest to the above note as dictated by her.
--- NOTE | 2018-05-04 12:51 | ECHOF ---
Referral Reason:Chest Pain, Hx CHF MEASUREMENTS -------- HEIGHT: 157.5 cm WEIGHT: 80.3 kg BP: RVIDd: 2.9 cm (< 3.3) IVSd: 1.3 cm (0.6 - 1.1) LVIDd: 5.0 cm (3.9 - 5.3) LVPWd: 1.2 cm (0.6 - 1.1) IVSs: 1.4 cm LVIDs: 4.7 cm LVPWs: 1.5 cm LA Diam: 4.3 cm (2.7 - 3.8) LAESV Index (A-L): 38.42 ml/m Ao Diam: 2.5 cm (2.0 - 3.7) AV Cusp: 1.0 cm (1.5 - 2.6) LA Diam: 5.1 cm (2.7 - 3.8) MV EXCURSION: 12.495 mm (> 18.000) MV EF SLOPE: 69 mm/s (70 - 150) EPSS: 1.8 cm MV E Kirk: 1.19 m/s MV DecT: 152 ms MV A Kirk: 0.07 m/s MV E/A Ratio: 17.14 AV maxP.06 mmHg AV meanP.53 mmHg RAP: 5.00 mmHg RVSP: 85.37 mmHg FINDINGS -------- Undetermined rhythm. This was a technically adequate study. The left ventricular size is normal. There is mild concentric left ventricular hypertrophy. Overa ll left ventricular systolic function is moderate-severely impaired with, an EF between 30 - 35 %. Anterseptal Hypokinesis Inferior Hypokinesis Septal Hypokinesis The right ventricle is normal in size. The left atrial size is normal. The right atrial size is normal. 5.0mg OF Lumason UTLIZED: 2 OR MORE WALL SEGMENTS NOT VISUALIZED. There is mild aortic stenosis present. Peak/mean gradient across the Aortic Valve is 20.06mmHg / 10 .53mmHg. Mild mitral annular calcification present. [id number] mitral regurgitation is present. Mild tricuspid regurgitation present. There is severe pulmonary hypertension. The right ventricul ar systolic pressure, as measured by Doppler, is 85.37mmHg. There is no pulmonic regurgitation present. The aortic root size is normal. There is no pericardial effusion. CONCLUSIONS -------- 1. The left ventricular size is normal. 2. There is mild concentric left ventricular hypertrophy. 3. Overall left ventricular systolic function is moderate-severely impaired with, an EF between 30 - 35 %. 4. Anterseptal Hypokinesis 5. Inferior Hypokinesis 6. Septal Hypokinesis 7. The right ventricle is normal in size. 8. The left atrial size is normal. 9. The right atrial size is normal. 10. 5.0mg OF Lumason UTLIZED: 2 OR MORE WALL SEGMENTS NOT VISUALIZED. 11. There is mild aortic stenosis present. 12. Peak/mean gradient across the Aortic Valve is 20.06mmHg / 10.53mmHg. 13. Mild mitral annular calcification present. 14. Govq-wz-howsiaab mitral regurgitation is present. 15. Mild tricuspid regurgitation present. 16. There is severe pulmonary hypertension. 17. The right ventricular systolic pressure, as measured by Doppler, is 85.37mmHg. 18. There is no pulmonic regurgitation present. 19. The aortic root size is normal. 20. There is no pericardial effusion. BUSINESS OBJECTS ARCHITECT: Marycarmen Day RDCS
[2018-05-04 17:26] LABS: Glucose,Whole Blood 228 mg/dL (75-99)
--- NOTE | 2018-05-04 19:00 | P.PN ---
Subjective Progress Note Date: 05/04/18 This 78-year-old female is admitted to the hospital with increasing shortness of breath and cough and congestion. Patient has a severely impaired LV function with an ejection fraction of 30-35%. Patient has been on diuretics. She is also initiated on antibiotics and bronchodilators. Patient has significant cough and wheezing. Overall she is feeling better today. We'll continue current medical therapy. Objective - Vital Signs Vital signs: Vital Signs Temp 96.2 F L 05/04/18 12:00 Pulse 90 05/04/18 16:11 Resp 16 05/04/18 16:00 BP 150/62 05/04/18 16:00 Pulse Ox 97 05/04/18 16:00 Intake & Output 05/03/18 05/04/18 05/04/18 18:59 06:59 18:59 Intake Total 1300 150 Output Total 691 394 1768 Balance 500 -400 -950 Weight 78 kg Intake: IV 20 Invasive Line 1 20 Intake, IV Titration 100 50 Amount cefTRIAXone 1 gm In 100 50 Sodium Chloride 0.9% 50 ml @ 100 mls/hr IVPB Q24HR [facility] Rx#:[id number] Oral 1180 100 Output: Urine 692 [id number] - Exam GENERAL EXAM: Patient is alert and oriented and doesn't appear to be in any acute distress HEENT: Normocephalic. Normal reaction of pupils, equal size, normal range of extraocular motion. No erythema or exudates in the throat. NECK: No masses, no nuchal rigidity. CHEST: No chest wall deformity. LUNGS: Expiratory wheezes and rhonchi HEART: S1 and S2 normal with no audible mumurs or gallops. Regular rhythm, femorals equal on both sides.. ABDOMEN: No hepatosplenomegaly, normal bowel sounds, no guarding or rigidity. SKIN: No rashes CENTRAL NERVOUS SYSTEM: No focal deficits. EXTREMITIES: No cyanosis, clubbing or edema. - Labs CBC & Chem 7: 05/03/18 08:17 05/03/18 08:17 Labs: Abnormal Lab Results - Last 24 Hours (Table) 05/03/18 05/04/18 05/04/18 Range/Units 19:18 06:04 11:41 POC Glucose (mg/dL) 139 H 212 H 171 H (75-99) mg/dL 05/04/18 Range/Units 16:53 POC Glucose (mg/dL) 228 H (75-99) mg/dL Microbiology - Last 24 Hours (Table) 05/02/18 20:25 Urine Culture - Final Urine,Voided 05/02/18 19:45 Blood Culture - Preliminary Blood No Growth after 24 hours Assessment and Plan (1) Acute on chronic systolic CHF (congestive heart failure) Current Visit: Yes Status: Acute Code(s): I50.23 - ACUTE ON CHRONIC SYSTOLIC (CONGESTIVE) HEART FAILURE SNOMED Code(s): 013904529 (2) CHF exacerbation Current Visit: No Status: Acute Code(s): I50.9 - HEART FAILURE, UNSPECIFIED SNOMED Code(s): 18844822 (3) History of coronary artery bypass graft Current Visit: Yes Status: Acute Code(s): Z95.1 - PRESENCE OF AORTOCORONARY BYPASS GRAFT SNOMED Code(s): 842182436 (4) Diabetes Current Visit: No Status: Acute Code(s): E11.9 - TYPE 2 DIABETES MELLITUS WITHOUT COMPLICATIONS SNOMED Code(s): 12492087 (5) Elevated troponin I level Current Visit: No Status: Acute Code(s): R79.89 - OTHER SPECIFIED ABNORMAL FINDINGS OF BLOOD CHEMISTRY SNOMED Code(s): 170704935 (6) HTN (hypertension) Current Visit: No Status: Acute Code(s): I10 - ESSENTIAL (PRIMARY) HYPERTENSION SNOMED Code(s): 23302905 (7) Hyperlipemia Current Visit: No Status: Acute Code(s): E78.5 - HYPERLIPIDEMIA, UNSPECIFIED SNOMED Code(s): 37629073 Plan: Continue current medical therapy. Increase activity as tolerated. Being followed by mold making supervisor
[2018-05-04 20:23] LABS: Glucose,Whole Blood 260 mg/dL (75-99)
[2018-05-04] MEDS: DOCUSATE 100 MG CAP PO SCH (21:09)
[2018-05-04] MEDS: ATORVASTATIN 80 MG TAB PO SCH (21:09)
[2018-05-05 06:24] LABS: Glucose,Whole Blood 237 mg/dL (75-99)
[2018-05-05] MEDS: metFORMIN 500 MG TAB PO SCH ×2 (06:43→16:51)
[2018-05-05] MEDS: NITROGLYCERIN OINT 1 INCH/GM PACKET TOPICAL SCH ×2 (06:44→12:07)
[2018-05-05] MEDS: INSULIN ASPART (NovoLOG) 100 UNIT/ML VIAL SQ SCH ×4 (06:44→21:58)
[2018-05-05 07:35] LABS: Magnesium 1.7 mg/dL (1.6-2.3); Potassium 4.4 mmol/L (3.5-5.1)
[2018-05-05] MEDS: ALBUTEROL NEBULIZED 2.5 MG/3 ML INHALATION SCH ×4 (08:35→19:59)
[2018-05-05] MEDS: LISINOPRIL 20 MG TAB PO SCH (09:11)
[2018-05-05] MEDS: CLOPIDOGREL 75 MG TAB PO SCH (09:11)
[2018-05-05] MEDS: AZITHROMYCIN 500 MG TAB PO SCH (09:11)
[2018-05-05] MEDS: METOPROLOL TARTRATE 50 MG TAB PO SCH ×2 (09:11→21:58)
[2018-05-05] MEDS: SENNOSIDES 8.6 MG TAB PO SCH (09:11)
[2018-05-05] MEDS: FUROSEMIDE 10 MG/ML 4 ML VIAL IV SCH ×3 (09:11→21:59)
[2018-05-05] MEDS: SPIRONOLACTONE 25 MG TAB PO SCH (09:12)
[2018-05-05] MEDS: NYSTATIN 100,000 UNIT/GM POWD 15 GM TOPICAL SCH ×2 (09:14→16:52)
[2018-05-05] MEDS: methylPREDNISolone 4 MG TAB TAPER PO SCH (09:14)
--- NOTE | 2018-05-05 11:22 | P.PN ---
Subjective Progress Note Date: 05/05/18 Principal diagnosis: Acute hypoxic respiratory failure secondary to an acute exacerbation of systolic congestive heart failure, left lower lobe atelectasis, pleural effusion and interstitial edema This is 78-year-old white female patient past medical history of coronary artery disease with history of bypass grafting in 1996, chronic congestive heart failure, diabetes mellitus, hypertension, hyperlipidemia, previous myocardial infarction,osteoarthritis, anxiety. Patient is a lifetime nonsmoker. On 05/02/2018 patient presented to the emergency department for complaints of increased shortness of breath, patient had a upper respiratory tract infection about a week ago, and her symptoms progressed to increased shortness of breath, wheezing, coughing, production of phlegm. Yesterday patient started feeling even worse, and presented to the emergency department for evaluation. No fevers, but did have some subjective chills. Patient sleeps in the recliner on the regular basis. Chest x-ray was completed and showed a new left pleural effusion and left lower lobe density, moderate cardiomegaly. EKG showed normal sinus rhythm with ST and T-wave abnormality in the lateral leads. Lab work was negative for any leukocytosis, initial blood work showed a white blood cell count of 9.7, hemoglobin of 14.3, coagulation profile was within normal limits, electrolytes and renal profile were within normal limits. BNP was elevated at 6240, and had elevation of the third set of troponins, and 0.042. Fluids a screen was negative, and urinalysis showed a large amount of leuk trase, white and red blood cells. Patient has been afebrile, she has been requiring supplemental oxygen, she is quite short of breath, with coughing spells. She was started on a combination of Primaxin and Rocephin, IV diuretics, he believes bronchodilators. She was evaluated by cardiology, echocardiogram has been ordered, and is pending at this time. The patient is seen today 05/04/2017 in follow-up on the selective care unit. She is currently awake and alert in no acute distress. She states she is breathing a bit better today as compared to yesterday. She is maintaining good O2 saturations in the 90s on 2 L/m per nasal cannula. She's been afebrile. Hemodynamically stable. Blood and urine cultures reveal no growth. She is currently on ceftriaxone and azithromycin along with IV diuretics. Today's chest x-ray shows a stable left trace pleural effusion and some left basilar ate lectasis. Echocardiogram is pending. She feels she is having difficulty with urination. Márquez catheter will be placed. On 05/05/2018 patient is seen in follow-up on selective care unit, she is awake and alert, in no acute distress, she is less wheezy and congested, however there still wheezing, and patient is still having some coughing spells although improved. No complaints of chest pain, remains on IV Lasix, and she is in negative fluid balance over the last 24 hours, fluid volume is improving, lower extremity edema is improving, his labs have been reviewed, showed sodium of 134, potassium is 4.4, chloride is 96, BUN is 27, creatinine is 1.03. She is on 2 L per nasal cannula her pulse ox is 96%, she is afebrile, and up much sputum, urine and blood cultures are negative. Antibiotic coverage in the form of azithromycin and Rocephin, nebulized bronchodilators, cough syrup, oral Medrol Dosepak, and this will be switched to IV Solu-Medrol today. Objective - Vital Signs Vital signs: Vital Signs Temp 96.6 F L 05/05/18 08:00 Pulse 88 05/05/18 08:49 Resp 16 05/05/18 08:00 BP 136/63 05/05/18 08:00 Pulse Ox 96 05/05/18 08:00 Intake & Output 05/04/18 05/05/18 05/05/18 17:59 06:59 18:59 Intake Total 240 Output Total Balance 240 Weight Intake: Intake, IV Titration Amount cefTRIAXone 1 gm In Sodium Chloride 0.9% 50 ml @ 100 mls/hr IVPB Q24HR [facility] Rx#:[id number] Oral 240 Output: Urine - Exam GENERAL EXAM: Alert, pleasant, 78-year-old white female, comfortable in no ap parent distress. HEAD: Normocephalic/atraumatic. EYES: Normal reaction of pupils, equal size. Conjunctiva pink, sclera white. NOSE: Clear with pink turbinates. THROAT: No erythema or exudates. NECK: No masses, no JVD, no thyroid enlargement, no adenopathy. CHEST: No chest wall deformity. Symmetrical expansion. LUNGS: Equal air entry diffuse wheezes, and patient is having frequent coughing spells CVS: Regular rate and rhythm, normal S1 and S2, no gallops, no murmurs, no rubs ABDOMEN: Soft, nontender. No hepatosplenomegaly, normal bowel sounds, no guarding or rigidity. EXTREMITIES: No clubbing, mild lower extremity edema, no cyanosis, 2+ pulses and upper and lower extremities. MUSCULOSKELETAL: Muscle strength and tone normal. SPINE: No scoliosis or deformity SKIN: No rashes CENTRAL NERVOUS SYSTEM: Alert and oriented -3. No focal deficits, tone is normal in all 4 extremities. PSYCHIATRIC: Alert and oriented -3. Appropriate affect. Intact judgment and insight. - Labs CBC & Chem 7: 05/03/18 08:17 05/05/18 06:37 Labs: Abnormal Lab Results - Last 24 Hours (Table) 05/04/18 05/04/18 05/04/18 Range/Units 11:41 16:53 20:22 Sodium (137-145) mmol/L Chloride (98-107) mmol/L BUN (7-17) mg/dL Glucose (74-99) mg/dL POC Glucose (mg/dL) 171 H 228 H 260 H (75-99) mg/dL 05/05/18 05/05/18 Range/Units 06:22 06:37 Sodium 134 L (137-145) mmol/L Chloride 96 L (98-107) mmol/L BUN 27 H (7-17) mg/dL Glucose 217 H (74-99) mg/dL POC Glucose (mg/dL) 237 H (75-99) mg/dL Microbiology - Last 24 Hours (Table) 05/02/18 19:45 Blood Culture - Preliminary Blood No Growth after 48 hours Assessment and Plan Plan: Assessment: #1. Acute hypoxemic respiratory failure related to acute exacerbation of congestive heart failure with systolic dysfunction, with previously documented EF of 30-35%. Chest X-ray showed cardiomegaly, left lower lobe atelectasis, and possible pleural effusion, there is also a component of interstitial edema. #2. Acute tracheobronchitis #3. Possible urinary tract infection #4. History of coronary artery disease, status post bypass grafting back in 1996 #5. Moderate pulmonary hypertension #6. Diabetes mellitus type 2 #7. Hypertension, hyperlipidemia, previous episode of myocardial infarction #8. Chronic kidney disease, stage III #9. History of CVA with subsequent vision impairment #10. Anxiety Plan: Continue with current antibiotic coverage, and TM IV diuretics, we'll switch the Medrol Dosepak to IV Solu-Medrol 60 mg every 6 hours, cultures remain negative thus far, patient is still quite short of breath, bronchospastic and having coughing spells. Not quite back to baseline. We'll continue to follow, will do daily electrolytes and renal profile, and daily weights. I performed a history & physical examination of the patient and discussed their management with my nurse practitioner, Poly Saez. I reviewed the nurse practitioner's note and agree with the documented findings and plan of care. Lung sounds are positive for diminished breath sounds and rhonchi. The findings and the impression was discussed with the patient. I attest to the documentation by the nurse practitioner. Time with Patient: Less than 30
--- NOTE | 2018-05-05 11:35 | P.PN ---
Subjective Progress Note Date: 05/04/18 Principal diagnosis: Acute hypoxemic respiratory failure Acute exacerbation systolic CHF Severe tracheobronchitis UTI 78-year-old female who comes in complaining shortness of breath chest pain particularly with coughing over the last week. Patient states she has had a cough for the last week but has had no sputum production. Patient does not know she's had a fever but states she feels warm and gets cold at times. Patient denies any history of smoking. Patient states she does have diabetes heart disease congestive heart failure history and high blood pressure. Patient s tates her swelling to her legs is getting worse over the last week as well. Patient denies any palpitations. Patient denies any abdominal pain. Patient denies being lightheaded or dizzy. Patient states over the week she also is gotten considerably weaker but no focal weakness. Patient has been very noncompliant with her diabetes for the past few years. She regularly has sugars in excess of 300. 05/04/2017 Patient seen in follow-up on the selective care unit. She is currently awake and alert in no acute distress. She states she is breathing a bit better today as compared to yesterday. She is maintaining good O2 saturations in the 90s on 2 L/m per nasal cannula. She's been afebrile. Hemodynamically stable. Blood and urine cultures reveal no growth. She is currently on ceftriaxone and azithromycin along with IV diuretics. Today's chest x-ray shows a stable left trace pleural effusion and some left basilar atelectasis. Echocardiogram is pending. She feels she is having difficulty with urination. Márquez catheter will be placed Objective - Vital Signs Vital signs: Vital Signs Temp 95.2 F L 05/04/18 08:00 Pulse 82 05/04/18 11:47 Resp 16 05/04/18 11:28 BP 132/62 05/04/18 08:00 Pulse Ox 97 05/04/18 08:00 Intake & Output 05/03/18 05/04/18 05/04/18 18:59 06:59 18:59 Intake Total 1300 100 Output Total 800 400 Balance 500 -400 100 Weight 78 kg Intake: IV 20 Invasive Line 1 20 Intake, IV Titration 100 Amount cefTRIAXone 1 gm In 100 Sodium Chloride 0.9% 50 ml @ 100 mls/hr IVPB Q24HR [facility] Rx#:[id number] Oral 1180 100 Output: Urine 800 400 - Exam GENERAL EXAM: Alert, pleasant, 78-year-old female, mildly short of breath, wheezing. On 2 L nasal cannula. HEAD: Normocephalic/atraumatic. EYES: Normal reaction of pupils, equal size. Conjunctiva pink, sclera white. NOSE: Clear with pink turbinates. THROAT: No erythema or exudates. NECK: No masses, no JVD, no thyroid enlargement, no adenopathy. CHEST: No chest wall deformity. Symmetrical expansion. LUNGS: Equal air entry with diffuse wheezes CVS: Regular rate and rhythm, normal S1 and S2, no gallops, no murmurs, no rubs ABDOMEN: Soft, nontender. No hepatosplenomegaly, normal bowel sounds, no guarding or rigidity. EXTREMITIES: No clubbing, no edema, no cyanosis, 2+ pulses and upper and lower extremities. - Labs CBC & Chem 7: 05/03/18 08:17 05/05/18 06:37 Labs: Abnormal Lab Results - Last 24 Hours (Table) 05/03/18 05/03/18 05/04/18 Range/Units 16:49 19:18 06:04 POC Glucose (mg/dL) 101 H 139 H 212 H (75-99) mg/dL 05/04/18 Range/Units 11:41 POC Glucose (mg/dL) 171 H (75-99) mg/dL Microbiology - Last 24 Hours (Table) 05/02/18 20:25 Urine Culture - Final Urine,Voided 05/02/18 19:45 Blood Culture - Preliminary Blood No Growth after 24 hours Assessment and Plan Assessment: 1. Acute hypoxemic respiratory failure related to acute exacerbation of congestive heart failure with systolic dysfunction, with previously documented EF of 30-35%. Chest X-ray showed cardiomegaly, left lower lobe atelectasis, and possible pleural effusion, there is also a component of interstitial edema. 2. Acute tracheobronchitis 3. Possible urinary tract infection 4. History of coronary artery disease, status post bypass grafting back in 1996 5. Moderate pulmonary hypertension 6. Diabetes mellitus type 2 7. Hypertension, hyperlipidemia, previous episode of myocardial infarction 8. Chronic kidney disease, stage III 9. History of CVA with subsequent vision impairment 10. DVT prophylaxis CODE STATUS; DO NOT RESUSCITATE Time with Patient: Greater than 30
[2018-05-05 11:44] LABS: Glucose,Whole Blood 95 mg/dL (75-99)
[2018-05-05] MEDS: methylPREDNISolone SOD SUCCI 125 MG/2 ML VIAL IV SCH ×3 (12:07→21:59)
[2018-05-05] MEDS: LOSARTAN 50 MG TAB PO SCH (12:07)
--- NOTE | 2018-05-05 14:55 | P.PN ---
Subjective This is a pleasant 78-year-old female past medical history significant for coronary artery disease, ischemic cardiomyopathy, hypertension, dyslipidemia, peripheral vascular disease and diabetes mellitus. She follows in the office with Dr. Jeong. She is seen and examined sitting up in the chair. She looks much more comfortable today although she still has a significant cough. She denies significant shortness of breath, no chest pain dizziness or palpitations. Currently maintained on atorvastatin 80 mg daily, Plavix 75 mg daily, Lasix 40 mg IV 3 times a day, losartan 50 mg daily, metoprolol 50 mg twice a day, Aldactone 12.5 mg daily. Blood pressure 124/58 heart rate 77 afebrile maintaining oxygen saturation. Laboratory data reviewed, sodium 134, potassium 4.4, creatinine 1.03, magnesium 1.7. GENERAL: Well-appearing, well-nourished and in no acute distress. NECK: Supple without JVD or thyromegaly. LUNGS: Expiratory wheezes noted as well as scattered rhonchi. No rales. Respiration equal and unlabored. HEART: Regular rate and rhythm without murmurs, rubs or gallops. S1 and S2 heard. EXTREMITIES: Normal range of motion, trace bilateral lower extremity nonpitting edema. No clubbing or cyanosis. Peripheral pulses intact. ASSESSMENT Acute on chronic systolic heart failure Acute tracheobronchitis Acute hypoxic respiratory failure History of coronary artery disease status post bypass grafting Troponin elevation, not indicative of myocardial infarction Hypertension Dyslipidemia Pulmonary hypertension Chronic kidney disease PLAN Continue current medical regimen. Pulmonology is following closely and managing antibiotics, steroids and diuretics. Would benefit from at least another 24-48 hours of inpatient treatment. We will continue to follow and make recommendations accordingly. Nurse Practitioner note has been reviewed, I agree with a documented findings and plan of care. Patient was seen and examined. Objective - Vital Signs Vital signs: Vital Signs Temp 96.6 F L 05/05/18 08:00 Pulse 88 05/05/18 12:10 Resp 16 05/05/18 14:47 BP 124/58 05/05/18 11:38 Pulse Ox 94 L 05/05/18 11:38 Intake & Output 05/04/18 05/05/18 05/05/18 17:59 06:59 18:59 Intake Total 480 Output Total 1100 Balance -620 Weight Intake: Intake, IV Titration Amount cefTRIAXone 1 gm In Sodium Chloride 0.9% 50 ml @ 100 mls/hr IVPB Q24HR [facility] Rx#:[id number] Oral 480 Output: Urine 1100 - Labs CBC & Chem 7: 05/03/18 08:17 05/05/18 06:37 Labs: Abnormal Lab Results - Last 24 Hours (Table) 05/04/18 05/04/18 05/05/18 Range/Units 16:53 20:22 06:22 Sodium (137-145) mmol/L Chloride (98-107) mmol/L BUN (7-17) mg/dL Glucose (74-99) mg/dL POC Glucose (mg/dL) 228 H 260 H 237 H (75-99) mg/dL 05/05/18 Range/Units 06:37 Sodium 134 L (137-145) mmol/L Chloride 96 L (98-107) mmol/L BUN 27 H (7-17) mg/dL Glucose 217 H (74-99) mg/dL POC Glucose (mg/dL) (75-99) mg/dL Microbiology - Last 24 Hours (Table) 05/02/18 19:45 Blood Culture - Preliminary Blood No Growth after 48 hours
[2018-05-05 16:19] LABS: Glucose,Whole Blood 290 mg/dL (75-99)
[2018-05-05] MEDS: BUDESONIDE 1 MG/2 ML NEBU INHALATION SCH (19:59)
[2018-05-05 21:24] LABS: Glucose,Whole Blood 288 mg/dL (75-99)
[2018-05-05] MEDS: ATORVASTATIN 80 MG TAB PO SCH (21:58)
[2018-05-05] MEDS: DOCUSATE 100 MG CAP PO SCH (21:58)
[2018-05-06 06:22] LABS: Glucose,Whole Blood 277 mg/dL (75-99)
[2018-05-06] MEDS: methylPREDNISolone SOD SUCCI 125 MG/2 ML VIAL IV SCH ×3 (06:27→16:52)
[2018-05-06] MEDS: metFORMIN 500 MG TAB PO SCH ×2 (06:28→16:50)
[2018-05-06] MEDS: INSULIN ASPART (NovoLOG) 100 UNIT/ML VIAL SQ SCH ×4 (06:30→20:45)
[2018-05-06] MEDS: NYSTATIN 100,000 UNIT/GM POWD 15 GM TOPICAL SCH ×4 (06:31→22:18)
[2018-05-06] MEDS: BUDESONIDE 1 MG/2 ML NEBU INHALATION SCH ×2 (07:22→20:13)
[2018-05-06] MEDS: ALBUTEROL NEBULIZED 2.5 MG/3 ML INHALATION SCH ×4 (07:22→20:13)
[2018-05-06] MEDS: LOSARTAN 50 MG TAB PO SCH (08:36)
[2018-05-06] MEDS: AZITHROMYCIN 500 MG TAB PO SCH (08:36)
[2018-05-06] MEDS: METOPROLOL TARTRATE 50 MG TAB PO SCH ×2 (08:36→20:45)
[2018-05-06] MEDS: CLOPIDOGREL 75 MG TAB PO SCH (08:37)
[2018-05-06] MEDS: SPIRONOLACTONE 25 MG TAB PO SCH (08:37)
[2018-05-06] MEDS: FUROSEMIDE 10 MG/ML 4 ML VIAL IV SCH ×2 (08:37→16:53)
[2018-05-06] MEDS: SENNOSIDES 8.6 MG TAB PO SCH (08:41)
--- NOTE | 2018-05-06 09:13 | P.PN ---
Subjective Progress Note Date: 05/05/18 Principal diagnosis: Acute hypoxemic respiratory failure Acute exacerbation systolic CHF Severe tracheobronchitis UTI 78-year-old female who comes in complaining shortness of breath chest pain particularly with coughing over the last week. Patient states she has had a cough for the last week but has had no sputum production. Patient does not know she's had a fever but states she feels warm and gets cold at times. Patient denies any history of smoking. Patient states she does have diabetes heart disease congestive heart failure history and high blood pressure. Patient s tates her swelling to her legs is getting worse over the last week as well. Patient denies any palpitations. Patient denies any abdominal pain. Patient denies being lightheaded or dizzy. Patient states over the week she also is gotten considerably weaker but no focal weakness. Patient has been very noncompliant with her diabetes for the past few years. She regularly has sugars in excess of 300. 05/04/2017 Patient seen in follow-up on the selective care unit. She is currently awake and alert in no acute distress. She states she is breathing a bit better today as compared to yesterday. She is maintaining good O2 saturations in the 90s on 2 L/m per nasal cannula. She's been afebrile. Hemodynamically stable. Blood and urine cultures reveal no growth. She is currently on ceftriaxone and azithromycin along with IV diuretics. Today's chest x-ray shows a stable left trace pleural effusion and some left basilar atelectasis. Echocardiogram is pending. She feels she is having difficulty with urination. Márquez catheter will be placed 05/05/2018 patient is seen in follow-up; she is awake and alert, in no acute distress, she is less wheezy and congested, however there still wheezing, and patient is still having some coughing spells although improved Vital signs are reviewed; patient remains afebrile with pulse of 77, respiration 16, blood pressure 124/58 and SpO2 of 94% on 2 L Labs are reviewed; sodium of 134 potassium 4.4, BUN 27 with creatinine of 1.03; blood glucose remaining range of 217-260 remains on IV Lasix, Antibiotic coverage in the form of azithromycin and Rocephin, nebulized bronchodilators, cough syrup, oral Medrol Dosepak, patient is switched to IV steroid 60 mg every 6 hours therapy per pulmonary re commendations. Objective - Vital Signs Vital signs: Vital Signs Temp 96.6 F L 05/05/18 08:00 Pulse 88 05/05/18 08:49 Resp 16 05/05/18 11:31 BP 136/63 05/05/18 08:00 Pulse Ox 96 05/05/18 08:00 Intake & Output 05/04/18 05/05/18 05/05/18 17:59 06:59 18:59 Intake Total 240 Output Total Balance 240 Weight Intake: Intake, IV Titration Amount cefTRIAXone 1 gm In Sodium Chloride 0.9% 50 ml @ 100 mls/hr IVPB Q24HR [facility] Rx#:[id number] Oral 240 Output: Urine - Exam GENERAL EXAM: Alert, pleasant, 78-year-old female, mildly short of breath, wheezing. On 2 L nasal cannula. HEAD: Normocephalic/atraumatic. EYES: Normal reaction of pupils, equal size. Conjunctiva pink, sclera white. NOSE: Clear with pink turbinates. THROAT: No erythema or exudates. NECK: No masses, no JVD, no thyroid enlargement, no adenopathy. CHEST: No chest wall deformity. Symmetrical expansion. LUNGS: Equal air entry with diffuse wheezes CVS: Regular rate and rhythm, normal S1 and S2, no gallops, no murmurs, no rubs ABDOMEN: Soft, nontender. No hepatosplenomegaly, normal bowel sounds, no guarding or rigidity. EXTREMITIES: No clubbing, no edema, no cyanosis, 2+ pulses and upper and lower extremities. - Labs CBC & Chem 7: 05/03/18 08:17 05/05/18 06:37 Labs: Abnormal Lab Results - Last 24 Hours (Table) 05/04/18 05/04/18 05/04/18 Range/Units 11:41 16:53 20:22 Sodium (137-145) mmol/L Chloride (98-107) mmol/L BUN (7-17) mg/dL Glucose (74-99) mg/dL POC Glucose (mg/dL) 171 H 228 H 260 H (75-99) mg/dL 05/05/18 05/05/18 Range/Units 06:22 06:37 Sodium 134 L (137-145) mmol/L Chloride 96 L (98-107) mmol/L BUN 27 H (7-17) mg/dL Glucose 217 H (74-99) mg/dL POC Glucose (mg/dL) 237 H (75-99) mg/dL Microbiology - Last 24 Hours (Table) 05/02/18 19:45 Blood Culture - Preliminary Blood No Growth after 48 hours Assessment and Plan Assessment: 1. Acute hypoxemic respiratory failure related to acute exacerbation of congestive heart failure with systolic dysfunction, with previously documented EF of 30-35%. Chest X-ray showed cardiomegaly, left lower lobe atelectasis, and possible pleural effusion, there is also a component of interstitial edema. 2. Acute tracheobronchitis 3. Possible urinary tract infection 4. History of coronary artery disease, status post bypass grafting back in 1996 5. Moderate pulmonary hypertension 6. Diabetes mellitus type 2 7. Hypertension, hyperlipidemia, previous episode of myocardial infarction 8. Chronic kidney disease, stage III 9. History of CVA with subsequent vision impairment 10. DVT prophylaxis CODE STATUS; DO NOT RESUSCITATE Time with Patient: Greater than 30
[2018-05-06 11:22] LABS: Glucose,Whole Blood 327 mg/dL (75-99)
[2018-05-06 11:54] LABS: Anisocytosis Slight; Basophils % (A) 0 %; Eosinophils % (A) 0 %; HCT 44.7 % (34.0-46.0); HGB 13.3 gm/dL (11.4-16.0); Hypochromasia Marked; Lymphocytes # (A) 0.3 k/uL (1.0-4.8); Lymphocytes % (A) 4 %; MCH 24.7 pg (25.0-35.0); MCHC 29.7 g/dL (31.0-37.0); MCV 83.2 fL (80.0-100.0); Mean Platelet Volume 6.6; Monocytes # (A) 0.4 k/uL (0-1.0); Monocytes % (A) 5 %; Neutrophils # (A) 7.6 k/uL (1.3-7.7); Neutrophils % (A) 90 %; Platelet Count 281 k/uL (150-450); RBC 5.38 m/uL (3.80-5.40); RDW 16.1 % (11.5-15.5); WBC 8.5 k/uL (3.8-10.6)
[2018-05-06 12:12] LABS: Calcium 9.5 mg/dL (8.4-10.2)
--- NOTE | 2018-05-06 14:11 | P.PN ---
Subjective Progress Note Date: 05/06/18 Principal diagnosis: Acute hypoxic respiratory failure secondary to an acute exacerbation of systolic congestive heart failure, left lower lobe atelectasis, pleural effusion and interstitial edema This is 78-year-old white female patient past medical history of coronary artery disease with history of bypass grafting in 1996, chronic congestive heart failure, diabetes mellitus, hypertension, hyperlipidemia, previous myocardial infarction,osteoarthritis, anxiety. Patient is a lifetime nonsmoker. On 05/02/2018 patient presented to the emergency department for complaints of increased shortness of breath, patient had a upper respiratory tract infection about a week ago, and her symptoms progressed to increased shortness of breath, wheezing, coughing, production of phlegm. Yesterday patient started feeling even worse, and presented to the emergency department for evaluation. No fevers, but did have some subjective chills. Patient sleeps in the recliner on the regular basis. Chest x-ray was completed and showed a new left pleural effusion and left lower lobe density, moderate cardiomegaly. EKG showed normal sinus rhythm with ST and T-wave abnormality in the lateral leads. Lab work was negative for any leukocytosis, initial blood work showed a white blood cell count of 9.7, hemoglobin of 14.3, coagulation profile was within normal limits, electrolytes and renal profile were within normal limits. BNP was elevated at 6240, and had elevation of the third set of troponins, and 0.042. Fluids a screen was negative, and urinalysis showed a large amount of leuk trase, white and red blood cells. Patient has been afebrile, she has been requiring supplemental oxygen, she is quite short of breath, with coughing spells. She was started on a combination of Primaxin and Rocephin, IV diuretics, he believes bronchodilators. She was evaluated by cardiology, echocardiogram has been ordered, and is pending at this time. The patient is seen today 05/04/2017 in follow-up on the selective care unit. She is currently awake and alert in no acute distress. She states she is breathing a bit better today as compared to yesterday. She is maintaining good O2 saturations in the 90s on 2 L/m per nasal cannula. She's been afebrile. Hemodynamically stable. Blood and urine cultures reveal no growth. She is currently on ceftriaxone and azithromycin along with IV diuretics. Today's chest x-ray shows a stable left trace pleural effusion and some left basilar ate lectasis. Echocardiogram is pending. She feels she is having difficulty with urination. Márquez catheter will be placed. On 05/05/2018 patient is seen in follow-up on selective care unit, she is awake and alert, in no acute distress, she is less wheezy and congested, however there still wheezing, and patient is still having some coughing spells although improved. No complaints of chest pain, remains on IV Lasix, and she is in negative fluid balance over the last 24 hours, fluid volume is improving, lower extremity edema is improving, his labs have been reviewed, showed sodium of 134, potassium is 4.4, chloride is 96, BUN is 27, creatinine is 1.03. She is on 2 L per nasal cannula her pulse ox is 96%, she is afebrile, and up much sputum, urine and blood cultures are negative. Antibiotic coverage in the form of azithromycin and Rocephin, nebulized bronchodilators, cough syrup, oral Medrol Dosepak, and this will be switched to IV Solu-Medrol today. On 05/06/2018 patient seen in follow-up on selective care unit, she sits up in the chair, in no acute distress, she still has frequent episodes of coughing, patient had a swallow evaluation done at the bedside, and patient was experiencing sensation of throat tightness, and difficulty swallowing, patient will be evaluated by speech therapy, and modified barium swallow will be obtained. Chest pain, she is afebrile, she is still on 2 L of oxygen and her pulse ox is 96%, lung sounds are diminished, no significant wheezing or rhonchi, no significant congestion. She is on Zithromax, IV Solu-Medrol, nebulized bronchodilators. She remains on IV Solu-Medrol. Objective - Vital Signs Vital signs: Vital Signs Temp 97.7 F 05/06/18 08:00 Pulse 76 05/06/18 12:00 Resp 16 05/06/18 12:00 BP 179/80 05/06/18 12:00 Pulse Ox 96 05/06/18 12:00 Intake & Output 05/05/18 05/06/18 05/06/18 18:59 06:59 18:59 Intake Total 720 240 600 Output Total 1100 8100 400 Balance -380 -7860 200 Weight 75.8 kg Intake: Oral 720 240 600 Output: Urine 1100 8100 400 Other: Voiding Method Indwelling Catheter Indwelling Catheter - Exam GENERAL EXAM: Alert, pleasant, 78-year-old white female, comfortable in no apparent distress. HEAD: Normocephalic/atraumatic. EYES: Normal reaction of pupils, equal size. Conjunctiva pink, sclera white. NOSE: Clear with pink turbinates. THROAT: No erythema or exudates. NECK: No masses, no JVD, no thyroid enlargement, no adenopathy. CHEST: No chest wall deformity. Symmetrical expansion. LUNGS: Equal air entry diffuse wheezes, and patient is having frequent coughing spells CVS: Regular rate and rhythm, normal S1 and S2, no gallops, no murmurs, no rubs ABDOMEN: Soft, nontender. No hepatosplenomegaly, normal bowel sounds, no guarding or rigidity. EXTREMITIES: No clubbing, mild lower extremity edema, no cyanosis, 2+ pulses and upper and lower extremities. MUSCULOSKELETAL: Muscle strength and tone normal. SPINE: No scoliosis or deformity SKIN: No rashes CENTRAL NERVOUS SYSTEM: Alert and oriented -3. No focal deficits, tone is normal in all 4 extremities. PSYCHIATRIC: Alert and oriented -3. Appropriate affect. Intact judgment and insight. - Labs CBC & Chem 7: 05/06/18 11:32 05/06/18 11:32 Labs: Abnormal Lab Results - Last 24 Hours (Table) 05/05/18 05/05/18 05/06/18 Range/Units 16:16 21:16 06:20 MCH (25.0-35.0) pg MCHC (31.0-37.0) g/dL RDW (11.5-15.5) % Lymphocytes # (1.0-4.8) k/uL Sodium (137-145) mmol/L Chloride (98-107) mmol/L BUN (7-17) mg/dL Glucose (74-99) mg/dL POC Glucose (mg/dL) 290 H 288 H 277 H (75-99) mg/dL 05/06/18 05/06/18 05/06/18 Range/Units 11:18 11:32 11:32 MCH 24.7 L (25.0-35.0) pg MCHC 29.7 L (31.0-37.0) g/dL RDW 16.1 H (11.5-15.5) % Lymphocytes # 0.3 L (1.0-4.8) k/uL Sodium 134 L (137-145) mmol/L Chloride 92 L (98-107) mmol/L BUN 37 H (7-17) mg/dL Glucose 310 H (74-99) mg/dL POC Glucose (mg/dL) 327 H (75-99) mg/dL Microbiology - Last 24 Hours (Table) 05/05/18 12:15 Gram Stain - Preliminary Sputum 05/02/18 19:45 Blood Culture - Preliminary Blood No Growth after 72 hours Assessment and Plan Plan: Assessment: #1. Acute hypoxemic respiratory failure related to acute exacerbation of congestive heart failure with systolic dysfunction, with previously documented EF of 30-35%. Chest X-ray showed cardiomegaly, left lower lobe atelectasis, and possible pleural effusion, there is also a component of interstitial edema. #2. Acute tracheobronchitis #3. Possible urinary tract infection #4. History of coronary artery disease, status post bypass grafting back in 1996 #5. Moderate pulmonary hypertension #6. Diabetes mellitus type 2 #7. Hypertension, hyperlipidemia, previous episode of myocardial infarction #8. Chronic kidney disease, stage III #9. History of CVA with subsequent vision impairment #10. Anxiety #11. Dysphasia Plan: We'll obtain a follow-up chest x-ray tomorrow, patient is in negative fluid balance, still having frequent coughing, and she is complaining of dysphagia, we'll ask speech therapy to evaluate patient swallow, we will obtain a modified barium swallow. Will continue with current antibiotic coverage for now, IV steroids, and nebulized bronchodilators. I performed a history & physical examination of the patient and discussed their management with my nurse practitioner, Poly Saez. I reviewed the nurse practitioner's note and agree with the documented findings and plan of care. Lung sounds are positive for diminished breath sounds and rhonchi. The findings and the impression was discussed with the patient. I attest to the documen tation by the nurse practitioner. Time with Patient: Less than 30
--- NOTE | 2018-05-06 14:41 | FL ---
Modified barium swallow. HISTORY: Dysphagia. Modified barium swallow was performed with the department of speech pathology. The patient was prese nted with various consistencies of barium. There is no evidence for aspiration or penetration. Full report is to follow from the department of speech pathology. Impression: Normal study.
--- NOTE | 2018-05-06 15:52 | P.PN ---
Subjective Progress Note Date: 05/06/18 This is a pleasant 78-year-old female past medical history significant for coronary artery disease, ischemic cardiomyopathy, hypertension, dyslipidemia, peripheral vascular disease and diabetes mellitus. She follows in the office with Dr. Jeong. Admitted to the hospital with thick mild congestive heart failure with associated tracheobronchitis. Blood pressure today 178/80 with a heart rate in the 70s, 96% on 2 L of oxygen. Blood cell count 8.5, hemoglobin 13.3, platelet count 281. Sodium 134, potassium 4.0, BUN 37 and creatinine 0.9. Objective - Vital Signs Vital signs: Vital Signs Temp 97.7 F 05/06/18 08:00 Pulse 80 05/06/18 15:41 Resp 16 05/06/18 12:00 BP 179/80 05/06/18 12:00 Pulse Ox 96 05/06/18 12:00 Intake & Output 05/05/18 05/06/18 05/06/18 18:59 06:59 18:59 Intake Total 720 240 600 Output Total 1100 8100 400 Balance -380 -7860 200 Weight 75.8 kg Intake: Oral 720 240 600 Output: Urine 1100 8100 400 Other: Voiding Method Indwelling Catheter Indwelling Catheter - Exam GENERAL: Well-appearing, well-nourished and in no acute distress. NECK: Supple without JVD or thyromegaly. LUNGS: Expiratory wheezes noted as well as scattered rhonchi. No rales. Respiration equal and unlabored. HEART: Regular rate and rhythm without murmurs, rubs or gallops. S1 and S2 heard. EXTREMITIES: Normal range of motion, trace bilateral lower extremity nonpitting edema. No clubbing or cyanosis. Peripheral pulses intact. - Labs CBC & Chem 7: 05/06/18 11:32 05/06/18 11:32 Labs: Abnormal Lab Results - Last 24 Hours (Table) 05/05/18 05/05/18 05/06/18 Range/Units 16:16 21:16 06:20 MCH (25.0-35.0) pg MCHC (31.0-37.0) g/dL RDW (11.5-15.5) % Lymphocytes # (1.0-4.8) k/uL Sodium (137-145) mmol/L Chloride (98-107) mmol/L BUN (7-17) mg/dL Glucose (74-99) mg/dL POC Glucose (mg/dL) 290 H 288 H 277 H (75-99) mg/dL 05/06/18 05/06/18 05/06/18 Range/Units 11:18 11:32 11:32 MCH 24.7 L (25.0-35.0) pg MCHC 29.7 L (31.0-37.0) g/dL RDW 16.1 H (11.5-15.5) % Lymphocytes # 0.3 L (1.0-4.8) k/uL Sodium 134 L (137-145) mmol/L Chloride 92 L (98-107) mmol/L BUN 37 H (7-17) mg/dL Glucose 310 H (74-99) mg/dL POC Glucose (mg/dL) 327 H (75-99) mg/dL Microbiology - Last 24 Hours (Table) 05/05/18 12:15 Gram Stain - Preliminary Sputum Sputum Culture - Preliminary 05/02/18 19:45 Blood Culture - Preliminary Blood No Growth after 72 hours Assessment and Plan Plan: ASSESSMENT #1Acute on chronic systolic heart failure #2Acute tracheobronchitis #3Acute hypoxic respiratory failure #4History of coronary artery disease status post bypass grafting #5Troponin elevation, not indicative of myocardial infarction #6Hypertension #7Dyslipidemia #8Pulmonary hypertension #9Chronic kidney disease Plan Cardiology's perspective, patient may be able to be discharged home once cleared by primary and pulmonary perspective. We will make a follow-up appointment in the office with Dr. Jeong post discharge. DNP note has been reviewed, I agree with a documented findings and plan of care. Patient was seen and examined.
[2018-05-06 17:15] LABS: Glucose,Whole Blood 362 mg/dL (75-99)
[2018-05-06 20:33] LABS: Glucose,Whole Blood 430 mg/dL (75-99)
[2018-05-06] MEDS: DOCUSATE 100 MG CAP PO SCH (20:44)
[2018-05-06] MEDS: ATORVASTATIN 80 MG TAB PO SCH (20:45)
[2018-05-06] MEDS: ALPRAZolam 0.25 MG TAB PO PRN (20:55)
--- NOTE | 2018-05-06 22:58 | P.PN ---
Subjective Progress Note Date: 05/06/18 Patient is a pleasant 78-year-old admitted with bilateral pneumonia. She is doing better today she still has a Márquez catheter in which could be discontinued. She is tolerating diet she's ambulating to the bathroom without much difficulty this and questions regarding possible aspiration a modified barium swallow will be ordered today she denies any specific problems. Objective - Vital Signs Vital signs: Vital Signs Temp 97.7 F 05/06/18 08:00 Pulse 80 05/06/18 20:40 Resp 16 05/06/18 16:00 BP 179/80 05/06/18 12:00 Pulse Ox 96 05/06/18 12:00 Intake & Output 05/06/18 05/06/18 05/07/18 06:59 18:59 06:59 Intake Total 240 600 360 Output Total 8100 900 Balance -7860 -300 360 Weight 75.8 kg Intake: Oral 240 600 360 Output: Urine 8100 900 Other: Voiding Method Indwelling Catheter Indwelling Catheter - Exam GENERAL EXAM: Alert, pleasant, 78-year-old female, mildly short of breath, wheezing. On 2 L nasal cannula. HEAD: Normocephalic/atraumatic. EYES: Normal reaction of pupils, equal size. Conjunctiva pink, sclera white. NOSE: Clear with pink turbinates. THROAT: No erythema or exudates. NECK: No masses, no JVD, no thyroid enlargement, no adenopathy. CHEST: No chest wall deformity. Symmetrical expansion. LUNGS: Equal air entry with diffuse wheezes CVS: Regular rate and rhythm, normal S1 and S2, no gallops, no murmurs, no rubs ABDOMEN: Soft, nontender. No hepatosplenomegaly, normal bowel sounds, no guarding or rigidity. EXTREMITIES: No clubbing, no edema, no cyanosis, 2+ pulses and upper and lower extremities. - Labs CBC & Chem 7: 05/06/18 11:32 05/06/18 11:32 Labs: Abnormal Lab Results - Last 24 Hours (Table) 05/06/18 05/06/18 05/06/18 Range/Units 06:20 11:18 11:32 MCH 24.7 L (25.0-35.0) pg MCHC 29.7 L (31.0-37.0) g/dL RDW 16.1 H (11.5-15.5) % Lymphocytes # 0.3 L (1.0-4.8) k/uL Sodium (137-145) mmol/L Chloride (98-107) mmol/L BUN (7-17) mg/dL Glucose (74-99) mg/dL POC Glucose (mg/dL) 277 H 327 H (75-99) mg/dL 05/06/18 05/06/18 05/06/18 Range/Units 11:32 16:42 20:32 MCH (25.0-35.0) pg MCHC (31.0-37.0) g/dL RDW (11.5-15.5) % Lymphocytes # (1.0-4.8) k/uL Sodium 134 L (137-145) mmol/L Chloride 92 L (98-107) mmol/L BUN 37 H (7-17) mg/dL Glucose 310 H (74-99) mg/dL POC Glucose (mg/dL) 362 H 430 H (75-99) mg/dL Microbiology - Last 24 Hours (Table) 05/02/18 19:45 Blood Culture - Preliminary Blood No Growth after 96 hours 05/05/18 12:15 Gram Stain - Preliminary Sputum Sputum Culture - Preliminary Assessment and Plan (1) Acute on chronic systolic CHF (congestive heart failure) Current Visit: Yes Status: Acute Code(s): I50.23 - ACUTE ON CHRONIC SYSTOLIC (CONGESTIVE) HEART FAILURE SNOMED Code(s): 253207384 (2) Pleural effusion Current Visit: Yes Status: Acute Code(s): J90 - PLEURAL EFFUSION, NOT ELSEWHERE CLASSIFIED SNOMED Code(s): 58156047 (3) Pneumonia Current Visit: Yes Status: Acute Code(s): J18.9 - PNEUMONIA, UNSPECIFIED ORGANISM SNOMED Code(s): 955956480 (4) Pulmonary edema Current Visit: Yes Status: Acute Code(s): J81.1 - CHRONIC PULMONARY EDEMA SNOMED Code(s): 12573677 (5) Diabetes Current Visit: No Status: Acute Code(s): E11.9 - TYPE 2 DIABETES MELLITUS WITHOUT COMPLICATIONS SNOMED Code(s): 98791563 (6) HTN (hypertension) Current Visit: No Status: Acute Code(s): I10 - ESSENTIAL (PRIMARY) HYPERTENSION SNOMED Code(s): 62347085 (7) Hyperlipemia Current Visit: No Status: Acute Code(s): E78.5 - HYPERLIPIDEMIA, UNSPECIFIED SNOMED Code(s): 28398488 Plan: Admit patient to hospital for consultation by pulmonary and cardiology. Continue to hydrate cautiously. Continue to follow sugar. Patient's overall prognosis is guarded. Discussed case with patient. Will obtain a modified barium swallow today we'll discontinue Márquez. Anticipate discharge in next 24- 48 hours.
[2018-05-06 23:57] LABS: Glucose,Whole Blood 360 mg/dL (75-99)
[2018-05-07] MEDS: methylPREDNISolone SOD SUCCI 125 MG/2 ML VIAL IV SCH ×2 (00:45→06:23)
[2018-05-07] MEDS: FUROSEMIDE 10 MG/ML 4 ML VIAL IV SCH ×2 (00:45→09:45)
[2018-05-07] MEDS: PROMETHAZ-COD 6.25-10 MG/5 ML 5 ML CUP PO PRN (00:45)
[2018-05-07 06:05] LABS: Glucose,Whole Blood 296 mg/dL (75-99)
[2018-05-07] MEDS: metFORMIN 500 MG TAB PO SCH (06:23)
[2018-05-07] MEDS: INSULIN ASPART (NovoLOG) 100 UNIT/ML VIAL SQ SCH ×2 (06:24→13:10)
[2018-05-07] MEDS: ALBUTEROL NEBULIZED 2.5 MG/3 ML INHALATION SCH ×2 (08:29→11:49)
[2018-05-07] MEDS: BUDESONIDE 1 MG/2 ML NEBU INHALATION SCH (08:29)
[2018-05-07 08:36] VITALS: RESP 18; TEMP 96.7
[2018-05-07] MEDS: LOSARTAN 50 MG TAB PO SCH (09:44)
[2018-05-07] MEDS: SPIRONOLACTONE 25 MG TAB PO SCH (09:44)
[2018-05-07] MEDS: CLOPIDOGREL 75 MG TAB PO SCH (09:44)
[2018-05-07] MEDS: NYSTATIN 100,000 UNIT/GM POWD 15 GM TOPICAL SCH (09:45)
[2018-05-07] MEDS: AZITHROMYCIN 500 MG TAB PO SCH (09:45)
[2018-05-07] MEDS: METOPROLOL TARTRATE 50 MG TAB PO SCH (09:45)
[2018-05-07] MEDS: SENNOSIDES 8.6 MG TAB PO SCH (09:45)
[2018-05-07 11:55] LABS: Glucose,Whole Blood 273 mg/dL (75-99)
[2018-05-07 12:24] VITALS: BP 147/85; PULSE 86
--- NOTE | 2018-05-07 13:09 | P.PN ---
Subjective Progress Note Date: 05/07/18 Principal diagnosis: Acute hypoxic respiratory failure secondary to an acute exacerbation of systolic congestive heart failure, left lower lobe atelectasis, pleural effusion and interstitial edema This is 78-year-old white female patient past medical history of coronary artery disease with history of bypass grafting in 1996, chronic congestive heart failure, diabetes mellitus, hypertension, hyperlipidemia, previous myocardial infarction,osteoarthritis, anxiety. Patient is a lifetime nonsmoker. On 05/02/2018 patient presented to the emergency department for complaints of increased shortness of breath, patient had a upper respiratory tract infection about a week ago, and her symptoms progressed to increased shortness of breath, wheezing, coughing, production of phlegm. Yesterday patient started feeling even worse, and presented to the emergency department for evaluation. No fevers, but did have some subjective chills. Patient sleeps in the recliner on the regular basis. Chest x-ray was completed and showed a new left pleural effusion and left lower lobe density, moderate cardiomegaly. EKG showed normal sinus rhythm with ST and T-wave abnormality in the lateral leads. Lab work was negative for any leukocytosis, initial blood work showed a white blood cell count of 9.7, hemoglobin of 14.3, coagulation profile was within normal limits, electrolytes and renal profile were within normal limits. BNP was elevated at 6240, and had elevation of the third set of troponins, and 0.042. Fluids a screen was negative, and urinalysis showed a large amount of leuk trase, white and red blood cells. Patient has been afebrile, she has been requiring supplemental oxygen, she is quite short of breath, with coughing spells. She was started on a combination of Primaxin and Rocephin, IV diuretics, he believes bronchodilators. She was evaluated by cardiology, echocardiogram has been ordered, and is pending at this time. The patient is seen today 05/04/2017 in follow-up on the selective care unit. She is currently awake and alert in no acute distress. She states she is breathing a bit better today as compared to yesterday. She is maintaining good O2 saturations in the 90s on 2 L/m per nasal cannula. She's been afebrile. Hemodynamically stable. Blood and urine cultures reveal no growth. She is currently on ceftriaxone and azithromycin along with IV diuretics. Today's chest x-ray shows a stable left trace pleural effusion and some left basilar ate lectasis. Echocardiogram is pending. She feels she is having difficulty with urination. Márquez catheter will be placed. On 05/05/2018 patient is seen in follow-up on selective care unit, she is awake and alert, in no acute distress, she is less wheezy and congested, however there still wheezing, and patient is still having some coughing spells although improved. No complaints of chest pain, remains on IV Lasix, and she is in negative fluid balance over the last 24 hours, fluid volume is improving, lower extremity edema is improving, his labs have been reviewed, showed sodium of 134, potassium is 4.4, chloride is 96, BUN is 27, creatinine is 1.03. She is on 2 L per nasal cannula her pulse ox is 96%, she is afebrile, and up much sputum, urine and blood cultures are negative. Antibiotic coverage in the form of azithromycin and Rocephin, nebulized bronchodilators, cough syrup, oral Medrol Dosepak, and this will be switched to IV Solu-Medrol today. On 05/06/2018 patient seen in follow-up on selective care unit, she sits up in the chair, in no acute distress, she still has frequent episodes of coughing, patient had a swallow evaluation done at the bedside, and patient was experiencing sensation of throat tightness, and difficulty swallowing, patient will be evaluated by speech therapy, and modified barium swallow will be obtained. Chest pain, she is afebrile, she is still on 2 L of oxygen and her pulse ox is 96%, lung sounds are diminished, no significant wheezing or rhonchi, no significant congestion. She is on Zithromax, IV Solu-Medrol, nebulized bronchodilators. She remains on IV Solu-Medrol. On 05/07/2018 patient seen in follow-up on selective care unit, she is sitting up in the chair, in no acute distress, her pulse ox of 100%, no worsening shortness of breath or chest pain, patient passed her modified barium swallow, it was a completely normal exam. She continues to diurese, she is in -1350 mL fluid balance last 24 hours. We will transition the patient to oral Lasix, Medrol Dosepak, patient is on oral Zithromax. Breathing is improving, no shortness of breath and less coughing. She has been cleared for discharge to cardiology, she is stable from pulmonary perspective Objective - Vital Signs Vital signs: Vital Signs Temp 96.7 F L 05/07/18 08:35 Pulse 86 05/07/18 12:00 Resp 18 05/07/18 12:00 BP 147/85 05/07/18 12:00 Pulse Ox 100 05/07/18 12:00 Intake & Output 05/06/18 05/07/18 05/07/18 18:59 06:59 18:59 Intake Total 600 600 180 Output Total 900 1650 600 Balance -300 -1050 -420 Weight 75.4 kg Intake: Oral 600 600 180 Output: Urine 900 1650 600 Uretheral (Márquez) 800 Other: Voiding Method Indwelling Catheter Indwelling Catheter - Exam GENERAL EXAM: Alert, pleasant, 78-year-old white female, comfortable in no apparent distress. HEAD: Normocephalic/atraumatic. EYES: Normal reaction of pupils, equal size. Conjunctiva pink, sclera white. NOSE: Clear with pink turbinates. THROAT: No erythema or exudates. NECK: No masses, no JVD, no thyroid enlargement, no adenopathy. CHEST: No chest wall deformity. Symmetrical expansion. LUNGS: Equal air entry with no rhonchi, no wheezing, no rales CVS: Regular rate and rhythm, normal S1 and S2, no gallops, no murmurs, no rubs ABDOMEN: Soft, nontender. No hepatosplenomegaly, normal bowel sounds, no guarding or rigidity. EXTREMITIES: No clubbing, mild lower extremity edema, no cyanosis, 2+ pulses and upper and lower extremities. MUSCULOSKELETAL: Muscle strength and tone normal. SPINE: No scoliosis or deformity SKIN: No rashes CENTRAL NERVOUS SYSTEM: Alert and oriented -3. No focal deficits, tone is normal in all 4 extremities. PSYCHIATRIC: Alert and oriented -3. Appropriate affect. Intact judgment and insight. - Labs CBC & Chem 7: 05/06/18 11:32 05/06/18 11:32 Labs: Abnormal Lab Results - Last 24 Hours (Table) 05/06/18 05/06/18 05/06/18 Range/Units 16:42 20:32 23:56 POC Glucose (mg/dL) 362 H 430 H 360 H (75-99) mg/dL 05/07/18 05/07/18 Range/Units 06:04 11:53 POC Glucose (mg/dL) 296 H 273 H (75-99) mg/dL Microbiology - Last 24 Hours (Table) 05/05/18 12:15 Gram Stain - Final Sputum Sputum Culture - Final 05/02/18 19:45 Blood Culture - Preliminary Blood No Growth after 96 hours Assessment and Plan Plan: Assessment: #1. Acute hypoxemic respiratory failure related to acute exacerbation of congestive heart failure with systolic dysfunction, with previously documented EF of 30-35%. Chest X-ray showed cardiomegaly, left lower lobe atelectasis, and possible pleural effusion, there is also a component of interstitial edema. #2. Acute tracheobronchitis #3. Possible urinary tract infection #4. History of coronary artery disease, status post bypass grafting back in 1996 #5. Moderate pulmonary hypertension #6. Diabetes mellitus type 2 #7. Hypertension, hyperlipidemia, previous episode of myocardial infarction #8. Chronic kidney disease, stage III #9. History of CVA with subsequent vision impairment #10. Anxiety #11. Dysphasia Plan: Patient is doing well, has been diuresed, she is less short of breath, less coughing, no chest congestion, no fever or chills, she has been cleared for discharge by cardiology, she stable for discharge from pulmonary perspective as well. We will transition to oral Medrol Dosepak, oral Lasix 40 mg daily, patient can finish outpatient course of Zithromax. Follow-up with Dr. Miles in the office in 7-10 days I performed a history & physical examination of the patient and discussed their management with my nurse practitioner, Poly Saez. I reviewed the nurse practitioner's note and agree with the documented findings and plan of care. Lung sounds are positive for diminished breath sounds and rhonchi. The findings and the impression was discussed with the patient. I attest to the documentation by the nurse practitioner. Time with Patient: Less than 30
--- NOTE | 2018-05-07 14:03 | P.PN ---
Subjective Progress Note Date: 05/07/18 This is a pleasant 78-year-old female past medical history significant for coronary artery disease, ischemic cardiomyopathy, hypertension, dyslipidemia, peripheral vascular disease and diabetes mellitus. She follows in the office with Dr. Jeong. Admitted to the hospital with thick mild congestive heart failure with associated tracheobronchitis. Blood pressure today 178/80 with a heart rate in the 70s, 96% on 2 L of oxygen. Blood cell count 8.5, hemoglobin 13.3, platelet count 281. Sodium 134, potassium 4.0, BUN 37 and creatinine 0.9. 05/07/2018 Patient seen and examined today, overall feeling well. Breathing is stable, still has a mild cough. From our perspective she should be able to be discharged home today if she is cleared by her primary. We'll make her a follow-up appointment with Dr. Johnson in the office post discharge. Objective - Vital Signs Vital signs: Vital Signs Temp 96.7 F L 05/07/18 08:35 Pulse 86 05/07/18 12:00 Resp 18 05/07/18 12:00 BP 147/85 05/07/18 12:00 Pulse Ox 100 05/07/18 12:00 Intake & Output 05/06/18 05/07/18 05/07/18 18:59 06:59 18:59 Intake Total 600 600 420 Output Total 900 1650 600 Balance -300 -1050 -180 Weight 75.4 kg Intake: Oral 600 600 420 Output: Urine 900 1650 600 Uretheral (Márquez) 800 Other: Voiding Method Indwelling Catheter Indwelling Catheter # Voids 1 - Exam GENERAL: Well-appearing, well-nourished and in no acute distress. NECK: Supple without JVD or thyromegaly. LUNGS: Expiratory wheezes noted as well as scattered rhonchi. No rales. Respiration equal and unlabored. HEART: Regular rate and rhythm without murmurs, rubs or gallops. S1 and S2 heard. EXTREMITIES: Normal range of motion, trace bilateral lower extremity nonpitting edema. No clubbing or cyanosis. Peripheral pulses intact. - Labs CBC & Chem 7: 05/06/18 11:32 05/06/18 11:32 Labs: Abnormal Lab Results - Last 24 Hours (Table) 05/06/18 05/06/18 05/06/18 Range/Units 16:42 20:32 23:56 POC Glucose (mg/dL) 362 H 430 H 360 H (75-99) mg/dL 05/07/18 05/07/18 Range/Units 06:04 11:53 POC Glucose (mg/dL) 296 H 273 H (75-99) mg/dL Microbiology - Last 24 Hours (Table) 05/05/18 12:15 Gram Stain - Final Sputum Sputum Culture - Final 05/02/18 19:45 Blood Culture - Preliminary Blood No Growth after 96 hours Assessment and Plan Plan: ASSESSMENT #1Acute on chronic systolic heart failure #2Acute tracheobronchitis #3Acute hypoxic respiratory failure #4History of coronary artery disease status post bypass grafting #5Troponin elevation, not indicative of myocardial infarction #6Hypertension #7Dyslipidemia #8Pulmonary hypertension #9Chronic kidney disease Plan Cardiology's perspective, patient may be able to be discharged home once cleared by primary and pulmonary perspective. We will make a follow-up appointment in the office with Dr. Jeong post discharge. DNP note has been reviewed, I agree with a documented findings and plan of care. Patient was seen and examined.
--- NOTE | 2018-05-07 22:03 | P.DS ---
Providers Date of admission: 05/02/18 21:09 Expected date of discharge: 05/07/18 Attending physician: Jethro Troy Consults: 05/02/18 21:09 Consult Physician Routine Consulting Provider: [facility] Consult Reason/Comments: Chest pain, pulmonary edema Do you want consulting provider notified?: Yes 05/03/18 11:28 Consult Physician Routine Consulting Provider: Kwan Sparrow Consult Reason/Comments: pleural effusion, pneumonia, SOB Do you want consulting provider notified?: Yes Primary care physician: Jethro Troy - Discharge Diagnosis(es) (1) Acute on chronic systolic CHF (congestive heart failure) Status: Acute (2) Pleural effusion Status: Acute (3) Pneumonia Status: Acute (4) Pulmonary edema Status: Acute (5) Diabetes Status: Acute (6) HTN (hypertension) Status: Acute (7) Hyperlipemia Status: Acute Hospital Course: This is a 78-year-old white female who was admitted to the hospital to keep acute shortness of breath related to multifactorial factors including exacerbation of congestive heart failure and acute community acquired pneumonia. Patient was seen by cardiology and pulmonary medicine placed on appropriate antibiotics she is doing well and wanted to be discharged today during her stay she had a Márquez catheter that was removed and we'll await tissue voids until sending her home. Patient Condition at Discharge: Stable Plan - Discharge Summary Discharge Rx Participant: Yes New Discharge Prescriptions: New Spironolactone [Aldactone] 12.5 mg PO DAILY #60 tab Losartan [Cozaar] 50 mg PO DAILY #60 tab Furosemide [Lasix] 40 mg PO DAILY tab methylPREDNISolone Dose Pack [Medrol Dose Pack] 24 mg PO DAILY #1 tab Azithromycin [Zithromax] 500 mg PO DAILY tab Continue Metoprolol Tartrate [Lopressor] 50 mg PO BID Clopidogrel [Plavix] 75 mg PO DAILY Atorvastatin [Lipitor] 80 mg PO HS #30 tab Triamcinolone 0.025% Cream [Kenalog 0.025% Cream] 1 applic TOPICAL BID Sennosides [Senokot] 8.6 mg PO DAILY Nystatin 100,000 Unit/gm Powd [Mycostatin Powder] 1 applic TOPICAL TID Nitroglycerin Sl Tabs [Nitrostat] 0.4 mg SUBLINGUAL Q5M PRN PRN Reason: Chest Pain metFORMIN HCL [Glucophage] 250 mg PO AC-BID Furosemide [Lasix] 40 mg PO DAILY Docusate [Colace] 100 mg PO HS Clotrimazole/Betameth Lotion [Lotrisone] 1 applic TOPICAL BID Albuterol Nebulized [Ventolin Nebulized] 2.5 mg INHALATION RT-QID PRN PRN Reason: Shortness Of Breath Azithromycin [Zithromax Z-pack] See Taper PO DIRECTED Discontinued Lisinopril 40 mg PO DAILY Ibuprofen [Motrin] 600 mg PO Q8H PRN PRN Reason: Pain Discharge Medication List Clopidogrel [Plavix] 75 mg PO DAILY 05/13/15 [History] Metoprolol Tartrate [Lopressor] 50 mg PO BID 05/13/15 [History] Atorvastatin [Lipitor] 80 mg PO HS #30 tab 03/27/16 [Rx] Albuterol Nebulized [Ventolin Nebulized] 2.5 mg INHALATION RT-QID PRN 04/22/18 [History] Clotrimazole/Betameth Lotion [Lotrisone] 1 applic TOPICAL BID 04/22/18 [History] Docusate [Colace] 100 mg PO HS 04/22/18 [History] Furosemide [Lasix] 40 mg PO DAILY 04/22/18 [History] Nitroglycerin Sl Tabs [Nitrostat] 0.4 mg SUBLINGUAL Q5M PRN 04/22/18 [History] Nystatin 100,000 Unit/gm Powd [Mycostatin Powder] 1 applic TOPICAL TID 04/22/18 [History] Sennosides [Senokot] 8.6 mg PO DAILY 04/22/18 [History] Triamcinolone 0.025% Cream [Kenalog 0.025% Cream] 1 applic TOPICAL BID 04/22/18 [History] metFORMIN HCL [Glucophage] 250 mg PO AC-BID 04/22/18 [History] Azithromycin [Zithromax Z-pack] See Taper PO DIRECTED 05/02/18 [History] Azithromycin [Zithromax] 500 mg PO DAILY tab 05/07/18 [Rx] Furosemide [Lasix] 40 mg PO DAILY tab 05/07/18 [Rx] Losartan [Cozaar] 50 mg PO DAILY #60 tab 05/07/18 [Rx] Spironolactone [Aldactone] 12.5 mg PO DAILY #60 tab 05/07/18 [Rx] methylPREDNISolone Dose Pack [Medrol Dose Pack] 24 mg PO DAILY #1 tab 05/07/18 [Rx] Follow up Appointment(s)/Referral(s): Kwan Sparrow MD [STAFF PHYSICIAN] - 05/28/18 10:45 am Roxana Jeong MD [STAFF PHYSICIAN] - 05/21/18 10:15 am Jethro Troy DO [Primary Care Provider] - 05/10/18 2:40 pm (Sunday) [facility] [NON-STAFF] - Patient Instructions/Handouts: Heart Failure (DC), Pleural Effusion (DC), Acute Urinary Retention in Women (ED), Pneumonia (DC) Activity/Diet/Wound Care/Special Instructions: Pulmonary recommendations: Finish home dose of azithromycin, medrol dose pack and lasix 40mg daily. Discharge Disposition: HOME WITH HOME HEALTH SERVICES
[2018-05-08] MEDS ORDERED: FUROSEMIDE 40 MG TAB PO SCH (09:00)
[2018-05-08] MEDS ORDERED: methylPREDNISolone 4 MG TAB TAPER PO SCH (09:00)
== END 2018-05-07 14:47 | disposition home health service (06) | DRG 291 ==
LOC: EC 19:17 → 3SCARD 21:09
PROVIDERS: ADMIT Family Medicine; ATTEND Family Medicine
DX: I13.0 Hypertensive heart and chronic kidney disease with heart failure and stage 1 through stage 4 chronic kidney disease, or unspecified chronic kidney disease (principal); I50.23 Acute on chronic systolic (congestive) heart failure; J18.9 Pneumonia, unspecified organism; J96.01 Acute respiratory failure with hypoxia; J98.11 Atelectasis; N39.0 Urinary tract infection, site not specified; E11.22 Type 2 diabetes mellitus with diabetic chronic kidney disease; E11.51 Type 2 diabetes mellitus with diabetic peripheral angiopathy without gangrene; E78.5 Hyperlipidemia, unspecified; F41.9 Anxiety disorder, unspecified; I69.398 Other sequelae of cerebral infarction; H53.9 Unspecified visual disturbance; I25.10 Atherosclerotic heart disease of native coronary artery without angina pectoris; I25.2 Old myocardial infarction; I25.5 Ischemic cardiomyopathy; I27.20 Pulmonary hypertension, unspecified; J20.9 Acute bronchitis, unspecified; N18.3 Chronic kidney disease, stage 3 (moderate); R13.10 Dysphagia, unspecified; R47.02 Dysphasia; Z66 Do not resuscitate; Z79.02 Long term (current) use of antithrombotics/antiplatelets; Z79.82 Long term (current) use of aspirin; Z79.84 Long term (current) use of oral hypoglycemic drugs; Z79.899 Other long term (current) drug therapy; Z80.0 Family history of malignant neoplasm of digestive organs; Z80.49 Family history of malignant neoplasm of other genital organs; Z82.49 Family history of ischemic heart disease and other diseases of the circulatory system; Z83.3 Family history of diabetes mellitus; Z85.42 Personal history of malignant neoplasm of other parts of uterus; Z90.710 Acquired absence of both cervix and uterus; Z91.19 Patient's noncompliance with other medical treatment and regimen; Z95.1 Presence of aortocoronary bypass graft; Z96.651 Presence of right artificial knee joint; R74.8 Abnormal levels of other serum enzymes; Z60.2 Problems related to living alone; M19.90 Unspecified osteoarthritis, unspecified site; H26.9 Unspecified cataract; Z88.0 Allergy status to penicillin; Z91.040 Latex allergy status; R56.9 Unspecified convulsions; M48.061 Spinal stenosis, lumbar region without neurogenic claudication; K59.09 Other constipation; Z95.5 Presence of coronary angioplasty implant and graft; Z79.52 Long term (current) use of systemic steroids
CPT/HCPCS: 36415; 71045; 71046; 74230; 80048; 80053; 81001; 83605; 83735; 83880; 84484; 85025; 85610; 85730; 87040; 87070; 87086; 87205; 87502; 93005; 93306; 94640; 94760; 96365; 96375; 99291

== ENCOUNTER 2018-05-20 19:31 | Inpatient (IN) | payer MEDICARE, BC ==
[2018-05-20] MEDS ORDERED: ALBUTEROL NEBULIZED 2.5 MG/3 ML INHALATION STA (21:08)
[2018-05-20] MEDS ORDERED: IPRATROPIUM 0.5 MG/2.5 ML NEBU INHALATION STA (21:08)
[2018-05-20 21:21] LABS: Anisocytosis Slight; Basophils % (A) 1 %; Eosinophils # (A) 0.2 k/uL (0-0.7); Eosinophils % (A) 2 %; HCT 43.9 % (34.0-46.0); HGB 13.4 gm/dL (11.4-16.0); Hypochromasia Marked; Lymphocytes % (A) 11 %; MCH 24.8 pg (25.0-35.0); MCHC 30.5 g/dL (31.0-37.0); MCV 81.4 fL (80.0-100.0); Mean Platelet Volume 7.5; Monocytes # (A) 0.8 k/uL (0-1.0); Monocytes % (A) 8 %; Neutrophils # (A) 6.9 k/uL (1.3-7.7); Neutrophils % (A) 76 %; Platelet Count 354 k/uL (150-450); WBC 9.1 k/uL (3.8-10.6)
--- NOTE | 2018-05-20 21:31 | ED ---
SOB HPI - General Source: patient, family Limitations: physical limitation <Maria Isabel Arriaza - Last Filed: 05/20/18 23:58> <Dipak Maynard - Last Filed: 05/21/18 08:48> - General Chief Complaint: Shortness of Breath Stated Complaint: Cough, weakness, NANCY Time Seen by Provider: 05/20/18 20:48 - History of Present Illness Initial Comments: This is a 78-year-old female patient who is recently admitted for exacerbation of CHF and acute community-acquired pneumonia. Patient presents to the emergency department today for evaluation of worsening dyspnea. States that for the last 3 days symptoms seem to have been worsening. States she's had increased swelling to her lower extremities. Patient states she is unable to ambulate due to increased work of breathing. Patient states that she becomes more short of breath with lying flat. States she has been coughing. States she has been having intermittent fevers. She is coughing up sputum but denies any hemoptysis. Patient denies any recent rash, abdominal pain, nausea, vomiting, d iarrhea, constipation, back pain, numbness, tingling, dizziness, weakness, hematuria, dysuria, urinary urgency, urinary frequency, headache, visual changes, or any other complaints. (Maria Isabel Arriaza) - Related Data Home Medications Medication Instructions Recorded Confirmed Clopidogrel [Plavix] 75 mg PO DAILY 05/13/15 05/20/18 Metoprolol Tartrate [Lopressor] 50 mg PO BID 05/13/15 05/20/18 Albuterol Nebulized [Ventolin 2.5 mg INHALATION RT-QID PRN 04/22/18 05/20/18 Nebulized] Clotrimazole/Betameth Lotion 1 applic TOPICAL BID 04/22/18 05/20/18 [Lotrisone] Docusate [Colace] 100 mg PO HS 04/22/18 05/20/18 Nitroglycerin Sl Tabs [Nitrostat] 0.4 mg SUBLINGUAL Q5M PRN 04/22/18 05/20/18 Nystatin 100,000 Unit/gm Powd 1 applic TOPICAL TID 04/22/18 05/20/18 [Mycostatin Powder] Sennosides [Senokot] 8.6 mg PO DAILY 04/22/18 05/20/18 Triamcinolone 0.025% Cream 1 applic TOPICAL BID 04/22/18 05/20/18 [Kenalog 0.025% Cream] metFORMIN HCL [Glucophage] 250 mg PO AC-BID 04/22/18 05/20/18 Previous Rx's Medication Instructions Recorded Atorvastatin [Lipitor] 80 mg PO HS #30 tab 03/27/16 Furosemide [Lasix] 40 mg PO DAILY tab 05/07/18 Losartan [Cozaar] 50 mg PO DAILY #60 tab 05/07/18 Spironolactone [Aldactone] 12.5 mg PO DAILY #60 tab 05/07/18 Allergies Allergy/AdvReac Type Severity Reaction Status Date / Time adhesive tape Allergy Rash/Hives Verified 05/20/18 20:41 latex Allergy Swelling Verified 05/20/18 20:41 Penicillins Allergy Anaphylaxis Verified 05/20/18 20:41 Review of Systems ROS Other: All systems not noted in ROS Statement are negative. <Maria Isabel Arriaza - Last Filed: 05/20/18 23:58> ROS Other: All systems not noted in ROS Statement are negative. <Dipak Maynard - Last Filed: 05/21/18 08:48> ROS Statement: Those systems with pertinent positive or pertinent negative responses have been documented in the HPI. Past Medical History Past Medical History: Coronary Artery Disease (CAD), Cancer, Heart Failure, Diabetes Mellitus, Hyperlipidemia, Hypertension, Myocardial Infarction ([place]), Osteoarthritis (OA), Renal Disease Additional Past Medical History / Comment(s): pt is right side dominant.BACK PAIN; 05/13/15 stent to the Left main and SVG to the Diagonal. Cataract on left eye; "needs a cornea transplant on left eye". Uterine Cancer.ANEMIA,LUMBAR SPINAL STENOSIS,CHRONIC CONSTIPATION, SEIZURE 03-23-16 Last Myocardial Infarction Date:: 05/13/15 History of Any Multi-Drug Resistant Organisms: None Reported Past Surgical History: Cholecystectomy, Coronary Bypass/CABG, Heart Catheterization With Stent, Hysterectomy, Joint Replacement, Orthopedic Surgery Additional Past Surgical History / Comment(s): 1996 CABG. Right Knee replacement 1954 Past Anesthesia/Blood Transfusion Reactions: No Reported Reaction Date of Last Stent Placement:: 05/13/15 Past Psychological History: Anxiety Smoking Status: Never smoker Past Alcohol Use History: None Reported Past Drug Use History: None Reported - Past Family History Father Family Medical History: Cancer, Coronary Artery Disease (CAD), Diabetes Mellitus, Myocardial Infarction ([place]) Additional Family Medical History / Comment(s): pancreas cancer Mother Family Medical History: Cancer Additional Family Medical History / Comment(s): Uterine cancer <Maria Isabel Arriaza M - Last Filed: 05/20/18 23:58> General Exam Limitations: physical limitation General appearance: alert, in no apparent distress, other (Physical well- developed, well-nourished elderly female patient in no acute distress. Vital signs upon presentation are temperature 99.1F, pulse 88, respirations 16, blood pressure 145/84, pulse ox 98% on room air.) Eye exam: Present: normal appearance, PERRL, EOMI. Absent: scleral icterus, conjunctival injection, periorbital swelling ENT exam: Present: normal exam, normal oropharynx, mucous membranes moist Respiratory exam: Absent: normal lung sounds bilaterally, respiratory distress, wheezes, rales, rhonchi (rhonchi to the bilateral lung bases.), stridor Cardiovascular Exam: Present: regular rate, normal rhythm, normal heart sounds. Absent: systolic murmur, diastolic murmur, rubs, gallop, clicks GI/Abdominal exam: Present: soft, normal bowel sounds. Absent: distended, tenderness, guarding, rebound, rigid Neurological exam: Present: alert, oriented X3, CN II-XII intact Psychiatric exam: Present: normal affect, normal mood Skin exam: Present: warm, dry, intact, normal color. Absent: rash <SofiyaMaria Isabel M - Last Filed: 05/20/18 23:58> Course Vital Signs 05/20/18 05/20/18 05/20/18 20:00 21:17 21:35 Temperature 99.1 F Pulse Rate 88 91 Respiratory 16 20 Rate Blood Pressure 145/84 O2 Sat by Pulse 98 Oximetry 05/20/18 05/20/18 05/20/18 21:55 21:57 22:13 Temperature Pulse Rate 94 93 91 Respiratory 22 Rate Blood Pressure 179/90 O2 Sat by Pulse 99 Oximetry 05/20/18 05/21/18 23:50 00:03 Temperature Pulse Rate 91 87 Respiratory 18 18 Rate Blood Pressure 151/75 145/82 O2 Sat by Pulse 99 97 Oximetry Medical Decision Making - Lab Data Result diagrams: 05/20/18 21:05/20/18 21:01 - EKG Data -: EKG Interpreted by [facility] - Radiology Data Radiology results: report reviewed, image reviewed <Maria Isabel Arriaza - Last Filed: 05/20/18 23:58> - Lab Data Result diagrams: 05/20/18 21:01 05/20/18 21:01 <Dipak Maynard - Last Filed: 05/21/18 08:48> - Medical Decision Making 78-year-old female patient presents to the emergency department today for evaluation of increasing dyspnea over the last 2 days. Physical examination did reveal rhonchi to the bilateral lower lobes. Labs reviewed and did reveal elevated BUN and creatinine. Troponin 0.033, BNP 7310. Upon reevaluation patient continues to report dyspnea does not feel couple being discharged home. We'll admit with IV Lasix. We'll repeat troponins. Cardiology will be consulted. (Maria Isabel Arriaza) I saw this patient in conjunction with the physician anesthetic assistant. I performed independent history and physical exam. Agree with case management. (Dipak Maynard) - Lab Data Lab Results 05/20/18 05/20/18 05/20/18 Range/Units 21:01 21:01 21:01 WBC 9.1 (3.8-10.6) k/uL RBC 5.40 (3.80-5.40) m/uL Hgb 13.4 (11.4-16.0) gm/dL Hct 43.9 (34.0-46.0) % MCV 81.4 (80.0-100.0) fL MCH 24.8 L (25.0-35.0) pg MCHC 30.5 L (31.0-37.0) g/dL RDW 17.0 H (11.5-15.5) % Plt Count 354 (150-450) k/uL Neutrophils % 76 % Lymphocytes % 11 % Monocytes % 8 % Eosinophils % 2 % Basophils % 1 % Neutrophils # 6.9 (1.3-7.7) k/uL Lymphocytes # 1.0 (1.0-4.8) k/uL Monocytes # 0.8 (0-1.0) k/uL Eosinophils # 0.2 (0-0.7) k/uL Basophils # 0.0 (0-0.2) k/uL Hypochromasia Marked Anisocytosis Slight PT (9.0-12.0) sec INR (<1.2) APTT (22.0-30.0) sec Sodium 136 L (137-145) mmol/L Potassium 5.0 (3.5-5.1) mmol/L Chloride 105 (98-107) mmol/L Carbon Dioxide 21 L (22-30) mmol/L Anion Gap 10 mmol/L BUN 28 H (7-17) mg/dL Creatinine 1.17 H (0.52-1.04) mg/dL Est GFR (CKD-EPI)AfAm 52 (>60 ml/min/1.73 sqM) Est GFR (CKD-EPI)NonAf 45 (>60 ml/min/1.73 sqM) Glucose 152 H (74-99) mg/dL Calcium 9.5 (8.4-10.2) mg/dL Total Bilirubin 2.0 H (0.2-1.3) mg/dL AST 33 (14-36) U/L ALT 25 (9-52) U/L Alkaline Phosphatase 145 H (38-126) U/L Troponin I (0.000-0.034) ng/mL NT-Pro-B Natriuret Pep 7310 pg/mL Total Protein 6.5 (6.3-8.2) g/dL Albumin 3.8 (3.5-5.0) g/dL 05/20/18 05/20/18 Range/Units 21:01 21:01 WBC (3.8-10.6) k/uL RBC (3.80-5.40) m/uL Hgb (11.4-16.0) gm/dL Hct (34.0-46.0) % MCV (80.0-100.0) fL MCH (25.0-35.0) pg MCHC (31.0-37.0) g/dL RDW (11.5-15.5) % Plt Count (150-450) k/uL Neutrophils % % Lymphocytes % % Monocytes % % Eosinophils % % Basophils % % Neutrophils # (1.3-7.7) k/uL Lymphocytes # (1.0-4.8) k/uL Monocytes # (0-1.0) k/uL Eosinophils # (0-0.7) k/uL Basophils # (0-0.2) k/uL Hypochromasia Anisocytosis PT 11.1 (9.0-12.0) sec INR 1.0 (<1.2) APTT 21.9 L (22.0-30.0) sec Sodium (137-145) mmol/L Potassium (3.5-5.1) mmol/L Chloride (98-107) mmol/L Carbon Dioxide (22-30) mmol/L Anion Gap mmol/L BUN (7-17) mg/dL Creatinine (0.52-1.04) mg/dL Est GFR (CKD-EPI)AfAm (>60 ml/min/1.73 sqM) Est GFR (CKD-EPI)NonAf (>60 ml/min/1.73 sqM) Glucose (74-99) mg/dL Calcium (8.4-10.2) mg/dL Total Bilirubin (0.2-1.3) mg/dL AST (14-36) U/L ALT (9-52) U/L Alkaline Phosphatase (38-126) U/L Troponin I 0.033 (0.000-0.034) ng/mL NT-Pro-B Natriuret Pep pg/mL Total Protein (6.3-8.2) g/dL Albumin (3.5-5.0) g/dL - EKG Data EKG Comments: EKG obtained at 2122 shows normal sinus rhythm with a ventricular rate of 86, GA interval 152, QRS duration 114, QTC 386, QTc 461. No evidence of ST elevation or depression. (Maria Isabel Arriaza) - Radiology Data Two-view x-ray of the chest is obtained. Report was reviewed in its entirety. Impression by Dr. Katherine De Leon shows redemonstration of the partial left lower lobe atelectasis and small left pleural effusion. (Maria Isabel Arriaza) Disposition Decision to Admit Reason: Admit from EC Decision Date: 05/20/18 Decision Time: 23:29 <Maria Isabel Arriaza - Last Filed: 05/20/18 23:58> <Dipak Maynard - Last Filed: 05/21/18 08:48> Clinical Impression: CHF exacerbation Disposition: ADMITTED IP TO THIS [facility] Condition: Serious
[2018-05-20 21:35] LABS: Prothrombin Time 11.1 sec (9.0-12.0)
[2018-05-20 21:39] LABS: Partial Thromboplastin Time 21.9 sec (22.0-30.0)
--- NOTE | 2018-05-20 21:43 | XR ---
EXAMINATION: XR chest 2V DATE AND TIME: 05/20/2018 9:17 PM CLINICAL INDICATION: PHH; difficulty breathing TECHNIQUE: Departmental protocol COMPARISON: 05/04/2018 FINDINGS: There is partial airlessness in the left lower lobe, which appears similar to the prior study. The blanquita ngs are otherwise clear. Blunted left costophrenic angle and mildly elevated left hemidiaphragm redemonstrated. The pleural sp aces are otherwise negative. The cardiac silhouette is markedly enlarged. Sternal sutures and mediastinal clips. Thoracic aorta is prominently tortuous. The skeletal structures and soft tissues are negative for acute findings. IMPRESSION: Redemonstration of the partial left lower lobe airlessness and small left pleural effusion.
[2018-05-20 21:45] LABS: Albumin 3.8 g/dL (3.5-5.0); Calcium 9.5 mg/dL (8.4-10.2); Total Protein 6.5 g/dL (6.3-8.2)
[2018-05-20] MEDS ORDERED: NALOXONE 0.4 MG/ML 1 ML VIAL IV PRN (23:29)
[2018-05-20] MEDS ORDERED: FUROSEMIDE 10 MG/ML 4 ML VIAL IV STA (23:30)
[2018-05-20] MEDS ORDERED: NITROGLYCERIN SL TABS 0.4 MG TAB SUBLINGUAL PRN (23:56)
[2018-05-21 07:05] LABS: Glucose,Whole Blood 116 mg/dL (75-99)
[2018-05-21] MEDS: metFORMIN 500 MG TAB PO SCH ×2 (08:01→17:24)
[2018-05-21] MEDS: SPIRONOLACTONE 25 MG TAB PO SCH (08:03)
[2018-05-21] MEDS: SENNOSIDES 8.6 MG TAB PO SCH (08:03)
[2018-05-21] MEDS: CLOPIDOGREL 75 MG TAB PO SCH (08:03)
[2018-05-21] MEDS: METOPROLOL TARTRATE 50 MG TAB PO SCH ×2 (08:04→21:35)
[2018-05-21] MEDS: CLOTRIMAZOLE/BETAMETH 1-0.05% LOTION 30 ML BTL TOPICAL SCH ×2 (08:05→21:35)
[2018-05-21] MEDS: NYSTATIN 100,000 UNIT/GM POWD 15 GM TOPICAL SCH ×3 (08:06→21:35)
[2018-05-21] MEDS: TRIAMCINOLONE ACET 0.1% OINTMENT 15 GM TUBE TOPICAL SCH ×2 (08:06→21:35)
[2018-05-21] MEDS: FUROSEMIDE 10 MG/ML 4 ML VIAL IV SCH ×2 (08:06→21:44)
[2018-05-21] MEDS ORDERED: LOSARTAN 50 MG TAB PO SCH (09:00)
[2018-05-21] MEDS: ALBUTEROL NEBULIZED 2.5 MG/3 ML INHALATION PRN ×2 (09:19→16:01)
[2018-05-21 12:12] LABS: Glucose,Whole Blood 122 mg/dL (75-99)
[2018-05-21 13:30] VITALS: BMI 70.1
--- NOTE | 2018-05-21 14:02 | P.HPIM ---
History of Present Illness this is a pleasant 78 years old female with past medical history of congestive heart failure, diabetes mellitus, hyperlipidemia, hypertension, coronary artery disease, chronic back pain, history uterine cancer.she is a patient of Dr. Troy in the outpatient setting.patient presents with progressive dyspnea over one week associated with paroxysmal nocturnal dyspnea and orthopnea, patient now is sleeping on 2 extra pillows, and using the Rhino more often. She has dry cough, and she has worsening leg swelling. However she denies chest pain. Also patient complaining of from pain in her left leg is some tenderness. She uses P lavix at home but not aspirin, and she is not on home oxygen. on admission Vitas looks stable.patient admission has moderately elevated troponin at 0.04 and 0.03. CBC is unremarkable. Sodium 136, creatinine 1.17, total bilirubin is 2.0, liver enzymes are within normal limits.proBNP is 7300. Chest x-ray showing left lower lobe consolidation with left pleural effusion, small.EKG: Normal sinus rhythm at 86, no significant ST-T changes,in the emergency room patient got a breathing treatment and 1 dose of Lasix 40 mg. Patient currently on Lasix 40 mg IV every 12 hours,he is on Plavix. Review of Systems CONSTITUTIONAL: No fever, no malaise, no fatigue. HEENT: No recent visual problems or hearing problems. Denied any sore throat. CARDIOVASCULAR: no palpitations, no syncope. PULMONARY: no hemoptysis. GASTROINTESTINAL: No diarrhea, no nausea, no vomiting, no abdominal pain. Normoactive bowel sounds. NEUROLOGICAL: No headaches, no weakness, no numbness. HEMATOLOGICAL: Denies any bleeding or petechiae. GENITOURINARY: Denies any burning micturition, frequency, or urgency. MUSCULOSKELETAL/RHEUMATOLOGICAL: Denies any joint pain, swelling, or any muscle pain. ENDOCRINE: Denies any polyuria or polydipsia. Past Medical History Past Medical History: Coronary Artery Disease (CAD), Cancer, Heart Failure, Diabetes Mellitus, Hyperlipidemia, Hypertension, Myocardial Infarction (MS), Osteoarthritis (OA), Renal Disease Additional Past Medical History / Comment(s): pt is right side dominant.BACK PAIN; 05/13/15 stent to the Left main and SVG to the Diagonal. Cataract on left eye; "needs a cornea transplant on left eye". Uterine Cancer.ANEMIA,LUMBAR SPINAL STENOSIS,CHRONIC CONSTIPATION, SEIZURE 1--17 Last Myocardial Infarction Date:: 05/13/15 History of Any Multi-Drug Resistant Organisms: None Reported Past Surgical History: Cholecystectomy, Coronary Bypass/CABG, Heart Catheter ization With Stent, Hysterectomy, Joint Replacement, Orthopedic Surgery Additional Past Surgical History / Comment(s): 1996 CABG. Right Knee replacement 1954 Past Anesthesia/Blood Transfusion Reactions: No Reported Reaction Date of Last Stent Placement:: 05/13/15 Past Psychological History: Anxiety Additional Psychological History / Comment(s): pt lives alone in single level home that has 4 porch steps. uses walker when up. does'nt drive anymore-daughter or son take to [employer]. also has a glucometer-her daughter comes to check bs 2x a week. receives meals on wheels. Smoking Status: Never smoker Past Alcohol Use History: None Reported Past Drug Use History: None Reported - Past Family History Father Family Medical History: Cancer, Coronary Artery Disease (CAD), Diabetes Mellitus, Myocardial Infarction (MS) Additional Family Medical History / Comment(s): pancreas cancer Mother Family Medical History: Cancer Additional Family Medical History / Comment(s): Uterine cancer Medications and Allergies Home Medications Medication Instructions Recorded Confirmed Type Clopidogrel [Plavix] 75 mg PO DAILY 05/13/15 05/20/18 History Metoprolol Tartrate [Lopressor] 50 mg PO BID 05/13/15 05/20/18 History Atorvastatin [Lipitor] 80 mg PO HS #30 tab 03/27/16 05/20/18 Rx Albuterol Nebulized [Ventolin 2.5 mg INHALATION RT-QID PRN 04/22/18 05/20/18 History Nebulized] Clotrimazole/Betameth Lotion 1 applic TOPICAL BID 04/22/18 05/20/18 History [Lotrisone] Docusate [Colace] 100 mg PO HS 04/22/18 05/20/18 History Nitroglycerin Sl Tabs [Nitrostat] 0.4 mg SUBLINGUAL Q5M PRN 04/22/18 05/20/18 History Nystatin 100,000 Unit/gm Powd 1 applic TOPICAL TID 04/22/18 05/20/18 History [Mycostatin Powder] Sennosides [Senokot] 8.6 mg PO DAILY 04/22/18 05/20/18 History Triamcinolone 0.025% Cream 1 applic TOPICAL BID 04/22/18 05/20/18 History [Kenalog 0.025% Cream] metFORMIN HCL [Glucophage] 250 mg PO AC-BID 04/22/18 05/20/18 History Furosemide [Lasix] 40 mg PO DAILY tab 05/07/18 05/20/18 Rx Losartan [Cozaar] 50 mg PO DAILY #60 tab 05/07/18 05/20/18 Rx Spironolactone [Aldactone] 12.5 mg PO DAILY #60 tab 05/07/18 05/20/18 Rx Allergies Allergy/AdvReac Type Severity Reaction Status Date / Time adhesive tape Allergy Rash/Hives Verified 05/20/18 20:41 latex Allergy Swelling Verified 05/20/18 20:41 Penicillins Allergy Anaphylaxis Verified 05/20/18 20:41 Physical Exam Vitals: Vital Signs Temp Pulse Pulse Resp BP BP Pulse Ox 05/21/18 09:34 80 05/21/18 09:22 84 97 05/21/18 07:40 18 05/21/18 07:00 97.7 F 91 14 147/77 99 05/21/18 04:45 88 143/87 05/21/18 00:30 98.5 F 87 18 170/78 99 05/21/18 00:19 98.4 F 05/21/18 00:03 87 18 145/82 97 05/20/18 23:50 91 18 151/75 99 05/20/18 22:13 91 05/20/18 21:57 93 22 179/90 99 05/20/18 21:55 94 05/20/18 21:35 91 05/20/18 21:17 20 05/20/18 20:00 99.1 F 88 16 145/84 98 Intake and Output 05/20/18 05/21/18 05/21/18 22:59 06:59 14:59 Other: Voiding Method Bedside Commode Bedside Commode # Voids 2 Weight 71.668 kg 168.4 kg 168.4 kg GENERAL: The patient is alert and oriented x3, not in any acute distress. obese HEENT: Pupils are round and equally reacting to light. EOMI. No scleral icterus. No conjunctival pallor. Normocephalic, atraumatic. No pharyngeal erythema. No thyromegaly. CARDIOVASCULAR: S1 and S2 present. No murmurs, rubs, or gallops. -PULMONARY: Chest is clear to auscultation, no wheezing. bilateral basal cre pitation ABDOMEN: Soft, nontender, nondistended, normoactive bowel sounds. No palpable organomegaly. MUSCULOSKELETAL: No joint swelling or deformity. -EXTREMITIES: No cyanosis, clubbing, . bilateral leg edema. some tenderness behind the left leg NEUROLOGICAL: Gross neurological examination did not reveal any focal deficits. SKIN: No rashes. Results CBC & Chem 7: 05/20/18 21:05/20/18 21: Labs: Abnormal Lab Results - Last 24 Hours (Table) 05/20/18 05/20/18 05/20/18 Range/Units 21:01 21: 21: MCH 24.8 L (25.0-35.0) pg MCHC 30.5 L (31.0-37.0) g/dL RDW 17.0 H (11.5-15.5) % APTT 21.9 L (22.0-30.0) sec Sodium 136 L (137-145) mmol/L Carbon Dioxide 21 L (22-30) mmol/L BUN 28 H (7-17) mg/dL Creatinine 1.17 H (0.52-1.04) mg/dL Glucose 152 H (74-99) mg/dL POC Glucose (mg/dL) (75-99) mg/dL Total Bilirubin 2.0 H (0.2-1.3) mg/dL Alkaline Phosphatase 145 H (38-126) U/L Troponin I (0.000-0.034) ng/mL 05/21/18 05/21/18 05/21/18 Range/Units 03:21 06:53 09:28 MCH (25.0-35.0) pg MCHC (31.0-37.0) g/dL RDW (11.5-15.5) % APTT (22.0-30.0) sec Sodium (137-145) mmol/L Carbon Dioxide (22-30) mmol/L BUN (7-17) mg/dL Creatinine (0.52-1.04) mg/dL Glucose (74-99) mg/dL POC Glucose (mg/dL) 116 H (75-99) mg/dL Total Bilirubin (0.2-1.3) mg/dL Alkaline Phosphatase (38-126) U/L Troponin I 0.040 H* 0.037 H* (0.000-0.034) ng/mL 05/21/18 Range/Units 12:11 MCH (25.0-35.0) pg MCHC (31.0-37.0) g/dL RDW (11.5-15.5) % APTT (22.0-30.0) sec Sodium (137-145) mmol/L Carbon Dioxide (22-30) mmol/L BUN (7-17) mg/dL Creatinine (0.52-1.04) mg/dL Glucose (74-99) mg/dL POC Glucose (mg/dL) 122 H (75-99) mg/dL Total Bilirubin (0.2-1.3) mg/dL Alkaline Phosphatase (38-126) U/L Troponin I (0.000-0.034) ng/mL Thrombosis Risk Factor Assmnt - Choose All That Apply Each Factor Represents 1 point: Heart failure (<1month), Obesity (BMI >25) Each Risk Factor Represents 3 Points: Age 75 years or older Thrombosis Risk Factor Assessment Total Risk Factor Score: 5 Thrombosis Risk Factor Assessment Level: High Risk Assessment and Plan Assessment: Acute and chronic systolic congestive heart failure bilateral leg swelling, secondary to above. Rule out DVT. History of diabetes mellitus Hypertension Hyperlipidemia History of coronary artery disease History of chronic back pain History of the tree and cancer.
[2018-05-21] MEDS ORDERED: HEPARIN SODIUM,PORCINE 5,000 UNIT/ML 1 ML VIAL SQ SCH (14:15)
--- NOTE | 2018-05-21 14:26 | P.CRDCN ---
History of Present Illness History of present illness: This is a pleasant 78-year-old female past medical history significant for coronary artery disease status post bypass grafting 4-vessel in 1996 and subsequent stent placement, chronic systolic heart failure, diabetes mellitus, hypertension, dyslipidemia and ischemic cardiomyopathy. She follows in the office with Dr. Jeong. She was in the hospital earlier this month and treated for exacerbation of heart failure, tracheobronchitis and cellulitis. She presented to the hospital last evening with symptoms of progressive shortness of breath, cough and increased lower extremity edema. She is seen and examined sitting up in the chair in mild respiratory distress. She has to stop conversation to catch her breath. She is also coughing up thick yellow/green sputum at the time of my exam. She states over the last couple of nights she hasn't gotten any sleep due to dyspnea while laying flat. She denies chest pain, dizziness or palpitations. EKG reveals normal sinus mechanism heart rate of 86 with lateral T-wave inversions, inferior ST depression. Chronic when compared to old EKGs. Chest xray revales partial left lobe airlessness and small left pleural effusion. Laboratory data reviewed, troponin 0.033, 0.040 and 0.037, WBC 9.1, hemoglobin 13.4, platelets 354, sodium 136, potassium 5.0, creatinine 1.17, NT proBNP 7310. Current cardiac medications include losartan 50 mg daily, atorvastatin 80 mg daily, Aldactone 12.5 mg daily, Lopressor 50 mg twice a day, Lasix 40 mg daily and Plavix 75 mg daily. Most recent echocardiogram obtained 05/04/2018 and reveals overall moderately severely impaired left ventricular systolic function with ejection fraction 30- 35, anteroseptal, inferior and septal hypokinesia, severe pulmonary hypertension with an RVSP of 85 mmHg, mild aortic stenosis with a mean gradient across the valve of 10 mmHg, mild to moderate mitral regurgitation and mild tricuspid regurgitation. Most recent catheterization performed in 2016 she underwent stent placement in the distal left main 2 as well as a stent to the SVG to the diag. SVG-RCA and SVG-OM1 100% occluded. At the time of my exam: CONSTITUTIONAL: Denies fever. Denies chills. EYES: Denies blurred vision. Denies vision changes. Denies eye pain. EARS, NOSE, MOUTH & THROAT: Denies headache. Denies sore throat. Denies ear pain. CARDIOVASCULAR: Denies chest pain. Complains of shortness of breath. Denies orthopnea. Denies PND. Denies palpitations. RESPIRATORY: Complains of cough. GASTROINTESTINAL: Denies abdominal pain. Denies diarrhea. Denies constipation. Denies nausea. Denies vomiting. MUSCULOSKELETAL: Denies myalgias. INTEGUMENTARY: Denies pruitis. Denies rash. NEUROLOGIC: Denies numbness. Denies tingling. Denies weakness. PSYCHIATRIC: Denies anxiety. Denies depression. ENDOCRINE: Denies fatigue. Denies weight change. Denies polydipsia. Denies polyurina. GENITOURINARY: Denies burning, hematuria or urgency with micturation. HEMATOLOGIC: Denies history of anemia. Denies bleeding. Blood pressure 147/77 heart rate 91 afebrile maintaining oxygen saturation on room air GENERAL: This is a 78-year-old female in no apparent distress at the time of my examination. HEENT: Head is atraumatic, normocephalic. Pupils are equal, round. Sclerae anicteric. Conjunctivae are clear. Mucous membranes of the mouth are moist. Neck is supple. There is no jugular venous distention. No carotid bruit is heard. LUNGS: Bibasilar rales and coarse rhonchi noted throughout, no wheezes. No chest wall tenderness is noted on palpation or with deep breathing. HEART: Regular rate and rhythm with systolic ejection murmur at the base, no rubs or gallops. S1 and S2 heard. ABDOMEN: Soft, nontender. Bowel sounds are heard. No organomegaly noted. EXTREMITIES: 2+ pitting bilateral lower extremity edema and erythema. VASCULAR: Radial and dorsalis pedis pulses palpated, no evidence of clubbing. NEUROLOGIC: Patient is awake, alert and oriented x3. ASSESSMENT Acute on chronic systolic heart failure Mild troponin leak not indicative of an acute coronary event. Possibly related to oxygen supply demand mismatch. Hypertension Dyslipidemia History of coronary artery disease status post bypass grafting Ischemic cardiomyopathy Diabetes mellitus PLAN Continue IV diuresis. Discontinue losartan and initiate on Entresto 24/26 mg BID starting tomorrow. Consider possible pulmonary opinion regarding the need for steroids or antibiotics. Her symptoms seem to be multi-factorial. Follow kidney function and electrolytes daily. Document intake and output along with daily weights. We will discuss with her primary musical therapist the need for possible AICD placement as an outpatient. Further recommendations to follow based on clinical course. Thank you kindly for this consultation. Nurse Practitioner note has been reviewed, I agree with a documented findings and plan of care. Patient was seen and examined. Past Medical History Past Medical History: Coronary Artery Disease (CAD), Cancer, Heart Failure, Diabetes Mellitus, Hyperlipidemia, Hypertension, Myocardial Infarction (SD), Osteoarthritis (OA), Renal Disease Additional Past Medical History / Comment(s): pt is right side dominant.BACK PAIN; 05/13/15 stent to the Left main and SVG to the Diagonal. Cataract on left eye; "needs a cornea transplant on left eye". Uterine Cancer.ANEMIA,LUMBAR SPINAL STENOSIS,CHRONIC CONSTIPATION, SEIZURE 03-23-16 Last Myocardial Infarction Date:: 05/13/15 History of Any Multi-Drug Resistant Organisms: None Reported Past Surgical History: Cholecystectomy, Coronary Bypass/CABG, Heart Catheterization With Stent, Hysterectomy, Joint Replacement, Orthopedic Surgery Additional Past Surgical History / Comment(s): 1996 CABG. Right Knee replacement 1954 Past Anesthesia/Blood Transfusion Reactions: No Reported Reaction Date of Last Stent Placement:: 05/13/15 Past Psychological History: Anxiety Additional Psychological History / Comment(s): pt lives alone in single level home that has 4 porch steps. uses walker when up. does'nt drive anymore-daughter or son take to appts. also has a glucometer-her daughter comes to check bs 2x a week. receives meals on wheels. Smoking Status: Never smoker Past Alcohol Use History: None Reported Past Drug Use History: None Reported - Past Family History Father Family Medical History: Cancer, Coronary Artery Disease (CAD), Diabetes Mellitus, Myocardial Infarction (SD) Additional Family Medical History / Comment(s): pancreas cancer Mother Family Medical History: Cancer Additional Family Medical History / Comment(s): Uterine cancer Medications and Allergies Home Medications Medication Instructions Recorded Confirmed Type Clopidogrel [Plavix] 75 mg PO DAILY 05/13/15 05/20/18 History Metoprolol Tartrate [Lopressor] 50 mg PO BID 05/13/15 05/20/18 History Atorvastatin [Lipitor] 80 mg PO HS #30 tab 03/27/16 05/20/18 Rx Albuterol Nebulized [Ventolin 2.5 mg INHALATION RT-QID PRN 04/22/18 05/20/18 History Nebulized] Clotrimazole/Betameth Lotion 1 applic TOPICAL BID 04/22/18 05/20/18 History [Lotrisone] Docusate [Colace] 100 mg PO HS 04/22/18 05/20/18 History Nitroglycerin Sl Tabs [Nitrostat] 0.4 mg SUBLINGUAL Q5M PRN 04/22/18 05/20/18 History Nystatin 100,000 Unit/gm Powd 1 applic TOPICAL TID 04/22/18 05/20/18 History [Mycostatin Powder] Sennosides [Senokot] 8.6 mg PO DAILY 04/22/18 05/20/18 History Triamcinolone 0.025% Cream 1 applic TOPICAL BID 04/22/18 05/20/18 History [Kenalog 0.025% Cream] metFORMIN HCL [Glucophage] 250 mg PO AC-BID 04/22/18 05/20/18 History Furosemide [Lasix] 40 mg PO DAILY tab 05/07/18 05/20/18 Rx Losartan [Cozaar] 50 mg PO DAILY #60 tab 05/07/18 05/20/18 Rx Spironolactone [Aldactone] 12.5 mg PO DAILY #60 tab 05/07/18 05/20/18 Rx Allergies Allergy/AdvReac Type Severity Reaction Status Date / Time adhesive tape Allergy Rash/Hives Verified 05/20/18 20:41 latex Allergy Swelling Verified 05/20/18 20:41 Penicillins Allergy Anaphylaxis Verified 05/20/18 20:41 Physical Exam Vitals: Vital Signs Temp Pulse Pulse Resp BP BP Pulse Ox 05/21/18 09:34 80 05/21/18 09:22 84 97 05/21/18 07:40 18 05/21/18 07:00 97.7 F 91 14 147/77 99 05/21/18 04:45 88 143/87 05/21/18 00:30 98.5 F 87 18 170/78 99 05/21/18 00:19 98.4 F 05/21/18 00:03 87 18 145/82 97 05/20/18 23:50 91 18 151/75 99 05/20/18 22:13 91 05/20/18 21:57 93 22 179/90 99 05/20/18 21:55 94 05/20/18 21:35 91 05/20/18 21:17 20 05/20/18 20:00 99.1 F 88 16 145/84 98 Intake and Output 05/20/18 05/21/18 05/21/18 22:59 06:59 14:59 Other: Voiding Method Bedside Commode Bedside Commode # Voids 2 Weight 71.668 kg 168.4 kg 168.4 kg Results 05/20/18 21:01 05/20/18 21:01 Cardiac Enzymes 05/20/18 05/20/18 05/21/18 Range/Units 21:01 21:01 03:21 AST 33 (14-36) U/L Troponin I 0.033 0.040 H* (0.000-0.034) ng/mL 05/21/18 Range/Units 09:28 AST (14-36) U/L Troponin I 0.037 H* (0.000-0.034) ng/mL Coagulation 05/20/18 Range/Units 21:01 PT 11.1 (9.0-12.0) sec APTT 21.9 L (22.0-30.0) sec CBC 05/20/18 Range/Units 21:01 WBC 9.1 (3.8-10.6) k/uL RBC 5.40 (3.80-5.40) m/uL Hgb 13.4 (11.4-16.0) gm/dL Hct 43.9 (34.0-46.0) % Plt Count 354 (150-450) k/uL Comprehensive Metabolic Panel 05/20/18 Range/Units 21:01 Sodium 136 L (137-145) mmol/L Potassium 5.0 (3.5-5.1) mmol/L Chloride 105 (98-107) mmol/L Carbon Dioxide 21 L (22-30) mmol/L BUN 28 H (7-17) mg/dL Creatinine 1.17 H (0.52-1.04) mg/dL Glucose 152 H (74-99) mg/dL Calcium 9.5 (8.4-10.2) mg/dL AST 33 (14-36) U/L ALT 25 (9-52) U/L Alkaline Phosphatase 145 H (38-126) U/L Total Protein 6.5 (6.3-8.2) g/dL Albumin 3.8 (3.5-5.0) g/dL Current Medications Generic Name Dose Route Start Last Admin Trade Name Freq PRN Reason Stop Dose Admin Albuterol Sulfate 2.5 mg 05/20/18 23:56 05/21/18 09:19 Ventolin Nebulized INHALATION 2.5 mg RT-QID PRN Administration Shortness Of Breath Atorvastatin Calcium 80 mg 05/21/18 21:00 Lipitor PO HS [facility] Betamethasone/Clotrimazole 1 applic 05/21/18 09:00 05/21/18 08:05 Lotrisone TOPICAL 1 applic BID YEN Administration Clopidogrel Bisulfate 75 mg 05/21/18 09:00 05/21/18 08:03 Plavix PO 75 mg DAILY YEN Administration Docusate Sodium 100 mg 05/21/18 21:00 Colace PO HS [facility] Furosemide 40 mg 05/21/18 09:00 05/21/18 08:06 Lasix IV 40 mg Q12HR YEN Administration Guaifenesin 200 mg 05/21/18 01:03 Robitussin PO Q6H PRN Cough Losartan Potassium 50 mg 05/21/18 09:00 05/21/18 08:03 Cozaar PO 50 mg DAILY YEN Administration Metformin HCl 250 mg 05/21/18 07:30 05/21/18 08:01 Glucophage PO 250 mg AC-BID [facility] Administration Metoprolol Tartrate 50 mg 05/21/18 09:00 05/21/18 08:04 Lopressor PO 50 mg BID YEN Administration Naloxone HCl 0.2 mg 05/20/18 23:29 Narcan IV Q2M PRN Opioid Reversal Nitroglycerin 0.4 mg 05/20/18 23:56 Nitrostat SUBLINGUAL Q5M PRN Chest Pain Nystatin 1 applic 05/21/18 09:00 05/21/18 08:06 Mycostatin Powder TOPICAL 1 applic TID YEN Administration Senna 8.6 mg 05/21/18 09:00 05/21/18 08:03 Senokot PO 8.6 mg DAILY YEN Administration Spironolactone 12.5 mg 05/21/18 09:00 05/21/18 08:03 Aldactone PO 12.5 mg DAILY YEN Administration Triamcinolone Acetonide 1 applic 05/21/18 09:00 05/21/18 08:06 Kenalog TOPICAL 1 applic BID YEN Administration Intake and Output 05/20/18 05/21/18 05/21/18 22:59 06:59 14:59 Other: Voiding Method Bedside Commode Bedside Commode # Voids 2 Weight 71.668 kg 168.4 kg 168.4 kg Patient Weight 05/22/18 06:59 Weight 168.4 kg 05/20/18 21:01 05/20/18 21:01
--- NOTE | 2018-05-21 15:19 | US ---
EXAMINATION TYPE: US venous doppler duplex LE DATE OF EXAM: 05/21/2018 3:03 PM COMPARISON: NONE CLINICAL HISTORY: Rule out DVT. R/O DVT. Vein stripping in left leg. Pt on blood thinners: plavix. No swelling. SIDE PERFORMED: Bilateral TECHNIQUE: The lower extremity deep venous system is examined utilizing real time linear array sonog rush with graded compression, doppler sonography and color-flow sonography. VESSELS IMAGED: External Iliac Vein (EIV) Common Femoral Vein Deep Femoral Vein Greater Saphenous Vein * Femoral Vein Popliteal Vein Small Saphenous Vein * Proximal Calf Veins (* superficial vessels) Grayscale, color doppler, spectral doppler imaging performed of the deep veins of the lower extremiti es. There is normal flow, compressibility, vascular waveforms within the left lower extremity. Right Leg: Thrombus visualized mid popliteal vein. Compressions deferred due to visible internal ec hoes within vessel. Left Leg: Negative for DVT IMPRESSION: Positive deep venous thrombosis within the mid right popliteal vein with reconstitution of flow distally. Note that the patient is currently on blood thinners. A Yellow level critical message alert has been initiated for [facility] via the [employer] System on 05/21/2018 3:16 PM. This message alert has been sent to [facility] via the preferences provided by the clinician for the receipt of Radiology Critical Findings. Message ID [id number].
[2018-05-21] MEDS ORDERED: HEPARIN SODIUM,PORCINE 10,000 UNIT/ML 1 ML VIAL IV ONE (15:37)
[2018-05-21] MEDS ORDERED: HEPARIN SODIUM,PORCINE 5,000 UNIT/ML 1 ML VIAL IV PRN (15:37)
[2018-05-21 16:30] LABS: Anisocytosis Slight; Basophils % (A) 0 %; Eosinophils # (A) 0.2 k/uL (0-0.7); Eosinophils % (A) 3 %; HCT 43.8 % (34.0-46.0); HGB 13.2 gm/dL (11.4-16.0); Hypochromasia Marked; Lymphocytes # (A) 0.9 k/uL (1.0-4.8); Lymphocytes % (A) 11 %; MCH 24.9 pg (25.0-35.0); MCV 83.1 fL (80.0-100.0); Mean Platelet Volume 6.9; Monocytes # (A) 0.6 k/uL (0-1.0); Monocytes % (A) 7 %; Neutrophils # (A) 6.5 k/uL (1.3-7.7); Neutrophils % (A) 78 %; Platelet Count 308 k/uL (150-450); RBC 5.28 m/uL (3.80-5.40); RDW 17.1 % (11.5-15.5); WBC 8.4 k/uL (3.8-10.6)
[2018-05-21 16:37] LABS: Partial Thromboplastin Time 22.9 sec (22.0-30.0)
[2018-05-21] MEDS: HEPARIN SOD,PORK IN 0.45% NACL 25,000 UNIT in 0.45% NACL 1 250ML.BAG IV SCH (17:12)
[2018-05-21 18:06] LABS: Glucose,Whole Blood 111 mg/dL (75-99)
[2018-05-21 20:27] LABS: Glucose,Whole Blood 164 mg/dL (75-99)
[2018-05-21] MEDS: DOCUSATE 100 MG CAP PO SCH (21:35)
[2018-05-21] MEDS: ATORVASTATIN 80 MG TAB PO SCH (21:35)
[2018-05-21] MEDS: FAMOTIDINE 20 MG/2 ML VIAL IV SCH (21:44)
[2018-05-21] MEDS: INSULIN ASPART (NovoLOG) 100 UNIT/ML VIAL SQ SCH (22:17)
[2018-05-22] MEDS: guaiFENesin SYRUP 100MG/5ML 200 MG/10 ML CUP PO PRN ×2 (01:26→10:45)
[2018-05-22 07:15] LABS: Glucose,Whole Blood 81 mg/dL (75-99)
[2018-05-22 07:39] LABS: Anisocytosis Slight; Basophils % (A) 1 %; Eosinophils # (A) 0.3 k/uL (0-0.7); Eosinophils % (A) 4 %; HGB 12.1 gm/dL (11.4-16.0); Hypochromasia Marked; Lymphocytes # (A) 1.1 k/uL (1.0-4.8); Lymphocytes % (A) 13 %; MCH 24.2 pg (25.0-35.0); MCHC 29.6 g/dL (31.0-37.0); Mean Platelet Volume 7.5; Monocytes # (A) 0.7 k/uL (0-1.0); Monocytes % (A) 8 %; Neutrophils # (A) 5.7 k/uL (1.3-7.7); Neutrophils % (A) 72 %; Platelet Count 321 k/uL (150-450); RDW 16.8 % (11.5-15.5); WBC 7.9 k/uL (3.8-10.6)
[2018-05-22 08:03] LABS: Calcium 9.4 mg/dL (8.4-10.2); Potassium 4.1 mmol/L (3.5-5.1)
[2018-05-22] MEDS: FUROSEMIDE 10 MG/ML 4 ML VIAL IV SCH (08:41)
[2018-05-22] MEDS: FAMOTIDINE 20 MG/2 ML VIAL IV SCH (08:41)
[2018-05-22] MEDS: SACUBITRIL/VALSARTAN 24 MG-26 MG TABLET PO SCH ×2 (08:42→21:52)
[2018-05-22] MEDS: metFORMIN 500 MG TAB PO SCH ×2 (08:42→16:48)
[2018-05-22] MEDS: CLOPIDOGREL 75 MG TAB PO SCH (08:43)
[2018-05-22] MEDS: SENNOSIDES 8.6 MG TAB PO SCH (08:43)
[2018-05-22] MEDS: SPIRONOLACTONE 25 MG TAB PO SCH (08:43)
[2018-05-22] MEDS: METOPROLOL TARTRATE 50 MG TAB PO SCH ×2 (08:44→21:52)
[2018-05-22] MEDS: INSULIN ASPART (NovoLOG) 100 UNIT/ML VIAL SQ SCH ×4 (08:45→21:48)
[2018-05-22] MEDS: HEPARIN SOD,PORK IN 0.45% NACL 25,000 UNIT in 0.45% NACL 1 250ML.BAG IV SCH (08:55)
[2018-05-22] MEDS: ALBUTEROL NEBULIZED 2.5 MG/3 ML INHALATION PRN (09:22)
[2018-05-22] MEDS: TRIAMCINOLONE ACET 0.1% OINTMENT 15 GM TUBE TOPICAL SCH ×2 (10:46→21:53)
[2018-05-22] MEDS: NYSTATIN 100,000 UNIT/GM POWD 15 GM TOPICAL SCH ×3 (10:47→21:53)
[2018-05-22] MEDS: CLOTRIMAZOLE/BETAMETH 1-0.05% LOTION 30 ML BTL TOPICAL SCH ×2 (10:47→21:53)
[2018-05-22 12:00] LABS: Glucose,Whole Blood 128 mg/dL (75-99)
--- NOTE | 2018-05-22 15:09 | P.PN ---
Subjective This is a pleasant 78-year-old female past medical history significant for coronary artery disease status post bypass grafting 4-vessel in 1996 and subsequent stent placement, chronic systolic heart failure, diabetes mellitus, hypertension, dyslipidemia and ischemic cardiomyopathy. She follows in the office with Dr. Jeong. She is seen and examined sitting up in the chair in no acute distress. She is much less short of breath than yesterday. She does still have some exertional shortness of breath. She denies chest pain, dizziness, palpitations or orthopnea. Bilateral lower extremity duplex reveals right leg with thrombus in the mid-popiteal vein and negative in the left. She has been initiated on IV heparin per primary care team. Blood pressure is 120/62 heart rate 66 afebrile maintaining oxygen saturation on room air. Laboratory data reviewed, hemoglobin 12.1, platelets 321, sodium 138, potassium 4.1, creatinine 1.4. Currently maintained on atorvastatin 80 mg daily, Plavix 75 mg daily, metoprolol 50 mg twice a day, Aldactone 12.5 mg daily and entresto 24/26 mg BID. She has been transitioned to PO diuretics by the primary care team. GENERAL: This is a 78-year-old female in no apparent distress at the time of my examination. HEENT: Head is atraumatic, normocephalic. Pupils are equal, round. Sclerae anic teric. Conjunctivae are clear. Mucous membranes of the mouth are moist. Neck is supple. There is no jugular venous distention. No carotid bruit is heard. LUNGS: Course rhonchi, no wheezes or rales. No chest wall tenderness is noted on palpation or with deep breathing. HEART: Regular rate and rhythm with systolic ejection murmur at the base, no rubs or gallops. S1 and S2 heard. EXTREMITIES: 2+ pitting bilateral lower extremity edema and erythema. ASSESSMENT Acute on chronic systolic heart failure Acute right lower extremity DVT Mild troponin leak not indicative of an acute coronary event. Possibly related to oxygen supply demand mismatch. Hypertension Dyslipidemia History of coronary artery disease status post bypass grafting Ischemic cardiomyopathy Diabetes mellitus PLAN Ongoing medical management. Has been transitioned to PO diuretics and entresto started today. We will continue to follow and assess for entresto tolerance. Nurse Practitioner note has been reviewed, I agree with a documented findings and plan of care. Patient was seen and examined. Objective - Vital Signs Vital signs: Vital Signs Temp 97.6 F 05/22/18 07:00 Pulse 83 05/22/18 10:00 Resp 20 05/22/18 07:30 BP 128/62 05/22/18 07:00 Pulse Ox 98 05/22/18 10:00 Intake & Output 05/21/18 05/22/18 05/22/18 18:59 06:59 18:59 Intake Total 105.148 667.317 Output Total 300 500 Balance -300 105.148 167.317 Weight 74.1 kg 72.9 kg Intake: Intake, IV Titration 105.148 71.317 Amount Heparin Sod,Pork in 0.45% 105.148 71.317 NaCl 25,000 unit In 0.45 % NaCl 1 250ml.bag @ 18 UNITS/KG/HR 13.338 mls/hr IV .[id number] [facility] Rx#: [id number] Oral 596 Output: Urine 300 500 Other: Voiding Method Bedside Commode # Voids 1 - Labs CBC & Chem 7: 05/22/18 06:24 05/22/18 06:24 Labs: Abnormal Lab Results - Last 24 Hours (Table) 05/21/18 05/21/18 05/21/18 Range/Units 16:08 18:03 20:25 MCH 24.9 L (25.0-35.0) pg MCHC 30.0 L (31.0-37.0) g/dL RDW 17.1 H (11.5-15.5) % Lymphocytes # 0.9 L (1.0-4.8) k/uL APTT (22.0-30.0) sec BUN (7-17) mg/dL Creatinine (0.52-1.04) mg/dL Glucose (74-99) mg/dL POC Glucose (mg/dL) 111 H 164 H (75-99) mg/dL 05/22/18 05/22/18 05/22/18 Range/Units 00:11 01:55 06:24 MCH (25.0-35.0) pg MCHC (31.0-37.0) g/dL RDW (11.5-15.5) % Lymphocytes # (1.0-4.8) k/uL APTT 118.2 H* 76.0 H (22.0-30.0) sec BUN 32 H (7-17) mg/dL Creatinine 1.40 H (0.52-1.04) mg/dL Glucose 65 L (74-99) mg/dL POC Glucose (mg/dL) (75-99) mg/dL 05/22/18 05/22/18 05/22/18 Range/Units 06:24 06:24 11:59 MCH 24.2 L (25.0-35.0) pg MCHC 29.6 L (31.0-37.0) g/dL RDW 16.8 H (11.5-15.5) % Lymphocytes # (1.0-4.8) k/uL APTT 62.8 H (22.0-30.0) sec BUN (7-17) mg/dL Creatinine (0.52-1.04) mg/dL Glucose (74-99) mg/dL POC Glucose (mg/dL) 128 H (75-99) mg/dL Microbiology - Last 24 Hours (Table) 05/20/18 21:01 Blood Culture - Preliminary Blood No Growth after 24 hours
[2018-05-22] MEDS: FUROSEMIDE 40 MG TAB PO SCH (16:47)
[2018-05-22 17:02] LABS: Glucose,Whole Blood 178 mg/dL (75-99)
--- NOTE | 2018-05-22 18:16 | P.CONS ---
History of Present Illness - Reason for Consult Consult date: 05/22/18 Rt popliteal DVT Requesting physician: Merly Vazquez - Chief Complaint SOB, NANCY - History of Present Illness Mrs. Alcantara is a very pleasant 78-year-old female patient of Dr. Troy who is admitted for her third hospitalization in 2 months. She was recently inpatient and treated for pneumonia/bronchitis. Patient is currently readmitted for shortness of breath. On admission patient had a Doppler of the BLE, she was found to have a right popliteal DVT. Patient is on antiplatelet therapy for history of stroke and [place]. Patient denies any personal history of blood clots, no known family history of blood clots. Patient has recently been on steroids for her respiratory infection, this has resulted in elevated CBGs, she states sometimes greater than 300, she has had decreased activity due to SOB. Patient currently denies any fevers, difficulty swallowing, appetite is fairly decent, no nausea, vomiting, substernal chest pain, abdominal pain, discomfort, bloating, acute changes in bowel or bladder habits, bleeding, c/o only mild swelling in the lower extremities, she did have right knee surgery back in 1954, no significant problems with the knee since, she denies any pain in the legs. Review of Systems 14 point review of systems is negative except as stated in HPI Past Medical History Past Medical History: Coronary Artery Disease (CAD), Cancer, Heart Failure, Diabetes Mellitus, Deep Vein Thrombosis (DVT), Hyperlipidemia, Hypertension, Myocardial Infarction ([place]), Osteoarthritis (OA), Renal Disease Additional Past Medical History / Comment(s): pt is right side dominant.BACK PAIN; 05/13/15 stent to the Left main and SVG to the Diagonal. Cataract on left eye; "needs a cornea transplant on left eye". Uterine Cancer.ANEMIA,LUMBAR SPINAL STENOSIS,CHRONIC CONSTIPATION, SEIZURE 03-23-16 Last Myocardial Infarction Date:: 05/13/15 History of Any Multi-Drug Resistant Organisms: None Reported Past Surgical History: Cholecystectomy, Coronary Bypass/CABG, Heart Catheterization With Stent, Hysterectomy, Joint Replacement, Orthopedic Surgery Additional Past Surgical History / Comment(s): 1996 CABG. Right Knee replacement 1954 Past Anesthesia/Blood Transfusion Reactions: No Reported Reaction Date of Last Stent Placement:: 05/13/15 Past Psychological History: Anxiety Additional Psychological History / Comment(s): pt lives alone in single level home that has 4 porch steps. uses walker when up. does'nt drive anymore-daughter or son take to appts. also has a glucometer-her daughter comes to check bs 2x a week. receives meals on wheels. Smoking Status: Never smoker Past Alcohol Use History: None Reported Past Drug Use History: None Reported - Past Family History Father Family Medical History: Cancer, Coronary Artery Disease (CAD), Diabetes Mellitus, Myocardial Infarction ([place]) Additional Family Medical History / Comment(s): pancreas cancer Mother Family Medical History: Cancer Additional Family Medical History / Comment(s): Uterine cancer Medications and Allergies Home Medications Medication Instructions Recorded Confirmed Type Clopidogrel [Plavix] 75 mg PO DAILY 05/13/15 05/20/18 History Metoprolol Tartrate [Lopressor] 50 mg PO BID 05/13/15 05/20/18 History Atorvastatin [Lipitor] 80 mg PO HS #30 tab 03/27/16 05/20/18 Rx Albuterol Nebulized [Ventolin 2.5 mg INHALATION RT-QID PRN 04/22/18 05/20/18 History Nebulized] Clotrimazole/Betameth Lotion 1 applic TOPICAL BID 04/22/18 05/20/18 History [Lotrisone] Docusate [Colace] 100 mg PO HS 04/22/18 05/20/18 History Nitroglycerin Sl Tabs [Nitrostat] 0.4 mg SUBLINGUAL Q5M PRN 04/22/18 05/20/18 History Nystatin 100,000 Unit/gm Powd 1 applic TOPICAL TID 04/22/18 05/20/18 History [Mycostatin Powder] Sennosides [Senokot] 8.6 mg PO DAILY 04/22/18 05/20/18 History Triamcinolone 0.025% Cream 1 applic TOPICAL BID 04/22/18 05/20/18 History [Kenalog 0.025% Cream] metFORMIN HCL [Glucophage] 250 mg PO AC-BID 04/22/18 05/20/18 History Furosemide [Lasix] 40 mg PO DAILY tab 05/07/18 05/20/18 Rx Losartan [Cozaar] 50 mg PO DAILY #60 tab 05/07/18 05/20/18 Rx Spironolactone [Aldactone] 12.5 mg PO DAILY #60 tab 05/07/18 05/20/18 Rx Allergies Allergy/AdvReac Type Severity Reaction Status Date / Time adhesive tape Allergy Rash/Hives Verified 05/20/18 20:41 latex Allergy Swelling Verified 05/20/18 20:41 Penicillins Allergy Anaphylaxis Verified 05/20/18 20:41 Physical Exam Vitals: Vital Signs Temp Pulse Pulse Pulse Pulse Resp BP 05/22/18 16:57 80 05/22/18 16:48 76 05/22/18 15:00 97.8 F 78 16 134/74 05/22/18 10:00 94 83 05/22/18 09:32 84 05/22/18 09:24 80 05/22/18 07:30 20 05/22/18 07:00 97.6 F 66 20 128/62 05/22/18 00:38 97.8 F 61 16 136/58 05/21/18 19:15 97.6 F 84 16 143/76 Pulse Ox Pulse Ox Pulse Ox 05/22/18 16:57 05/22/18 16:48 05/22/18 15:00 97 05/22/18 10:00 97 98 05/22/18 09:32 05/22/18 09:24 05/22/18 07:30 05/22/18 07:00 92 L 05/22/18 00:38 93 L 05/21/18 19:15 95 Intake and Output 05/22/18 05/22/18 05/22/18 06:59 14:59 22:59 Intake Total 105.148 667.317 240 Output Total 500 Balance 105.148 167.317 240 Intake: Intake, IV Titration 105.148 71.317 Amount Heparin Sod,Pork in 0.45% 105.148 71.317 NaCl 25,000 unit In 0.45 % NaCl 1 250ml.bag @ 18 UNITS/KG/HR 13.338 mls/hr IV .[id number] [facility] Rx#: [id number] Oral 596 240 Output: Urine 500 Other: # Voids 1 Weight 72.9 kg - Constitutional General appearance: average body habitus, cooperative, no acute distress - EENT Eyes: anicteric sclerae, EOMI ENT: hearing grossly normal, normal oropharynx - Neck Neck: no lymphadenopathy - Respiratory Respiratory: bilateral: CTA, diminished - Cardiovascular Rhythm: irregularly irregular Heart sounds: normal: S1, S2 Abnormal Heart Sounds: systolic murmur leg Peripheral Edema: bilateral: Trace - Gastrointestinal General gastrointestinal: no absent bowel sounds, no decreased bowel sounds, no distended, no hepatomegaly, no hyperactive bowel sounds, normal bowel sounds, no organomegaly, no rigid, no scaphoid, soft, no splenomegaly, no tenderness, no umbilical hernia, no ventral hernia - Neurologic Neurologic: CNII-XII intact - Musculoskeletal Musculoskeletal: strength equal bilaterally - Psychiatric Psychiatric: A&O x's 3, appropriate affect, intact judgment & insight Results CBC & Chem 7: 05/22/18 06:24 05/22/18 06:24 Labs: Abnormal Lab Results - Last 24 Hours (Table) 05/21/18 05/21/18 05/22/18 Range/Units 18:03 20:25 00:11 MCH (25.0-35.0) pg MCHC (31.0-37.0) g/dL RDW (11.5-15.5) % APTT 118.2 H* (22.0-30.0) sec BUN (7-17) mg/dL Creatinine (0.52-1.04) mg/dL Glucose (74-99) mg/dL POC Glucose (mg/dL) 111 H 164 H (75-99) mg/dL 05/22/18 05/22/18 05/22/18 Range/Units 01:55 06:24 06:24 MCH 24.2 L (25.0-35.0) pg MCHC 29.6 L (31.0-37.0) g/dL RDW 16.8 H (11.5-15.5) % APTT 76.0 H (22.0-30.0) sec BUN 32 H (7-17) mg/dL Creatinine 1.40 H (0.52-1.04) mg/dL Glucose 65 L (74-99) mg/dL POC Glucose (mg/dL) (75-99) mg/dL 05/22/18 05/22/18 05/22/18 Range/Units 06:24 11:59 17:01 MCH (25.0-35.0) pg MCHC (31.0-37.0) g/dL RDW (11.5-15.5) % APTT 62.8 H (22.0-30.0) sec BUN (7-17) mg/dL Creatinine (0.52-1.04) mg/dL Glucose (74-99) mg/dL POC Glucose (mg/dL) 128 H 178 H (75-99) mg/dL Microbiology - Last 24 Hours (Table) 05/20/18 21:01 Blood Culture - Preliminary Blood No Growth after 24 hours Venous US: report reviewed Assessment and Plan Plan: Right lower extremity popliteal DVT: Patient does have some provoking factors including 2 recent hospitalizations, decreased activity, acute illness, steroid use. Patient is on Plavix for history of myocardial infarction as well as TIA but, this clot was on the venous side and antiplatelet therapies do not have as much activity on the venous side as they do the arterial side. Continue heparin for right now. We will check with case management in the a.m. regarding oral anticoagulation based on patient's insurance formulary. Recommendation would be for 3 months of anticoagulation with repeat Doppler to evaluate the right popliteal area. Due to patient's shortness of breath on admission, she has been on treatment as well as steroids for pulmonary infection, CTA of the chest is being requested. Did educate patient regarding anticoagulation as well as antiplatelet therapy, increased risk of bleeding, monitoring of urine and stool. Patient is requesting drug and safety information and large print
[2018-05-22 19:52] LABS: Glucose,Whole Blood 119 mg/dL (75-99)
[2018-05-22] MEDS ORDERED: MELATONIN 1 MG TAB PO PRN (20:33)
--- NOTE | 2018-05-22 20:35 | P.PN ---
Subjective this is a pleasant 78 years old female with past medical history of congestive heart failure, diabetes mellitus, hyperlipidemia, hypertension, coronary artery disease, chronic back pain, history uterine cancer.she is a patient of Dr. Troy in the outpatient setting.patient presents with progressive dyspnea over one week associated with paroxysmal nocturnal dyspnea and orthopnea, patient now is sleeping on 2 extra pillows, and using the Rhino more often. She has dry cough, and she has worsening leg swelling. However she denies chest pain. Also patient complaining of from pain in her left leg is some tenderness. She uses Plavix at home but not aspirin, and she is not on home oxygen. on admission Vitas looks stable.patient admission has moderately elevated troponin at 0.04 and 0.03. CBC is unremarkable. Sodium 136, creatinine 1.17, t otal bilirubin is 2.0, liver enzymes are within normal limits.proBNP is 7300. Chest x-ray showing left lower lobe consolidation with left pleural effusion, small.EKG: Normal sinus rhythm at 86, no significant ST-T changes,in the emergency room patient got a breathing treatment and 1 dose of Lasix 40 mg. Patient currently on Lasix 40 mg IV every 12 hours,he is on Plavix. 05/22/18 pt is awake and alert , she is still dyspneic, no chest pain , she is coughing . pt remains on lasix for acute CHF exacerbation , it is switched to oral doses as her creatinine is trending up today . pt remains on heparin drip , hematology consult is appreciated. pt currently on 2 L o2 saturating 98%, she was not on home oxygen. physical therapist recommended [facility] on discharge. Objective - Vital Signs Vital signs: Vital Signs Temp 97.8 F 05/22/18 19:34 Pulse 92 05/22/18 19:34 Resp 18 05/22/18 19:34 BP 151/74 05/22/18 19:34 Pulse Ox 98 05/22/18 19:34 Intake & Output 05/22/18 05/22/18 05/23/18 06:59 18:59 06:59 Intake Total 105.148 907.317 Output Total 500 Balance 105.148 407.317 Weight 72.9 kg Intake: Intake, IV Titration 105.148 71.317 Amount Heparin Sod,Pork in 0.45% 105.148 71.317 NaCl 25,000 unit In 0.45 % NaCl 1 250ml.bag @ 18 UNITS/KG/HR 13.338 mls/hr IV .[id number] [facility] Rx#: [id number] Oral 836 Output: Urine 500 Other: # Voids 1 - Exam GENERAL: The patient is alert and oriented x3, not in any acute distress. obese HEENT: Pupils are round and equally reacting to light. EOMI. No scleral icterus. No conjunctival pallor. Normocephalic, atraumatic. No pharyngeal erythema. No thyromegaly. CARDIOVASCULAR: S1 and S2 present. No murmurs, rubs, or gallops. -PULMONARY: Chest is clear to auscultation, no wheezing. bilateral basal crepitation ABDOMEN: Soft, nontender, nondistended, normoactive bowel sounds. No palpable organomegaly. MUSCULOSKELETAL: No joint swelling or deformity. -EXTREMITIES: No cyanosis, clubbing, . bilateral leg edema. some tenderness behind the left leg NEUROLOGICAL: Gross neurological examination did not reveal any focal deficits. SKIN: No rashes. - Labs CBC & Chem 7: 05/22/18 06:24 05/22/18 06:24 Labs: Abnormal Lab Results - Last 24 Hours (Table) 05/21/18 05/22/18 05/22/18 Range/Units 20:25 00:11 01:55 MCH (25.0-35.0) pg MCHC (31.0-37.0) g/dL RDW (11.5-15.5) % APTT 118.2 H* 76.0 H (22.0-30.0) sec BUN (7-17) mg/dL Creatinine (0.52-1.04) mg/dL Glucose (74-99) mg/dL POC Glucose (mg/dL) 164 H (75-99) mg/dL 05/22/18 05/22/18 05/22/18 Range/Units 06:24 06:24 06:24 MCH 24.2 L (25.0-35.0) pg MCHC 29.6 L (31.0-37.0) g/dL RDW 16.8 H (11.5-15.5) % APTT 62.8 H (22.0-30.0) sec BUN 32 H (7-17) mg/dL Creatinine 1.40 H (0.52-1.04) mg/dL Glucose 65 L (74-99) mg/dL POC Glucose (mg/dL) (75-99) mg/dL 05/22/18 05/22/18 05/22/18 Range/Units 11:59 17:01 19:50 MCH (25.0-35.0) pg MCHC (31.0-37.0) g/dL RDW (11.5-15.5) % APTT (22.0-30.0) sec BUN (7-17) mg/dL Creatinine (0.52-1.04) mg/dL Glucose (74-99) mg/dL POC Glucose (mg/dL) 128 H 178 H 119 H (75-99) mg/dL Microbiology - Last 24 Hours (Table) 05/20/18 21:01 Blood Culture - Preliminary Blood No Growth after 24 hours Assessment and Plan Assessment: Acute and chronic systolic congestive heart failure bilateral leg swelling, secondary to above. Rule out DVT. History of diabetes mellitus Hypertension Hyperlipidemia History of coronary artery disease History of chronic back pain History of the tree and cancer. Plan: This is a pleasant 72 years old female who presents because of acute CHF exacerbation and new DVT , Cardiology consult. Lasix 40 mg twice a day . Check Doppler of the lower extremity. Continue with oxygen therapy.Labs and medication were reviewed.. Continue same treatment. Continue with symptomatic treatment. Resume home medication. Monitor lytes and vitals. DVT and GI prophylaxis. Further recommendations of the clinical course of the patient DVT prophylaxis: Subcutaneous heparin GI Prophylaxis: Pepcid PT/OT: Pending Prognosis is guarded
[2018-05-22] MEDS ORDERED: INSULIN ASPART (NovoLOG) 100 UNIT/ML VIAL SQ SCH (21:30)
[2018-05-22] MEDS: DOCUSATE 100 MG CAP PO SCH (21:52)
[2018-05-22] MEDS: ATORVASTATIN 80 MG TAB PO SCH (21:52)
[2018-05-23] MEDS: HEPARIN SOD,PORK IN 0.45% NACL 25,000 UNIT in 0.45% NACL 1 250ML.BAG IV SCH (04:14)
[2018-05-23 06:47] LABS: Glucose,Whole Blood 130 mg/dL (75-99)
[2018-05-23] MEDS: INSULIN ASPART (NovoLOG) 100 UNIT/ML VIAL SQ SCH ×4 (07:39→21:54)
[2018-05-23] MEDS: CLOPIDOGREL 75 MG TAB PO SCH (07:39)
[2018-05-23] MEDS: FUROSEMIDE 40 MG TAB PO SCH ×2 (07:40→21:52)
[2018-05-23] MEDS: METOPROLOL TARTRATE 50 MG TAB PO SCH ×2 (07:40→20:23)
[2018-05-23] MEDS: CLOTRIMAZOLE/BETAMETH 1-0.05% LOTION 30 ML BTL TOPICAL SCH ×2 (07:40→20:24)
[2018-05-23] MEDS: FAMOTIDINE 20 MG TAB PO SCH (07:40)
[2018-05-23] MEDS: SACUBITRIL/VALSARTAN 24 MG-26 MG TABLET PO SCH ×2 (07:41→20:23)
[2018-05-23] MEDS: NYSTATIN 100,000 UNIT/GM POWD 15 GM TOPICAL SCH ×3 (07:41→22:03)
[2018-05-23] MEDS: SENNOSIDES 8.6 MG TAB PO SCH (07:41)
[2018-05-23] MEDS: SPIRONOLACTONE 25 MG TAB PO SCH (07:41)
[2018-05-23] MEDS: TRIAMCINOLONE ACET 0.1% OINTMENT 15 GM TUBE TOPICAL SCH ×2 (07:43→20:24)
[2018-05-23 08:25] LABS: Anisocytosis Slight; Basophils % (A) 1 %; Eosinophils # (A) 0.3 k/uL (0-0.7); Eosinophils % (A) 4 %; Hypochromasia Marked; Lymphocytes # (A) 0.9 k/uL (1.0-4.8); Lymphocytes % (A) 12 %; MCHC 28.8 g/dL (31.0-37.0); MCV 83.5 fL (80.0-100.0); Monocytes # (A) 0.5 k/uL (0-1.0); Monocytes % (A) 7 %; Neutrophils # (A) 5.5 k/uL (1.3-7.7); Neutrophils % (A) 75 %; Platelet Count 358 k/uL (150-450); RBC 5.39 m/uL (3.80-5.40); RDW 16.8 % (11.5-15.5); WBC 7.4 k/uL (3.8-10.6)
--- NOTE | 2018-05-23 10:46 | P.PN ---
Subjective Progress Note Date: 05/23/18 Principal diagnosis: rt popliteal DVT In f/u today pt has no c/o, she is eating and drinking well, denies any bleeding, no hematuria. Objective - Vital Signs Vital signs: Vital Signs Temp 98.1 F 05/23/18 01:14 Pulse 46 L 05/23/18 01:14 Resp 14 05/23/18 03:56 BP 150/80 05/23/18 01:14 Pulse Ox 95 05/23/18 01:14 Intake & Output 05/22/18 05/23/18 05/23/18 18:59 06:59 18:59 Intake Total 907.317 Output Total 500 Balance 407.317 Weight 72.5 kg Intake: Intake, IV Titration 71.317 Amount Heparin Sod,Pork in 0.45% 71.317 NaCl 25,000 unit In 0.45 % NaCl 1 250ml.bag @ 18 UNITS/KG/HR 13.338 mls/hr IV .[id number] [facility] Rx#: [id number] Oral 836 Output: Urine 500 Other: # Voids 3 - Exam WD,WN, petite, A&Ox3, normocephalic, atraumatic, [place], right eye cataract, respirations even and unlabored, pt can move independently, mild dependent swelling of the feet, mild nail clubbing noted. - Labs CBC & Chem 7: 05/23/18 07:47 05/22/18 06:24 Labs: Abnormal Lab Results - Last 24 Hours (Table) 05/22/18 05/22/18 05/22/18 Range/Units 11:59 17:01 19:50 MCH (25.0-35.0) pg MCHC (31.0-37.0) g/dL RDW (11.5-15.5) % Lymphocytes # (1.0-4.8) k/uL APTT (22.0-30.0) sec POC Glucose (mg/dL) 128 H 178 H 119 H (75-99) mg/dL 05/23/18 05/23/18 05/23/18 Range/Units 06:46 07:47 07:47 MCH 24.0 L (25.0-35.0) pg MCHC 28.8 L (31.0-37.0) g/dL RDW 16.8 H (11.5-15.5) % Lymphocytes # 0.9 L (1.0-4.8) k/uL APTT 60.7 H (22.0-30.0) sec POC Glucose (mg/dL) 130 H (75-99) mg/dL Microbiology - Last 24 Hours (Table) 05/20/18 21:01 Blood Culture - Preliminary Blood No Growth after 48 hours Assessment and Plan (1) Deep vein thrombosis (DVT) of popliteal vein of right lower extremity Narrative/Plan: Suspect r/t 2 recent hospitalizations for respiratory complaints, decreased activity, steroids, increased CBG. CTA ordered for today Recommendation is for 3 mo anticoagulation (discussed with nitro worker, co-pay verification being checked). Re check doppler RLE popliteal DVT in 3 mo with decisions regarding anticoagulation to made at that time. Pt uterine malignancy is >15 years old, pt has no symptoms to suggest recurrent malignancy at this time. I plan on contacting PCP to inquire about cancer screenings and to inform him of the plan for DVT. Current Visit: Yes Status: Acute Priority: Medium Code(s): I82.431 - ACUTE EMBOLISM AND THROMBOSIS OF RIGHT POPLITEAL VEIN SNOMED Code(s): 159429342
[2018-05-23 10:56] LABS: Calcium 9.2 mg/dL (8.4-10.2)
[2018-05-23 12:08] LABS: Glucose,Whole Blood 140 mg/dL (75-99)
[2018-05-23] MEDS: APIXABAN 5 MG TAB PO SCH ×2 (13:04→20:35)
--- NOTE | 2018-05-23 13:15 | P.PN ---
Subjective This is a pleasant 78-year-old female past medical history significant for coronary artery disease status post bypass grafting 4-vessel in 1996 and subsequent stent placement, chronic systolic heart failure, diabetes mellitus, hypertension, dyslipidemia and ischemic cardiomyopathy. She follows in the office with Dr. Jeong. Blood pressure 150/80 heart rates 80-90s. Laboratory data reviewed, WBC 7.4, hemoglobin 13, platelets 258, sodium 138, potassium 4, creatinine 1.17. Currently on IV heparin for right lower extremity DVT. CTA timothy st is ordered. She denies chest pain, shortness of breath, dizziness or palpitations. GENERAL: This is a 78-year-old female in no apparent distress at the time of my examination. HEENT: Head is atraumatic, normocephalic. Pupils are equal, round. Sclerae anicteric. Conjunctivae are clear. Mucous membranes of the mouth are moist. Neck is supple. There is no jugular venous distention. No carotid bruit is heard. LUNGS: Clear to auscultation bilaterally. No rales, wheezes or rhonchi. No chest wall tenderness is noted on palpation or with deep breathing. HEART: Regular rate and rhythm with systolic ejection murmur at the base, no rubs or gallops. S1 and S2 heard. EXTREMITIES: Ongoing edema. ASSESSMENT Acute on chronic systolic heart failure Acute right lower extremity DVT Mild troponin leak not indicative of an acute coronary event. Possibly related to oxygen supply demand mismatch. Hypertension Dyslipidemia History of coronary artery disease status post bypass grafting Ischemic cardiomyopathy Diabetes mellitus PLAN Discontinue IV heparin and initiate on Eliquis 10 mg BID x1 week then 5 mg BID thereafter for 3 months. Maintain on Eliquis and Plavix, no aspirin. Tolerating Entresto. Pt states she is likely going to rehab at discharge. Follow up with Dr. Jeong upon discharge. Nurse Practitioner note has been reviewed, I agree with a documented findings and plan of care. Patient was seen and examined. Objective - Vital Signs Vital signs: Vital Signs Temp 98.1 F 05/23/18 01:14 Pulse 46 L 05/23/18 01:14 Resp 14 05/23/18 03:56 BP 150/80 05/23/18 01:14 Pulse Ox 95 05/23/18 01:14 Intake & Output 05/22/18 05/23/18 05/23/18 18:59 06:59 18:59 Intake Total 907.317 Output Total 500 Balance 407.317 Weight 72.5 kg Intake: Intake, IV Titration 71.317 Amount Heparin Sod,Pork in 0.45% 71.317 NaCl 25,000 unit In 0.45 % NaCl 1 250ml.bag @ 18 UNITS/KG/HR 13.338 mls/hr IV .[id number] [facility] Rx#: [id number] Oral 836 Output: Urine 500 Other: # Voids 3 - Labs CBC & Chem 7: 05/23/18 07:47 05/23/18 07:47 Labs: Abnormal Lab Results - Last 24 Hours (Table) 05/22/18 05/22/18 05/23/18 Range/Units 17:01 19:50 06:46 MCH (25.0-35.0) pg MCHC (31.0-37.0) g/dL RDW (11.5-15.5) % Lymphocytes # (1.0-4.8) k/uL APTT (22.0-30.0) sec BUN (7-17) mg/dL Creatinine (0.52-1.04) mg/dL Glucose (74-99) mg/dL POC Glucose (mg/dL) 178 H 119 H 130 H (75-99) mg/dL 05/23/18 05/23/18 05/23/18 Range/Units 07:47 07:47 07:47 MCH 24.0 L (25.0-35.0) pg MCHC 28.8 L (31.0-37.0) g/dL RDW 16.8 H (11.5-15.5) % Lymphocytes # 0.9 L (1.0-4.8) k/uL APTT 60.7 H (22.0-30.0) sec BUN 30 H (7-17) mg/dL Creatinine 1.17 H (0.52-1.04) mg/dL Glucose 171 H (74-99) mg/dL POC Glucose (mg/dL) (75-99) mg/dL 05/23/18 Range/Units 12:06 MCH (25.0-35.0) pg MCHC (31.0-37.0) g/dL RDW (11.5-15.5) % Lymphocytes # (1.0-4.8) k/uL APTT (22.0-30.0) sec BUN (7-17) mg/dL Creatinine (0.52-1.04) mg/dL Glucose (74-99) mg/dL POC Glucose (mg/dL) 140 H (75-99) mg/dL Microbiology - Last 24 Hours (Table) 05/20/18 21:01 Blood Culture - Preliminary Blood No Growth after 48 hours
[2018-05-23 16:53] LABS: Glucose,Whole Blood 212 mg/dL (75-99)
--- NOTE | 2018-05-23 17:23 | CT ---
EXAMINATION TYPE: CT brain wo con DATE OF EXAM: 05/23/2018 COMPARISON: 03/23/2016 HISTORY: confusion CT DLP: 1075.4 mGycm Automated exposure control for dose reduction was used. FINDINGS: There is cerebral cortical atrophy. There is no mass effect nor midline shift. There is large wedge-s haped area of hypodensity involving the right posterior temporal lobe extending into the occipital an d parietal lobe consistent with old infarct. There is no evidence of intracranial hemorrhage. The tien varium is intact. There is some debris in the right external auditory canal. 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 NO ACUTE INTR ACRANIAL ABNORMALITY. There is minimal right maxillary sinusitis compared to old exam.
[2018-05-23 19:06] LABS: Glucose,Whole Blood 232 mg/dL (75-99)
[2018-05-23] MEDS: DOCUSATE 100 MG CAP PO SCH (20:23)
[2018-05-23] MEDS: ATORVASTATIN 80 MG TAB PO SCH (20:23)
[2018-05-24 00:21] LABS: Glucose,Whole Blood 135 mg/dL (75-99)
[2018-05-24 07:26] LABS: Glucose,Whole Blood 207 mg/dL (75-99)
[2018-05-24] MEDS: INSULIN ASPART (NovoLOG) 100 UNIT/ML VIAL SQ SCH ×2 (07:26→15:56)
[2018-05-24] MEDS: APIXABAN 5 MG TAB PO SCH (07:31)
[2018-05-24] MEDS: CLOPIDOGREL 75 MG TAB PO SCH (07:31)
[2018-05-24] MEDS: TRIAMCINOLONE ACET 0.1% OINTMENT 15 GM TUBE TOPICAL SCH (07:31)
[2018-05-24] MEDS: SPIRONOLACTONE 25 MG TAB PO SCH (07:31)
[2018-05-24] MEDS: FUROSEMIDE 40 MG TAB PO SCH (07:32)
[2018-05-24] MEDS: FAMOTIDINE 20 MG TAB PO SCH (07:32)
[2018-05-24] MEDS: NYSTATIN 100,000 UNIT/GM POWD 15 GM TOPICAL SCH (07:33)
[2018-05-24] MEDS: METOPROLOL TARTRATE 50 MG TAB PO SCH (07:33)
[2018-05-24] MEDS: SENNOSIDES 8.6 MG TAB PO SCH (07:33)
[2018-05-24] MEDS: CLOTRIMAZOLE/BETAMETH 1-0.05% LOTION 30 ML BTL TOPICAL SCH (07:33)
[2018-05-24] MEDS: SACUBITRIL/VALSARTAN 24 MG-26 MG TABLET PO SCH (07:33)
[2018-05-24 08:27] LABS: Calcium 9.6 mg/dL (8.4-10.2); Potassium 4.1 mmol/L (3.5-5.1)
[2018-05-24 11:49] LABS: Glucose,Whole Blood 147 mg/dL (75-99)
--- NOTE | 2018-05-24 15:10 | P.DS ---
Providers Date of admission: 05/20/18 23:39 Expected date of discharge: 05/24/18 Attending physician: Jethro Gonzalez Consults: 05/20/18 23:29 Consult Physician Routine Consulting Provider: [facility] Consult Reason/Comments: CHF exacerbation Do you want consulting provider notified?: Yes 05/22/18 14:21 Consult Physician Routine Consulting Provider: John Landry Consult Reason/Comments: DVT Do you want consulting provider notified?: Yes Primary care physician: Jethro Troy Hospital Course: Final Diagnoses: Acute and chronic systolic congestive heart failure DVT of popliteal vein of right lower extremity History of diabetes mellitus Hypertension Hyperlipidemia coronary artery disease, history of [place] History of TIA chronic back pain Hospital course:this is a pleasant 78 years old female with past medical history of congestive heart failure, diabetes mellitus, hyperlipidemia, hypertension, coronary artery disease, chronic back pain, history uterine cancer.she is a patient of Dr. Troy in the outpatient setting.patient presents with progressive dyspnea over one week associated with paroxysmal nocturnal dyspnea and orthopnea, patient now is sleeping on 2 extra pillows, and using the Rhino more often. She has dry cough, and she has worsening leg swelling. However she denies chest pain. Also patient complaining of from pain in her left leg is some tenderness. She uses Plavix at home but not aspirin, and she is not on home oxygen. on admission Vitas looks stable.patient admission has moderately elevated troponin at 0.04 and 0.03. CBC is unremarkable. Sodium 136, creatinine 1.17, total bilirubin is 2.0, liver enzymes are within normal limits.proBNP is 7300. Chest x-ray showing left lower lobe consolidation with left pleural effusion, small.EKG: Normal sinus rhythm at 86, no significant ST-T changes,in the emergency room patient got a breathing treatment and 1 dose of Lasix 40 mg. Patient currently on Lasix 40 mg IV every 12 hours,he is on Plavix. Evaluated by cardiology and hematology/oncology. Doppler reporting right mid popliteal DVT .Chest CTA deferred secondary to renal function; to be completed outpatient. Anticoagulated on both Plavix and Eliquis . No aspirin. Entresto added as per cardiology, tolerating well, VSS. Diuresed well on Lasix IV. Significant clinical improvement. Cleared by all consults for discharge. Patient is being discharged to subacute rehab in a stable condition with guarded prognosis. - Exam GENERAL: The patient is alert and oriented x3, not in any acute distress. CARDIOVASCULAR: S1 and S2 present. No murmurs, rubs, or gallops. -PULMONARY: Chest is clear to auscultation, no wheezing. bilateral basal crepitation ABDOMEN: Soft, nontender, nondistended, normoactive bowel sounds. No palpable organomegaly NEUROLOGICAL: Gross neurological examination did not reveal any focal deficits. The impression and plan of care has been dictated as directed. : I performed a history and examination of this patient, discussed the same with the dictator. I agree with the dictator's note ,documented as a scribe. Any additional findings or plans will be noted. Time taken: 35 minutes Patient Condition at Discharge: Stable Plan - Discharge Summary New Discharge Prescriptions: New Apixaban [Eliquis] 10 mg PO BID tab Sacubitril/Valsartan [Entresto 24 mg-26 mg Tablet] 1 each PO BID tablet INSULIN LISPRO (HumaLOG) [humaLOG] 0 unit SQ ACHS #1 vial Furosemide [Lasix] 40 mg PO BID@0900,1600 tab Melatonin 1 mg PO HS PRN tab PRN Reason: Insomnia Famotidine [Pepcid] 20 mg PO DAILY tab guaiFENesin SYRUP 100MG/5ML [Robitussin] 200 mg PO Q6H PRN cup PRN Reason: Cough Continue Metoprolol Tartrate [Lopressor] 50 mg PO BID Clopidogrel [Plavix] 75 mg PO DAILY Atorvastatin [Lipitor] 80 mg PO HS #30 tab Triamcinolone 0.025% Cream [Kenalog 0.025% Cream] 1 applic TOPICAL BID Sennosides [Senokot] 8.6 mg PO DAILY Nystatin 100,000 Unit/gm Powd [Mycostatin Powder] 1 applic TOPICAL TID Nitroglycerin Sl Tabs [Nitrostat] 0.4 mg SUBLINGUAL Q5M PRN PRN Reason: Chest Pain metFORMIN HCL [Glucophage] 250 mg PO AC-BID Docusate [Colace] 100 mg PO HS Clotrimazole/Betameth Lotion [Lotrisone] 1 applic TOPICAL BID Albuterol Nebulized [Ventolin Nebulized] 2.5 mg INHALATION RT-QID PRN PRN Reason: Shortness Of Breath Spironolactone [Aldactone] 12.5 mg PO DAILY #60 tab Discontinued Losartan [Cozaar] 50 mg PO DAILY #60 tab Furosemide [Lasix] 40 mg PO DAILY tab Discharge Medication List Clopidogrel [Plavix] 75 mg PO DAILY 05/13/15 [History] Metoprolol Tartrate [Lopressor] 50 mg PO BID 05/13/15 [History] Atorvastatin [Lipitor] 80 mg PO HS #30 tab 03/27/16 [Rx] Albuterol Nebulized [Ventolin Nebulized] 2.5 mg INHALATION RT-QID PRN 04/22/18 [History] Clotrimazole/Betameth Lotion [Lotrisone] 1 applic TOPICAL BID 04/22/18 [History] Docusate [Colace] 100 mg PO HS 04/22/18 [History] Nitroglycerin Sl Tabs [Nitrostat] 0.4 mg SUBLINGUAL Q5M PRN 04/22/18 [History] Nystatin 100,000 Unit/gm Powd [Mycostatin Powder] 1 applic TOPICAL TID 04/22/18 [History] Sennosides [Senokot] 8.6 mg PO DAILY 04/22/18 [History] Triamcinolone 0.025% Cream [Kenalog 0.025% Cream] 1 applic TOPICAL BID 04/22/18 [History] metFORMIN HCL [Glucophage] 250 mg PO AC-BID 04/22/18 [History] Spironolactone [Aldactone] 12.5 mg PO DAILY #60 tab 05/07/18 [Rx] Apixaban [Eliquis] 10 mg PO BID tab 05/24/18 [Rx] Famotidine [Pepcid] 20 mg PO DAILY tab 05/24/18 [Rx] Furosemide [Lasix] 40 mg PO BID@0900,1600 tab 05/24/18 [Rx] INSULIN LISPRO (HumaLOG) [humaLOG] 0 unit SQ ACHS #1 vial 05/24/18 [Rx] Melatonin 1 mg PO HS PRN tab 05/24/18 [Rx] Sacubitril/Valsartan [Entresto 24 mg-26 mg Tablet] 1 each PO BID tablet 05/24/18 [Rx] guaiFENesin SYRUP 100MG/5ML [Robitussin] 200 mg PO Q6H PRN cup 05/24/18 [Rx] Follow up Appointment(s)/Referral(s): Roxana Jeong MD [STAFF PHYSICIAN] - 06/04/18 9:00 am Jethro Troy DO [Primary Care Provider] - 1 Week (After DC from subacute rehab) Neil Argueta, [NON-STAFF] - As Needed [facility] [NON-STAFF] - As Needed Activity/Diet/Wound Care/Special Instructions: Neil confirm Lasix dosing as per cardiology prior to discharge eliquis 10 mg twice a day 1 week then 5 mg twice a day X 3 mths. Recheck Doppler right lower extremity popliteal DVT in 3 months with decisions regarding further anticoagulation to be made at that time. Please call [facility] [employer] for assistance with housekeeping: #[phone]. cbc,bmp in 3 days Diet cardiac Activity: As tolerated Outpatient chest CTA recommended as per oncology
[2018-05-24 15:15] VITALS: BP 155/77; PULSE 94; RESP 16; TEMP 98.2
[2018-05-24 17:09] LABS: Glucose,Whole Blood 194 mg/dL (75-99)
--- NOTE | 2018-05-24 19:01 | P.PN ---
Subjective Progress Note Date: 05/23/18 Interval history:this is a pleasant 78 years old female with past medical history of congestive heart failure, diabetes mellitus, hyperlipidemia, hypertension, coronary artery disease, chronic back pain, history uterine cancer.she is a patient of Dr. Troy in the outpatient setting.patient presents with progressive dyspnea over one week associated with paroxysmal nocturnal dyspnea and orthopnea, patient now is sleeping on 2 extra pillows, and using the Rhino more often. She has dry cough, and she has worsening leg swelling. However she denies chest pain. Also patient complaining of from pain in her left leg is some tenderness. She uses Plavix at home but not aspirin, and she is not on home oxygen. on admission Vitas looks stable.patient admission has moderately elevated troponin at 0.04 and 0.03. CBC is unremarkable. Sodium 136, creatinine 1.17, total bilirubin is 2.0, liver enzymes are within normal limits.proBNP is 7300. Chest x-ray showing left lower lobe consolidation with left pleural effusion, small.EKG: Normal sinus rhythm at 86, no significant ST-T changes,in the emergency room patient got a breathing treatment and 1 dose of Lasix 40 mg. Patient currently on Lasix 40 mg IV every 12 hours,he is on Plavix. 05/22/18 pt is awake and alert , she is still dyspneic, no chest pain , she is coughing . pt remains on lasix for acute CHF exacerbation , it is switched to oral doses as her creatinine is trending up today . pt remains on heparin drip , hematology consult is appreciated. pt currently on 2 L o2 saturating 98%, she was not on home oxygen. physical therapist recommended [facility] on discharge. 05/23/2018 Doppler reporting right mid popliteal DVT .Chest CTA deferred s econdary to renal function; to be completed outpatient. Anticoagulated on both Plavix and Eliquis . No aspirin. Continues on Entresto, tolerating well, VSS. Diuresing well on oral Lasix with 24-hour I&O reflecting a negative fluid balance. Renal function continues to improve with creatinine down to 1.17. Mild intermittent confusion reported as per family, brain CT completed reporting large old right middle cerebral artery cortical infarct, unchanged compared to prior exam with no acute intracranial abnormality. Afebrile. Objective - Vital Signs Vital signs: Vital Signs Temp 98.3 F 05/23/18 17:17 Pulse 89 05/23/18 17:17 Resp 18 05/23/18 17:17 BP 169/81 05/23/18 17:17 Pulse Ox 94 L 05/23/18 17:17 Intake & Output 05/22/18 05/23/18 05/23/18 18:59 06:59 18:59 Intake Total 907.317 Output Total 500 500 Balance 407.317 -500 Weight 72.5 kg Intake: Intake, IV Titration 71.317 Amount Heparin Sod,Pork in 0.45% 71.317 NaCl 25,000 unit In 0.45 % NaCl 1 250ml.bag @ 18 UNITS/KG/HR 13.338 mls/hr IV .[id number] Rx#: [id number] Oral 836 Output: Urine 500 500 Other: # Voids 3 3 - Exam GENERAL: The patient is alert and oriented x3, not in any acute distress. obese HEENT: Pupils are round and equally reacting to light. EOMI. No scleral icterus. No conjunctival pallor. Normocephalic, atraumatic. No pharyngeal erythema. No thyromegaly. CARDIOVASCULAR: S1 and S2 present. No murmurs, rubs, or gallops. -PULMONARY: Chest is clear to auscultation, no wheezing. bilateral basal crepitation ABDOMEN: Soft, nontender, nondistended, normoactive bowel sounds. No palpable organomegaly. MUSCULOSKELETAL: No joint swelling or deformity. -EXTREMITIES: No cyanosis, clubbing, . bilateral leg edema. some tenderness behind the left leg NEUROLOGICAL: Gross neurological examination did not reveal any focal deficits. SKIN: No rashes. - Labs CBC & Chem 7: 05/23/18 07:47 05/24/18 07:47 Labs: Abnormal Lab Results - Last 24 Hours (Table) 05/22/18 05/23/18 05/23/18 Range/Units 19:50 06:46 07:47 MCH 24.0 L (25.0-35.0) pg MCHC 28.8 L (31.0-37.0) g/dL RDW 16.8 H (11.5-15.5) % Lymphocytes # 0.9 L (1.0-4.8) k/uL APTT (22.0-30.0) sec BUN (7-17) mg/dL Creatinine (0.52-1.04) mg/dL Glucose (74-99) mg/dL POC Glucose (mg/dL) 119 H 130 H (75-99) mg/dL 05/23/18 05/23/18 05/23/18 Range/Units 07:47 07:47 12:06 MCH (25.0-35.0) pg MCHC (31.0-37.0) g/dL RDW (11.5-15.5) % Lymphocytes # (1.0-4.8) k/uL APTT 60.7 H (22.0-30.0) sec BUN 30 H (7-17) mg/dL Creatinine 1.17 H (0.52-1.04) mg/dL Glucose 171 H (74-99) mg/dL POC Glucose (mg/dL) 140 H (75-99) mg/dL 05/23/18 Range/Units 16:48 MCH (25.0-35.0) pg MCHC (31.0-37.0) g/dL RDW (11.5-15.5) % Lymphocytes # (1.0-4.8) k/uL APTT (22.0-30.0) sec BUN (7-17) mg/dL Creatinine (0.52-1.04) mg/dL Glucose (74-99) mg/dL POC Glucose (mg/dL) 212 H (75-99) mg/dL Microbiology - Last 24 Hours (Table) 05/20/18 21:01 Blood Culture - Preliminary Blood No Growth after 48 hours Assessment and Plan Assessment: Acute and chronic systolic congestive heart failure DVT of popliteal vein of right lower extremity History of diabetes mellitus Hypertension Hyperlipidemia coronary artery disease, history of [place] History of TIA chronic back pain 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 Plan: Continue on current medication regime ,monitoring and symptomatic treatment. Continue on anticoagulation with both Plavix, Eliquis, no aspirin. Maintain diuresing with oral Lasix with strict I&O. GI and DVT prophylaxis in place with heparin subcu and Pepcid. PT OT. Outpatient chest CTA as per Oncology. the Discharge planning in progress for tomorrow to subacute rehab. The impression and plan of care has been dictated as directed. : I performed a history and examination of this patient, discussed the same with the dictator. I agree with the dictator's note ,documented as a scribe. Any additional findings or plans will be noted.
--- NOTE | 2018-05-27 08:43 | CDI ---
Documentation Clarification Form Date: 05/27/2018 8:35:36 AM From: Vonda Corrales Phone: If you have a question about this query, please contact Anabel Hughes Travel Administrator at [phone] between 8am and 5pm. Admit Date: 05/20/2018 11:39:00 PM Patient Name: Malika Alcantara Visit Number: [id number] Discharge Date: 05/24/2018 5:23:00 PM ATTENTION: The Clinical Documentation Specialists (CDI) and [facility] Coding Staff appreciate your assistance in clarifying documentation. Please respond to the clarification below the line at the bottom and electronically sign. The CDI & [facility] Coding staff will review the response and follow-up if needed. Please note: Queries are made part of the Legal Health Record. If you have any questions, please contact the author of this message via ITS. Dr. Watkins [facility] renal disease was documented throughout the chart. Please clarify if patient has acute or chronic renal disease. History/Risk Factors: HTN CHF DM Current BUN/Cr/GFR: BUN 28-32 Creat 1.17-1.40 GFR 36-50 levels during current stay Consults: Consults also document renal disease In order to capture the severity of condition, please clarify if the condition signifies: Acute renal failure, Please specify etiology (if known): Cortical Necrosis ? Medullary Necrosis ? Tubular Necrosis Acute kidney injury Acute on chronic renal failure CKD Stage 1 GFR >90 CKD Stage 2 GFR 60-89 CKD Stage 3 GFR 30-59 CKD Stage 4 GFR 15-29 CKD Stage 5 GFR <15 Chronic renal failure/Chronic Kidney disease (CKD) please stage (if known): CKD Stage 1 GFR >90 CKD Stage 2 GFR 60-89 CKD Stage 3 GFR 30-59 CKD Stage 4 GFR 15-29 CKD Stage 5 GFR <15 ESRD Other, please specify Unable to determine MTDD
== END 2018-05-24 17:23 | DRG 292 ==
LOC: EC 19:31 → 4SSUR 23:39
PROVIDERS: ADMIT Family Medicine; ATTEND Family Medicine
DX: I11.0 Hypertensive heart disease with heart failure (principal); I82.431 Acute embolism and thrombosis of right popliteal vein; Z85.42 Personal history of malignant neoplasm of other parts of uterus; E11.9 Type 2 diabetes mellitus without complications; E78.5 Hyperlipidemia, unspecified; F41.9 Anxiety disorder, unspecified; G89.29 Other chronic pain; M48.061 Spinal stenosis, lumbar region without neurogenic claudication; I25.10 Atherosclerotic heart disease of native coronary artery without angina pectoris; I25.2 Old myocardial infarction; I25.5 Ischemic cardiomyopathy; I25.82 Chronic total occlusion of coronary artery; Z95.1 Presence of aortocoronary bypass graft; Z95.5 Presence of coronary angioplasty implant and graft; I27.20 Pulmonary hypertension, unspecified; I50.23 Acute on chronic systolic (congestive) heart failure; Z79.02 Long term (current) use of antithrombotics/antiplatelets; Z79.84 Long term (current) use of oral hypoglycemic drugs; Z79.899 Other long term (current) drug therapy; Z80.0 Family history of malignant neoplasm of digestive organs; Z80.49 Family history of malignant neoplasm of other genital organs; Z82.49 Family history of ischemic heart disease and other diseases of the circulatory system; Z83.3 Family history of diabetes mellitus; Z86.73 Personal history of transient ischemic attack (TIA), and cerebral infarction without residual deficits; Z90.710 Acquired absence of both cervix and uterus; Z96.651 Presence of right artificial knee joint; Z60.2 Problems related to living alone; Z88.0 Allergy status to penicillin; Z91.040 Latex allergy status; H26.9 Unspecified cataract; N28.9 Disorder of kidney and ureter, unspecified; R74.8 Abnormal levels of other serum enzymes; M19.90 Unspecified osteoarthritis, unspecified site; K59.09 Other constipation; R56.9 Unspecified convulsions
CPT/HCPCS: 36415; 70450; 71046; 80048; 80053; 83880; 84484; 85025; 85610; 85730; 87040; 87502; 93005; 93970; 94640; 94760; 96374; 99285